=== PATIENT | male | born 1965 | race Caucasian/White ===

== ENCOUNTER 2017-03-03 00:12 | Emergency (ER) | payer OTHER ==
[~2017-03-03] VITALS: Ht 165.1 cm; Wt 73.0 kg
[~2017-03-03 00:12] MED LIST: ACET-2158 PO; ALBU18HF INH; ASPI-535 PO; ATOR10TA65 PO; CALC667C PO; CARV12.579 PO; FOLI1CAP PO; HYDR-3672 PO; ISOS30TA5 PO; LACTOBACILLUS RHAMNOSUS PO; LOSA25TA2 PO; NIFE60TA7 PO; OMEP20CA16 PO; SPIR25TA PO
[2017-03-03 00:16] VITALS: Ht 165.1 cm; Wt 73.0 kg
[2017-03-03] MEDS ORDERED: ACETAMINOPHEN 500 MG TAB PO STA (01:42)
[2017-03-03] MEDS ORDERED: ONDANSETRON (ODT) 4 MG TAB ODT STA (02:40)
--- NOTE | 2017-03-03 03:05 | ERD ---
ER Documentation Chief Complaint Date/Time DATE: 03/03/17 TIME: 02:44 Chief Complaint sp circumcision today, bleeding genital area HPI Patient is a 51-year-old male with past medical history of HTN, ESRD ( currently on dialysis M, W, F), hepatitis C, pericardial effusion, who presents emergency department with postoperative bleeding from his penis. Patient states he underwent a circumcision earlier today. Patient reports some bleeding upon discharge from the outpatient surgical center. Patient states he went home and took a shower. After taking a shower, patient noticed increased in amount of bleeding. Patient states he changed his dressing. Patient reports bright red blood. Patient also reports severe pain. Patient states he last took Frazer for his pain at 2 PM today. Patient denies any fevers or chills. Patient denies any nausea or vomiting. Patient's urologist is Dr. Sanchez. ROS All systems reviewed and are negative except as per history of present illness. Medications Home Meds Active Scripts Hydralazine Hcl* (Hydralazine Hcl*) 50 Mg Tab, 10 MG PO TID, #30 TAB Prov:JEFE VENTURA MD 12/08/14 Spironolactone* (Aldactone*) 25 Mg Tab, 12.5 MG PO DAILY, #14 Prov:JEFE VENTURA MD 12/08/14 Losartan Potassium* (Cozaar*) 25 Mg Tab, 25 MG PO HS, #14 Prov:JEFE VENTURA MD 12/08/14 [Lactobacillus Rhamnosus] 1 CAP CAP No Conflict Check, 1 CAP PO BID, #14 CAP Prov:JEFE VENTURA MD 12/08/14 Albuterol Sulfate* (Ventolin HFA*) 1 Puff Inha, 2 PUFF INH Q4 Y for SHORTNESS OF BREATH, #1 Prov:JEFE VENTURA MD 12/08/14 Acetaminophen (TYLENOL 325 MG TAB) 325 Mg Tab, 650 MG PO Q6H Y for PAIN LEVEL 1- 3 OR FEVER, #10 TAB Prov:JEFE VENTURA MD 12/08/14 Reported Medications Carvedilol* (Carvedilol*) 12.5 Mg Tablet, 12.5 MG PO BID, TAB 11/16/14 Atorvastatin Calcium (Atorvastatin Calcium) 10 Mg Tab, 10 MG PO HS, TAB 11/16/14 Folic Acid/Vitamin B Comp W-C (Nephrocaps Capsule) 1 Mg Capsule, 1 MG PO DAILY 10/18/14 Nifedipine* (Nifedipine ER*) 60 Mg Tablet.sa, 60 MG PO BID, TAB.SA 10/18/14 Calcium Acetate* (Calcium Acetate*) 667 Mg Capsule, 7835-2265 MG PO TID W/ MEALS , CAP 08/08/14 Isosorbide Mononitrate* (Isosorbide Mononitrate*) 30 Mg Tab.er.24h, 30 MG PO DAILY, TAB 08/08/14 Omeprazole* (Omeprazole*) 20 Mg Capsule.dr, 20 MG PO DAILY, CAP 07/02/14 Aspirin Ec (Aspir 81) 81 Mg Tablet.dr, 81 MG PO DAILY 12/22/12 Allergies Allergies: Coded Allergies: tramadol (Verified Allergy, Intermediate, rash, 11/26/14) possible allergy Cephalexin Monohydrate (Verified Allergy, Unknown, RASH, 11/26/14) PMhx/Soc History of Surgery: No Anesthesia Reaction: No Hx 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 Disorder: No Hx Respiratory Disorders: Yes (PNA) Hx Cardiac Disorders: Yes (HTN) Hx Psychiatric Problems: No Hx Miscellaneous Medical Probl: Yes (ESRD, DIALYSIS PT. ) Hx Alcohol Use: No Hx Substance Use: No Hx Tobacco Use: No Smoking Status: Never smoker FmHx Family History: No diabetes Physical Exam Vitals Vital Signs Date Time Temp Pulse Resp B/P Pulse Ox O2 Delivery O2 Flow Rate FiO2 03/03/17 00:16 98.2 66 20 148/66 98 Physical Exam GENERAL: Well-developed, well-nourished male. Appears in no acute distress. Speaking in full sentences. HEAD: Normocephalic, atraumatic. EYES: Pupils are equally reactive bilaterally. EOMs grossly intact. No conjunctival erythema. ENT: Moist mucous membranes. No uvula deviation. No kissing tonsils. NECK: Supple. No meningismus. Normal range of motion of the neck. LUNG: Clear to auscultation bilaterally. No rhonchi, wheezing, rales or coarse breath sounds. HEART: Regular rate and rhythm. No murmurs, rubs or gallops. ABDOMEN: No scars, ecchymosis or rashes noted. Soft, nontender, and nondistended. Positive bowel sounds in all four quadrants. No rebound tenderness , no guarding. (-) McBurney's point tenderness. No CVA tenderness. BACK: No midline tenderness. 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 Dressing removed. Post surgical reconstruction noted, penile head exposed, sutures intact circumferentially around penile head, minimal bleeding noted from posterior aspect of incisional site. 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 Penis flaccid. Penile shaft appeared swollen with ecchymosis. Normal scrotum without any masses , tenderness, swelling or erythema. EXTREMITIES: Equal pulses bilaterally. No peripheral clubbing, cyanosis or edema. No unilateral leg swelling. NEUROLOGIC: Alert and oriented. Moving all four extremities without any difficulty. Normal speech. Steady gait. SKIN: Normal color. Warm and dry. No rashes or lesions. Results 24 hrs Current Medications Medications (Trade) Dose Ordered Sig/Omar Route PRN Reason Start Time Stop Time Status Last Admin Dose Admin Acetaminophen (Tylenol Tab) 500 mg ONCE STAT PO 03/03/17 01:42 03/03/17 01:43 DC 03/03/17 01:42 Ondansetron HCl (Zofran Odt) 4 mg ONCE STAT ODT 03/03/17 02:40 03/03/17 02:41 DC 03/03/17 02:50 Procedures/MDM MEDICAL DECISION MAKING: This is a 51 year old male who presents with penile pain s/p circumcision earlier this today. Vital signs were reviewed. Patient is afebrile. Patient was not hypoxic. Patient was hemodynamically stable. Patient's dressing was removed. Minimal bleeding noted from posterior aspect of penile head. Pressure dressing was replaced. Patient was re-assessed and bleeding remained minimally. I discussed the patient's case with my supervising physician, Dr. Silva, who agreed that the patient was stable for discharge home given that bleeding appeared controlled. At this time, patient's presentation is most consistent with post-op bleeding, controlled. Patient likely irritated penile head while showering, causing increased bleeding, however with direct pressure, bleeding is improved. I have a much lower clinical concern for active hemorrhaging, penile fracture, priapism, balanitis, testicular torsion. PRESCRIPTIONS: none, patient advised to continue medication at prescribed by his urologist. Discharge: At this time, patient is stable for discharge and outpatient management. Patient advised to call Dr. Daniel GIBBONS in the morning was same day follow up appointment. I have instructed the patient to follow-up with his/her primary care physician in 1-2 days. I have instructed the patient to promptly return to the ER for any new or worsening symptoms including increased bleeding, pain, swelling, redness, warmth, fever, dizziness or vomiting. The patient and/or family expressed understanding of and agreement with this plan. All questions were answered. Home care instructions were provided. Departure Diagnosis: Primary Impression: Post-op bleeding Surgical complication system/body Area: genitourinary Procedure type: genitourinary Qualified Code: N99.820 - Postoperative hemorrhage involving genitourinary system following genitourinary procedure Condition: Stable Patient Instructions: Care After Circumcision Referrals: [facility] Additional Instructions: Call your urologist Dr. Sanchez LATER TODAY IN THE MORNING. Return to the emergency department for ongoing bleeding, fevers or chills nausea or vomiting dizziness or loss consciousness. Take pain medication as prescribed by your urologist. Call your primary care doctor TOMORROW for an appointment during the next 1-2 days.See the doctor sooner or return here if your condition worsens before your appointment time. KUNAL PAULINO PA-C March 03, 2017 03:03
== END 2017-03-03 02:52 | disposition home or self-care (01) ==
LOC: FTE 00:12
DX: N99.820 Postprocedural hemorrhage of a genitourinary system organ or structure following a genitourinary system procedure (principal); I12.0 Hypertensive chronic kidney disease with stage 5 chronic kidney disease or end stage renal disease; N18.6 End stage renal disease; Z79.82 Long term (current) use of aspirin; Z99.2 Dependence on renal dialysis
CPT/HCPCS: 99283

== ENCOUNTER 2017-03-13 14:23 | Inpatient (IN) | payer OTHER ==
[~2017-03-13] VITALS: Ht 157.5 cm; Wt 72.2 kg
[2017-03-13] MEDS ORDERED: DIPHENHYDRAMINE 50 MG INJ IV STA (14:37)
[2017-03-13] MEDS ORDERED: NITROGLYCERIN 2% 1 GM OINT PKT TD STA (14:37)
[2017-03-13] MEDS ORDERED: ONDANSETRON 4 MG INJ IV STA (14:37)
[2017-03-13] MEDS ORDERED: ASPIRIN 325 MG TAB PO STA (14:37)
[2017-03-13] MEDS ORDERED: morphine 4 MG/ML VIAL IV STA (14:37)
[2017-03-13] MEDS ORDERED: METHYLPREDNISOLONE 125 MG INJ IV STA (14:37)
[2017-03-13] MEDS ORDERED: FAMOTIDINE 20 MG INJ INJ STA (14:37)
--- NOTE | 2017-03-13 14:51 | ERA ---
ER Documentation Chief Complaint Date/Time DATE: 03/13/17 TIME: 14:46 Chief Complaint chest pain HPI 51-year-old male history of end-stage renal disease on dialysis with dialysis yesterday, complete course who presents to emergency room with multiple complaints including chest pain and itching. The patient states that he just started Keflex for mild swelling after phimosis surgery 2 weeks ago. The patient took Keflex yesterday and now woke up with a diffuse rash to abdomen and extremities that is raised, slightly urticarial and pruritic. He denies any lip or tongue swelling, no difficulty breathing, no shortness of breath. The patient also notes chest pain that started several hours ago that is pressure-like, substernal and nonradiating. No pleuritic pain, no fevers, no cough. ROS All systems reviewed and are negative except as per history of present illness. Medications Home Meds Active Scripts Hydralazine Hcl* (Hydralazine Hcl*) 50 Mg Tab, 10 MG PO TID, #30 TAB Prov:JEFE VENTURA MD 12/08/14 Spironolactone* (Aldactone*) 25 Mg Tab, 12.5 MG PO DAILY, #14 Prov:JEFE VENTURA MD 12/08/14 Losartan Potassium* (Cozaar*) 25 Mg Tab, 25 MG PO HS, #14 Prov:JEFE VENTURA MD 12/08/14 [Lactobacillus Rhamnosus] 1 CAP CAP No Conflict Check, 1 CAP PO BID, #14 CAP Prov:JEFE VENTURA MD 12/08/14 Albuterol Sulfate* (Ventolin HFA*) 1 Puff Inha, 2 PUFF INH Q4 Y for SHORTNESS OF BREATH, #1 Prov:JEFE VENTURA MD 12/08/14 Acetaminophen (TYLENOL 325 MG TAB) 325 Mg Tab, 650 MG PO Q6H Y for PAIN LEVEL 1- 3 OR FEVER, #10 TAB Prov:JEFE VENTURA MD 12/08/14 Reported Medications Carvedilol* (Carvedilol*) 12.5 Mg Tablet, 12.5 MG PO BID, TAB 11/16/14 Folic Acid/Vitamin B Comp W-C (Nephrocaps Capsule) 1 Mg Capsule, 1 MG PO DAILY 10/18/14 Nifedipine* (Nifedipine ER*) 60 Mg Tablet.sa, 60 MG PO BID, TAB.SA 10/18/14 Calcium Acetate* (Calcium Acetate*) 667 Mg Capsule, 5129-5327 MG PO TID W/ MEALS , CAP 08/08/14 Isosorbide Mononitrate* (Isosorbide Mononitrate*) 30 Mg Tab.er.24h, 30 MG PO DAILY, TAB 08/08/14 Aspirin Ec (Aspir 81) 81 Mg Tablet.dr, 81 MG PO DAILY 12/22/12 Discontinued Reported Medications Atorvastatin Calcium (Atorvastatin Calcium) 10 Mg Tab, 10 MG PO HS, TAB 11/16/14 Omeprazole* (Omeprazole*) 20 Mg Capsule.dr, 20 MG PO DAILY, CAP 07/02/14 Allergies Allergies: Coded Allergies: tramadol (Verified Allergy, Intermediate, rash, 11/26/14) possible allergy Cephalexin Monohydrate (Verified Allergy, Unknown, RASH, 11/26/14) PMhx/Soc History of Surgery: No Anesthesia Reaction: No Hx 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 Disorder: No Hx Respiratory Disorders: Yes (PNA) Hx Cardiac Disorders: Yes (HTN) Hx Psychiatric Problems: No Hx Miscellaneous Medical Probl: Yes (ESRD, DIALYSIS PT. ) Hx Alcohol Use: No Hx Substance Use: No Hx Tobacco Use: No FmHx Family History: No diabetes Physical Exam Vitals Vital Signs Date Time Temp Pulse Resp B/P Pulse Ox O2 Delivery O2 Flow Rate FiO2 03/13/17 15:30 98.1 64 14 112/67 99 Room Air 03/13/17 14:55 Nasal Cannula 2 03/13/17 14:55 98.1 69 18 107/66 98 Room Air 03/13/17 14:27 98.1 65 18 106/57 98 Physical Exam General: Well developed, well nourished, no acute distress Head: Normocephalic, atraumatic. Eyes: Pupils equally reactive, EOM intact ENT: Moist mucous membranes Neck: Supple, no lymphadenopathy Respiratory: Lungs clear bilaterally, no distress Cardiovascular: RRR, no murmurs, rubs, or gallops Abdominal: Soft, non-tender, non-distended, no peritoneal signs : Deferred MSK: No edema, no unilateral swelling, 5/5 strength, left upper extremity AV fistula with good bruit and thrill Neurologic: Alert and oriented, moving all extremities, normal speech, no focal weakness, no cerebellar signs Skin: Urticarial rash to abdomen and extremities Psych: Normal mood Result Diagram: 03/13/17 1435 03/13/17 1435 Results 24 hrs Laboratory Tests Test 03/13/17 14:35 White Blood Count 5.410^3/ul Red Blood Count 3.3910^6/ul Hemoglobin 11.0g/dl Hematocrit 33.6% Mean Corpuscular Volume 99.1fl Mean Corpuscular Hemoglobin 32.4pg Mean Corpuscular Hemoglobin Concent 32.7g/dl Red Cell Distribution Width 13.3% Platelet Count 53300^3/UL Mean Platelet Volume 9.2fl Neutrophils % 84.1% Lymphocytes % 9.5% Monocytes % 2.8% Eosinophils % 3.2% Basophils % 0.0% Nucleated Red Blood Cells % 0.0/100WBC Neutrophils # 4.510^3/ul Lymphocytes # 0.510^3/ul Monocytes # 0.210^3/ul Eosinophils # 0.210^3/ul Basophils # 0.010^3/ul Nucleated Red Blood Cells # 0.010^3/ul Prothrombin Time 14.8Sec Prothrombin Time Ratio 1.2 INR International Normalized Ratio 1.16 Activated Partial Thromboplast Time 32.3Sec Sodium Level 141mmol/L Potassium Level 5.1mmol/L Chloride Level 100mmol/L Carbon Dioxide Level 26mmol/L Anion Gap 20 Blood Urea Nitrogen 40mg/dl Creatinine 6.06mg/dl Glucose Level 99mg/dl Calcium Level 8.6mg/dl Troponin I < 0.012ng/ml Current Medications Medications (Trade) Dose Ordered Sig/Omar Route PRN Reason Start Time Stop Time Status Last Admin Dose Admin Aspirin (Aspirin) 325 mg ONCE STAT PO 03/13/17 14:37 03/13/17 14:38 DC 03/13/17 14:48 Nitroglycerin (Nitroglycerin 2% Oint) 1 inch ONCE STAT TD 03/13/17 14:37 03/13/17 14:38 DC 03/13/17 14:51 Morphine Sulfate (morphine) 4 mg ONCE STAT IV 03/13/17 14:37 03/13/17 14:39 DC 03/13/17 14:51 Ondansetron HCl (Zofran Inj) 4 mg ONCE STAT IV 03/13/17 14:37 03/13/17 14:39 DC 03/13/17 14:49 Diphenhydramine HCl (Benadryl) 50 mg ONCE STAT IV 03/13/17 14:37 03/13/17 14:39 DC 03/13/17 14:49 Famotidine (Pepcid Iv) 20 mg ONCE STAT INJ 03/13/17 14:37 03/13/17 14:39 DC 03/13/17 14:49 Methylprednisolone Sodium Succinate (Solu-Medrol) 125 mg ONCE STAT IV 03/13/17 14:37 03/13/17 14:39 DC 03/13/17 14:49 Ondansetron HCl (Zofran Inj) 4 mg ER BRIDGE PRN IV NAUSEA AND/OR VOMITING 03/13/17 16:30 03/14/17 16:29 Acetaminophen (Tylenol Tab) 650 mg ER BRIDGE PRN PO MILD PAIN/FEVER 03/13/17 16:30 03/14/17 16:29 Procedures/MDM EKG, MONITORS, & DIAGNOSTIC IMAGING: EKG: I reviewed and interpreted a 12-lead EKG. Rhythm: Normal sinus rhythm Ectopy: None Intervals: No abnormalities ST segments: No elevations or depressions T waves: No contiguous inversions Repeat EKG: EKG: I reviewed and interpreted a 12-lead EKG. Rhythm: Normal sinus rhythm Ectopy: None Intervals: No abnormalities ST segments: No elevations or depressions T waves: No contiguous inversions Chest x-ray: I reviewed and interpreted a 1 view of the chest Mediastinum: No enlargement Cardiac silhouette: No cardiomegaly Airspace: Clear lung lopez bilaterally without evidence of pneumothorax Bones: No evidence of fracture LAB INTERPRETATION: Negative troponin MEDICAL DECISION MAKING: The patient presents with 2 issues. The first is what appears to be an allergic reaction secondary to Keflex. The patient has an urticarial rash and started taking Keflex yesterday. No evidence of airway involvement. Patient will benefit from Benadryl, Pepcid, Solu-Medrol. The second issue is chest pain. The patient has a history of renal disease and is on dialysis and has chest pressure. This is concerning for cardiac etiology. Given the moderate risk profile I would recommend inpatient hospitalization. The patient is agreeable. No evidence of dissection or pulmonary embolism. ER COURSE: Aspirin, nitro, morphine provided. Benadryl, Pepcid, Solu-Medrol provided. No indication for epinephrine at this time. I would like to avoid this given the patient's concurrent chest pain. I kept the patient and/or family informed of laboratory and diagnostic imaging results throughout the emergency room course. DISPOSITION PLAN: Telemetry admission for management of chest pain and rule out of ACS CONSULTATION: Accepting care team and consultations: I discussed the current laboratory data, diagnostic imaging and emergency care provided. Admitting team: Dr. Cordova Admitting team indication: Insurance directed Departure Diagnosis: Primary Impression: Allergic reaction Qualified Code: T78.40XA - Allergic reaction, initial encounter Additional Impressions: Chest pain Qualified Code: R07.9 - Chest pain, unspecified type ESRD (end stage renal disease) Condition: Stable JESSIKA ALCALA MD March 13, 2017 14:50
[2017-03-13 14:59] LABS: ADD SCAN DIFF NO
[2017-03-13 15:01] LABS: ABNORMAL IP MESSAGE 1; EOSINOPHILS # 0.2 10^3/ul (0.0-0.5); EOSINOPHILS % 3.2 % (0.0-7.0); HEMATOCRIT 33.6 % (42.0-52.0); LYMPHOCYTES # 0.5 10^3/ul (0.8-2.9); LYMPHOCYTES % 9.5 % (15.0-51.0); MEAN CORPUSCULAR HEMOGLOBIN 32.4 pg (29.0-33.0); MEAN CORPUSCULAR HGB CONC 32.7 g/dl (32.0-37.0); MEAN CORPUSCULAR VOLUME 99.1 fl (82.0-101.0); MEAN PLATELET VOLUME 9.2 fl (7.4-10.4); MONOCYTE # 0.2 10^3/ul (0.3-0.9); MONOCYTES % 2.8 % (0.0-11.0); NEUTROPHIL # 4.5 10^3/ul (1.6-7.5); NEUTROPHILS % 84.1 % (39.0-77.0); PLATELET COUNT 142 10^3/UL (140-415); RED BLOOD COUNT 3.39 10^6/ul (4.70-6.10); RED CELL DISTRIBUTION WIDTH 13.3 % (11.5-14.5); WHITE BLOOD COUNT 5.4 10^3/ul (4.8-10.8)
[2017-03-13 15:29] LABS: INR 1.16; PROTIME 14.8 Sec (12.2-14.2); PT RATIO 1.2
[2017-03-13 15:30] LABS: PARTIAL THROMBOPLASTIN TIME 32.3 Sec (25.0-35.0)
[2017-03-13 15:31] LABS: CHLORIDE 100 mmol/L (97-110); POTASSIUM 5.1 mmol/L (3.5-5.1); SODIUM 141 mmol/L (135-144)
[2017-03-13 15:34] LABS: ANION GAP 20 (8-16); BLOOD UREA NITROGEN 40 mg/dl (7-20); CARBON DIOXIDE 26 mmol/L (21-31); CREATININE 6.06 mg/dl (0.61-1.24); GLUCOSE 99 mg/dl (70-220)
[2017-03-13 15:35] LABS: CALCIUM 8.6 mg/dl (8.4-10.2)
--- NOTE | 2017-03-13 15:47 | RADRPT ---
PROCEDURE: XR Chest. CLINICAL INDICATION: Chest Pain. TECHNIQUE: Single frontal chest x-ray. COMPARISON: 12/07/2014 FINDINGS: The lungs are clear of acute infiltrates, edema, effusions, or masses.. Cardiomegaly is unchanged.. The osseous structures are intact. IMPRESSION: No acute cardiopulmonary disease. Cardiomegaly. RPTAT: EE .Chris Baker MD, Date Time Electronically viewed and signed by .Chris Baker MD, on 03/13/2017 15:46 .L/
[2017-03-13 15:52] LABS: TROPONIN-I < 0.012 ng/ml (0.00-0.12)
[2017-03-13] MEDS ORDERED: ONDANSETRON 4 MG INJ IV PRN (16:30)
[2017-03-13] MEDS ORDERED: ACETAMINOPHEN 325 MG TAB PO PRN ×2 (16:30→19:00)
[2017-03-13] MEDS ORDERED: DIPHENHYDRAMINE 50 MG INJ IV ONE (18:00)
[2017-03-13] MEDS ORDERED: ALBUTEROL HFA 8 GM INHALER INH PRN (19:00)
[2017-03-13 19:20] VITALS: TEMP 98.4
[2017-03-13 19:44] VITALS: BP 113/59; PULSE 59; RESP 16
[2017-03-13 19:48] VITALS: BP 119/67; RESP 20
[2017-03-13 19:49] VITALS: Ht 157.5 cm; Wt 72.2 kg
[2017-03-13 20:18] VITALS: PULSE 58
[2017-03-13] MEDS: NIFEdipine (XL) 60 MG TAB PO SCH (20:37)
[2017-03-13] MEDS: LACTOBACILLUS RHAMNOSUS CAP PO SCH (20:38)
[2017-03-13] MEDS: morphine 4 MG/ML VIAL IV PRN (20:39)
[2017-03-13] MEDS ORDERED: LOSARTAN 25 MG TAB PO SCH (21:00)
[2017-03-13 21:25] LABS: ALBUMIN 3.7 g/dl (3.3-4.9)
[2017-03-13 21:27] LABS: BILIRUBIN,INDIRECT 0.1 mg/dl (0-1.1); BILIRUBIN,TOTAL 0.1 mg/dl (0.2-1.3); TOTAL PROTEIN 6.7 g/dl (6.1-8.1)
[2017-03-13 21:28] LABS: CREATINE KINASE 58 IU/L (23-200)
[2017-03-13 21:37] LABS: CK-MB 0.33 ng/ml (0.0-2.4)
[2017-03-13 21:43] LABS: TROPONIN-I < 0.012 ng/ml (0.00-0.12)
[2017-03-14] VITALS (19 sets, daily range): BP systolic 115–139; BP diastolic 58–74; PULSE 58–80; RESP 17–20
[2017-03-14] MEDS: morphine 4 MG/ML VIAL IV PRN ×5 (00:49→23:04)
[2017-03-14 04:31] LABS: ADD SCAN DIFF NO
[2017-03-14 04:34] LABS: ABNORMAL IP MESSAGE 1; EOSINOPHILS % 0.2 % (0.0-7.0); HEMATOCRIT 30.1 % (42.0-52.0); HEMOGLOBIN 9.8 g/dl (14.0-18.0); LYMPHOCYTES # 0.4 10^3/ul (0.8-2.9); LYMPHOCYTES % 8.6 % (15.0-51.0); MEAN CORPUSCULAR HEMOGLOBIN 32.6 pg (29.0-33.0); MEAN CORPUSCULAR HGB CONC 32.6 g/dl (32.0-37.0); MEAN PLATELET VOLUME 9.7 fl (7.4-10.4); MONOCYTE # 0.1 10^3/ul (0.3-0.9); MONOCYTES % 1.6 % (0.0-11.0); NEUTROPHIL # 4.5 10^3/ul (1.6-7.5); NEUTROPHILS % 89.2 % (39.0-77.0); PLATELET COUNT 109 10^3/UL (140-415); RED BLOOD COUNT 3.01 10^6/ul (4.70-6.10); RED CELL DISTRIBUTION WIDTH 13.2 % (11.5-14.5); WHITE BLOOD COUNT 5.1 10^3/ul (4.8-10.8)
--- NOTE | 2017-03-14 04:38 | HP ---
DATE OF ADMISSION: 03/13/2017 PRESENTING COMPLAINT: Rash, lower abdominal and back, of 1 day and chest pressure. HISTORY OF PRESENTING COMPLAINT: This is a 51-year-old male who has a history of end-stage renal di sease on hemodialysis who presents today mainly because of a rash that is on his lower abdomen, back , and groin area which itching all over his body and inside his throat that has been going on for a day and now chest pressure that started this morning. He does not know if both are related. He say s that he has been on antibiotics, Keflex, for about a week, which he is taking because he had a cir cumcision about a week ago. He has not had any swelling through the ____. He has not had any short ness of breath. His hemodialysis schedule is Wednesday, Wednesday, Wednesday, and his last hemodialysis w as yesterday. His hemodialysis, he says, was uneventful. He has not had any fever. He does not fe el dizzy, and he had no syncopal episodes. He has some dysuria from the procedure but denies hematu abdulkadir and denies blood in his stool. PAST MEDICAL HISTORY: 1. High blood pressure. 2. End-stage renal disease on hemodialysis. PAST SURGICAL HISTORY: He has had a recent circumcision and has had left upper extremity fistula pl acement and pericardial window placement. ALLERGIES: 1. KEFLEX NOW. 2. TRAMADOL. SOCIAL HISTORY: Denies tobacco, alcohol, or illicit drug use. FAMILY HISTORY: Noncontributory. REVIEW OF SYSTEMS: A 12-point review of system was done. Pertinent findings are as per HPI. PHYSICAL EXAMINATION: VITAL SIGNS: Temperature 98.4, pulse 59, respirations 13, blood pressure 109/64, saturations 99% on room air. GENERAL: A 51-year-old male, alert and oriented, currently in no distress. HEENT: Head is normocephalic. Pupils are equal and reactive. Mucous membranes are moist. Posteri or pharynx is clear of erythema and exudate. RESPIRATORY: Clear to auscultation. CARDIOVASCULAR: S1 and S2, no murmurs. ABDOMEN: Soft, nontender. SKIN: Did show a macular rash in the lower abdomen, groin area, and upper lower extremities. NEUROLOGIC: No focal deficits. EXTREMITIES: Left upper extremity AV fistula with good bruit and thrill. LABORATORY VALUES: I reviewed his CBC. Hemoglobin is 11, on the low side, with a neutrophilia of 8 4, but white count was normal. Chemistry: Creatinine is 6.60. His CO2 levels are somewhat low. O therwise, a basic metabolic profile was unremarkable. Creatinine 6.06, BUN is 40, anion gap is 20, otherwise unremarkable. Troponin x1 is negative. Coag profile was unremarkable. The patient is an uric. Previous drug screen that was done back in 2014 was negative for any illicit drugs. IMAGING: Chest x-ray reviewed by myself showed no acute disease, and it did show cardiomegaly. EKG did not show ST elevations. It showed a normal rate. ASSESSMENT: 1. Skin rash, likely secondary to allergic reaction from Keflex. The patient has been medicated wi th IV steroids and IV Benadryl in the ER. We will continue oral Benadryl as needed. Possible low d ose steroids if indicated. 2. Chest pain, rule out acute coronary syndrome. We will complete ACS rule out with 3 sets of trop onins. The last echocardiogram the patient had in this facility was in November of 2014, and at aliyah t time, he had a CHIRAG to evaluate fever, and no vegetations were seen. He also had Lexiscan in March of 2014 that was negative and an echocardiogram in January of 2014 that showed EF of 50% to 55%. I th ink it is warranted to repeat an echo in this patient, so I will be ordering a new one. If ____ we will get cardiology consultation. 4. Hypertension with good control on current regimen. 5. Sinus bradycardia, likely secondary to beta cricket therapy. The patient is asymptomatic. We w ill continue to monitor on telemetry. 6. End-stage renal disease on hemodialysis. Last time the patient was here, dialysis was done by Luisa Castro. I will consult him again. Further interventions will depend on clinical course. Prophylaxis will be with PPI as well as subcu taneous heparin. Plan of care has been discussed with the patient. Questions have been answered. For further information and clarification, please review the patient's chart and my orders. Dictated By: TIESHA ARELLANO MD BA/TYRA Conf#: [id number] DID#: [id number]
[2017-03-14 04:54] LABS: ALBUMIN 3.8 g/dl (3.3-4.9); CALCIUM 8.8 mg/dl (8.4-10.2); CREATINE KINASE 59 IU/L (23-200); CREATININE 6.54 mg/dl (0.61-1.24); MAGNESIUM 2.4 mg/dl (1.7-2.5); PHOSPHORUS 4.5 mg/dl (2.5-4.9)
[2017-03-14] MEDS: DIPHENHYDRAMINE 50 MG INJ IV PRN ×3 (05:14→23:04)
[2017-03-14 05:22] LABS: THYROID STIMULATING HORMONE 0.918 MIU/L (0.465-4.680)
[2017-03-14 05:27] LABS: CK-MB 0.49 ng/ml (0.0-2.4); POTASSIUM 6.9 mmol/L (3.5-5.1); TROPONIN-I < 0.012 ng/ml (0.00-0.12)
[2017-03-14] MEDS ORDERED: NA POLYST SULFON 15 GM/60 ML BTL PO STA (05:44)
[2017-03-14] MEDS ORDERED: INSULIN REGULAR 10 ML INJ SC STA (05:44)
[2017-03-14] MEDS ORDERED: DEXTROSE 50% 50 ML SYRINGE IV STA (05:44)
[2017-03-14] MEDS: LACTOBACILLUS RHAMNOSUS CAP PO SCH ×2 (08:06→20:18)
[2017-03-14] MEDS: ASPIRIN (EC) 81 MG TAB PO SCH (08:06)
[2017-03-14] MEDS: MULTIVIT/CA CARB/B CMPLX/FA TAB PO SCH (08:06)
[2017-03-14] MEDS: NIFEdipine (XL) 60 MG TAB PO SCH ×2 (08:06→20:18)
[2017-03-14] MEDS: ISOSORBIDE MONONITRATE(SR)30 MG TAB PO SCH (08:07)
[2017-03-14] MEDS ORDERED: SPIRONOLACTONE 25 MG TAB PO SCH (09:00)
[2017-03-14 10:06] LABS: ALBUMIN 3.9 g/dl (3.3-4.9)
[2017-03-14 10:09] LABS: ALBUMIN/GLOBULIN RATIO 1.44; CREATININE 7.12 mg/dl (0.61-1.24); TOTAL PROTEIN 6.6 g/dl (6.1-8.1)
[2017-03-14 10:10] LABS: CALCIUM 8.8 mg/dl (8.4-10.2)
[2017-03-14 10:11] LABS: POTASSIUM 6.8 mmol/L (3.5-5.1)
--- NOTE | 2017-03-14 10:38 | PN ---
Date/Time of Note Date/Time of Note DATE: 03/14/17 TIME: 10:32 Assessment/Plan VTE Prophylaxis VTE Prophylaxis Intervention: heparin Lines/Catheters IV C[facility]ter Type (from [facility]): Peripheral IV Urinary Cath still in place: No Assessment/Plan Assessment/Plan 1. Skin rash, likely secondary to allergic reaction from Keflex. * Improved, continue steroids, continue as needed Benadryl 2. Chest pain, rule out acute coronary syndrome. * Lexiscan in March of 2014 that was negative / echocardiogram in January of 2014 that showed EF of 50% to 55%. * Cardio consult 4. Hypertension with good control on current regimen. 5. Sinus bradycardia, likely secondary to beta cricket therapy: Beta-cricket dose reduced, bradycardia improved. 6. End-stage renal disease on hemodialysis: HD today 7. Hypokalemia likely medication induced patient will get dialysis today,: DC losartan and spironolactone. Subjective 24 Hr Interval Summary Free Text/Dictation Patient still having significant itching from rash. Also still with minimal chest pain. Exam/Review of Systems Vital Signs Vitals Vital Signs Date Time Temp Pulse Resp B/P Pulse Ox O2 Delivery O2 Flow Rate FiO2 03/14/17 08:13 77 03/14/17 07:43 98.0 18 126/74 96 03/13/17 19:44 Room Air 03/13/17 14:55 2 Intake and Output 03/13/17 03/13/17 03/14/17 15:00 23:00 07:00 Intake Total 600 ml Balance 600 ml Exam HEENT: Head is normocephalic. Pupils are equal and reactive. Mucous membranes are moist. Posterior pharynx is clear of erythema and exudate. RESPIRATORY: Clear to auscultation. CARDIOVASCULAR: S1 and S2, no murmurs. ABDOMEN: Soft, nontender. SKIN: Did show a macular rash in the lower abdomen, groin area, and upper thigh lower extremities and lower back. NEUROLOGIC: No focal deficits. EXTREMITIES: Left upper extremity AV fistula with good bruit and thrill. Results Result Diagram: 03/14/17 0303 03/14/17 0303 Results 24 hrs Laboratory Tests Test 03/13/17 14:35 03/13/17 20:45 03/14/17 03:03 03/14/17 05:42 White Blood Count 5.4 # 5.1 Red Blood Count 3.39 #L 3.01 L Hemoglobin 11.0 #L 9.8 L Hematocrit 33.6 #L 30.1 L Mean Corpuscular Volume 99.1 100.0 Mean Corpuscular Hemoglobin 32.4 32.6 Mean Corpuscular Hemoglobin Concent 32.7 32.6 Red Cell Distribution Width 13.3 13.2 Platelet Count 142 109 #L Mean Platelet Volume 9.2 # 9.7 Neutrophils % 84.1 H 89.2 H Lymphocytes % 9.5 L 8.6 L Monocytes % 2.8 1.6 Eosinophils % 3.2 0.2 Basophils % 0.0 0.0 Nucleated Red Blood Cells % 0.0 0.0 Neutrophils # 4.5 4.5 Lymphocytes # 0.5 L 0.4 L Monocytes # 0.2 L 0.1 L Eosinophils # 0.2 0.0 Basophils # 0.0 0.0 Nucleated Red Blood Cells # 0.0 0.0 Prothrombin Time 14.8 H Prothrombin Time Ratio 1.2 INR International Normalized Ratio 1.16 Activated Partial Thromboplast Time 32.3 Sodium Level 141 138 Potassium Level 5.1 6.8 *H Chloride Level 100 99 Carbon Dioxide Level 26 23 Anion Gap 20 H 23 #H Blood Urea Nitrogen 40 H 56 H Creatinine 6.06 H 7.12 H Glucose Level 99 137 Calcium Level 8.6 8.8 Troponin I < 0.012 < 0.012 < 0.012 Total Bilirubin 0.1 L 0.0 L Direct Bilirubin 0.00 0.00 Indirect Bilirubin 0.1 0.0 Aspartate Amino Transf (AST/SGOT) 28 26 Alanine Aminotransferase (ALT/SGPT) 55 46 Alkaline Phosphatase 56 59 Creatine Kinase 58 59 Creatine Kinase Index 0.6 0.8 Creatinine Kinase MB (Mass) 0.33 0.49 Total Protein 6.7 6.6 Albumin 3.7 3.9 Phosphorus Level 4.5 Magnesium Level 2.4 Globulin 2.70 Albumin/Globulin Ratio 1.44 Thyroid Stimulating Hormone (TSH) 0.918 Bedside Glucose 146 Medications Medications Current Medications Acetaminophen (Tylenol Tab) 650 mg Q6H PRN PO PAIN LEVEL 1-3 OR FEVER; Start at 19:00 Albuterol (Ventolin Hfa) 2 puff Q4H PRN INH SHORTNESS OF BREATH; Start at 19:00 Aspirin (Halfprin) 81 mg DAILY PO Last administered on 03/14/17 08:06; Admin Dose 81 MG; Start 03/14/17 at 09:00 Carvedilol (Coreg) 3.125 mg BID PO Last administered on 03/14/17 08:06; Admin Dose 3.125 MG; Start 03/13/17 at 21:00 Hydralazine HCl (Apresoline) 10 mg TID PO Last administered on 03/14/17 08:07 ; Admin Dose 10 MG; Start 03/13/17 at 21:00 Isosorbide Mononitrate (Imdur) 30 mg DAILY PO Last administered on 03/14/17 08 :07; Admin Dose 30 MG; Start 03/14/17 at 09:00 Losartan Potassium (Cozaar) 25 mg HS PO ; Start 03/13/17 at 21:00 Nifedipine (Procardia Xl) 60 mg BID PO Last administered on 03/14/17 08:06; Admin Dose 60 MG; Start 03/13/17 at 21:00 Spironolactone (Aldactone) 12.5 mg DAILY PO Last administered on 03/14/17 08: 07; Admin Dose 12.5 MG; Start 03/14/17 at 09:00 Multivit/Ca Carb/ B Cmplx/FA/Prenat (Mony-Giovanny) 1 tab DAILY PO Last administered on 03/14/17 08:06; Admin Dose 1 TAB; Start 03/14/17 at 09:00 Lactobacillus Acidophilus/ Rhamnosus (Culturelle) 1 cap BID PO Last administered on 03/14/17 08:06; Admin Dose 1 CAP; Start 03/13/17 at 21:00 Diphenhydramine HCl (Benadryl) 25 mg Q8H PRN IV itching Last administered on 05:14; Admin Dose 25 MG; Start 03/13/17 at 19:00 Morphine Sulfate (morphine) 4 mg Q4H PRN IV PAIN Last administered on 09:54; Admin Dose 4 MG; Start 03/13/17 at 20:30 TIESHA ARELLANO March 14, 2017 10:38
[2017-03-14] MEDS ORDERED: METHYLPREDNISOLONE 125 MG INJ IV ONE (14:00)
--- NOTE | 2017-03-14 16:07 | CONS ---
DATE OF ADMISSION: 03/13/2017 DATE OF CONSULTATION: 03/14/2017 REASON FOR CONSULTATION: Chest pain. HISTORY OF PRESENT ILLNESS: The patient is a 51-year-old gentleman who comes in with left-sided josh st pain radiating to the back associated with shortness of breath and palpitation. Denies orthopnea , PND. Denies dizziness or syncope. He does complain of nausea, but no vomiting. Denies fever, ch ills, or rigors. PAST MEDICAL HISTORY: Significant for: 1. History of syncope. 2. Hypertension. 3. End-stage renal disease on hemodialysis. SOCIAL HISTORY: No smoking, alcohol, or recreational drugs. ALLERGIES: 1. CEPHALEXIN. 2. TRAMADOL. CURRENT MEDICATIONS: 1. Coreg. 2. Procardia. 3. Aspirin. 4. Imdur. 5. Aldactone. 6. Losartan. 7. Hydralazine. REVIEW OF SYSTEMS: Unremarkable except that mentioned in the HPI. PHYSICAL EXAMINATION: VITAL SIGNS: Temperature is 98, heart rate of 76, blood pressure 126/74 mmHg, breathing at 18, and saturating 96%. GENERAL: The patient awake, alert, oriented. No apparent distress. NECK: No JVD or carotid bruit. CARDIOVASCULAR: Regular rate and rhythm. There is a systolic murmur heard at the lower sternal bor [place] and second left upper intercostal space. LUNGS: Clear to auscultation. ABDOMEN: Soft. Bowel sounds are present. There is no organomegaly. EXTREMITIES: No pedal edema. Pedal pulses are felt bilaterally. DIAGNOSTIC DATA: Review of 12-lead EKG shows normal sinus rhythm with a ventricular rate of 73 beat s per minute with normal MS, normal QRS, and normal QT intervals. IMAGING: Chest x-ray shows no congestion or infiltrates. LABORATORY DATA: WBC of 5.1, hemoglobin 9.8, hematocrit 30.1 with a platelet of 109. Sodium 138, p otassium 6.8, chloride 99, CO2 of 23, BUN 56, creatinine is 7.12. Troponin x3 is negative. ASSESSMENT AND PLAN: A 51-year-old gentleman with: 1. Atypical chest pain. 2. Hypertension. 3. History of syncope. 4. End-stage renal disease on hemodialysis. 5. Skin rash. 6. Anemia of chronic disease. Review of 12-lead EKG shows normal sinus rhythm with no acute ST-T wave changes and he has been rule d out for acute coronary syndrome with serial negative troponins. He is currently hemodynamically stable; however, he is hyperkalemic with a potassium of 6.8. RECOMMENDATIONS: 1. Recommend hemodialysis stat. 2. Echocardiogram to assess for pulmonary hypertension and rule out for pericardial disease. He juarez s a murmur consistent with tricuspid regurgitation and pulmonary hypertension. 3. Continue Coreg and Procardia. 4. Continue Imdur. 5. Continue Aldactone. 6. Continue losartan. 7. Continue hydralazine as scheduled. Dictated By: DORIS ROSENBERG MD SR/NTS Conf#: [id number] DID#: [id number] CC: TIESHA ARELLANO MD;*[facility]*
--- NOTE | 2017-03-14 16:17 | CONS ---
Date/Time of Note Date/Time of Note DATE: 03/14/17 TIME: 16:14 Assessment/Plan Assessment/Plan Chief Complaint/Hosp Course 547955 ESRD HYPERKALEMIA HTN SKIN RASH KEFLEX ALLERGY PLAN DC AEB AND ALDACTONE HD Problems: Consultation Date/Type/Reason Admit Date/Time March 13, 2017 at 16:06 Initial Consult Date Type of Consultation: renal 24 HR Interval Summary Constitutional: chills, diaphoresis, no complaints Exam/Review of Systems Vital Signs Vitals Vital Signs Date Time Temp Pulse Resp B/P Pulse Ox O2 Delivery O2 Flow Rate FiO2 03/14/17 15:15 72 03/14/17 12:45 19 03/14/17 11:35 98.2 136/66 95 03/13/17 19:44 Room Air 03/13/17 14:55 2 Intake and Output 03/13/17 03/13/17 03/14/17 15:00 23:00 07:00 Intake Total 600 ml Balance 600 ml Results Result Diagram: 03/14/17 0303 03/14/17 0303 Results 24 hrs Laboratory Tests Test 03/13/17 20:45 03/14/17 03:03 03/14/17 05:42 Total Bilirubin 0.1 L 0.0 L Direct Bilirubin 0.00 0.00 Indirect Bilirubin 0.1 0.0 Aspartate Amino Transf (AST/SGOT) 28 26 Alanine Aminotransferase (ALT/SGPT) 55 46 Alkaline Phosphatase 56 59 Creatine Kinase 58 59 Creatine Kinase Index 0.6 0.8 Creatinine Kinase MB (Mass) 0.33 0.49 Troponin I < 0.012 < 0.012 Total Protein 6.7 6.6 Albumin 3.7 3.9 White Blood Count 5.1 Red Blood Count 3.01 L Hemoglobin 9.8 L Hematocrit 30.1 L Mean Corpuscular Volume 100.0 Mean Corpuscular Hemoglobin 32.6 Mean Corpuscular Hemoglobin Concent 32.6 Red Cell Distribution Width 13.2 Platelet Count 109 #L Mean Platelet Volume 9.7 Neutrophils % 89.2 H Lymphocytes % 8.6 L Monocytes % 1.6 Eosinophils % 0.2 Basophils % 0.0 Nucleated Red Blood Cells % 0.0 Neutrophils # 4.5 Lymphocytes # 0.4 L Monocytes # 0.1 L Eosinophils # 0.0 Basophils # 0.0 Nucleated Red Blood Cells # 0.0 Sodium Level 138 Potassium Level 6.8 *H Chloride Level 99 Carbon Dioxide Level 23 Anion Gap 23 #H Blood Urea Nitrogen 56 H Creatinine 7.12 H Glucose Level 137 Calcium Level 8.8 Phosphorus Level 4.5 Magnesium Level 2.4 Globulin 2.70 Albumin/Globulin Ratio 1.44 Thyroid Stimulating Hormone (TSH) 0.918 Bedside Glucose 146 Medications Medications Current Medications Acetaminophen (Tylenol Tab) 650 mg Q6H PRN PO PAIN LEVEL 1-3 OR FEVER; Start at 19:00 Albuterol (Ventolin Hfa) 2 puff Q4H PRN INH SHORTNESS OF BREATH; Start at 19:00 Aspirin (Halfprin) 81 mg DAILY PO Last administered on 03/14/17 08:06; Admin Dose 81 MG; Start 03/14/17 at 09:00 Carvedilol (Coreg) 3.125 mg BID PO Last administered on 03/14/17 08:06; Admin Dose 3.125 MG; Start 03/13/17 at 21:00 Hydralazine HCl (Apresoline) 10 mg TID PO Last administered on 03/14/17 08:07 ; Admin Dose 10 MG; Start 03/13/17 at 21:00 Isosorbide Mononitrate (Imdur) 30 mg DAILY PO Last administered on 03/14/17 08 :07; Admin Dose 30 MG; Start 03/14/17 at 09:00 Nifedipine (Procardia Xl) 60 mg BID PO Last administered on 03/14/17 08:06; Admin Dose 60 MG; Start 03/13/17 at 21:00 Multivit/Ca Carb/ B Cmplx/FA/Prenat (Mony-Giovanny) 1 tab DAILY PO Last administered on 03/14/17 08:06; Admin Dose 1 TAB; Start 03/14/17 at 09:00 Lactobacillus Acidophilus/ Rhamnosus (Culturelle) 1 cap BID PO Last administered on 03/14/17 08:06; Admin Dose 1 CAP; Start 03/13/17 at 21:00 Diphenhydramine HCl (Benadryl) 25 mg Q8H PRN IV itching Last administered on 05:14; Admin Dose 25 MG; Start 03/13/17 at 19:00 Morphine Sulfate (morphine) 4 mg Q4H PRN IV PAIN Last administered on t 09:54; Admin Dose 4 MG; Start 03/13/17 at 20:30 Heparin Sodium (Porcine) (Heparin (5000 Units/0.5 ml)) 5,000 unit BID SC ; Start 03/14/17 at 21:00 Prednisone (Prednisone) 40 mg DAILY PO ; Start 03/15/17 at 09:00; Stop 03/18/17 at 08:59 LANDON MARMOLEJO MD March 14, 2017 16:17
--- NOTE | 2017-03-14 17:18 | RADRPT ---
Echocardiogram Report Patient Name: LUCY AMAYA Gender: Male Date: 1965 Study Date: 14-Mar-2017 Director Of National Sales: [facility] Location: 5560 Ref. Physician: TIESHA ARELLANO Quality: Adequate Procedures: Transthoracic echocardiogram with complete 2D, M-Mode, and doppler examination. Indications: Chest Pain. 2D/M Mode Doppler Measurement Value Normal Ranges Measurement Value Normal Ranges LVIDd 2D 5.8 3.5 - 5.6 cm AV Peak David 1.9 m/sec LVIDs 2D 4.3 2.1 - 4.1 cm AV Peak PG 14.7 mmHg LVPWd 2D 1.1 0.6 - 1.1 cm LVOT Peak David 0.9 m/sec IVSd 2D 1.1 0.6 - 1.1 cm LVOT Peak PG 3.1 mmHg AoR Diam 2D 3.4 2.0 - 3.7 cm MV E Peak David 1.1 m/sec EDV 2D 166.6 cm3 MV A Peak David 0.7 m/sec ESV 2D 76.9 cm3 MV E/A 1.5 LA Dimen 2D 4.5 2.3 - 4.0 cm MV Decel Time 235 msec MV Decel [place] 4 MV E/A 1.5 TR Peak David 2.9 m/sec TR Peak PG 34.8 mmHg RVSP 38.0 mmHg Findings Left Ventricle: Normal left ventricular systolic function. Left ventricular wall thickness upper limits of normal. Ejection fraction is visually estimated at 60 %. Abnormal Diastolic Function. Right Ventricle: Normal right ventricular size. Normal right ventricular systolic function. Left Atrium: There is mild enlargement of left atrium. Right Atrium: The right atrium is normal in size. Mitral Valve: Mitral valve leaflets appear mildly thickened. Mild mitral leaflet calcification. Trace mitral regurgitation. Aortic Valve: No significant aortic stenosis or insufficiency. Right coronary cusp appears mildly calcified. Tricuspid Valve: Tricuspid valve not well visualized. Estimated peak PA systolic pressure 38 mmHg. There is mild tricuspid regurgitation. Pulmonic Valve: There is trace pulmonic regurgitation. Pericardium: Normal pericardium with no significant pericardial effusion. Aorta: Normal aortic root. IVC: Normal size and normal respiratory collapse consistent with normal right atrial pressure. Conclusions Normal left ventricular systolic function. Left ventricular wall thickness upper limits of normal. Ejection fraction is visually estimated at 60 %. Abnormal Diastolic Function. Normal right ventricular size. Normal right ventricular systolic function. Mitral valve leaflets appear mildly thickened. Mild mitral leaflet calcification. Trace mitral regurgitation. No significant aortic stenosis or insufficiency. Right coronary cusp appears mildly calcified. Tricuspid valve not well visualized. Estimated peak PA systolic pressure 38 mmHg. There is mild tricuspid regurgitation. Mild Pulmonary Hypertension. Normal pericardium with no significant pericardial effusion. Electronically Signed By: Anshu Perez 14-Mar-2017 17:17:33 -0700 Patient Name: LUCY AMAYA Study Date: 14-Mar-2017 [id number]
--- NOTE | 2017-03-14 17:50 | CONS ---
DATE OF ADMISSION: 03/13/2017 DATE OF CONSULTATION: TYPE OF CONSULTATION: Nephrology. Thank you, Dr. Arellano, for kindly asking me to see this patient in nephrology consultation. HISTORY OF PRESENT ILLNESS: The patient is a 51-year-old male who has a history of ESRD, hypertension, history of ascites in the past who presented to this hospital with complaints of rash all over the body, itchiness, weakness. The patient just started to take Keflex due to patient underwent circumcision, as per the patient's and patient. The patient noted to have a drug reaction and he is admitted for further management. 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 ALLERGY HISTORY: 1. KEFLEX. 2. cephalosporin 3. TRAMADOL. SOCIAL HISTORY: Negative. FAMILY HISTORY: Negative. MEDICATION HISTORY: The patient's home medicines listed as: 1. Tylenol. 2. Aspirin. 3. PhosLo. 4. Coreg. 5. Folic acid. 6. Hydralazine. 7. Isosorbide. 8. Losartan. 9. Nifedipine. 10. Aldactone. 11. Lactobacillus. The patient does not take Aldactone at this point, as per patient. REVIEW OF SYSTEMS: INTEGUMENT: Positive for skin rash, as mentioned. HEENT: Unremarkable. RESPIRATORY: Unremarkable. CARDIOVASCULAR: Unremarkable. ABDOMEN: Complaining of diffuse rash all over the body. EXTREMITIES: Complaining of hyperpigmentation of the lower extremities. PHYSICAL EXAMINATION: GENERAL: The patient is awake and alert. VITAL SIGNS: Pulse 75, blood pressure 136/56. HEAD: Atraumatic, normocephalic. Pupils equal, reactive to light. No pallor or conjunctival icterus. NECK: Supple. No JVD. LUNGS: Clear. CARDIOVASCULAR: S1, S2 are normal. ABDOMEN: Soft. Bowel sounds present. No palpable mass or hepatosplenomegaly. EXTREMITIES: There is no cyanosis, clubbing, or edema. Trace hyperpigmentation noted of both lower extremities. SKIN: Has diffuse skin rash noted. LABORATORY DATA: Hematocrit 30.1. The patient's potassium earlier 5.1, repeat is 6.8. BUN 56, creatinine 7.12. IMPRESSION: 1. The patient has drug reaction. 2. Skin rash. 3. Hyperkalemia, possibly worsened by endstage renal disease and also Aldactone and Cozaar. 4. The patient has history of hepatitis C. 5. History of ESRD. 6. History of anemia. 7. The patient has atherosclerotic heart disease. 8. The patient has anemia. PLAN: At this point is to give this patient low salt diet, low potassium diet. The patient's Aldactone and Cozaar will be discontinued. The patient's hemodialysis has been ordered for today and tomorrow. Thank you, Dr. Rachel Arellano, for kindly asking me to see this patient in nephrology consultation. Dictated By: LANDON MARMOLEJO MD BS/NTS Conf#: [id number] DID#: [id number] CC: RACHEL ARELLANO MD;*End[facility]* MTDD
[2017-03-14] MEDS ORDERED: TRIAMCINOLONE ACET 0.1% 15 GM CR TOP PRN (18:00)
[2017-03-14] MEDS: HEPARIN 5,000 UNIT/0.5 ML VIAL SC SCH (20:22)
[2017-03-15] VITALS (22 sets, daily range): BP systolic 122–197; BP diastolic 57–89; PULSE 38–82; RESP 18–62
[2017-03-15] MEDS: ISOSORBIDE MONONITRATE(SR)30 MG TAB PO SCH (07:55)
[2017-03-15] MEDS: NIFEdipine (XL) 60 MG TAB PO SCH ×2 (07:56→20:33)
[2017-03-15] MEDS: LACTOBACILLUS RHAMNOSUS CAP PO SCH ×2 (07:57→20:33)
[2017-03-15] MEDS: MULTIVIT/CA CARB/B CMPLX/FA TAB PO SCH (07:57)
[2017-03-15] MEDS: ASPIRIN (EC) 81 MG TAB PO SCH (07:57)
[2017-03-15] MEDS: predniSONE 20 MG TAB PO SCH (07:57)
[2017-03-15] MEDS: morphine 4 MG/ML VIAL IV PRN ×3 (07:57→23:16)
[2017-03-15] MEDS: HEPARIN 5,000 UNIT/0.5 ML VIAL SC SCH ×2 (07:59→20:35)
[2017-03-15] MEDS ORDERED: predniSONE 20 MG TAB PO SCH (09:00)
[2017-03-15 10:39] LABS: ADD SCAN DIFF NO
[2017-03-15 11:07] LABS: ALBUMIN 3.7 g/dl (3.3-4.9); CALCIUM 8.3 mg/dl (8.4-10.2); CREATININE 5.33 mg/dl (0.61-1.24); PHOSPHORUS 7.1 mg/dl (2.5-4.9); POTASSIUM 4.7 mmol/L (3.5-5.1)
[2017-03-15 11:08] LABS: BASOPHILS % 0.2 % (0.0-2.0); EOSINOPHILS # 0.1 10^3/ul (0.0-0.5); EOSINOPHILS % 1.3 % (0.0-7.0); HEMATOCRIT 29.4 % (42.0-52.0); HEMOGLOBIN 9.6 g/dl (14.0-18.0); LYMPHOCYTES # 0.6 10^3/ul (0.8-2.9); LYMPHOCYTES % 9.8 % (15.0-51.0); MEAN CORPUSCULAR HEMOGLOBIN 32.9 pg (29.0-33.0); MEAN CORPUSCULAR HGB CONC 32.7 g/dl (32.0-37.0); MEAN CORPUSCULAR VOLUME 100.7 fl (82.0-101.0); MEAN PLATELET VOLUME 9.4 fl (7.4-10.4); MONOCYTE # 0.3 10^3/ul (0.3-0.9); MONOCYTES % 4.4 % (0.0-11.0); NEUTROPHIL # 5.1 10^3/ul (1.6-7.5); PLATELET COUNT 118 10^3/UL (140-415); RED BLOOD COUNT 2.92 10^6/ul (4.70-6.10); RED CELL DISTRIBUTION WIDTH 13.1 % (11.5-14.5); WHITE BLOOD COUNT 6.1 10^3/ul (4.8-10.8)
[2017-03-15] MEDS: DIPHENHYDRAMINE 50 MG INJ IV PRN ×2 (12:23→23:16)
[2017-03-15] MEDS ORDERED: HYDR-3672 PO (14:36)
[2017-03-15] MEDS ORDERED: CARV3.1260 PO (14:36)
[2017-03-15] MEDS ORDERED: MED4DP PO (14:36)
--- NOTE | 2017-03-15 14:44 | DS ---
Date/Time of Note Date/Time of Note DATE: 03/15/17 TIME: 14:36 Discharge Summary Admission/Discharge Info Admit Date/Time March 13, 2017 at 16:06 Discharge Date/Time Final Diagnosis 1. Skin rash, secondary to allergic reaction from Keflex. resolving, medrol dose pack 2. Chest pain, atypical with recent negative stress test, follow up with cardiology outpatient 3. Hypertension, controlled 5. Sinus bradycardia, likely secondary to beta cricket therapy: Beta-cricket dose reduced, bradycardia improved. 6. End-stage renal disease on hemodialysis: HD as scheduled 7. Hyperkalemia likely medication induced patient will get dialysis today,: DC losartan and spironolactone. Patient Condition: Stable Hospital Course This is a 51-year-old male who has a history of end-stage renal disease on hemodialysis who presents today mainly because of a rash that is on his lower abdomen, back, and groin area which itching all over his body and inside his throat that has been going on for a day and now chest pressure that started this morning. He does not know if both are related. He says that he has been on antibiotics, Keflex, for about a week, which he is taking because he had a circumcision about a week ago. He has not had any swelling through the ____. He has not had any shortness of breath. His hemodialysis schedule is Wednesday, Wednesday, Wednesday, and his last hemodialysis was yesterday. His hemodialysis, he says, was uneventful. He has not had any fever. He does not feel dizzy, and he had no syncopal episodes. He has some dysuria from the procedure but denies hematuria and denies blood in his stool. Physical exam with macular rashes in the lower abdomen, groin area, and upper lower extremities. The rashes are coinsidered keflex allergic reaction. He is given prednisone and benadryl, symptoms improving. Patient will be discharged on Medrol dose pack and instructed that he had keflex allergy that needs to be avoid in the future. The chest pain is atypical and he has negative stress test recently. Troponin is negative. Follow up with cardiology outpatient. Home Meds Active Scripts Methylprednisolone* (Medrol* DOSE PACK) 4 Mg/Dose-Pack Tab.ds.pk, 4 MG PO . DIRECTED, #1 PACKET Prov:KAMRAN ZHANG MD 03/15/17 Carvedilol* (Carvedilol*) 3.125 Mg Tablet, 3.125 MG PO BID for 30 Days, TAB Prov:KAMRAN ZHANG MD 03/15/17 Hydralazine Hcl* (Hydralazine Hcl*) 50 Mg Tab, 50 MG PO Q8, #90 TAB Prov:KAMRAN ZHANG MD 03/15/17 [Lactobacillus Rhamnosus] 1 CAP CAP No Conflict Check, 1 CAP PO BID, #14 CAP Prov:JEFE VENTURA MD 12/08/14 Albuterol Sulfate* (Ventolin HFA*) 1 Puff Inha, 2 PUFF INH Q4 Y for SHORTNESS OF BREATH, #1 Prov:JEFE VENTURA MD 12/08/14 Acetaminophen (TYLENOL 325 MG TAB) 325 Mg Tab, 650 MG PO Q6H Y for PAIN LEVEL 1- 3 OR FEVER, #10 TAB Prov:JEFE VENTURA MD 12/08/14 Reported Medications Folic Acid/Vitamin B Comp W-C (Nephrocaps Capsule) 1 Mg Capsule, 1 MG PO DAILY 10/18/14 Nifedipine* (Nifedipine ER*) 60 Mg Tablet.sa, 60 MG PO BID, TAB.SA 10/18/14 Calcium Acetate* (Calcium Acetate*) 667 Mg Capsule, 3790-7989 MG PO TID W/ MEALS , CAP 08/08/14 Isosorbide Mononitrate* (Isosorbide Mononitrate*) 30 Mg Tab.er.24h, 30 MG PO DAILY, TAB 08/08/14 Aspirin Ec (Aspir 81) 81 Mg Tablet.dr, 81 MG PO DAILY 12/22/12 Discontinued Reported Medications Carvedilol* (Carvedilol*) 12.5 Mg Tablet, 12.5 MG PO BID, TAB 11/16/14 Atorvastatin Calcium (Atorvastatin Calcium) 10 Mg Tab, 10 MG PO HS, TAB 11/16/14 Omeprazole* (Omeprazole*) 20 Mg Capsule.dr, 20 MG PO DAILY, CAP 07/02/14 Discontinued Scripts Hydralazine Hcl* (Hydralazine Hcl*) 50 Mg Tab, 10 MG PO TID, #30 TAB Prov:JEFE VENTURA MD 12/08/14 Spironolactone* (Aldactone*) 25 Mg Tab, 12.5 MG PO DAILY, #14 Prov:JEFE VENTURA MD 12/08/14 Losartan Potassium* (Cozaar*) 25 Mg Tab, 25 MG PO HS, #14 Prov:JEFE VENTURA MD 12/08/14 Follow-up Plan PCP in one week cardiology one week Primary Care Provider Kimmy Gómez Pending Labs Laboratory Tests Test 03/15/17 10:01 White Blood Count 6.110^3/ul (4.8-10.8) Red Blood Count 2.9210^6/ul (4.70-6.10) Hemoglobin 9.6g/dl (14.0-18.0) Hematocrit 29.4% (42.0-52.0) Mean Corpuscular Volume 100.7fl (82.0-101.0) Mean Corpuscular Hemoglobin 32.9pg (29.0-33.0) Mean Corpuscular Hemoglobin Concent 32.7g/dl (32.0-37.0) Red Cell Distribution Width 13.1% (11.5-14.5) Platelet Count 36498^3/UL (140-415) Mean Platelet Volume 9.4fl (7.4-10.4) Neutrophils % 84.0% (39.0-77.0) Lymphocytes % 9.8% (15.0-51.0) Monocytes % 4.4% (0.0-11.0) Eosinophils % 1.3% (0.0-7.0) Basophils % 0.2% (0.0-2.0) Nucleated Red Blood Cells % 0.0/100WBC (0.0-0.0) Neutrophils # 5.110^3/ul (1.6-7.5) Lymphocytes # 0.610^3/ul (0.8-2.9) Monocytes # 0.310^3/ul (0.3-0.9) Eosinophils # 0.110^3/ul (0.0-0.5) Basophils # 0.010^3/ul (0.0-0.1) Nucleated Red Blood Cells # 0.010^3/ul (0.0-0.0) Sodium Level 138mmol/L (135-144) Potassium Level 4.7mmol/L (3.5-5.1) Chloride Level 100mmol/L (97-110) Carbon Dioxide Level 29mmol/L (21-31) Anion Gap 14 (8-16) Blood Urea Nitrogen 39mg/dl (7-20) Creatinine 5.33mg/dl (0.61-1.24) Glucose Level 130mg/dl (70-220) Calcium Level 8.3mg/dl (8.4-10.2) Phosphorus Level 7.1mg/dl (2.5-4.9) Albumin 3.7g/dl (3.3-4.9) KAMRAN ZHANG MD March 15, 2017 14:44
--- NOTE | 2017-03-15 22:45 | CONS ---
Date/Time of Note Date/Time of Note DATE: 03/15/17 TIME: 22:44 Assessment/Plan Assessment/Plan Chief Complaint/Hosp Course ESRD HYPERKALEMIA HTN SKIN RASH KEFLEX ALLERGY PLAN inc bp meds HD Problems: Consultation Date/Type/Reason Admit Date/Time March 13, 2017 at 16:06 Type of Consultation: renal 24 HR Interval Summary Constitutional: no complaints Exam/Review of Systems Vital Signs Vitals Vital Signs Date Time Temp Pulse Resp B/P Pulse Ox O2 Delivery O2 Flow Rate FiO2 03/15/17 21:13 98.1 50 18 197/86 100 03/13/17 19:44 Room Air 03/13/17 14:55 2 Intake and Output 03/14/17 03/14/17 03/15/17 14:59 22:59 06:59 Intake Total 1020 ml 480 ml Output Total 2000 ml Balance -980 ml 480 ml Exam Respiratory: clear to auscultation Cardiovascular: regular rate and rhythm Gastrointestinal: soft Musculoskeletal: nl extremities to inspection Results Result Diagram: 03/15/17 1001 03/15/17 1001 Results 24 hrs Laboratory Tests Test 03/15/17 10:01 White Blood Count 6.1 Red Blood Count 2.92 L Hemoglobin 9.6 L Hematocrit 29.4 L Mean Corpuscular Volume 100.7 Mean Corpuscular Hemoglobin 32.9 Mean Corpuscular Hemoglobin Concent 32.7 Red Cell Distribution Width 13.1 Platelet Count 118 L Mean Platelet Volume 9.4 Neutrophils % 84.0 H Lymphocytes % 9.8 L Monocytes % 4.4 Eosinophils % 1.3 Basophils % 0.2 Nucleated Red Blood Cells % 0.0 Neutrophils # 5.1 Lymphocytes # 0.6 L Monocytes # 0.3 Eosinophils # 0.1 Basophils # 0.0 Nucleated Red Blood Cells # 0.0 Sodium Level 138 Potassium Level 4.7 # Chloride Level 100 Carbon Dioxide Level 29 Anion Gap 14 # Blood Urea Nitrogen 39 #H Creatinine 5.33 H Glucose Level 130 Calcium Level 8.3 L Phosphorus Level 7.1 #H Albumin 3.7 Medications Medications Current Medications Acetaminophen (Tylenol Tab) 650 mg Q6H PRN PO PAIN LEVEL 1-3 OR FEVER; Start at 19:00 Albuterol (Ventolin Hfa) 2 puff Q4H PRN INH SHORTNESS OF BREATH; Start at 19:00 Aspirin (Halfprin) 81 mg DAILY PO Last administered on 03/15/17 07:57; Admin Dose 81 MG; Start 03/14/17 at 09:00 Carvedilol (Coreg) 3.125 mg BID PO Last administered on 03/15/17 20:33; Admin Dose 3.125 MG; Start 03/13/17 at 21:00 Hydralazine HCl (Apresoline) 10 mg TID PO Last administered on 03/15/17 20:33 ; Admin Dose 10 MG; Start 03/13/17 at 21:00 Isosorbide Mononitrate (Imdur) 30 mg DAILY PO Last administered on 03/14/17 08 :07; Admin Dose 30 MG; Start 03/14/17 at 09:00 Nifedipine (Procardia Xl) 60 mg BID PO Last administered on 03/15/17 20:33; Admin Dose 60 MG; Start 03/13/17 at 21:00 Multivit/Ca Carb/ B Cmplx/FA/Prenat (Mony-Giovanny) 1 tab DAILY PO Last administered on 03/15/17 07:57; Admin Dose 1 TAB; Start 03/14/17 at 09:00 Lactobacillus Acidophilus/ Rhamnosus (Culturelle) 1 cap BID PO Last administered on 03/15/17 20:33; Admin Dose 1 CAP; Start 03/13/17 at 21:00 Morphine Sulfate (morphine) 4 mg Q4H PRN IV PAIN Last administered on 12:20; Admin Dose 4 MG; Start 03/13/17 at 20:30 Heparin Sodium (Porcine) (Heparin (5000 Units/0.5 ml)) 5,000 unit BID SC Last administered on 03/15/17 07:59; Admin Dose 5,000 UNIT; Start 03/14/17 at 21:00 Diphenhydramine HCl (Benadryl) 25 mg Q6 PRN IV itching Last administered on 12:23; Admin Dose 25 MG; Start 03/14/17 at 18:00 Triamcinolone Acetonide (Kenalog 0.1% Cr) 1 applic TID PRN TOP itching Last administered on 03/14/17 20:18; Admin Dose 1 APPLIC; Start 5/21/17 at 18:00 Prednisone (Prednisone) 60 mg DAILY PO Last administered on 03/15/17t 07:57; Admin Dose 60 MG; Start 03/15/17 at 09:00 LANDON MARMOLEJO MD March 15, 2017 22:44
--- NOTE | 2017-03-15 23:14 | CONS ---
Date/Time of Note Date/Time of Note DATE: 03/15/17 TIME: 23:10 Assessment/Plan Assessment/Plan Chief Complaint/Hosp Course Imp: 1. Chest pain.-negative troponin x 3/NL EF by echo this admit 2. Hypertension-uncontrolled 3. History of syncope. 4. End-stage renal disease on hemodialysis. 5. Skin rash. 6. Anemia of chronic disease 7. Bradycardia.- S Naseem to 40-Nl TSH Recc: -Tele -serial ecg;s -D/C coireg giveb sig bradycardia -Continue procardia and increase hydralazine -HD for volume removal -Follow K closely Problems: Consultation Date/Type/Reason Admit Date/Time March 13, 2017 at 16:06 Initial Consult Date 03/14/2017 Type of Consultation: Cardiology Reason for Consultation CHest pain Referring Provider: WENDY VALIENTE Exam/Review of Systems Vital Signs Vitals Vital Signs Date Time Temp Pulse Resp B/P Pulse Ox O2 Delivery O2 Flow Rate FiO2 03/15/17 21:13 98.1 50 18 197/86 100 03/13/17 19:44 Room Air 03/13/17 14:55 2 Intake and Output 03/14/17 03/14/17 03/15/17 15:00 23:00 07:00 Intake Total 1020 ml 480 ml Output Total 2000 ml Balance -980 ml 480 ml Exam Review of Systems: CONSTITUTIONAL: No fevers, chills. PULMONARY: No sob CARDIOVASCULAR: intermittent chest pain GASTROINTESTINAL: No nausea/vomiting. GENITOURINARY: No hematuria/dysuria. MUSCULOSKELETAL: No myagias/arthalgias. PSYCHIATRIC: The patient denies depression. NEUROLOGIC: No weakness Constitutional: alert Psych: no complaints Head: normocephalic ENMT: mucosa pink and moist Neck: jvd (9 cm water), supple Respiratory: diminished breath sounds (at bases/B) Cardiovascular: other (bradycardia, regular rhythm) Gastrointestinal: non-tender, soft Musculoskeletal: muscle tone (normal) Extremities: edema (none) 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: other (No focal deficits) Results Result Diagram: 03/15/17 1001 03/15/17 1001 Results 24 hrs Laboratory Tests Test 03/15/17 10:01 White Blood Count 6.1 Red Blood Count 2.92 L Hemoglobin 9.6 L Hematocrit 29.4 L Mean Corpuscular Volume 100.7 Mean Corpuscular Hemoglobin 32.9 Mean Corpuscular Hemoglobin Concent 32.7 Red Cell Distribution Width 13.1 Platelet Count 118 L Mean Platelet Volume 9.4 Neutrophils % 84.0 H Lymphocytes % 9.8 L Monocytes % 4.4 Eosinophils % 1.3 Basophils % 0.2 Nucleated Red Blood Cells % 0.0 Neutrophils # 5.1 Lymphocytes # 0.6 L Monocytes # 0.3 Eosinophils # 0.1 Basophils # 0.0 Nucleated Red Blood Cells # 0.0 Sodium Level 138 Potassium Level 4.7 # Chloride Level 100 Carbon Dioxide Level 29 Anion Gap 14 # Blood Urea Nitrogen 39 #H Creatinine 5.33 H Glucose Level 130 Calcium Level 8.3 L Phosphorus Level 7.1 #H Albumin 3.7 Medications Medications Current Medications Acetaminophen (Tylenol Tab) 650 mg Q6H PRN PO PAIN LEVEL 1-3 OR FEVER; Start at 19:00 Albuterol (Ventolin Hfa) 2 puff Q4H PRN INH SHORTNESS OF BREATH; Start at 19:00 Aspirin (Halfprin) 81 mg DAILY PO Last administered on 03/15/17 07:57; Admin Dose 81 MG; Start 03/14/17 at 09:00 Carvedilol (Coreg) 3.125 mg BID PO Last administered on 03/15/17 20:33; Admin Dose 3.125 MG; Start 03/13/17 at 21:00 Isosorbide Mononitrate (Imdur) 30 mg DAILY PO Last administered on 03/14/17 08 :07; Admin Dose 30 MG; Start 03/14/17 at 09:00 Nifedipine (Procardia Xl) 60 mg BID PO Last administered on 03/15/17 20:33; Admin Dose 60 MG; Start 03/13/17 at 21:00 Multivit/Ca Carb/ B Cmplx/FA/Prenat (Mony-Giovanny) 1 tab DAILY PO Last administered on 03/15/17 07:57; Admin Dose 1 TAB; Start 03/14/17 at 09:00 Lactobacillus Acidophilus/ Rhamnosus (Culturelle) 1 cap BID PO Last administered on 03/15/17 20:33; Admin Dose 1 CAP; Start 03/13/17 at 21:00 Morphine Sulfate (morphine) 4 mg Q4H PRN IV PAIN Last administered on 12:20; Admin Dose 4 MG; Start 03/13/17 at 20:30 Heparin Sodium (Porcine) (Heparin (5000 Units/0.5 ml)) 5,000 unit BID SC Last administered on 03/15/17 07:59; Admin Dose 5,000 UNIT; Start 03/14/17 at 21:00 Diphenhydramine HCl (Benadryl) 25 mg Q6 PRN IV itching Last administered on 12:23; Admin Dose 25 MG; Start 03/14/17 at 18:00 Triamcinolone Acetonide (Kenalog 0.1% Cr) 1 applic TID PRN TOP itching Last administered on 03/14/17 20:18; Admin Dose 1 APPLIC; Start 03/14/17 at 18:00 Prednisone (Prednisone) 60 mg DAILY PO Last administered on 03/15/17 07:57; Admin Dose 60 MG; Start 03/15/17 at 09:00 Hydralazine HCl (Apresoline) 25 mg TID PO ; Start 03/16/17 at 09:00 YONG SINGH March 15, 2017 23:14
[2017-03-15] MEDS ORDERED: hydrALAzine 20 MG INJ IV PRN (23:30)
[2017-03-16] VITALS (9 sets, daily range): BP systolic 104–158; BP diastolic 56–79; PULSE 48–56; RESP 18–19
[2017-03-16] MEDS: morphine 4 MG/ML VIAL IV PRN (06:55)
[2017-03-16 08:14] LABS: CK-MB 0.43 ng/ml (0.0-2.4)
[2017-03-16 08:17] LABS: TROPONIN-I 0.016 ng/ml (0.00-0.12)
[2017-03-16 08:36] LABS: ADD SCAN DIFF NO
[2017-03-16 08:42] LABS: BASOPHILS % 0.2 % (0.0-2.0); EOSINOPHILS # 0.2 10^3/ul (0.0-0.5); EOSINOPHILS % 3.4 % (0.0-7.0); HEMATOCRIT 30.1 % (42.0-52.0); LYMPHOCYTES % 19.5 % (15.0-51.0); MEAN CORPUSCULAR HEMOGLOBIN 33.2 pg (29.0-33.0); MEAN CORPUSCULAR HGB CONC 33.2 g/dl (32.0-37.0); MEAN PLATELET VOLUME 9.5 fl (7.4-10.4); MONOCYTE # 0.5 10^3/ul (0.3-0.9); MONOCYTES % 8.8 % (0.0-11.0); NEUTROPHIL # 3.5 10^3/ul (1.6-7.5); NEUTROPHILS % 67.5 % (39.0-77.0); PLATELET COUNT 122 10^3/UL (140-415); RED BLOOD COUNT 3.01 10^6/ul (4.70-6.10); WHITE BLOOD COUNT 5.2 10^3/ul (4.8-10.8)
[2017-03-16 08:43] LABS: ALBUMIN 3.6 g/dl (3.3-4.9); CALCIUM 8.4 mg/dl (8.4-10.2); CREATININE 4.84 mg/dl (0.61-1.24); PHOSPHORUS 5.4 mg/dl (2.5-4.9); POTASSIUM 4.6 mmol/L (3.5-5.1)
--- NOTE | 2017-03-16 09:06 | CONS ---
Date/Time of Note Date/Time of Note DATE: 03/16/17 TIME: 09:05 Assessment/Plan Assessment/Plan Additional Assessment/Plan 1. Chest pain.-negative troponin x 3/NL EF by echo this admit - no evidence of ischemia now. 2. Hypertension-uncontrolled - con't to monitor - HD to follow. 3. History of syncope- no tachy-naseem arrhythmia on tele. 4. End-stage renal disease on hemodialysis - Rx per Dr. Castro. 5. Skin rash - no itching now. 6. Anemia of chronic disease 7. Bradycardia.- S Naseem to 40-Nl TSH Consultation Date/Type/Reason Admit Date/Time March 13, 2017 at 16:06 Initial Consult Date Type of Consultation: Cardiology Referring Provider: WENDY VALIENTE 24 HR Interval Summary Free Text/Dictation NO acute events - no CP. No significant ectopy on tele. ROS: No fever, no chills, no nausea, no vomiting, no diarrhea/constipation No recent weight changes No chest pain, no PND, no orthopnea No dizziness, blurred vision No thirst, no heat or cold intolerance Exam/Review of Systems Vital Signs Vitals Vital Signs Date Time Temp Pulse Resp B/P Pulse Ox O2 Delivery O2 Flow Rate FiO2 03/16/17 08:14 51 03/16/17 07:45 98.2 18 158/79 98 03/13/17 19:44 Room Air 03/13/17 14:55 2 Intake and Output 03/15/17 03/15/17 03/16/17 15:00 23:00 07:00 Intake Total 500 ml 750 ml 500 ml Output Total 2500 ml Balance -2000 ml 750 ml 500 ml Exam General: WN/WD/NAD, AOx 2-3 HEENT: Unicetric/atraumatic/EOMI (follow commands) NECK: JVD elevated, no thyromegaly Lymph: no lymphadenopathy HEART: regular with no S3, II/ systolic murmur at apex LUNGS: Coarse sounds ABD: soft, NT, ND, +BS : Intact Neuro: non focal SKIN: chronic changes EXT: trace edema Results Result Diagram: 03/15/17 1001 03/16/17 0630 Results 24 hrs Laboratory Tests Test 03/15/17 10:01 03/16/17 06:30 White Blood Count 6.1 Red Blood Count 2.92 L Hemoglobin 9.6 L Hematocrit 29.4 L Mean Corpuscular Volume 100.7 Mean Corpuscular Hemoglobin 32.9 Mean Corpuscular Hemoglobin Concent 32.7 Red Cell Distribution Width 13.1 Platelet Count 118 L Mean Platelet Volume 9.4 Neutrophils % 84.0 H Lymphocytes % 9.8 L Monocytes % 4.4 Eosinophils % 1.3 Basophils % 0.2 Nucleated Red Blood Cells % 0.0 Neutrophils # 5.1 Lymphocytes # 0.6 L Monocytes # 0.3 Eosinophils # 0.1 Basophils # 0.0 Nucleated Red Blood Cells # 0.0 Sodium Level 138 139 Potassium Level 4.7 # 4.6 Chloride Level 100 100 Carbon Dioxide Level 29 30 Anion Gap 14 # 14 Blood Urea Nitrogen 39 #H 43 H Creatinine 5.33 H 4.84 H Glucose Level 130 93 Calcium Level 8.3 L 8.4 Phosphorus Level 7.1 #H 5.4 H Albumin 3.7 3.6 Creatine Kinase 25 Creatine Kinase Index 1.7 Creatinine Kinase MB (Mass) 0.43 Troponin I 0.016 Medications Medications Current Medications Acetaminophen (Tylenol Tab) 650 mg Q6H PRN PO PAIN LEVEL 1-3 OR FEVER; Start at 19:00 Albuterol (Ventolin Hfa) 2 puff Q4H PRN INH SHORTNESS OF BREATH; Start at 19:00 Aspirin (Halfprin) 81 mg DAILY PO Last administered on 03/15/17 07:57; Admin Dose 81 MG; Start 03/14/17 at 09:00 Carvedilol (Coreg) 3.125 mg BID PO Last administered on 03/15/17 20:33; Admin Dose 3.125 MG; Start 03/13/17 at 21:00 Isosorbide Mononitrate (Imdur) 30 mg DAILY PO Last administered on 03/14/17 08 :07; Admin Dose 30 MG; Start 03/14/17 at 09:00 Nifedipine (Procardia Xl) 60 mg BID PO Last administered on 03/15/17 20:33; Admin Dose 60 MG; Start 03/13/17 at 21:00 Multivit/Ca Carb/ B Cmplx/FA/Prenat (Mony-Giovanny) 1 tab DAILY PO Last administered on 03/15/17 07:57; Admin Dose 1 TAB; Start 03/14/17 at 09:00 Lactobacillus Acidophilus/ Rhamnosus (Culturelle) 1 cap BID PO Last administered on 03/15/17 20:33; Admin Dose 1 CAP; Start 03/13/17 at 21:00 Morphine Sulfate (morphine) 4 mg Q4H PRN IV PAIN Last administered on 06:55; Admin Dose 4 MG; Start 03/13/17 at 20:30 Heparin Sodium (Porcine) (Heparin (5000 Units/0.5 ml)) 5,000 unit BID SC Last administered on 03/15/17 07:59; Admin Dose 5,000 UNIT; Start 03/14/17 at 21:00 Diphenhydramine HCl (Benadryl) 25 mg Q6 PRN IV itching Last administered on 23:16; Admin Dose 25 MG; Start 03/14/17 at 18:00 Triamcinolone Acetonide (Kenalog 0.1% Cr) 1 applic TID PRN TOP itching Last administered on 03/14/17 20:18; Admin Dose 1 APPLIC; Start 03/14/17 at 18:00 Prednisone (Prednisone) 60 mg DAILY PO Last administered on 03/15/17 07:57; Admin Dose 60 MG; Start 03/15/17 at 09:00 Hydralazine HCl (Apresoline) 50 mg TID PO ; Start 03/16/17 at 09:00 Hydralazine HCl (Apresoline) 10 mg Q4H PRN IV SBP>170; Start 03/15/17 at 23:30 Isosorbide Dinitrate (Isordil) 20 mg TID PO ; Start 03/16/17 at 09:00 DAREK GLASS MD March 16, 2017 09:06
[2017-03-16] MEDS: NIFEdipine (XL) 60 MG TAB PO SCH (09:07)
[2017-03-16] MEDS: LACTOBACILLUS RHAMNOSUS CAP PO SCH (09:08)
[2017-03-16] MEDS: ASPIRIN (EC) 81 MG TAB PO SCH (09:08)
[2017-03-16] MEDS: MULTIVIT/CA CARB/B CMPLX/FA TAB PO SCH (09:08)
[2017-03-16] MEDS: ISOSORBIDE MONONITRATE(SR)30 MG TAB PO SCH (09:08)
[2017-03-16] MEDS: predniSONE 20 MG TAB PO SCH (09:08)
[2017-03-16] MEDS: DIPHENHYDRAMINE 50 MG INJ IV PRN (09:09)
[2017-03-16] MEDS: ISOSORBIDE DINITRATE 20 MG TAB PO SCH ×2 (09:09→12:41)
[2017-03-16] MEDS: HEPARIN 5,000 UNIT/0.5 ML VIAL SC SCH (09:14)
--- NOTE | 2017-03-16 15:01 | DS ---
Date/Time of Note Date/Time of Note DATE: 03/16/17 TIME: 14:59 Discharge Summary Admission/Discharge Info Admit Date/Time March 13, 2017 at 16:06 Discharge Date/Time Final Diagnosis 1. Skin rash, possible secondary to allergic reaction from Keflex. resolving, medrol dose pack 2. Chest pain, atypical with recent negative stress test, follow up with cardiology outpatient 3. Hypertension, controlled 5. Sinus bradycardia, likely secondary to beta cricket therapy: Beta-cricket dose reduced, bradycardia improved. 6. End-stage renal disease on hemodialysis: HD as scheduled 7. Hyperkalemia likely medication induced patient will get dialysis today,: DC losartan and spironolactone. resolved Patient Condition: Stable Hospital Course This is a 51-year-old male who has a history of end-stage renal disease on hemodialysis who presents today mainly because of a rash that is on his lower abdomen, back, and groin area which itching all over his body and inside his throat that has been going on for a day and now chest pressure that started this morning. He does not know if both are related. He says that he has been on antibiotics, Keflex, for about a week, which he is taking because he had a circumcision about a week ago. He has not had any swelling through the ____. He has not had any shortness of breath. His hemodialysis schedule is Wednesday, Wednesday, Wednesday, and his last hemodialysis was yesterday. His hemodialysis, he says, was uneventful. He has not had any fever. He does not feel dizzy, and he had no syncopal episodes. He has some dysuria from the procedure but denies hematuria and denies blood in his stool. Physical exam with macular rashes in the lower abdomen, groin area, and upper lower extremities. The rashes are considered keflex allergic reaction. He is given prednisone and benadryl, symptoms improving. Patient will be discharged on Medrol dose pack and instructed that he had keflex allergy that needs to be avoid in the future. The chest pain is atypical and he has negative stress test recently. Troponin is negative. Follow up with cardiology outpatient. Home Meds Home Meds Active Scripts Methylprednisolone* (Medrol* DOSE PACK) 4 Mg/Dose-Pack Tab.ds.pk, 4 MG PO . DIRECTED, #1 PACKET Prov:KAMRAN ZHANG MD 03/15/17 Carvedilol* (Carvedilol*) 3.125 Mg Tablet, 3.125 MG PO BID for 30 Days, TAB Prov:KAMRAN ZHANG MD 03/15/17 Hydralazine Hcl* (Hydralazine Hcl*) 50 Mg Tab, 50 MG PO Q8, #90 TAB Prov:KAMRAN ZHANG MD 03/15/17 [Lactobacillus Rhamnosus] 1 CAP CAP No Conflict Check, 1 CAP PO BID, #14 CAP Prov:JEFE VENTURA MD 12/08/14 Albuterol Sulfate* (Ventolin HFA*) 1 Puff Inha, 2 PUFF INH Q4 Y for SHORTNESS OF BREATH, #1 Prov:JEFE VENTURA MD 12/08/14 Acetaminophen (TYLENOL 325 MG TAB) 325 Mg Tab, 650 MG PO Q6H Y for PAIN LEVEL 1- 3 OR FEVER, #10 TAB Prov:JEFE VENTURA MD 12/08/14 Reported Medications Folic Acid/Vitamin B Comp W-C (Nephrocaps Capsule) 1 Mg Capsule, 1 MG PO DAILY 10/18/14 Nifedipine* (Nifedipine ER*) 60 Mg Tablet.sa, 60 MG PO BID, TAB.SA 10/18/14 Calcium Acetate* (Calcium Acetate*) 667 Mg Capsule, 3607-9455 MG PO TID W/ MEALS , CAP 08/08/14 Isosorbide Mononitrate* (Isosorbide Mononitrate*) 30 Mg Tab.er.24h, 30 MG PO DAILY, TAB 08/08/14 Aspirin Ec (Aspir 81) 81 Mg Tablet.dr, 81 MG PO DAILY 12/22/12 Discontinued Reported Medications Carvedilol* (Carvedilol*) 12.5 Mg Tablet, 12.5 MG PO BID, TAB 11/16/14 Atorvastatin Calcium (Atorvastatin Calcium) 10 Mg Tab, 10 MG PO HS, TAB 11/16/14 Omeprazole* (Omeprazole*) 20 Mg Capsule.dr, 20 MG PO DAILY, CAP 07/02/14 Discontinued Scripts Hydralazine Hcl* (Hydralazine Hcl*) 50 Mg Tab, 10 MG PO TID, #30 TAB Prov:JEFE VENTURA MD 2/14/15 Spironolactone* (Aldactone*) 25 Mg Tab, 12.5 MG PO DAILY, #14 Prov:JEFE VENTURA MD 12/08/14 Losartan Potassium* (Cozaar*) 25 Mg Tab, 25 MG PO HS, #14 Prov:JEFE VENTURA MD 12/08/14 Follow-up Plan PCP and nephrology in one week cardiology in one week Primary Care Provider Kimmy Gómez Pending Labs Laboratory Tests Test 03/16/17 06:30 White Blood Count 5.210^3/ul (4.8-10.8) Red Blood Count 3.0110^6/ul (4.70-6.10) Hemoglobin 10.0g/dl (14.0-18.0) Hematocrit 30.1% (42.0-52.0) Mean Corpuscular Volume 100.0fl (82.0-101.0) Mean Corpuscular Hemoglobin 33.2pg (29.0-33.0) Mean Corpuscular Hemoglobin Concent 33.2g/dl (32.0-37.0) Red Cell Distribution Width 13.0% (11.5-14.5) Platelet Count 76112^3/UL (140-415) Mean Platelet Volume 9.5fl (7.4-10.4) Neutrophils % 67.5% (39.0-77.0) Lymphocytes % 19.5% (15.0-51.0) Monocytes % 8.8% (0.0-11.0) Eosinophils % 3.4% (0.0-7.0) Basophils % 0.2% (0.0-2.0) Nucleated Red Blood Cells % 0.0/100WBC (0.0-0.0) Neutrophils # 3.510^3/ul (1.6-7.5) Lymphocytes # 1.010^3/ul (0.8-2.9) Monocytes # 0.510^3/ul (0.3-0.9) Eosinophils # 0.210^3/ul (0.0-0.5) Basophils # 0.010^3/ul (0.0-0.1) Nucleated Red Blood Cells # 0.010^3/ul (0.0-0.0) Sodium Level 139mmol/L (135-144) Potassium Level 4.6mmol/L (3.5-5.1) Chloride Level 100mmol/L (97-110) Carbon Dioxide Level 30mmol/L (21-31) Anion Gap 14 (8-16) Blood Urea Nitrogen 43mg/dl (7-20) Creatinine 4.84mg/dl (0.61-1.24) Glucose Level 93mg/dl (70-220) Calcium Level 8.4mg/dl (8.4-10.2) Phosphorus Level 5.4mg/dl (2.5-4.9) Creatine Kinase 25IU/L (23-200) Creatine Kinase Index 1.7 Creatinine Kinase MB (Mass) 0.43ng/ml (0.0-2.4) Troponin I 0.016ng/ml (0.00-0.12) Albumin 3.6g/dl (3.3-4.9) KAMRAN ZHANG MD March 16, 2017 15:01
== END 2017-03-16 15:58 | disposition home or self-care (01) | DRG 917 ==
LOC: E/R 14:23 → MS4 16:06
PROVIDERS: ADMIT Family Medicine; ATTEND Family Medicine
DX: T36.1X5A Adverse effect of cephalosporins and other beta-lactam antibiotics, initial encounter (principal); N18.6 End stage renal disease; I12.0 Hypertensive chronic kidney disease with stage 5 chronic kidney disease or end stage renal disease; L27.0 Generalized skin eruption due to drugs and medicaments taken internally; I25.10 Atherosclerotic heart disease of native coronary artery without angina pectoris; E87.5 Hyperkalemia; E78.5 Hyperlipidemia, unspecified; D63.8 Anemia in other chronic diseases classified elsewhere; R21 Rash and other nonspecific skin eruption; R00.1 Bradycardia, unspecified; R07.89 Other chest pain; Z88.1 Allergy status to other antibiotic agents; Z86.79 Personal history of other diseases of the circulatory system; Z86.19 Personal history of other infectious and parasitic diseases; Z88.6 Allergy status to analgesic agent
CPT/HCPCS: 36415; 71010; 80048; 80053; 80069; 80076; 82550; 82553; 82962; 83735; 84100; 84443; 84484; 85025; 85610; 85730; 87081; 90935; 93005; 93306; 96374; 96375; 96376; J1200; J1644; J1815; J2270; J2405; J2930; J7512

== ENCOUNTER 2017-05-07 01:09 | Inpatient (IN) | payer OTHER ==
[~2017-05-07] VITALS: Ht 157.5 cm; Wt 70.3 kg
[~2017-05-07 01:09] MED LIST changes: -ATOR10TA65 PO; -CARV12.579 PO; +CARV3.1260 PO; -LOSA25TA2 PO; +MED4DP PO; -OMEP20CA16 PO; -SPIR25TA PO
--- NOTE | 2017-05-07 02:08 | ERA ---
ER Documentation Chief Complaint Date/Time DATE: 05/07/17 TIME: 02:07 Chief Complaint pt c/o pain on left arm AV fistula site radiating to armpit area; swelling HPI The patient is a 51-year-old male, presenting to the ER because of left upper extremity AV fistula pain, swelling, redness, associated with fever today. He had revision of the left upper proximity AV fistula about 2 weeks ago at [facility]. He complains of fever, chills, denies neck pain, complains of chronic cough for more than 3 months, denies dyspnea complaint of left-sided chest wall redness and pain. He denies abdominal pain, nausea, vomiting, dysuria, diarrhea. He does not smoke nor drink Past medical history: Chronic kidney disease on hemodialysis Wednesday, history of CHF, hypertension Past surgical history: History of pericardial window ROS All systems reviewed and are negative except as per history of present illness. Medications Home Meds Active Scripts Carvedilol* (Carvedilol*) 3.125 Mg Tablet, 3.125 MG PO BID for 30 Days, TAB Prov:KAMRAN ZHANG MD 03/15/17 Hydralazine Hcl* (Hydralazine Hcl*) 50 Mg Tab, 50 MG PO Q8, #90 TAB Prov:KAMRAN ZHANG MD 03/15/17 Acetaminophen (TYLENOL 325 MG TAB) 325 Mg Tab, 650 MG PO Q6H Y for PAIN LEVEL 1- 3 OR FEVER, #10 TAB Prov:JEFE VENTURA MD 12/08/14 Reported Medications Hydrocodone/Acetaminophen ([place] 10-325 Tablet) 1 Each Tablet, 1 EACH PO Q8H, TAB 05/07/17 Spironolactone* (Aldactone*) 25 Mg Tablet, 25 MG PO DAILY, #30 TAB 05/07/17 Multivit/Ca Carb/B Cmplx/Fa* (Mony-Giovanny*) 1 Tab Tab, 1 TAB PO DAILY, TAB 05/07/17 Ergocalciferol (Vitamin D2) (VITAMIN D2) 2,000 Unit Tablet, 2000 UNIT PO, TAB 05/07/17 Tiotropium Br/Olodaterol HCl (Stiolto Respimat Inhal [place]) 4 Gm Mist.inhal, 2 PUFF INHALATION DAILY, #1 INHALER 05/07/17 Nifedipine* (Nifedipine ER*) 60 Mg Tablet.sa, 60 MG PO BID, TAB.SA 10/18/14 Calcium Acetate* (Calcium Acetate*) 667 Mg Capsule, 1419-1370 MG PO TID W/ MEALS , CAP 08/08/14 Isosorbide Mononitrate* (Isosorbide Mononitrate*) 30 Mg Tab.er.24h, 30 MG PO DAILY, TAB 08/08/14 Aspirin Ec (Aspir 81) 81 Mg Tablet.dr, 81 MG PO DAILY 12/22/12 Discontinued Reported Medications Folic Acid/Vitamin B Comp W-C (Nephrocaps Capsule) 1 Mg Capsule, 1 MG PO DAILY 10/18/14 Discontinued Scripts Methylprednisolone* (Medrol* DOSE PACK) 4 Mg/Dose-Pack Tab.ds.pk, 4 MG PO . DIRECTED, #1 PACKET Prov:KAMRAN ZHANG MD 03/15/17 [Lactobacillus Rhamnosus] 1 CAP CAP No Conflict Check, 1 CAP PO BID, #14 CAP Prov:JEFE VENTURA MD 12/08/14 Albuterol Sulfate* (Ventolin HFA*) 1 Puff Inha, 2 PUFF INH Q4 Y for SHORTNESS OF BREATH, #1 Prov:JEFE VENTURA MD 12/08/14 Allergies Allergies: Coded Allergies: tramadol (Unverified Allergy, Intermediate, rash, 05/07/17) possible allergy Cephalexin Monohydrate (Unverified Allergy, Unknown, RASH, 05/07/17) PMhx/Soc History of Surgery: Yes (l arm fistula, pericardial window) Anesthesia Reaction: No Hx 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 Disorder: No Hx Respiratory Disorders: Yes (PNA) Hx Cardiac Disorders: Yes (HTN, CHF) Hx Psychiatric Problems: No Hx Miscellaneous Medical Probl: No Hx Alcohol Use: No Hx Substance Use: No Hx Tobacco Use: Yes Physical Exam Vitals Vital Signs Date Time Temp Pulse Resp B/P Pulse Ox O2 Delivery O2 Flow Rate FiO2 05/07/17 04:40 93 21 05/07/17 01:13 103.0 110 20 177/84 99 Physical Exam Const: No acute distress. Head: Atraumatic. Eyes: Normal Conjunctiva. ENT: Normal External Ears, Nose and Mouth. Neck: Full range of motion. No meningismus. Resp: Clear to auscultation bilaterally. Cardio: Regular tachycardic. Right chest wall with erythema, no crepitus Abd: Soft, non distended, normal bowel sounds, non tender. Skin: No petechiae or rashes. Back: No midline or flank tenderness. Ext: No cyanosis, or edema. Left upper extremity with AV fistula that is warm to touch, positive for thrill and bruit. Warm to touch Neur: Awake and alert. No focal deficit Psych: Normal Mood and Affect. Result Diagram: 05/07/17 0245 05/07/17 0245 Results 24 hrs Laboratory Tests Test 05/07/17 02:36 05/07/17 02:45 05/07/17 04:15 05/07/17 04:36 Bedside Glucose 108mg/dL White Blood Count 7.510^3/ul Red Blood Count 2.9310^6/ul Hemoglobin 9.6g/dl Hematocrit 29.2% Mean Corpuscular Volume 99.7fl Mean Corpuscular Hemoglobin 32.8pg Mean Corpuscular Hemoglobin Concent 32.9g/dl Red Cell Distribution Width 13.4% Platelet Count 78389^3/UL Mean Platelet Volume 9.0fl Neutrophils % 88.6% Lymphocytes % 6.7% Monocytes % 3.6% Eosinophils % 0.5% Basophils % 0.1% Nucleated Red Blood Cells % 0.0/100WBC Neutrophils # 6.610^3/ul Lymphocytes # 0.510^3/ul Monocytes # 0.310^3/ul Eosinophils # 0.010^3/ul Basophils # 0.010^3/ul Nucleated Red Blood Cells # 0.010^3/ul Prothrombin Time 15.2Sec Prothrombin Time Ratio 1.2 INR International Normalized Ratio 1.19 Activated Partial Thromboplast Time 32.7Sec Sodium Level 134mmol/L Potassium Level 6.2mmol/L Chloride Level 95mmol/L Carbon Dioxide Level 29mmol/L Anion Gap 16 Blood Urea Nitrogen 36mg/dl Creatinine 6.18mg/dl Glucose Level 99mg/dl Lactic Acid Level 1.0mmol/L Calcium Level 8.5mg/dl Total Bilirubin 0.1mg/dl Direct Bilirubin 0.00mg/dl Indirect Bilirubin 0.1mg/dl Aspartate Amino Transf (AST/SGOT) 38IU/L Alanine Aminotransferase (ALT/SGPT) 44IU/L Alkaline Phosphatase 67IU/L Troponin I < 0.012ng/ml Total Protein 7.3g/dl Albumin 4.9g/dl Globulin 2.40g/dl Albumin/Globulin Ratio 2.04 Urine Color YELLOW Urine Clarity CLEAR Urine pH 9.0 Urine Specific [place] 1.010 Urine Ketones NEGATIVEmg/dL Urine Nitrite NEGATIVEmg/dL Urine Bilirubin NEGATIVEmg/dL Urine Urobilinogen NEGATIVEmg/dL Urine Leukocyte Esterase NEGATIVELeu/ul Urine Microscopic RBC > 182/HPF Urine Microscopic WBC 0/HPF Urine Hemoglobin 2+mg/dL Urine Glucose NEGATIVEmg/dL Urine Total Protein 3+mg/dl Bedside Urine pH (LAB) 8.5 Bedside Urine Protein (LAB) 3+ Bedside Urine Glucose (UA) Negative Bedside Urine Ketones (LAB) Negative Bedside Urine Blood 3+ Bedside Urine Nitrite (LAB) Negative Bedside Urine Leukocyte Esterase (L Negative Current Medications Medications (Trade) Dose Ordered Sig/Omar Route PRN Reason Start Time Stop Time Status Last Admin Dose Admin Acetaminophen (Tylenol Tab) 650 mg ONCE STAT PO 05/07/17 02:19 05/07/17 02:21 DC 05/07/17 02:37 Morphine Sulfate (morphine) 2 mg ONCE ONCE IV 05/07/17 02:30 05/07/17 02:31 DC 05/07/17 02:37 Ondansetron HCl 4 mg 4 mg ONCE STAT IV 05/07/17 02:22 05/07/17 02:23 DC 05/07/17 02:37 Vancomycin HCl 250 ml @ 125 mls/hr ONCE IVPB 05/07/17 03:00 05/07/17 04:59 DC 05/07/17 03:24 Piperacillin Sod/ Tazobactam Sod (Zosyn 2.25gm/ 50ml (Pmx)) 50 ml @ 100 mls/hr ONCE ONCE IVPB 05/07/17 03:00 05/07/17 03:29 DC 05/07/17 03:23 Sodium Polystyrene Sulfonate (Kayexalate) 30 gm ONCE ONCE PO 05/07/17 04:35 05/07/17 04:36 DC 05/07/17 04:58 Albuterol (Proventil 0.5% (Neb)) 15 mg ONCE ONCE INH 05/07/17 04:36 05/07/17 04:37 DC 05/07/17 04:40 Insulin Human Regular (Humulin R) 10 unit ONCE ONCE IV 05/07/17 04:36 05/07/17 04:37 DC 05/07/17 04:58 Dextrose (D50w Syringe) 150 ml ONCE ONCE IV 05/07/17 04:36 05/07/17 04:37 DC 05/07/17 04:58 IV Flush (NS 3 ml) 3 ml PER PROTOCOL IV 05/07/17 05:00 Ondansetron HCl (Zofran Inj) 4 mg Q6H PRN IV NAUSEA AND/OR VOMITING 05/07/17 05:00 Acetaminophen (Tylenol Tab) 650 mg Q6H PRN PO PAIN LEVEL 1-3 OR FEVER 05/07/17 05:00 Docusate Sodium (Colace) 100 mg Q12H PRN PO CONSTIPATION 05/07/17 05:00 Bisacodyl (Dulcolax) 5 mg DAILY PRN PO CONSTIPATION 05/07/17 05:00 Pantoprazole (Protonix Iv) 40 mg DAILY@06 IV 05/07/17 06:00 Procedures/MDM UA is pending [place] [id number] Radiology Main Line: [phone] DIAGNOSTIC IMAGING REPORT Patient: LUCY AMAYA : 1965 Age: 51 Sex: M MR #: [id number] DOS: 05/07/17 0219 Ordering MD: PEPE AVERY MD Location: E/R Room/Bed: PROCEDURE: XR Chest. CLINICAL INDICATION: Sepsis. TECHNIQUE: Single frontal chest x-ray. COMPARISON: 03/13/2017 FINDINGS: Heart is enlarged.. Mild pulmonary vascular congestion.. No focal infiltrate is seen. There is no pleural effusion. There is no pneumothorax. The osseous structures are unremarkable. IMPRESSION: Cardiomegaly. Mild pulmonary vascular congestion. No definite focal infiltrate. RPTAT: HMVK .Pepe Miller MD, Date Time Electronically viewed and signed by .Pepe Miller MD, MD on 05/07/2017 02:50 .K/ CC: PEPE AVERY MD EKG: Read by emergency physician Rate/Rhythm: Sinus tachycardia 107 beats/min QRS, ST, T-waves: No ST elevation, no T inversion, LAD Impression: Abnormal EKG MEDICAL MAKING DECISION: The patient is a 51-year-old male, presenting with acute SIRS, suspected infected left upper extremity AV fistula, acute hyperkalemia. He was treated with Tylenol 650 mg p.o. for fever, morphine 2 mg IV for pain, Zofran 4 mg IV for nausea, vancomycin IV, Zosyn IV for suspected infected AV fistula. He was treated with albuterol 15 mg nebulizer over 30 min , Kayexalate 30 g p.o., 10 units of regular insulin, 3 A of D50 IV for acute hyperkalemia with good response Critical Care: Time: 35 minutes excluding all billable procedures. Treatments/Evaluations: Close monitoring and treatment of unstable vital signs, cardiorespiratory, and neurologic status, while maintaining tight balance of fluid, respiratory, and cardiac interventions. Departure Diagnosis: Primary Impression: SIRS (systemic inflammatory response syndrome) Additional Impressions: AV fistula infection Hyperkalemia Condition: Critical Comments I discussed the findings with the patient. I discussed the patient with the on- call hospitalist Dr. Sanchez at 4:30 AM who was made aware of the lab, the treatment, the patient condition. The patient is admitted to telemetry PEPE AVERY MD May 07, 2017 02:08
[2017-05-07] MEDS ORDERED: ACETAMINOPHEN 325 MG TAB PO STA (02:19)
[2017-05-07] MEDS ORDERED: ONDANSETRON 4 MG INJ IV STA (02:22)
[2017-05-07] MEDS ORDERED: morphine 2 MG INJ IV ONE (02:30)
--- NOTE | 2017-05-07 02:50 | RADRPT ---
PROCEDURE: XR Chest. CLINICAL INDICATION: Sepsis. TECHNIQUE: Single frontal chest x-ray. COMPARISON: 03/13/2017 FINDINGS: Heart is enlarged.. Mild pulmonary vascular congestion.. No focal infiltrate is seen. There is no pleural effusion. There is no pneumothorax. The osseous structures are unremarkable. IMPRESSION: Cardiomegaly. Mild pulmonary vascular congestion. No definite focal infiltrate. RPTAT: HMVK .Pepe Miller MD, MD Date Time Electronically viewed and signed by .Pepe Miller MD, on 05/07/2017 02:50 .K/
[2017-05-07] MEDS ORDERED: PIPER-TAZO 2.25 GM (PMX) 50 ML IVPB ONE (03:00)
[2017-05-07] MEDS ORDERED: VANCOMYCIN 1 GM (PMX) 250 ML IVPB SCH (03:00)
[2017-05-07 03:01] LABS: ADD SCAN DIFF NO
[2017-05-07] MEDS ORDERED: SPIR25TA PO (03:03)
[2017-05-07] MEDS ORDERED: ERGO2000 PO (03:03)
[2017-05-07] MEDS ORDERED: NEPH PO (03:03)
[2017-05-07] MEDS ORDERED: HYDR-902 PO (03:03)
[2017-05-07] MEDS ORDERED: TIOT4MIS4 INHALATION (03:03)
[2017-05-07 03:15] LABS: ABNORMAL IP MESSAGE 1; BASOPHILS % 0.1 % (0.0-2.0); EOSINOPHILS % 0.5 % (0.0-7.0); HEMATOCRIT 29.2 % (42.0-52.0); HEMOGLOBIN 9.6 g/dl (14.0-18.0); LYMPHOCYTES # 0.5 10^3/ul (0.8-2.9); LYMPHOCYTES % 6.7 % (15.0-51.0); MEAN CORPUSCULAR HEMOGLOBIN 32.8 pg (29.0-33.0); MEAN CORPUSCULAR HGB CONC 32.9 g/dl (32.0-37.0); MEAN CORPUSCULAR VOLUME 99.7 fl (82.0-101.0); MONOCYTE # 0.3 10^3/ul (0.3-0.9); MONOCYTES % 3.6 % (0.0-11.0); NEUTROPHIL # 6.6 10^3/ul (1.6-7.5); NEUTROPHILS % 88.6 % (39.0-77.0); PLATELET COUNT 157 10^3/UL (140-415); RED BLOOD COUNT 2.93 10^6/ul (4.70-6.10); RED CELL DISTRIBUTION WIDTH 13.4 % (11.5-14.5); WHITE BLOOD COUNT 7.5 10^3/ul (4.8-10.8)
[2017-05-07 03:23] LABS: INR 1.19; PROTIME 15.2 Sec (12.2-14.2); PT RATIO 1.2
[2017-05-07 03:24] LABS: PARTIAL THROMBOPLASTIN TIME 32.7 Sec (25.0-35.0)
[2017-05-07 03:28] LABS: ALANINE AMINOTRANSFERASE 44 IU/L (13-69); ALBUMIN 4.9 g/dl (3.3-4.9); ALBUMIN/GLOBULIN RATIO 2.04; ALKALINE PHOSPHATASE 67 IU/L (42-121); ASPARTATE AMINO TRANSFERASE 38 IU/L (15-46); BILIRUBIN,INDIRECT 0.1 mg/dl (0-1.1); BILIRUBIN,TOTAL 0.1 mg/dl (0.2-1.3); BLOOD UREA NITROGEN 36 mg/dl (7-20); CALCIUM 8.5 mg/dl (8.4-10.2); CARBON DIOXIDE 29 mmol/L (21-31); CHLORIDE 95 mmol/L (97-110); CREATININE 6.18 mg/dl (0.61-1.24); GLUCOSE 99 mg/dl (70-220); TOTAL PROTEIN 7.3 g/dl (6.1-8.1)
[2017-05-07 04:19] LABS: POTASSIUM 6.2 mmol/L (3.5-5.1); TROPONIN-I < 0.012 ng/ml (0.00-0.12)
[2017-05-07 04:32] LABS: URINE BLOOD (Dip) POC 3+ (NEGATIVE)
[2017-05-07] MEDS ORDERED: NA POLYST SULFON 15 GM/60 ML BTL PO ONE ×2 (04:35→07:30)
[2017-05-07] MEDS ORDERED: ALBUTEROL 0.5% (NEB) 2.5 MG/0.5 ML AMP INH ONE (04:36)
[2017-05-07] MEDS ORDERED: DEXTROSE 50% 50 ML SYRINGE IV ONE (04:36)
[2017-05-07] MEDS ORDERED: INSULIN REGULAR, HUMAN 100 UNIT/1 ML 3ML VIAL IV ONE (04:36)
[2017-05-07] MEDS ORDERED: DOCUSATE SODIUM 100 MG CAP PO PRN (05:00)
[2017-05-07] MEDS ORDERED: NACL 0.9% 3 ML SYG IV SCH (05:00)
[2017-05-07] MEDS ORDERED: BISACODYL (EC) 5 MG TAB PO PRN (05:00)
[2017-05-07 05:08] LABS: ADD UMIC YES; UR ASCORBIC ACID NEGATIVE (NEGATIVE); UR BILIRUBIN (Dip) NEGATIVE (NEGATIVE); UR BLOOD (Dip) 2+ mg/dL (NEGATIVE); UR CLARITY CLEAR (CLEAR); UR COLOR YELLOW (YELLOW); UR GLUCOSE (Dip) NEGATIVE (NEGATIVE); UR KETONES (Dip) NEGATIVE (NEGATIVE); UR LEUKOCYTE ESTERASE (Dip) NEGATIVE Leu/ul (NEGATIVE); UR NITRITE (Dip) NEGATIVE (NEGATIVE); UR RBC > 182 /HPF (0-5); UR TOTAL PROTEIN (Dip) 3+ mg/dl (NEGATIVE); UR UROBILINOGEN (Dip) NEGATIVE (NEGATIVE)
[2017-05-07] MEDS: PANTOPRAZOLE 40 MG INJ IV SCH (05:38)
[2017-05-07] MEDS ORDERED: ACETAMINOPHEN 325 MG TAB PO PRN (07:00)
--- NOTE | 2017-05-07 07:07 | HP ---
Date/Time of Note Date/Time of Note DATE: 05/07/17 TIME: 07:00 Assessment/Plan VTE Prophylaxis VTE Prophylaxis Intervention: SCD's Assessment/Plan Chief Complaint/Hosp Course This is a 51-year-old male being admitted to the telemetry floor for: #1 sepsis: Patient presented with a fever of 103 along with tachycardia and suspected source of infection being the left AV fistula. At the current time will treat with IV vancomycin and Zosyn. Continue to monitor hemodynamics. At the current time blood pressures are adequate. Await urine and blood cultures. #2 Suspected left AV fistula infection: Currently on IV Vanco and Zosyn. Will obtain an echocardiogram to evaluate for any vegetations. Will need to consult vascular surgery. As well as nephrology. #3 end-stage renal disease: Patient is due for dialysis today as he is on a Wednesday schedule. Will consult nephrology and vascular surgery. As patient likely is in a need access for dialysis being that his fistula at the current time is possibly infected. #4 hepatitis C: #5 hypertension: At the current time will hold antihypertensive medication secondary sepsis and concern for possible hypotension. #6 DVT and GI prophylaxis: SCDs, proton Further treatment strategy will be implemented as per the clinical course Problems: HPI/ROS Admit Date/Time Admit Date/Time Hx of Present Illness Chief complaint: Left upper extremity fistula pain The patient is a 51-year-old male, presenting to the ER because of left upper extremity AV fistula pain, swelling, redness, associated with fever today. He had revision of the left upper proximity AV fistula about 2 weeks ago at [facility]. He complains of fever, chills, denies neck pain, complains of chronic cough for more than 3 months, denies dyspnea complaint of left-sided chest wall redness and pain. He denies abdominal pain, nausea, vomiting, dysuria, diarrhea. He does not smoke nor drink Allergies: Cephalexin, tramadol Medications: See LYNNE JAMISON Const: As per HPI Eyes : No pain discharge or redness or change in visual acuity ENT: No pain, sore throat, congestion, congestion, dysphagia or discharge Respiratory: No shortness of breath, cough, sputum, wheezing, or pleuritic pain Cardiovascular: No chest pain, palpitation, PND, or edema GI : no change in appetite, abdominal pain, nausea, vomiting, diarrhea, constipation, or change in the color his stool Genitourinary: No dysuria, hematuria, flank pain , discharge or CVA tenderness Musculoskeletal: As per HPI Skin: As per HPI Neuro: No headache, dizziness, syncope, seizure, focal weakness Endocrine: No polyuria, polydipsia, temperature intolerance Psych: No hallucination, depression, anxiety or suicidal ideation PMH/Family/Social Past Medical History End-stage renal disease, hepatitis C, hypertension, history of pericardial effusion Past Surgical History Left AV fistula 5 years ago, left AV fistula repair 2 weeks ago, para cardial effusion status post pericardial window Family History Significant Family History: no pertinent family hx Social History Alcohol Use: none Smoking Status: Former smoker Drug Use: none Exam/Review of Systems Vital Signs Vitals Vital Signs Date Time Temp Pulse Resp B/P Pulse Ox O2 Delivery O2 Flow Rate FiO2 05/07/17 05:45 98.6 103 20 121/61 99 Room Air 05/07/17 04:40 21 Exam Exam General: Patient is well-developed well-nourished The patient is alert oriented -3 lying comfortably in bed. HEENT: Atraumatic, normocephalic. The pupils are equal, round and reactive. Extraocular motor are intact Neck: Supple with full range of motion. No rigidity or meningismus Chest: Nontender Lungs: Clear to auscultation bilaterally no crackles rales or wheezing Heart: Normal S1-S2, Regular rhythm and rate. No murmur, S3, or S4 Abdomen: Soft , nontender, nondistended , bowel sounds are present. No guarding no rebound tenderness , No masses or organomegaly. No costovertebral temporal angle mass Extremities: Normal to inspection, no edema no cyanosis Neurologic: Normal mental status, speech normal, cranial nerves II through XII are intact, motor and sensory are intact, no focal weakness Vascular: Left AV fistula tenderness to palpation, covered in gauze. Labs Result Diagram: 05/07/17 0245 05/07/17 0245 Medications Medications Current Medications Ondansetron HCl (Zofran Inj) 4 mg Q6H PRN IV NAUSEA AND/OR VOMITING; Start at 05:00 Acetaminophen (Tylenol Tab) 650 mg Q6H PRN PO PAIN LEVEL 1-3 OR FEVER; Start at 05:00 Docusate Sodium (Colace) 100 mg Q12H PRN PO CONSTIPATION; Start 05/07/17 at 05: 00 Bisacodyl (Dulcolax) 5 mg DAILY PRN PO CONSTIPATION; Start 05/07/17 at 05:00 Pantoprazole (Protonix Iv) 40 mg DAILY@06 IV Last administered on 05/07/17t 05: 38; Admin Dose 40 MG; Start 05/07/17 at 06:00 WENDY VALIENTE May 07, 2017 07:07
[2017-05-07 07:41] LABS: ALBUMIN 4.1 g/dl (3.3-4.9); ALBUMIN/GLOBULIN RATIO 1.86; BILIRUBIN,INDIRECT 0.1 mg/dl (0-1.1); BILIRUBIN,TOTAL 0.1 mg/dl (0.2-1.3); CALCIUM 8.3 mg/dl (8.4-10.2); CREATININE 6.17 mg/dl (0.61-1.24); POTASSIUM 4.9 mmol/L (3.5-5.1); TOTAL PROTEIN 6.3 g/dl (6.1-8.1)
[2017-05-07] MEDS: ONDANSETRON 4 MG INJ IV PRN ×2 (07:41→14:32)
[2017-05-07] MEDS: morphine 2 MG INJ IV PRN ×3 (07:42→21:06)
[2017-05-07] MEDS: ASPIRIN (EC) 81 MG TAB PO SCH (08:48)
[2017-05-07] MEDS: MULTIVIT/CA CARB/B CMPLX/FA TAB PO SCH (08:48)
[2017-05-07] MEDS: PIPER-TAZO 2.25 GM (PMX) 50 ML IVPB SCH ×2 (12:44→23:06)
--- NOTE | 2017-05-07 12:56 | CONS ---
Date/Time of Note Date/Time of Note DATE: 05/07/17 TIME: 12:53 Assessment/Plan Assessment/Plan Chief Complaint/Hosp Course 1. ESRD 2. HTN 3. Infected av shunt left upper arm 4. Hep C 5. Obesity Problems: Additional Assessment/Plan 1. Hospitalist will call for surgeon to insert a line for HD Consultation Date/Type/Reason Admit Date/Time Initial Consult Date 05/07/2017 Type of Consultation: nephrology Reason for Consultation dr Castro Exam/Review of Systems Vital Signs Vitals Vital Signs Date Time Temp Pulse Resp B/P Pulse Ox O2 Delivery O2 Flow Rate FiO2 05/07/17 12:00 90 18 115/64 98 Room Air 05/07/17 10:00 98.0 05/07/17 04:40 21 Exam Constitutional: alert, oriented Psych: no complaints Head: normocephalic Eyes: EOMI, nl conjunctiva ENMT: nl external ears & nose Neck: supple Respiratory: clear to auscultation Cardiovascular: regular rate and rhythm Gastrointestinal: soft Genitourinary - Male: nl scrotum Musculoskeletal: nl extremities to inspection Extremities: other (left AV shunt dressing on) Results Result Diagram: 05/07/17 0245 05/07/17 0643 Results 24 hrs Laboratory Tests Test 05/07/17 02:36 05/07/17 02:45 05/07/17 04:15 05/07/17 04:36 Bedside Glucose 108 White Blood Count 7.5 # Red Blood Count 2.93 L Hemoglobin 9.6 L Hematocrit 29.2 L Mean Corpuscular Volume 99.7 Mean Corpuscular Hemoglobin 32.8 Mean Corpuscular Hemoglobin Concent 32.9 Red Cell Distribution Width 13.4 Platelet Count 157 # Mean Platelet Volume 9.0 Neutrophils % 88.6 H Lymphocytes % 6.7 L Monocytes % 3.6 Eosinophils % 0.5 Basophils % 0.1 Nucleated Red Blood Cells % 0.0 Neutrophils # 6.6 Lymphocytes # 0.5 L Monocytes # 0.3 Eosinophils # 0.0 Basophils # 0.0 Nucleated Red Blood Cells # 0.0 Prothrombin Time 15.2 H Prothrombin Time Ratio 1.2 INR International Normalized Ratio 1.19 Activated Partial Thromboplast Time 32.7 Sodium Level 134 L Potassium Level 6.2 *H Chloride Level 95 L Carbon Dioxide Level 29 Anion Gap 16 Blood Urea Nitrogen 36 H Creatinine 6.18 H Glucose Level 99 Lactic Acid Level 1.0 Calcium Level 8.5 Total Bilirubin 0.1 L Direct Bilirubin 0.00 Indirect Bilirubin 0.1 Aspartate Amino Transf (AST/SGOT) 38 Alanine Aminotransferase (ALT/SGPT) 44 Alkaline Phosphatase 67 Troponin I < 0.012 Total Protein 7.3 Albumin 4.9 Globulin 2.40 Albumin/Globulin Ratio 2.04 Urine Color YELLOW Urine Clarity CLEAR Urine pH 9.0 Urine Specific [place] 1.010 Urine Ketones NEGATIVE Urine Nitrite NEGATIVE Urine Bilirubin NEGATIVE Urine Urobilinogen NEGATIVE Urine Leukocyte Esterase NEGATIVE Urine Microscopic RBC > 182 H Urine Microscopic WBC 0 Urine Hemoglobin 2+ H Urine Glucose NEGATIVE Urine Total Protein 3+ H Bedside Urine pH (LAB) 8.5 Bedside Urine Protein (LAB) 3+ H Bedside Urine Glucose (UA) Negative Bedside Urine Ketones (LAB) Negative Bedside Urine Blood 3+ H Bedside Urine Nitrite (LAB) Negative Bedside Urine Leukocyte Esterase (L Negative Test 05/07/17 05:00 05/07/17 06:43 05/07/17 10:33 Lactic Acid Level < 0.5 L 0.8 Sodium Level 130 L Potassium Level 4.9 Chloride Level 95 L Carbon Dioxide Level 28 Anion Gap 12 Blood Urea Nitrogen 39 H Creatinine 6.17 H Glucose Level 73 Hemoglobin A1c 4.6 Calcium Level 8.3 L Magnesium Level 2.1 Total Bilirubin 0.1 L Direct Bilirubin 0.00 Indirect Bilirubin 0.1 Aspartate Amino Transf (AST/SGOT) 28 Alanine Aminotransferase (ALT/SGPT) 35 Alkaline Phosphatase 52 Total Protein 6.3 # Albumin 4.1 Globulin 2.20 Albumin/Globulin Ratio 1.86 Triglycerides Level 41 Cholesterol Level 96 L LDL Cholesterol, Calculated 56 HDL Cholesterol 32 Cholesterol/HDL Ratio 3.0 Thyroid Stimulating Hormone (TSH) 1.720 Medications Medications Current Medications Ondansetron HCl (Zofran Inj) 4 mg Q6H PRN IV NAUSEA AND/OR VOMITING Last administered on 05/07/17t 07:41; Admin Dose 4 MG; Start 05/07/17 at 05:00 Acetaminophen (Tylenol Tab) 650 mg Q6H PRN PO PAIN LEVEL 1-3 OR FEVER; Start at 05:00 Docusate Sodium (Colace) 100 mg Q12H PRN PO CONSTIPATION; Start 05/07/17 at 05: 00 Bisacodyl (Dulcolax) 5 mg DAILY PRN PO CONSTIPATION; Start 05/07/17 at 05:00 Pantoprazole (Protonix Iv) 40 mg DAILY@06 IV Last administered on 05/07/17 05: 38; Admin Dose 40 MG; Start 05/07/17 at 06:00 Acetaminophen (Tylenol Tab) 650 mg Q6H PRN PO PAIN LEVEL 1-3 OR FEVER; Start at 07:00 Aspirin (Halfprin) 81 mg DAILY PO Last administered on 05/07/17 08:48; Admin Dose 81 MG; Start 05/07/17 at 09:00 Carvedilol (Coreg) 3.125 mg BID PO Last administered on 05/07/17 08:48; Admin Dose 3.125 MG; Start 05/07/17 at 09:00 Multivit/Ca Carb/ B Cmplx/FA/Prenat (Mony-Giovanny) 1 tab DAILY PO Last administered on 05/07/17 08:48; Admin Dose 1 TAB; Start 05/07/17 at 09:00 Tiotropium [place] 1 inh 1 inh DAILY INH ; Start 05/08/17 at 15:00 Piperacillin Sod/ Tazobactam Sod (Zosyn 2.25gm/ 50ml (Pmx)) 50 ml @ 100 mls/hr Q8 IVPB Last administered on 05/07/17 12:44; Admin Dose 100 MLS/HR; Start at 13:00 Morphine Sulfate (morphine) 2 mg Q4H PRN IV PAIN Last administered on 07:42; Admin Dose 2 MG; Start 05/07/17 at 08:00 Formoterol (Foradil Aerolizer 12mcg/ Actu) 1 inh BID INH ; Start 05/07/17 at 21: 00 MT MEJIA May 07, 2017 12:56
[2017-05-07 14:00] VITALS: TEMP 99.1
--- NOTE | 2017-05-07 17:42 | QN ---
Documentation Comment [id number] Antonio MD May 07, 2017 17:42
[2017-05-07 18:37] LABS: ANION GAP 21 (8-16); SODIUM 139 mmol/L (135-144)
--- NOTE | 2017-05-07 18:44 | RADRPT ---
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 Physician: WENDY VALIENTE Quality: Good Procedures: Transthoracic echocardiogram with complete 2D, M-Mode, and doppler examination. Indications: infected av fistula, assess for endocarditis. 2D/M Mode Doppler Measurement Value Normal Ranges Measurement Value Normal Ranges LVIDd 2D 5.9 3.5 - 5.6 cm BRUCE Vmax 2.9 cm2 LVIDs 2D 3.9 2.1 - 4.1 cm BRUCE VTI 2.8 cm2 FS 2D 11.5 % AV Mean David 1.4 m/sec LVPWd 2D 1.2 0.6 - 1.1 cm AV Mean PG 9.0 mmHg IVSd 2D 1.5 0.6 - 1.1 cm AV Peak David 2.1 m/sec IVS/LVPW 2D 0.3 AV Peak PG 18.0 mmHg AoR Diam 2D 3.3 2.0 - 3.7 cm AV VTI 47.1 cm LA/Ao 2D 1 0 - 1 LVOT Mean David 1.0 m/sec EDV 2D 42.5 cm3 LVOT Mean PG 4.0 mmHg ESV 2D 58.9 cm3 LVOT Peak David 1.5 m/sec LA Dimen 2D 4.7 2.3 - 4.0 cm LVOT Peak PG 9.0 mmHg LVOT Diam 2.3 cm LVOT VTI 31.7 cm LVOT Area 4.2 cm2 MV E Peak David 1.2 m/sec MV A Peak David 0.7 m/sec MV E/A 1.7 MV Decel Time 225 msec MV E/A 1.7 TR Peak David 3.3 m/sec TR Peak PG 43.0 mmHg RVSP 51.0 mmHg Findings Left Ventricle: Normal left ventricular systolic function. Normal left ventricular cavity size. Mild concentric left ventricular hypertrophy. Ejection fraction is visually estimated at 55 %. Tissue Doppler/Mitral Doppler indices are within normal limits. Right Ventricle: Normal right ventricular size. Normal right ventricular systolic function. Left Atrium: There is moderate enlargement of left atrium. Right Atrium: The right atrium is normal in size. Mitral Valve: Mitral valve leaflets appear mildly thickened. Mild to moderate mitral valve regurgitation. Aortic Valve: No significant aortic stenosis or insufficiency. Aortic sclerosis without stenosis. Tricuspid Valve: Normal appearance of the tricuspid valve. Estimated peak PA systolic pressure 50 mmHg. There is mild to moderate tricuspid regurgitation. Pulmonic Valve: Normal pulmonic valve appearance. Pericardium: Normal pericardium with no significant pericardial effusion. Aorta: Normal aortic root. IVC: Dilated IVC with respiratory collapse consistent with elevated right atrial pressure. Conclusions Normal left ventricular systolic function. Normal left ventricular cavity size. Mild concentric left ventricular hypertrophy. Ejection fraction is visually estimated at 55 %. Tissue Doppler/Mitral Doppler indices are within normal limits. No obvious vegetation seen on the valves. If clinical suspicion is high, a CHIRAG would be necessary. Mitral valve leaflets appear mildly thickened. Mild to moderate mitral valve regurgitation. Mild to moderate tricuspid regurgitation. Moderate pulmonary hypertension with estimated peak PA systolic pressure 50 mmHg based on RA pressure of 8 mmHg. Electronically Signed By: David Simeon 07-May-2017 18:43:08 -0700 Patient Name: LUCY AMAYA Study Date: 07-May-2017 [id number]
[2017-05-07 18:45] VITALS: BP 144/77; PULSE 82; RESP 16
[2017-05-07 19:27] VITALS: Ht 157.5 cm; Wt 70.3 kg
[2017-05-07 19:50] VITALS: BP 144/77; RESP 18
[2017-05-07 20:00] VITALS: PULSE 84
[2017-05-07] MEDS: FORMOTEROL INH SCH (21:00)
[2017-05-07] MEDS: [UNRECOGNIZED DRUG - OTHER] INH SCH (21:00)
[2017-05-07] MEDS: ACETAMINOPHEN 325 MG TAB PO PRN (21:05)
[2017-05-07 23:54] VITALS: BP 141/77; RESP 19
[2017-05-08] VITALS (19 sets, daily range): BP systolic 133–160; BP diastolic 67–84; PULSE 66–92; RESP 17–20
[2017-05-08] MEDS: morphine 2 MG INJ IV PRN ×4 (02:01→20:27)
[2017-05-08] MEDS: PIPER-TAZO 2.25 GM (PMX) 50 ML IVPB SCH ×3 (05:57→22:25)
[2017-05-08] MEDS: PANTOPRAZOLE 40 MG INJ IV SCH (05:57)
[2017-05-08] MEDS: ACETAMINOPHEN 325 MG TAB PO PRN (05:58)
[2017-05-08 08:17] LABS: ADD SCAN DIFF NO
[2017-05-08 08:23] LABS: BASOPHILS % 0.3 % (0.0-2.0); EOSINOPHILS # 0.1 10^3/ul (0.0-0.5); HEMATOCRIT 26.2 % (42.0-52.0); HEMOGLOBIN 8.5 g/dl (14.0-18.0); LYMPHOCYTES % 16.2 % (15.0-51.0); MEAN CORPUSCULAR HGB CONC 32.4 g/dl (32.0-37.0); MEAN CORPUSCULAR VOLUME 98.5 fl (82.0-101.0); MEAN PLATELET VOLUME 9.5 fl (7.4-10.4); MONOCYTE # 0.5 10^3/ul (0.3-0.9); MONOCYTES % 8.6 % (0.0-11.0); NEUTROPHIL # 4.5 10^3/ul (1.6-7.5); NEUTROPHILS % 73.6 % (39.0-77.0); PLATELET COUNT 111 10^3/UL (140-415); RED BLOOD COUNT 2.66 10^6/ul (4.70-6.10); RED CELL DISTRIBUTION WIDTH 13.7 % (11.5-14.5); WHITE BLOOD COUNT 6.1 10^3/ul (4.8-10.8)
[2017-05-08] MEDS: MULTIVIT/CA CARB/B CMPLX/FA TAB PO SCH (08:24)
[2017-05-08] MEDS: ASPIRIN (EC) 81 MG TAB PO SCH (08:24)
[2017-05-08 08:42] LABS: ALBUMIN 3.8 g/dl (3.3-4.9); ALBUMIN/GLOBULIN RATIO 1.65; CALCIUM 8.3 mg/dl (8.4-10.2); CREATININE 7.65 mg/dl (0.61-1.24); POTASSIUM 5.9 mmol/L (3.5-5.1); TOTAL PROTEIN 6.1 g/dl (6.1-8.1)
[2017-05-08] MEDS: [UNRECOGNIZED DRUG - OTHER] INH SCH ×2 (09:00→21:00)
[2017-05-08] MEDS: FORMOTEROL INH SCH ×2 (09:00→21:00)
--- NOTE | 2017-05-08 14:47 | CONS ---
Date/Time of Note Date/Time of Note DATE: 05/08/17 TIME: 14:45 Assessment/Plan Assessment/Plan Chief Complaint/Hosp Course 1. ESRD 2. HTN,controlled 3. Infected av shunt left upper arm 4. Hep C 5. Obesity 6. Hyperkalemia Problems: Additional Assessment/Plan 1. expecting HD cath placement 2. HD after 3. kayaxalate 30 G Consultation Date/Type/Reason Admit Date/Time May 07, 2017 at 04:33 Initial Consult Date 05/07/2017 Type of Consultation: nephrology Reason for Consultation Dr Castro Exam/Review of Systems Vital Signs Vitals Vital Signs Date Time Temp Pulse Resp B/P Pulse Ox O2 Delivery O2 Flow Rate FiO2 05/08/17 12:14 66 05/08/17 11:55 98.0 18 139/70 95 05/07/17 18:45 Room Air 05/07/17 04:40 21 Intake and Output 05/07/17 05/07/17 05/08/17 15:00 23:00 07:00 Intake Total 50 ml 850 ml Balance 50 ml 850 ml Exam Constitutional: alert, oriented Eyes: nl conjunctiva ENMT: nl external ears & nose Neck: supple Respiratory: clear to auscultation Skin: other (pruritis) Results Result Diagram: 05/08/17 0733 05/08/17 0733 Results 24 hrs Laboratory Tests Test 05/08/17 07:33 White Blood Count 6.1 Red Blood Count 2.66 L Hemoglobin 8.5 L Hematocrit 26.2 L Mean Corpuscular Volume 98.5 Mean Corpuscular Hemoglobin 32.0 Mean Corpuscular Hemoglobin Concent 32.4 Red Cell Distribution Width 13.7 Platelet Count 111 #L Mean Platelet Volume 9.5 Neutrophils % 73.6 Lymphocytes % 16.2 Monocytes % 8.6 Eosinophils % 1.0 Basophils % 0.3 Nucleated Red Blood Cells % 0.0 Neutrophils # 4.5 Lymphocytes # 1.0 Monocytes # 0.5 Eosinophils # 0.1 Basophils # 0.0 Nucleated Red Blood Cells # 0.0 Sodium Level 139 Potassium Level 5.9 H Chloride Level 94 L Carbon Dioxide Level 29 Anion Gap 22 H Blood Urea Nitrogen 51 H Creatinine 7.65 H Glucose Level 95 Calcium Level 8.3 L Total Bilirubin 0.0 L Direct Bilirubin 0.00 Indirect Bilirubin 0.0 Aspartate Amino Transf (AST/SGOT) 21 Alanine Aminotransferase (ALT/SGPT) 35 Alkaline Phosphatase 46 Total Protein 6.1 Albumin 3.8 Globulin 2.30 Albumin/Globulin Ratio 1.65 Medications Medications Current Medications Ondansetron HCl (Zofran Inj) 4 mg Q6H PRN IV NAUSEA AND/OR VOMITING Last administered on 05/07/17 14:32; Admin Dose 4 MG; Start 05/07/17 at 05:00 Acetaminophen (Tylenol Tab) 650 mg Q6H PRN PO PAIN LEVEL 1-3 OR FEVER Last administered on 05/08/17 05:58; Admin Dose 650 MG; Start 05/07/17 at 05:00 Docusate Sodium (Colace) 100 mg Q12H PRN PO CONSTIPATION; Start 05/07/17 at 05: 00 Bisacodyl (Dulcolax) 5 mg DAILY PRN PO CONSTIPATION; Start 05/07/17 at 05:00 Pantoprazole (Protonix Iv) 40 mg DAILY@06 IV Last administered on 05/08/17 05: 57; Admin Dose 40 MG; Start 05/07/17 at 06:00 Acetaminophen (Tylenol Tab) 650 mg Q6H PRN PO PAIN LEVEL 1-3 OR FEVER; Start at 07:00 Aspirin (Halfprin) 81 mg DAILY PO Last administered on 05/08/17 08:24; Admin Dose 81 MG; Start 05/07/17 at 09:00 Carvedilol (Coreg) 3.125 mg BID PO Last administered on 05/08/17 08:25; Admin Dose 3.125 MG; Start 05/07/17 at 09:00 Multivit/Ca Carb/ B Cmplx/FA/Prenat (Mony-Giovanny) 1 tab DAILY PO Last administered on 05/08/17 08:24; Admin Dose 1 TAB; Start 05/07/17 at 09:00 Tiotropium [place] 1 inh 1 inh DAILY INH ; Start 05/08/17 at 15:00 Piperacillin Sod/ Tazobactam Sod (Zosyn 2.25gm/ 50ml (Pmx)) 50 ml @ 100 mls/hr Q8 IVPB Last administered on 05/08/17 05:57; Admin Dose 100 MLS/HR; Start at 13:00 Morphine Sulfate (morphine) 2 mg Q4H PRN IV PAIN Last administered on t 08:24; Admin Dose 2 MG; Start 05/07/17 at 08:00 Formoterol (Foradil Aerolizer 12mcg/ Actu) 1 inh BID INH ; Start 05/07/17 at 21: 00 Sodium Polystyrene Sulfonate (Kayexalate) 30 gm ONCE ONCE PO ; Start 05/08/17 at 15:00; Stop 05/08/17 at 15:01 MT MEJIA May 08, 2017 14:47
[2017-05-08] MEDS ORDERED: NA POLYST SULFON 15 GM/60 ML BTL PO ONE (15:00)
[2017-05-08] MEDS ORDERED: HEPARIN 1000 UNITS/ML 10 ML INJ CATHETER ONE (15:30)
--- NOTE | 2017-05-08 15:45 | OPR ---
Date/Time of Note Date/Time of Note DATE: 05/08/17 TIME: 15:44 Operative Report Free Text/Dictation DATE OF OPERATION: 05/08/2017 SURGEON: Prem Meza MD PREOPERATIVE DIAGNOSIS: ESRD POSTOPERATIVE DIAGNOSIS: same ANESTHESIA: Local BLOOD LOSS: minimal COMPLICATIONS: None. ACCESS: Right common femoral vein INDICATIONS: This is a 51 year-old male with ESRD requiring dialysis. Patient and family have been informed of the alternatives, risks, and benefits. Risks including but not limited to bleeding, thrombosis, embolization, myocardial infarction, , device malfunction, infection, pneumothorax, nephrotoxicity and patient has agreed to proceed. PROCEDURE: 1. Ultrasound guided access of right common femoral vein 2. Emergent Right common femoral vein non-tunneled hemodialysis catheter placement DESCRIPTION: The patient was in supine position in his bed. Bed was placed in slight Trendelenburg position and the groin was prepped and draped with sterile technique. The central catheter was flushed with heparin to ensure function of each port. Landmarks were identified and the skin entry site was chosen using ultrasound guidance. The skin And subcutaneous tissue were anesthetized with 1% lidocaine. The vein was then located with a needle with a 10 mL syringe using ultrasound guidance. The needle was then directed towards the vein and was entered. The needle position was secured and syringe was removed. The hub was occluded to prevent venous air embolus. The guidewire was passed easily and the needle was removed while the wire was held in place. A small incision was then made at the point of the wire entry. The dilator was placed over the wire and the tract gently dilated. The catheter was fed over the wire, ensuring the wire exited from the port before advancing the catheter. The catheter was inserted to the desired depth and the wire removed. Each port was aspirated to ensure adequate blood flow and then flushed with heparinized saline solution. The catheter was secured in place with a 2-0 nylon suture and a sterile dressing was applied. The patient tolerated the procedure well and was in stable condition. All instrument, sponge and needle counts were correct 2. PREM MEZA MD May 08, 2017 15:45
[2017-05-08] MEDS ORDERED: hydrALAzine 20 MG INJ IV PRN (16:00)
[2017-05-08] MEDS: TIOTROPIUM 18 MCG CAPSULE INHA DEV INH SCH (18:35)
[2017-05-08 19:43] LABS: CREATINE KINASE 36 IU/L (23-200)
[2017-05-08 19:58] LABS: CK-MB 0.52 ng/ml (0.0-2.4); TROPONIN-I < 0.012 ng/ml (0.00-0.12)
[2017-05-09] VITALS (13 sets, daily range): BP systolic 109–160; BP diastolic 63–90; PULSE 59–92; RESP 17–22
[2017-05-09 02:00] LABS: CREATINE KINASE 28 IU/L (23-200)
[2017-05-09 02:38] LABS: CK-MB 0.37 ng/ml (0.0-2.4); TROPONIN-I < 0.012 ng/ml (0.00-0.12)
[2017-05-09] MEDS: PIPER-TAZO 2.25 GM (PMX) 50 ML IVPB SCH ×3 (06:19→21:13)
[2017-05-09] MEDS: PANTOPRAZOLE 40 MG INJ IV SCH (06:19)
[2017-05-09] MEDS: morphine 2 MG INJ IV PRN ×4 (06:20→23:21)
[2017-05-09] MEDS: TIOTROPIUM 18 MCG CAPSULE INHA DEV INH SCH (08:26)
[2017-05-09] MEDS: MULTIVIT/CA CARB/B CMPLX/FA TAB PO SCH (08:26)
[2017-05-09] MEDS: ASPIRIN (EC) 81 MG TAB PO SCH (08:27)
--- NOTE | 2017-05-09 08:37 | HP ---
DATE OF ADMISSION: 05/07/2017 Vascular Surgery history and physical. Dear Doctors, The patient is a 51-year-old gentleman with a history of end- stage renal disease, whom has had a long-standing history of left upper extremity AV fistula in which he underwent revision of his aneurysmal changes about 3 weeks ago [facility] by an outside vascular surgeon. Unfortunately, the patient returns with significant left upper extremity cellulitis and infection and wound dehiscence of where he had his revision done. At the moment, the patient denies shortness of breath, nausea, vomiting. Patient does have some fever and chills and a chronic cough over the past few weeks. Further, the patient does have some left- sided chest pain which could be contributed to the following finding. REVIEW OF SYSTEMS: 14 point review performed and negative except as mentioned in HPI. PAST MEDICAL HISTORY: 1. End-stage renal disease. 2. Hypertension. 3. Coronary artery disease,. 4. Hypercholesterolemia. 5. Hepatitis C. 6. Anemia of chronic disease. 7. History of pericardial effusion. PAST SURGICAL HISTORY: 1. Left upper extremity AV fistula. 2. Multiple chest wall catheters. 3. Pericardial window. FAMILY HISTORY: Positive for hypertension, coronary artery disease. SOCIAL HISTORY: Positive for being an ex-smoker. Currently denies tobacco, alcohol, or illicit drug use. PHYSICAL EXAMINATION: Alert, oriented x3. No apparent distress. HEENT: Normocephalic, atraumatic. PERRLA. EOMI. Mucosa moist. NECK: Supple. No carotid bruit. LUNGS: Clear to auscultation bilaterally. No crackles. CARDIOVASCULAR: S1, S2 present. ABDOMEN: Soft, nontender, nondistended. Bowel sounds positive. EXTREMITIES: Right lower extremity, palpable femoral pulse. Nonpalpable pedal pulse. Motor sensory intact. Capillary refill 3 seconds. Presence of lipodermatosclerosis. Left lower extremity, palpable femoral pulse. Nonpalpable pedal pulse. Motor sensory intact. Capillary refill 3-4 seconds. Presence of lipodermatosclerosis. Left upper extremity, palpable radial pulse. Motor sensory intact. 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 He has a surgical scar that is well healed. He has aneurysmal changes in the upper arm and he has a surgical wound that has essentially dehisced with areas of erythema that extends from the upper arm all the way to his shoulder and left chest area. ASSESSMENT AND PLAN: End-stage renal disease: It seems the patient has developed significant left upper extremity cellulitis and wound dehiscence of his surgical site incision. At the moment the patient has an area that is exposed where the fistula may be located and will require revision of this and debridement of this area. I would recommend for the patient to urgently have a Jerrod catheter placed as the patient does have hyperkalemia has not received his hemodialysis in the past few days. We will schedule the patient for revision of his AV fistula in the coming days once his infection has settled down further. Recommend continue with the antibiotics coverage. Recommend for cardiac evaluation for preoperative clearance. Optimize vascular status (nutrition, sugar control, antiplatelets). Thank you for allowing us to participate in the care of your patient. Please call with any questions. Discussed findings and plan of management with the patient and he understands with the certified looseleaf binder coverer. Dictated By: Prem Aly MD /doug/leah /Document#: [id number]
[2017-05-09 08:57] LABS: CHOL/HDL RATIO 3.4 RATIO
[2017-05-09] MEDS ORDERED: AMLODIPINE 5 MG TAB PO SCH (09:00)
[2017-05-09] MEDS: [UNRECOGNIZED DRUG - OTHER] INH SCH ×2 (09:00→21:00)
[2017-05-09] MEDS: FORMOTEROL INH SCH ×2 (09:00→21:00)
[2017-05-09 09:05] LABS: CALCIUM 8.4 mg/dl (8.4-10.2); CREATINE KINASE 29 IU/L (23-200); CREATININE 6.62 mg/dl (0.61-1.24); POTASSIUM 5.6 mmol/L (3.5-5.1)
[2017-05-09 09:25] LABS: CK-MB 0.31 ng/ml (0.0-2.4); TROPONIN-I < 0.012 ng/ml (0.00-0.12)
--- NOTE | 2017-05-09 10:13 | EN ---
Date/Time of Note Date/Time of Note DATE: 05/09/17 TIME: 10:13 Event Note Medicine Medicine Event Note PROGRESS NOTE DATE OF SERVICE: 05/08/17 SUBJECTIVE: patient feels better, still with occasional chills OBJECTIVE: Vital Signs Date Time Temp Pulse Resp B/P Pulse Ox O2 Delivery O2 Flow Rate FiO2 05/08/17 12:14 66 05/08/17 11:55 98.0 18 139/70 95 05/07/17 18:45 Room Air 05/07/17 04:40 21 Intake and Output 05/07/17 05/07/17 05/08/17 15:00 23:00 07:00 Intake Total 50 ml 850 ml Balance 50 ml 850 ml General: Patient is well-developed well-nourished The patient is alert oriented -3 lying comfortably in bed. HEENT: Atraumatic, normocephalic. The pupils are equal, round and reactive. Extraocular motor are intact Neck: Supple with full range of motion. No rigidity or meningismus Chest: Nontender Lungs: Clear to auscultation bilaterally no crackles rales or wheezing Heart: Normal S1-S2, Regular rhythm and rate. No murmur, S3, or S4 Abdomen: Soft , nontender, nondistended , bowel sounds are present. No guarding no rebound tenderness , No masses or organomegaly. No costovertebral temporal angle mass Extremities: Normal to inspection, no edema no cyanosis Neurologic: Normal mental status, speech normal, cranial nerves II through XII are intact, motor and sensory are intact, no focal weakness Vascular: Left AV fistula tenderness to palpation, ulcer covered in stained guaze LABS AND IMAGING: Result Diagram: 05/08/17 0733 05/08/17 0733 Results 24 hrs Laboratory Tests Test 05/08/17 07:33 White Blood Count 6.1 Red Blood Count 2.66 L Hemoglobin 8.5 L Hematocrit 26.2 L Mean Corpuscular Volume 98.5 Mean Corpuscular Hemoglobin 32.0 Mean Corpuscular Hemoglobin Concent 32.4 Red Cell Distribution Width 13.7 Platelet Count 111 #L Mean Platelet Volume 9.5 Neutrophils % 73.6 Lymphocytes % 16.2 Monocytes % 8.6 Eosinophils % 1.0 Basophils % 0.3 Nucleated Red Blood Cells % 0.0 Neutrophils # 4.5 Lymphocytes # 1.0 Monocytes # 0.5 Eosinophils # 0.1 Basophils # 0.0 Nucleated Red Blood Cells # 0.0 Sodium Level 139 Potassium Level 5.9 H Chloride Level 94 L Carbon Dioxide Level 29 Anion Gap 22 H Blood Urea Nitrogen 51 H Creatinine 7.65 H Glucose Level 95 Calcium Level 8.3 L Total Bilirubin 0.0 L Direct Bilirubin 0.00 Indirect Bilirubin 0.0 Aspartate Amino Transf (AST/SGOT) 21 Alanine Aminotransferase (ALT/SGPT) 35 Alkaline Phosphatase 46 Total Protein 6.1 Albumin 3.8 Globulin 2.30 Albumin/Globulin Ratio 1.65 Medications Current Medications Ondansetron HCl (Zofran Inj) 4 mg Q6H PRN IV NAUSEA AND/OR VOMITING Last administered on 05/07/17 14:32; Admin Dose 4 MG; Start 05/07/17 at 05:00 Acetaminophen (Tylenol Tab) 650 mg Q6H PRN PO PAIN LEVEL 1-3 OR FEVER Last administered on 05/08/17 05:58; Admin Dose 650 MG; Start 05/07/17 at 05:00 Docusate Sodium (Colace) 100 mg Q12H PRN PO CONSTIPATION; Start 05/07/17 at 05: 00 Bisacodyl (Dulcolax) 5 mg DAILY PRN PO CONSTIPATION; Start 05/07/17 at 05:00 Pantoprazole (Protonix Iv) 40 mg DAILY@06 IV Last administered on 05/08/17 05: 57; Admin Dose 40 MG; Start 05/07/17 at 06:00 Acetaminophen (Tylenol Tab) 650 mg Q6H PRN PO PAIN LEVEL 1-3 OR FEVER; Start at 07:00 Aspirin (Halfprin) 81 mg DAILY PO Last administered on 05/08/17 08:24; Admin Dose 81 MG; Start 05/07/17 at 09:00 Carvedilol (Coreg) 3.125 mg BID PO Last administered on 05/08/17 08:25; Admin Dose 3.125 MG; Start 05/07/17 at 09:00 Multivit/Ca Carb/ B Cmplx/FA/Prenat (Mony-Giovanny) 1 tab DAILY PO Last administered on 05/08/17 08:24; Admin Dose 1 TAB; Start 05/07/17 at 09:00 Tiotropium [place] 1 inh 1 inh DAILY INH ; Start 05/08/17 at 15:00 Piperacillin Sod/ Tazobactam Sod (Zosyn 2.25gm/ 50ml (Pmx)) 50 ml @ 100 mls/hr Q8 IVPB Last administered on 05/08/17 05:57; Admin Dose 100 MLS/HR; Start at 13:00 Morphine Sulfate (morphine) 2 mg Q4H PRN IV PAIN Last administered on 08:24; Admin Dose 2 MG; Start 05/07/17 at 08:00 Formoterol (Foradil Aerolizer 12mcg/ Actu) 1 inh BID INH ; Start 05/07/17 at 21: 00 Sodium Polystyrene Sulfonate (Kayexalate) 30 gm ONCE ONCE PO ; Start 05/08/17 at 15:00; Stop 05/08/17 at 15:01 May 08, 2017 14:47 PROCEDURE: XR Chest. CLINICAL INDICATION: Sepsis. TECHNIQUE: Single frontal chest x-ray. COMPARISON: 03/13/2017 FINDINGS: Heart is enlarged.. Mild pulmonary vascular congestion.. No focal infiltrate is seen. There is no pleural effusion. There is no pneumothorax. The osseous structures are unremarkable. IMPRESSION: Cardiomegaly. Mild pulmonary vascular congestion. No definite focal infiltrate. RPTAT: HMVK .Pepe Miller MD, Date Time Electronically viewed and signed by .Pepe Miller MD, MD on 05/07/2017 02:50 .K/ CC: PEPE AVERY MD A/P 51 yo M who presented with fever 2 weeks after he had revision of the left upper proximity AV fistula at [facility] managed for the following 1. Sepsis 2/2 infected ulcer overlying LE fistula 2. Infected ulcer JOSH arm over fistula with surrounding JOSH arm cellulitis * this is limiting use of recently revised fistula, vasc surgical consult is pending 4. ESRD on HD with Mild pul vasc congestion on CXR 5. Hyperkalemia 6. Anemia of CKD r/o iron deficiency 7. HTN: still suboptimal control 8. COPD 9. Tobacco abuse PLAN: * Continue current abx / F/u blood cultures / Consider ID consult * Patient needs HD access, await vascular recommendations * titrate antihypertensives for better control. * Tobacco cessation counselling * Continue all supportive care and pain control Prophylaxis: STONEYs / TIESHA Rudd May 09, 2017 10:13
--- NOTE | 2017-05-09 10:13 | PN ---
Date/Time of Note Date/Time of Note DATE: 05/09/17 TIME: 10:13 Assessment/Plan VTE Prophylaxis VTE Prophylaxis Intervention: heparin Lines/Catheters IV Catheter Type (from Nrs): Saline Lock Urinary Cath still in place: No Assessment/Plan Assessment/Plan 51 yo M who presented with fever 2 weeks after he had revision of the left upper proximity AV fistula at [facility] managed for the following 1. Sepsis 2/2 bacteremia and infected ulcer overlying LE fistula: improved 2. Gram negative harrison bacteremia likely 2/2 #2 3. Wound dehiscence with Infected ulcer JOSH arm over fistula with surrounding JOSH arm cellulitis * this is limiting use of recently revised fistula, hence patient had femoral Jerrod placed 05/08/17 4. ESRD on HD 5. Hyperkalemia 6. Anemia of CKD with thrombocytopenia r/o iron deficiency 7. HTN: still suboptimal control 8. COPD 9. Tobacco abuse PLAN: * Continue current abx / F/u final sensitivity report and repeat blood cultures / ID consult / 2D echo to assess for possible vegetations * Patient will likely need repeat HD today / low dose kayexalate in the meantime * titrate antihypertensives for better control. I switched amlodipine to nifedipine XL * Continue tobacco cessation counselling * Continue all supportive care and pain control Prophylaxis: Heparin(monitor platelets ) / Pepcid Subjective 24 Hr Interval Summary Free Text/Dictation Patient seen and examined. Had jerrod placed yesterday and was dialysed after that Only complaint is still pain in L arm oscar with movt Exam/Review of Systems Vital Signs Vitals Vital Signs Date Time Temp Pulse Resp B/P Pulse Ox O2 Delivery O2 Flow Rate FiO2 05/09/17 08:11 61 05/09/17 07:20 98.4 18 160/84 96 05/07/17 18:45 Room Air 05/07/17 04:40 21 Intake and Output 05/08/17 05/08/17 05/09/17 15:00 23:00 07:00 Intake Total 1400 ml 250 ml Output Total 5400 ml Balance -4000 ml 250 ml Exam Constitutional: alert, oriented, no distress Head: atraumatic, normocephalic Neck: non-tender, supple Respiratory: clear to auscultation Cardiovascular: regular rate and rhythm Gastrointestinal: S/ NT / ND / +BS Extremities: no LE edema, L forearm ulcer over AVF approx 2.3in in diameter still oozing Results Result Diagram: 05/08/17 0733 05/09/17 0734 Results 24 hrs Laboratory Tests Test 05/08/17 18:40 05/09/17 01:00 05/09/17 07:34 Creatine Kinase 36 28 29 Creatine Kinase Index 1.4 1.3 1.1 Creatinine Kinase MB (Mass) 0.52 0.37 0.31 Troponin I < 0.012 < 0.012 < 0.012 Sodium Level 137 Potassium Level 5.6 H Chloride Level 93 L Carbon Dioxide Level 28 Anion Gap 22 H Blood Urea Nitrogen 41 H Creatinine 6.62 H Glucose Level 81 Calcium Level 8.4 Triglycerides Level 87 Cholesterol Level 113 LDL Cholesterol, Calculated 63 HDL Cholesterol 33 Cholesterol/HDL Ratio 3.4 Medications Medications Current Medications Ondansetron HCl (Zofran Inj) 4 mg Q6H PRN IV NAUSEA AND/OR VOMITING Last administered on 05/07/17 14:32; Admin Dose 4 MG; Start 05/07/17 at 05:00 Acetaminophen (Tylenol Tab) 650 mg Q6H PRN PO PAIN LEVEL 1-3 OR FEVER Last administered on 05/08/17 05:58; Admin Dose 650 MG; Start 05/07/17 at 05:00 Docusate Sodium (Colace) 100 mg Q12H PRN PO CONSTIPATION; Start 05/07/17 at 05: 00 Bisacodyl (Dulcolax) 5 mg DAILY PRN PO CONSTIPATION; Start 05/07/17 at 05:00 Pantoprazole (Protonix Iv) 40 mg DAILY@06 IV Last administered on 05/09/17 06: 19; Admin Dose 40 MG; Start 05/07/17 at 06:00 Acetaminophen (Tylenol Tab) 650 mg Q6H PRN PO PAIN LEVEL 1-3 OR FEVER; Start at 07:00 Aspirin (Halfprin) 81 mg DAILY PO Last administered on 05/09/17 08:27; Admin Dose 81 MG; Start 05/07/17 at 09:00 Carvedilol (Coreg) 3.125 mg BID PO Last administered on 05/09/17 08:27; Admin Dose 3.125 MG; Start 05/07/17 at 09:00 Multivit/Ca Carb/ B Cmplx/FA/Prenat (Mony-Giovanny) 1 tab DAILY PO Last administered on 05/09/17 08:26; Admin Dose 1 TAB; Start 05/07/17 at 09:00 Tiotropium [place] 1 inh 1 inh DAILY INH Last administered on 05/09/17 08:26; Admin Dose 1 INH; Start 05/08/17 at 15:00 Piperacillin Sod/ Tazobactam Sod (Zosyn 2.25gm/ 50ml (Pmx)) 50 ml @ 100 mls/hr Q8 IVPB Last administered on 05/09/17 06:19; Admin Dose 100 MLS/HR; Start at 13:00 Morphine Sulfate (morphine) 2 mg Q4H PRN IV PAIN Last administered on 06:20; Admin Dose 2 MG; Start 05/07/17 at 08:00 Formoterol (Foradil Aerolizer 12mcg/ Actu) 1 inh BID INH ; Start 05/07/17 at 21: 00 Amlodipine Besylate (Norvasc) 5 mg DAILY PO Last administered on 05/09/17 08: 28; Admin Dose 5 MG; Start 05/09/17 at 09:00 Hydralazine HCl (Apresoline) 10 mg Q4H PRN IV SBP>170; Start 05/08/17 at 16:00 TIESHA ARELLANO May 09, 2017 10:13
[2017-05-09] MEDS ORDERED: NA POLYST SULFON 15 GM/60 ML BTL PO ONE ×2 (11:30→19:00)
[2017-05-09] MEDS ORDERED: VANCOMYCIN IV PER PHARMACY XX SCH (11:30)
[2017-05-09] MEDS: NIFEdipine (XL) 60 MG TAB PO SCH ×2 (12:33→21:14)
[2017-05-09] MEDS: FAMOTIDINE 20 MG TAB PO SCH (12:33)
[2017-05-09] MEDS ORDERED: VANCOMYCIN 1 GM in NS 250 ML IVPB ONE (14:00)
--- NOTE | 2017-05-09 15:15 | CONS ---
Date/Time of Note Date/Time of Note DATE: 05/09/17 TIME: 15:09 Assessment/Plan Assessment/Plan Chief Complaint/Hosp Course IMP: 1.Pre-op eval prior to revision/debridement of AVF-Negative trop x 3/NO chest pain. NL EF by echo tis admit with no contraindicated valve lesions. OK to proceed to OR at moderate risk without further noninvasive evaluation 2.CHF-diastolic acute on chronic 3.HTN-unocontrolled 4.ESRD on HD 5.Non-functioning AVF 6.anemia 7. Dyslipidemia 8. Hyperkalemia Recc: -Tele -serial ecg's -Continue procardia xl -Increase dose of coreg to improve BP control -HD for volume removal -pnding surgery for AVF debridement/revision Problems: Consultation Date/Type/Reason Admit Date/Time May 07, 2017 at 04:33 Initial Consult Date 05/09/17 Type of Consultation: cardiology Reason for Consultation pre-op Referring Provider: LANDON MARMOLEJO Exam/Review of Systems Vital Signs Vitals Vital Signs Date Time Temp Pulse Resp B/P Pulse Ox O2 Delivery O2 Flow Rate FiO2 05/09/17 12:15 59 05/09/17 11:44 98.2 17 150/83 97 05/07/17 18:45 Room Air 05/07/17 04:40 21 Intake and Output 05/08/17 05/08/17 05/09/17 14:59 22:59 06:59 Intake Total 1400 ml 250 ml Output Total 5400 ml Balance -4000 ml 250 ml Exam Review of Systems: CONSTITUTIONAL: No fevers, chills. PULMONARY: No sob CARDIOVASCULAR: No chest pain/palpitations GASTROINTESTINAL: No nausea/vomiting. GENITOURINARY: No hematuria/dysuria. MUSCULOSKELETAL: No myagias/arthalgias. PSYCHIATRIC: The patient denies depression. NEUROLOGIC: No weakness Constitutional: alert, oriented Psych: no complaints Head: normocephalic ENMT: mucosa pink and moist Neck: jvd (9 cm water), supple Respiratory: clear to auscultation Cardiovascular: regular rate and rhythm Gastrointestinal: non-tender, soft Musculoskeletal: other (L arm AVF covered by dressing) Extremities: edema (none) 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: other (Non focal deficits) Results Result Diagram: 05/08/17 0733 05/09/17 0734 Results 24 hrs Laboratory Tests Test 05/08/17 18:40 05/09/17 01:00 05/09/17 07:34 Creatine Kinase 36 28 29 Creatine Kinase Index 1.4 1.3 1.1 Creatinine Kinase MB (Mass) 0.52 0.37 0.31 Troponin I < 0.012 < 0.012 < 0.012 Sodium Level 137 Potassium Level 5.6 H Chloride Level 93 L Carbon Dioxide Level 28 Anion Gap 22 H Blood Urea Nitrogen 41 H Creatinine 6.62 H Glucose Level 81 Calcium Level 8.4 Triglycerides Level 87 Cholesterol Level 113 LDL Cholesterol, Calculated 63 HDL Cholesterol 33 Cholesterol/HDL Ratio 3.4 Random Vancomycin Level 8.9 Medications Medications Current Medications Ondansetron HCl (Zofran Inj) 4 mg Q6H PRN IV NAUSEA AND/OR VOMITING Last administered on 05/07/17 14:32; Admin Dose 4 MG; Start 05/07/17 at 05:00 Acetaminophen (Tylenol Tab) 650 mg Q6H PRN PO PAIN LEVEL 1-3 OR FEVER Last administered on 05/08/17 05:58; Admin Dose 650 MG; Start 05/07/17 at 05:00 Bisacodyl (Dulcolax) 5 mg DAILY PRN PO CONSTIPATION; Start 05/07/17 at 05:00 Acetaminophen (Tylenol Tab) 650 mg Q6H PRN PO PAIN LEVEL 1-3 OR FEVER; Start at 07:00 Aspirin (Halfprin) 81 mg DAILY PO Last administered on 05/09/17 08:27; Admin Dose 81 MG; Start 05/07/17 at 09:00 Carvedilol (Coreg) 3.125 mg BID PO Last administered on 05/09/17 08:27; Admin Dose 3.125 MG; Start 05/07/17 at 09:00 Multivit/Ca Carb/ B Cmplx/FA/Prenat (Mony-Giovanny) 1 tab DAILY PO Last administered on 05/09/17 08:26; Admin Dose 1 TAB; Start 05/07/17 at 09:[address] 1 inh 1 inh DAILY INH Last administered on 05/09/17 08:26; Admin Dose 1 INH; Start 05/08/17 at 15:00 Piperacillin Sod/ Tazobactam Sod (Zosyn 2.25gm/ 50ml (Pmx)) 50 ml @ 100 mls/hr Q8 IVPB Last administered on 05/09/17 14:12; Admin Dose 100 MLS/HR; Start at 13:00 Morphine Sulfate (morphine) 2 mg Q4H PRN IV PAIN Last administered on 11:31; Admin Dose 2 MG; Start 05/07/17 at 08:00 Formoterol (Foradil Aerolizer 12mcg/ Actu) 1 inh BID INH ; Start 05/07/17 at 21: 00 Hydralazine HCl (Apresoline) 10 mg Q4H PRN IV SBP>170; Start 05/08/17 at 16:00 Heparin Sodium (Porcine) (Heparin (5000 Units/0.5 ml)) 5,000 unit BID SC ; Start 05/09/17 at 21:00 Docusate Sodium (Colace) 100 mg Q12 PO ; Start 05/09/17 at 21:00 Nifedipine (Procardia Xl) 60 mg BID PO Last administered on 05/09/17 12:33; Admin Dose 60 MG; Start 05/09/17 at 12:00 Famotidine 20 mg 20 mg DAILY PO Last administered on 05/09/17 12:33; Admin Dose 20 MG; Start 05/09/17 at 12:00 Vancomycin HCl (Vancocin) 250 ml @ 125 mls/hr ONCE ONCE IVPB Last administered on 05/09/17 14:12; Admin Dose 125 MLS/HR; Start 05/09/17 at 14:00 ; Stop 05/09/17 at 15:59 YONG SINGH 16, 2017 15:15
--- NOTE | 2017-05-09 18:44 | PN ---
Date/Time of Note Date/Time of Note DATE: 05/09/17 TIME: 18:43 Assessment/Plan VTE Prophylaxis VTE Prophylaxis Intervention: other Lines/Catheters IV Catheter Type (from Nrsg): brigid cath Urinary Cath still in place: No Assessment/Plan Chief Complaint/Hosp Course HYPERKALEMIA SEPSIS ESRD ANEMIA PLAN HD Problems: Subjective 24 Hr Interval Summary Respiratory: no complaints Cardiovascular: no complaints Exam/Review of Systems Vital Signs Vitals Vital Signs Date Time Temp Pulse Resp B/P Pulse Ox O2 Delivery O2 Flow Rate FiO2 05/09/17 16:12 92 05/09/17 15:55 98.0 17 110/64 95 05/07/17 18:45 Room Air 05/07/17 04:40 21 Intake and Output 05/08/17 05/08/17 05/09/17 15:00 23:00 07:00 Intake Total 1400 ml 250 ml Output Total 5400 ml Balance -4000 ml 250 ml Exam Respiratory: clear to auscultation Cardiovascular: regular rate and rhythm Gastrointestinal: nl liver, spleen, soft Results Result Diagram: 05/08/17 0733 05/09/17 0734 Results 24 hrs Laboratory Tests Test 05/09/17 01:00 05/09/17 07:34 Creatine Kinase 28 29 Creatine Kinase Index 1.3 1.1 Creatinine Kinase MB (Mass) 0.37 0.31 Troponin I < 0.012 < 0.012 Sodium Level 137 Potassium Level 5.6 H Chloride Level 93 L Carbon Dioxide Level 28 Anion Gap 22 H Blood Urea Nitrogen 41 H Creatinine 6.62 H Glucose Level 81 Calcium Level 8.4 Triglycerides Level 87 Cholesterol Level 113 LDL Cholesterol, Calculated 63 HDL Cholesterol 33 Cholesterol/HDL Ratio 3.4 Random Vancomycin Level 8.9 Medications Medications Current Medications Ondansetron HCl (Zofran Inj) 4 mg Q6H PRN IV NAUSEA AND/OR VOMITING Last administered on 05/07/17 14:32; Admin Dose 4 MG; Start 05/07/17 at 05:00 Acetaminophen (Tylenol Tab) 650 mg Q6H PRN PO PAIN LEVEL 1-3 OR FEVER Last administered on 05/08/17 05:58; Admin Dose 650 MG; Start 05/07/17 at 05:00 Bisacodyl (Dulcolax) 5 mg DAILY PRN PO CONSTIPATION; Start 05/07/17 at 05:00 Acetaminophen (Tylenol Tab) 650 mg Q6H PRN PO PAIN LEVEL 1-3 OR FEVER; Start at 07:00 Aspirin (Halfprin) 81 mg DAILY PO Last administered on 05/09/17 08:27; Admin Dose 81 MG; Start 05/07/17 at 09:00 Multivit/Ca Carb/ B Cmplx/FA/Prenat (Mony-Giovanny) 1 tab DAILY PO Last administered on 05/09/17 08:26; Admin Dose 1 TAB; Start 05/07/17 at 09:00 Tiotropium [place] 1 inh 1 inh DAILY INH Last administered on 05/09/17 08:26; Admin Dose 1 INH; Start 05/08/17 at 15:00 Piperacillin Sod/ Tazobactam Sod (Zosyn 2.25gm/ 50ml (Pmx)) 50 ml @ 100 mls/hr Q8 IVPB Last administered on 05/09/17 14:12; Admin Dose 100 MLS/HR; Start at 13:00 Morphine Sulfate (morphine) 2 mg Q4H PRN IV PAIN Last administered on 11:31; Admin Dose 2 MG; Start 05/07/17 at 08:00 Formoterol (Foradil Aerolizer 12mcg/ Actu) 1 inh BID INH ; Start 05/07/17 at 21: 00 Hydralazine HCl (Apresoline) 10 mg Q4H PRN IV SBP>170; Start 05/08/17 at 16:00 Heparin Sodium (Porcine) (Heparin (5000 Units/0.5 ml)) 5,000 unit BID SC ; Start 05/09/17 at 21:00 Docusate Sodium (Colace) 100 mg Q12 PO ; Start 05/09/17 at 21:00 Nifedipine (Procardia Xl) 60 mg BID PO Last administered on 05/09/17 12:33; Admin Dose 60 MG; Start 05/09/17 at 12:00 Famotidine (Pepcid) 20 mg DAILY PO Last administered on 05/09/17 12:33; Admin Dose 20 MG; Start 05/09/17 at 12:00 Carvedilol (Coreg) 6.25 mg BID PO ; Start 05/09/17 at 21:00 LANDON MARMOLEJO MD May 09, 2017 18:44
[2017-05-09] MEDS: DOCUSATE SODIUM 100 MG CAP PO SCH (21:14)
[2017-05-09] MEDS: HEPARIN 5,000 UNIT/0.5 ML VIAL SC SCH (21:15)
[2017-05-10] VITALS (20 sets, daily range): BP systolic 105–168; BP diastolic 61–86; PULSE 68–115; RESP 16–19
[2017-05-10 06:04] LABS: ADD SCAN DIFF NO
[2017-05-10 06:08] LABS: BASOPHILS % 0.5 % (0.0-2.0); EOSINOPHILS # 0.2 10^3/ul (0.0-0.5); EOSINOPHILS % 4.1 % (0.0-7.0); HEMATOCRIT 27.1 % (42.0-52.0); HEMOGLOBIN 8.9 g/dl (14.0-18.0); MEAN CORPUSCULAR HEMOGLOBIN 31.7 pg (29.0-33.0); MEAN CORPUSCULAR HGB CONC 32.8 g/dl (32.0-37.0); MEAN CORPUSCULAR VOLUME 96.4 fl (82.0-101.0); MEAN PLATELET VOLUME 9.1 fl (7.4-10.4); MONOCYTE # 0.4 10^3/ul (0.3-0.9); MONOCYTES % 10.1 % (0.0-11.0); NEUTROPHIL # 2.2 10^3/ul (1.6-7.5); PLATELET COUNT 119 10^3/UL (140-415); RED BLOOD COUNT 2.81 10^6/ul (4.70-6.10); WHITE BLOOD COUNT 3.7 10^3/ul (4.8-10.8)
[2017-05-10] MEDS: PIPER-TAZO 2.25 GM (PMX) 50 ML IVPB SCH ×3 (06:28→21:28)
[2017-05-10 06:55] LABS: CALCIUM 8.1 mg/dl (8.4-10.2); CREATININE 7.86 mg/dl (0.61-1.24); MAGNESIUM 2.2 mg/dl (1.7-2.5); POTASSIUM 4.8 mmol/L (3.5-5.1)
[2017-05-10] MEDS ORDERED: SOD CHLORIDE 0.9% 100 ML ONE (07:54)
[2017-05-10] MEDS ORDERED: IOHEXOL 100 ML ONE (07:55)
[2017-05-10] MEDS: [UNRECOGNIZED DRUG - OTHER] INH SCH ×2 (09:00→21:00)
[2017-05-10] MEDS: FORMOTEROL INH SCH ×2 (09:00→21:00)
[2017-05-10] MEDS: ASPIRIN (EC) 81 MG TAB PO SCH (09:36)
[2017-05-10] MEDS: HEPARIN 5,000 UNIT/0.5 ML VIAL SC SCH ×2 (09:38→21:34)
[2017-05-10] MEDS: morphine 2 MG INJ IV PRN ×2 (09:49→20:22)
[2017-05-10] MEDS: NIFEdipine (XL) 60 MG TAB PO SCH ×2 (09:54→20:23)
[2017-05-10] MEDS: DOCUSATE SODIUM 100 MG CAP PO SCH ×2 (09:54→20:22)
[2017-05-10] MEDS: MULTIVIT/CA CARB/B CMPLX/FA TAB PO SCH (09:54)
[2017-05-10] MEDS: FAMOTIDINE 20 MG TAB PO SCH (09:55)
[2017-05-10] MEDS: TIOTROPIUM 18 MCG CAPSULE INHA DEV INH SCH (09:55)
--- NOTE | 2017-05-10 14:20 | PN ---
Date/Time of Note Date/Time of Note DATE: 05/10/17 TIME: 14:19 Assessment/Plan VTE Prophylaxis VTE Prophylaxis Intervention: heparin Lines/Catheters IV Catheter Type (from Nrs): [place] Lock Urinary Cath still in place: No Assessment/Plan Chief Complaint/Hosp Course 1. Sepsis 2/2 bacteremia and infected ulcer overlying LE fistula: improved 2. Gram negative harrison bacteremia likely 2/2 #2 3. Wound dehiscence with Infected ulcer JOSH arm over fistula with surrounding JOSH arm cellulitis * this is limiting use of recently revised fistula, hence patient had femoral Jerrod placed 05/08/17 4. ESRD on HD 5. Hyperkalemia 6. Anemia of CKD with thrombocytopenia r/o iron deficiency 7. HTN: still suboptimal control 8. COPD 9. Tobacco abuse PLAN: * Continue current abx / F/u final sensitivity report and repeat blood cultures / ID consult / 2D echo shows no vegetations * HD per renal * titrate antihypertensives for better control. Continue nifedipine XL * Continue tobacco cessation counselling * Continue all supportive care and pain control Prophylaxis: Heparin Problems: Subjective 24 Hr Interval Summary Musculoskeletal: restricted range of motion (Left arm) Exam/Review of Systems Vital Signs Vitals Vital Signs Date Time Temp Pulse Resp B/P Pulse Ox O2 Delivery O2 Flow Rate FiO2 05/10/17 13:55 82 16 05/10/17 12:00 98.5 127/71 97 05/10/17 09:20 Room Air 05/07/17 04:40 21 Intake and Output 05/09/17 05/09/17 05/10/17 14:59 22:59 06:59 Intake Total 1000 ml Balance 1000 ml Exam Constitutional: alert Respiratory: clear to auscultation Cardiovascular: regular rate and rhythm Gastrointestinal: soft, No distended Musculoskeletal: No nl extremities to inspection Results Result Diagram: 05/10/17 0538 05/10/17 0538 Results 24 hrs Laboratory Tests Test 05/10/17 05:38 White Blood Count 3.7 #L Red Blood Count 2.81 L Hemoglobin 8.9 L Hematocrit 27.1 L Mean Corpuscular Volume 96.4 Mean Corpuscular Hemoglobin 31.7 Mean Corpuscular Hemoglobin Concent 32.8 Red Cell Distribution Width 13.0 Platelet Count 119 L Mean Platelet Volume 9.1 Neutrophils % 59.0 Lymphocytes % 26.0 Monocytes % 10.1 Eosinophils % 4.1 Basophils % 0.5 Nucleated Red Blood Cells % 0.0 Neutrophils # 2.2 Lymphocytes # 1.0 Monocytes # 0.4 Eosinophils # 0.2 Basophils # 0.0 Nucleated Red Blood Cells # 0.0 Differential Comment AUTO w/SCAN Sodium Level 140 Potassium Level 4.8 Chloride Level 95 L Carbon Dioxide Level 28 Anion Gap 22 H Blood Urea Nitrogen 46 H Creatinine 7.86 H Glucose Level 89 Calcium Level 8.1 L Magnesium Level 2.2 Medications Medications Current Medications Ondansetron HCl (Zofran Inj) 4 mg Q6H PRN IV NAUSEA AND/OR VOMITING Last administered on 05/07/17 14:32; Admin Dose 4 MG; Start 05/07/17 at 05:00 Acetaminophen (Tylenol Tab) 650 mg Q6H PRN PO PAIN LEVEL 1-3 OR FEVER Last administered on 05/08/17 05:58; Admin Dose 650 MG; Start 05/07/17 at 05:00 Bisacodyl (Dulcolax) 5 mg DAILY PRN PO CONSTIPATION; Start 05/07/17 at 05:00 Acetaminophen (Tylenol Tab) 650 mg Q6H PRN PO PAIN LEVEL 1-3 OR FEVER; Start at 07:00 Aspirin (Halfprin) 81 mg DAILY PO Last administered on 05/10/17 09:36; Admin Dose 81 MG; Start 05/07/17 at 09:00 Multivit/Ca Carb/ B Cmplx/FA/Prenat (Mony-Giovanny) 1 tab DAILY PO Last administered on 05/10/17 09:54; Admin Dose 1 TAB; Start 05/07/17 at 09:00 Tiotropium [place] 1 inh 1 inh DAILY INH Last administered on 05/10/17 09:55; Admin Dose 1 INH; Start 05/08/17 at 15:00 Piperacillin Sod/ Tazobactam Sod (Zosyn 2.25gm/ 50ml (Pmx)) 50 ml @ 100 mls/hr Q8 IVPB Last administered on 05/10/17 06:28; Admin Dose 100 MLS/HR; Start at 13:00 Morphine Sulfate (morphine) 2 mg Q4H PRN IV PAIN Last administered on 09:49; Admin Dose 2 MG; Start 05/07/17 at 08:00 Formoterol (Foradil Aerolizer 12mcg/ Actu) 1 inh BID INH ; Start 05/07/17 at 21: 00 Hydralazine HCl (Apresoline) 10 mg Q4H PRN IV SBP>170; Start 05/08/17 at 16:00 Heparin Sodium (Porcine) (Heparin (5000 Units/0.5 ml)) 5,000 unit BID SC Last administered on 05/10/17 09:38; Admin Dose 5,000 UNIT; Start 05/09/17 at 21:00 Docusate Sodium (Colace) 100 mg Q12 PO Last administered on 05/10/17 09:54; Admin Dose 100 MG; Start 05/09/17 at 21:00 Nifedipine (Procardia Xl) 60 mg BID PO Last administered on 05/10/17 09:54; Admin Dose 60 MG; Start 05/09/17 at 12:00 Famotidine (Pepcid) 20 mg DAILY PO Last administered on 05/10/17 09:55; Admin Dose 20 MG; Start 05/09/17 at 12:00 Carvedilol (Coreg) 6.25 mg BID PO Last administered on 05/10/17 09:55; Admin Dose 6.25 MG; Start 05/09/17 at 21:00 LASHAE NAPIER May 10, 2017 14:20
--- NOTE | 2017-05-10 18:41 | CONS ---
Date/Time of Note Date/Time of Note DATE: 05/10/17 TIME: 18:38 Assessment/Plan Assessment/Plan Chief Complaint/Hosp Course IMP: 1.Pre-op eval prior to revision/debridement of AVF-Negative trop x 3/NO chest pain. NL EF by echo tis admit with no contraindicated valve lesions. OK to proceed to OR at moderate risk without further noninvasive evaluation 2.CHF-diastolic acute on chronic 3.HTN-now well controlled 4.ESRD on HD 5.Non-functioning AVF 6.anemia 7. Dyslipidemia 8. Hyperkalemia-improved 9. AF-on onset today. reasonable rate control Recc: -Tele -serial ecg's -Continue procardia xl/coreg -HD for volume removal -Will start heparin SQ and asa for now with probable transition to eliquis at d/ c after surgery -pnding surgery for AVF debridement/revision Problems: Consultation Date/Type/Reason Admit Date/Time May 07, 2017 at 04:33 Initial Consult Date 05/09/17 Type of Consultation: cardiology Reason for Consultation pre-op/af Referring Provider: LANDON MARMOLEJO MD Exam/Review of Systems Vital Signs Vitals Vital Signs Date Time Temp Pulse Resp B/P Pulse Ox O2 Delivery O2 Flow Rate FiO2 05/10/17 16:20 115 05/10/17 15:58 98.9 18 105/61 97 05/10/17 09:20 Room Air 05/07/17 04:40 21 Intake and Output 05/09/17 05/09/17 05/10/17 15:00 23:00 07:00 Intake Total 1000 ml Balance 1000 ml Exam Review of Systems: CONSTITUTIONAL: No fevers, chills. PULMONARY: No sob CARDIOVASCULAR: No chest pain/palpitations GASTROINTESTINAL: No nausea/vomiting. GENITOURINARY: No hematuria/dysuria. MUSCULOSKELETAL: No myagias/arthalgias. PSYCHIATRIC: The patient denies depression. NEUROLOGIC: No weakness Constitutional: alert, oriented Psych: no complaints Head: normocephalic ENMT: mucosa pink and moist Neck: jvd (9 cm water), supple Respiratory: diminished breath sounds (at bases/B) Cardiovascular: irregular rhythm Gastrointestinal: non-tender, soft Musculoskeletal: muscle tone (normal) Extremities: edema (none), other (R arm AVF covered by dressing) 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: other (No focal deficits) Results Result Diagram: 05/10/17 0538 05/10/17 0538 Results 24 hrs Laboratory Tests Test 05/10/17 05:38 White Blood Count 3.7 #L Red Blood Count 2.81 L Hemoglobin 8.9 L Hematocrit 27.1 L Mean Corpuscular Volume 96.4 Mean Corpuscular Hemoglobin 31.7 Mean Corpuscular Hemoglobin Concent 32.8 Red Cell Distribution Width 13.0 Platelet Count 119 L Mean Platelet Volume 9.1 Neutrophils % 59.0 Lymphocytes % 26.0 Monocytes % 10.1 Eosinophils % 4.1 Basophils % 0.5 Nucleated Red Blood Cells % 0.0 Neutrophils # 2.2 Lymphocytes # 1.0 Monocytes # 0.4 Eosinophils # 0.2 Basophils # 0.0 Nucleated Red Blood Cells # 0.0 Differential Comment AUTO w/SCAN Sodium Level 140 Potassium Level 4.8 Chloride Level 95 L Carbon Dioxide Level 28 Anion Gap 22 H Blood Urea Nitrogen 46 H Creatinine 7.86 H Glucose Level 89 Calcium Level 8.1 L Magnesium Level 2.2 Medications Medications Current Medications Ondansetron HCl (Zofran Inj) 4 mg Q6H PRN IV NAUSEA AND/OR VOMITING Last administered on 05/07/17 14:32; Admin Dose 4 MG; Start 05/07/17 at 05:00 Acetaminophen (Tylenol Tab) 650 mg Q6H PRN PO PAIN LEVEL 1-3 OR FEVER Last administered on 05/08/17 05:58; Admin Dose 650 MG; Start 05/07/17 at 05:00 Bisacodyl (Dulcolax) 5 mg DAILY PRN PO CONSTIPATION; Start 05/07/17 at 05:00 Acetaminophen (Tylenol Tab) 650 mg Q6H PRN PO PAIN LEVEL 1-3 OR FEVER; Start at 07:00 Aspirin (Halfprin) 81 mg DAILY PO Last administered on 05/10/17 09:36; Admin Dose 81 MG; Start 05/07/17 at 09:00 Multivit/Ca Carb/ B Cmplx/FA/Prenat (Mony-Giovanny) 1 tab DAILY PO Last administered on 05/10/17 09:54; Admin Dose 1 TAB; Start 05/07/17 at 09:00 Tiotropium [place] 1 inh 1 inh DAILY INH Last administered on 05/10/17 09:55; Admin Dose 1 INH; Start 05/08/17 at 15:00 Piperacillin Sod/ Tazobactam Sod (Zosyn 2.25gm/ 50ml (Pmx)) 50 ml @ 100 mls/hr Q8 IVPB Last administered on 05/10/17 15:21; Admin Dose 100 MLS/HR; Start at 13:00 Morphine Sulfate (morphine) 2 mg Q4H PRN IV PAIN Last administered on 09:49; Admin Dose 2 MG; Start 05/07/17 at 08:00 Formoterol (Foradil Aerolizer 12mcg/ Actu) 1 inh BID INH ; Start 05/07/17 at 21: 00 Hydralazine HCl (Apresoline) 10 mg Q4H PRN IV SBP>170; Start 05/08/17 at 16:00 Heparin Sodium (Porcine) (Heparin (5000 Units/0.5 ml)) 5,000 unit BID SC Last administered on 05/10/17 09:38; Admin Dose 5,000 UNIT; Start 05/09/17 at 21:00 Docusate Sodium (Colace) 100 mg Q12 PO Last administered on 05/10/17 09:54; Admin Dose 100 MG; Start 05/09/17 at 21:00 Nifedipine (Procardia Xl) 60 mg BID PO Last administered on 05/10/17 09:54; Admin Dose 60 MG; Start 05/09/17 at 12:00 Famotidine (Pepcid) 20 mg DAILY PO Last administered on 05/10/17 09:55; Admin Dose 20 MG; Start 05/09/17 at 12:00 Carvedilol (Coreg) 6.25 mg BID PO Last administered on 05/10/17 09:55; Admin Dose 6.25 MG; Start 05/09/17 at 21:00 YONG SINGH 17, 2017 18:41
[2017-05-10] MEDS ORDERED: METOPROLOL 5 MG INJ IV PRN (19:00)
--- NOTE | 2017-05-10 21:35 | CONS ---
Date/Time of Note Date/Time of Note DATE: 05/10/17 TIME: 21:34 Assessment/Plan Assessment/Plan Chief Complaint/Hosp Course HYPERKALEMIA BETTER SEPSIS ESRD ANEMIA AVF WOUND PLAN HD ANTIBIOTIC Problems: Consultation Date/Type/Reason Admit Date/Time May 07, 2017 at 04:33 Initial Consult Date Type of Consultation: RENAL Referring Provider: LANDON MARMOLEJO MD 24 HR Interval Summary Constitutional: no complaints Exam/Review of Systems Vital Signs Vitals Vital Signs Date Time Temp Pulse Resp B/P Pulse Ox O2 Delivery O2 Flow Rate FiO2 05/10/17 20:54 98.9 110 16 121/68 98 05/10/17 09:20 Room Air 05/07/17 04:40 21 Intake and Output 05/09/17 05/09/17 05/10/17 15:00 23:00 07:00 Intake Total 1000 ml Balance 1000 ml Exam Constitutional: other (S/P HD) Neck: supple Respiratory: clear to auscultation Cardiovascular: regular rate and rhythm Musculoskeletal: swelling (LEFT ARM) Results Result Diagram: 05/10/17 0538 05/10/17 0538 Results 24 hrs Laboratory Tests Test 05/10/17 05:38 White Blood Count 3.7 #L Red Blood Count 2.81 L Hemoglobin 8.9 L Hematocrit 27.1 L Mean Corpuscular Volume 96.4 Mean Corpuscular Hemoglobin 31.7 Mean Corpuscular Hemoglobin Concent 32.8 Red Cell Distribution Width 13.0 Platelet Count 119 L Mean Platelet Volume 9.1 Neutrophils % 59.0 Lymphocytes % 26.0 Monocytes % 10.1 Eosinophils % 4.1 Basophils % 0.5 Nucleated Red Blood Cells % 0.0 Neutrophils # 2.2 Lymphocytes # 1.0 Monocytes # 0.4 Eosinophils # 0.2 Basophils # 0.0 Nucleated Red Blood Cells # 0.0 Differential Comment AUTO w/SCAN Sodium Level 140 Potassium Level 4.8 Chloride Level 95 L Carbon Dioxide Level 28 Anion Gap 22 H Blood Urea Nitrogen 46 H Creatinine 7.86 H Glucose Level 89 Calcium Level 8.1 L Magnesium Level 2.2 Thyroid Stimulating Hormone (TSH) 3.730 Medications Medications Current Medications Ondansetron HCl (Zofran Inj) 4 mg Q6H PRN IV NAUSEA AND/OR VOMITING Last administered on 05/07/17t 14:32; Admin Dose 4 MG; Start 05/07/17 at 05:00 Acetaminophen (Tylenol Tab) 650 mg Q6H PRN PO PAIN LEVEL 1-3 OR FEVER Last administered on 05/08/17 05:58; Admin Dose 650 MG; Start 05/07/17 at 05:00 Bisacodyl (Dulcolax) 5 mg DAILY PRN PO CONSTIPATION; Start 05/07/17 at 05:00 Acetaminophen (Tylenol Tab) 650 mg Q6H PRN PO PAIN LEVEL 1-3 OR FEVER; Start at 07:00 Aspirin (Halfprin) 81 mg DAILY PO Last administered on 05/10/17 09:36; Admin Dose 81 MG; Start 05/07/17 at 09:00 Multivit/Ca Carb/ B Cmplx/FA/Prenat (Mony-Giovanny) 1 tab DAILY PO Last administered on 05/10/17 09:54; Admin Dose 1 TAB; Start 05/07/17 at 09:00 Tiotropium [place] 1 inh 1 inh DAILY INH Last administered on 05/10/17 09:55; Admin Dose 1 INH; Start 05/08/17 at 15:00 Piperacillin Sod/ Tazobactam Sod (Zosyn 2.25gm/ 50ml (Pmx)) 50 ml @ 100 mls/hr Q8 IVPB Last administered on 05/10/17 15:21; Admin Dose 100 MLS/HR; Start at 13:00 Morphine Sulfate (morphine) 2 mg Q4H PRN IV PAIN Last administered on 20:22; Admin Dose 2 MG; Start 05/07/17 at 08:00 Formoterol (Foradil Aerolizer 12mcg/ Actu) 1 inh BID INH ; Start 05/07/17 at 21: 00 Hydralazine HCl (Apresoline) 10 mg Q4H PRN IV SBP>170; Start 05/08/17 at 16:00 Docusate Sodium (Colace) 100 mg Q12 PO Last administered on 05/10/17 20:22; Admin Dose 100 MG; Start 05/09/17 at 21:00 Nifedipine (Procardia Xl) 60 mg BID PO Last administered on 05/10/17 20:23; Admin Dose 60 MG; Start 05/09/17 at 12:00 Famotidine (Pepcid) 20 mg DAILY PO Last administered on 05/10/17 09:55; Admin Dose 20 MG; Start 05/09/17 at 12:00 Carvedilol (Coreg) 6.25 mg BID PO Last administered on 05/10/17 20:23; Admin Dose 6.25 MG; Start 05/09/17 at 21:00 Heparin Sodium (Porcine) (Heparin (5000 Units/0.5 ml)) 5,000 unit Q8 SC ; Start 05/10/17 at 22:00 Aspirin (Aspirin) 81 mg DAILY PO ; Start 05/11/17 at 09:00 Metoprolol Tartrate (Lopressor) 5 mg Q4H PRN IV HR>110 Hold SBP<100; Start at 19:00 LANDON MARMOLEJO MD May 10, 2017 21:35
--- NOTE | 2017-05-10 23:13 | RADRPT ---
PROCEDURE: CT scan of the left upper extremity with contrast. CT angiogram of the left upper extre mity. CLINICAL INDICATION: Left arm pain. Left upper extremity dialysis fistula infection. TECHNIQUE: CT scan of the left arm from the shoulder to the upper forearm was performed with helic al axial sections. The patient was scanned during intravenous administration of 100 ml of Omnipaque -350. 2-D coronal reformatted images were obtained from the axial source images. In addition, 3-D post processing was performed. Total exam DLP is 637.91 mGy-cm. CTDIvol is 76.29 mGy. One or more of the following dose reduction techniques were used: Automated exposure control, adjustment of the mA and/or kV according to patient size, use of iterative reconstruction technique. COMPARISON: None available FINDINGS: There is a dialysis fistula extending from the left brachial artery to the left brachial vein. The fistula appears widely patent with no significant stenosis or occlusion. The outflow vein appears d ilated throughout. Multiple collateral veins are present in the left axillary region. The left sub clavian vein central veins are not visualized. There is no fluid collection or mass to suggest absc ess. Multiple mildly enlarged left axillary lymph nodes are noted measuring up to 3.0 x 1.6 cm. Th ere is soft tissue abnormality medially in the left arm with gas in the soft tissues and a possible ulcer. There is no lytic or blastic lesion. The visualized portions of the left ribs are normal. IMPRESSION: 1. The dialysis fistula extending from the left brachial artery to left brachial vein is patent. 2. Multiple collateral veins in the left axillary region which may indicate central occlusion or st enosis. 3. No fluid collection or mass to suggest abscess. 4. Soft tissue abnormality medially in the left arm with gas in the soft tissues and possible fluid . 5. No bone abnormality. RPTAT: QQ .Sam Vásquez MD, MD Date Time Electronically viewed and signed by .Sam Vásquez MD, on 05/10/2017 23:13 .R/
[2017-05-11] VITALS (13 sets, daily range): BP systolic 118–147; BP diastolic 61–82; PULSE 63–80; RESP 16–19
[2017-05-11] MEDS: PIPER-TAZO 2.25 GM (PMX) 50 ML IVPB SCH ×3 (06:19→20:32)
[2017-05-11] MEDS: HEPARIN 5,000 UNIT/0.5 ML VIAL SC SCH ×3 (06:24→22:00)
[2017-05-11] MEDS: morphine 2 MG INJ IV PRN ×3 (06:29→20:31)
[2017-05-11 07:59] LABS: ADD SCAN DIFF NO
[2017-05-11 08:05] LABS: BASOPHILS % 0.8 % (0.0-2.0); EOSINOPHILS # 0.1 10^3/ul (0.0-0.5); EOSINOPHILS % 3.8 % (0.0-7.0); HEMATOCRIT 26.2 % (42.0-52.0); HEMOGLOBIN 8.8 g/dl (14.0-18.0); LYMPHOCYTES # 0.9 10^3/ul (0.8-2.9); LYMPHOCYTES % 24.7 % (15.0-51.0); MEAN CORPUSCULAR HEMOGLOBIN 32.6 pg (29.0-33.0); MEAN CORPUSCULAR HGB CONC 33.6 g/dl (32.0-37.0); MEAN PLATELET VOLUME 9.3 fl (7.4-10.4); MONOCYTE # 0.4 10^3/ul (0.3-0.9); MONOCYTES % 10.4 % (0.0-11.0); NEUTROPHIL # 2.2 10^3/ul (1.6-7.5); NEUTROPHILS % 59.8 % (39.0-77.0); PLATELET COUNT 134 10^3/UL (140-415); RED CELL DISTRIBUTION WIDTH 12.8 % (11.5-14.5); WHITE BLOOD COUNT 3.6 10^3/ul (4.8-10.8)
[2017-05-11 08:32] LABS: CALCIUM 8.5 mg/dl (8.4-10.2); CREATININE 5.52 mg/dl (0.61-1.24)
[2017-05-11] MEDS: FAMOTIDINE 20 MG TAB PO SCH (09:48)
[2017-05-11] MEDS: DOCUSATE SODIUM 100 MG CAP PO SCH ×2 (09:48→20:32)
[2017-05-11] MEDS: NIFEdipine (XL) 60 MG TAB PO SCH ×2 (09:48→20:32)
[2017-05-11] MEDS: ASPIRIN 81 MG TAB PO SCH (09:49)
[2017-05-11] MEDS: MULTIVIT/CA CARB/B CMPLX/FA TAB PO SCH (09:49)
[2017-05-11] MEDS: STIOLTO RESPIMAT INH SCH ×2 (12:00→13:52)
--- NOTE | 2017-05-11 12:04 | PN ---
Date/Time of Note Date/Time of Note DATE: 05/11/17 TIME: 11:54 Assessment/Plan Lines/Catheters IV Catheter Type (from [facility]): Saline Lock Abreu in Place (from [facility]): No Assessment/Plan Chief Complaint/Hosp Course -End-stage renal disease: It seems the patient had developed significant left upper extremity cellulitis and wound dehiscence of his surgical site incision. At the moment the patients erythema has resolved, there is an area that is exposed where the fistula may be located and will require revision of this and debridement. Will schedule patient for tomorrow -S/P Urgent Jerrod catheter placement -Continue with the antibiotics coverage. -Appreciate cardiac evaluation for preoperative clearance. -Optimize vascular status (BP meds, cholesterol, nutrition, sugar control, antiplatelets). -Discussed findings and plan of management with the patient and he understands with the certified drapery hand. -Thank you for allowing us to participate in the care of your patient. Please call with any questions. Problems: Subjective 24 Hr Interval Summary No new vascular events overnight Exam/Review of Systems Vital Signs Vitals Vital Signs Date Time Temp Pulse Resp B/P Pulse Ox O2 Delivery O2 Flow Rate FiO2 05/11/17 11:23 98.6 64 18 131/65 97 05/10/17 09:20 Room Air Intake and Output 05/10/17 05/10/17 05/11/17 15:00 23:00 07:00 Intake Total 1000 ml 900 ml 200 ml Output Total 3000 ml Balance -2000 ml 900 ml 200 ml Exam Free Text/Dictation Alert, oriented x3. No apparent distress. LUNGS: Clear to auscultation bilaterally. No crackles. CARDIOVASCULAR: S1, S2 present. ABDOMEN: Soft, nontender, nondistended. Bowel sounds positive. EXTREMITIES: Right lower extremity, palpable femoral pulse. Nonpalpable pedal pulse. Motor sensory intact. Capillary refill 3 seconds. Presence of lipodermatosclerosis. Left lower extremity, palpable femoral pulse. Nonpalpable pedal pulse. Motor sensory intact. Capillary refill 3-4 seconds.Presence of lipodermatosclerosis. Left upper extremity, palpable radial pulse. Motor sensory intact. 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 He has a surgical scar that is well healed. He has aneurysmal changes in the upper arm and he has a surgical wound that has essentially dehisced with areas of erythema that extends from the upper arm all the way to his shoulder and left chest area. Now erythema is resolved Results Result Diagram: 05/11/17 0655 05/11/17 0655 DEMETRIUS MEZA MD May 11, 2017 12:03
--- NOTE | 2017-05-11 13:50 | RADRPT ---
Vent Rate: 61 bpm RR Interval: 0 msec NE Interval: 144 msec QRS Duration: 88 msec QT Interval: 438 msec QTC Interval: 440 msec P-R-T [place]: 23 - -2 - 49 degrees Normal sinus rhythm Normal ECG Electronically Signed By: Pepe Zuluaga [id number]
--- NOTE | 2017-05-11 14:53 | CONS ---
Date/Time of Note Date/Time of Note DATE: 05/11/17 TIME: 14:52 Consultation Date/Type/Reason Admit Date/Time May 07, 2017 at 04:33 Type of Consultation: ID Reason for Consultation This is Dr. Alex Joiner dictating infectious disease consult on Abel Bell, date of admission 05/07/2017, date of consultation and dictation 2016, reason for consultation is antibiotic management. He is us Bell is a 51-year-old male with a history of end-stage renal disease on hemodialysis who presented to the emergency room with left upper extremity AV fistula pain swelling and redness associated with fever on 2016. He had revision of left upper extremity proximal AV fistula 2 weeks ago at [facility]. He complains of fever chills neck pain, chronic cough for more than 3 months. He complains of left-sided chest wall redness and pain. He does not smoke or drink. Patient presented with a fever of 103 degrees along with tachycardia and was started on IV vancomycin and Zosyn. On admission his white count was 7.5 H&H of 9.6 and 29.2, platelet count of 157, 000 BUN/creatinine 36/6.18 and potassium was 6.2 Past medical history: End-stage renal disease, hepatitis C, hypertension, history of pericardial effusion. Past surgical history: Left AV fistula 5 years ago. Left AV fistula repair 2 weeks ago. Pericardial effusion, status post pericardial window. Family history noncontributory Social history: Former smoker he does not drink or abuse drugs Allergies none to penicillin sulfa foods Medications per chart Review of systems is noncontributory. On physical examination patient is a well-developed well-nourished male who is alert responsive in no acute distress. Vital signs are stable he is afebrile. Skin without generalized rash HEENT within normal limits Neck is supple without neck vein distention, carotid 2+ without bruit, without lymphadenopathy Chest: Decreased breath sounds at the bases Heart without murmur gallop Abdomen is soft and nontender without organosplenomegaly or masses. Extremities without cyanosis clubbing or edema Rectal genital exams: Deferred 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 evaluation: No focal neurological abnormalities. Culture reports show positive blood cultures for Pasteurella multocida in 2 bottles and enterococcus species in 1 bottle from the . Repeat blood cultures on the showed no growth; a left arm culture grew out staph aureus. Chest x-ray showed cardiomegaly mild pulmonary vascular congestion and no definite A CT scan of left upper extremity and CT angiogram showed the fistula to be patent no fluid collection or mass to suggest abscess soft tissue abnormality medially in left arm with gas in the soft tissues and possible fluid no bone abnormality Patient was seen by vascular surgery who notes that the patient developed significant left upper extremity cellulitis and wound dehiscence of his surgical site incision at the moment the patient's erythema has resolved, there is an area that is exposed with the fistula may be located and will require revision of this and debridement. He will schedule patient for tomorrow but an urgent Jerrod catheter was placed. Patient's white count today is 3.6. He is currently on vancomycin and Zosyn. We will continue this regimen I will dictate my findings to the hospitalists and to the various consultants. Thank you for this paleobotanist. Constitutional: no complaints Respiratory: no complaints Cardiovascular: no complaints Musculoskeletal: restricted range of motion (Left arm) Psychological: no complaints Social History Alcohol Use: none Smoking Status: Former smoker Drug Use: none Exam/Review of Systems Vital Signs Vitals Vital Signs Date Time Temp Pulse Resp B/P Pulse Ox O2 Delivery O2 Flow Rate FiO2 05/11/17 12:28 64 05/11/17 11:23 98.6 18 131/65 97 05/10/17 09:20 Room Air Intake and Output 05/10/17 05/10/17 05/11/17 15:00 23:00 07:00 Intake Total 1000 ml 900 ml 200 ml Output Total 3000 ml Balance -2000 ml 900 ml 200 ml Results Result Diagram: 05/11/17 0655 05/11/17 0655 Results 24 hrs Laboratory Tests Test 05/11/17 06:55 White Blood Count 3.6 L Red Blood Count 2.70 L Hemoglobin 8.8 L Hematocrit 26.2 L Mean Corpuscular Volume 97.0 Mean Corpuscular Hemoglobin 32.6 Mean Corpuscular Hemoglobin Concent 33.6 Red Cell Distribution Width 12.8 Platelet Count 134 L Mean Platelet Volume 9.3 Neutrophils % 59.8 Lymphocytes % 24.7 Monocytes % 10.4 Eosinophils % 3.8 Basophils % 0.8 Nucleated Red Blood Cells % 0.0 Neutrophils # 2.2 Lymphocytes # 0.9 Monocytes # 0.4 Eosinophils # 0.1 Basophils # 0.0 Nucleated Red Blood Cells # 0.0 Sodium Level 143 Potassium Level 4.0 Chloride Level 95 L Carbon Dioxide Level 29 Anion Gap 23 H Blood Urea Nitrogen 27 #H Creatinine 5.52 #H Glucose Level 91 Calcium Level 8.5 Medications Medications Current Medications Ondansetron HCl (Zofran Inj) 4 mg Q6H PRN IV NAUSEA AND/OR VOMITING Last administered on 05/07/17 14:32; Admin Dose 4 MG; Start 05/07/17 at 05:00 Acetaminophen (Tylenol Tab) 650 mg Q6H PRN PO PAIN LEVEL 1-3 OR FEVER Last administered on 05/08/17 05:58; Admin Dose 650 MG; Start 05/07/17 at 05:00 Bisacodyl (Dulcolax) 5 mg DAILY PRN PO CONSTIPATION; Start 05/07/17 at 05:00 Acetaminophen (Tylenol Tab) 650 mg Q6H PRN PO PAIN LEVEL 1-3 OR FEVER; Start at 07:00 Multivit/Ca Carb/ B Cmplx/FA/Prenat 1 tab 1 tab DAILY PO Last administered on 09:49; Admin Dose 1 TAB; Start 05/07/17 at 09:00 Piperacillin Sod/ Tazobactam Sod (Zosyn 2.25gm/ 50ml (Pmx)) 50 ml @ 100 mls/hr Q8 IVPB Last administered on 05/11/17 13:56; Admin Dose 100 MLS/HR; Start at 13:00 Morphine Sulfate (morphine) 2 mg Q4H PRN IV PAIN Last administered on 09:56; Admin Dose 2 MG; Start 05/07/17 at 08:00 Hydralazine HCl (Apresoline) 10 mg Q4H PRN IV SBP>170; Start 05/08/17 at 16:00 Docusate Sodium (Colace) 100 mg Q12 PO Last administered on 05/11/17 09:48; Admin Dose 100 MG; Start 05/09/17 at 21:00 Nifedipine (Procardia Xl) 60 mg BID PO Last administered on 05/11/17 09:48; Admin Dose 60 MG; Start 05/09/17 at 12:00 Famotidine (Pepcid) 20 mg DAILY PO Last administered on 05/11/17 09:48; Admin Dose 20 MG; Start 05/09/17 at 12:00 Carvedilol (Coreg) 6.25 mg BID PO Last administered on 05/11/17 09:49; Admin Dose 6.25 MG; Start 05/09/17 at 21:00 Heparin Sodium (Porcine) (Heparin (5000 Units/0.5 ml)) 5,000 unit Q8 SC Last administered on 05/11/17 13:58; Admin Dose 5,000 UNIT; Start 05/10/17 at 22:00 Aspirin (Aspirin) 81 mg DAILY PO Last administered on 05/11/17 09:49; Admin Dose 81 MG; Start 05/11/17 at 09:00 Metoprolol Tartrate (Lopressor) 5 mg Q4H PRN IV HR>110 Hold SBP<100; Start at 19:00 Miscellaneous Information (*Rx Drug Level Order Reminder*) 1 ONCE ONCE XX ; Start 05/12/17 at 05:00; Stop 05/12/17 at 05:01 ALEX JOINER MD May 11, 2017 14:53
--- NOTE | 2017-05-11 15:46 | PN ---
Date/Time of Note Date/Time of Note DATE: 05/11/17 TIME: 15:40 Assessment/Plan VTE Prophylaxis VTE Prophylaxis Intervention: heparin Lines/Catheters IV Catheter Type (from [facility]): Saline Lock Urinary Cath still in place: No Assessment/Plan Chief Complaint/Hosp Course 1. Sepsis 2/2 bacteremia and infected ulcer overlying LE fistula: improved 2. 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 Wound dehiscence with Infected ulcer JOSH arm over fistula with surrounding JOSH arm cellulitis Patient had femoral Jerrod placed 05/08/17 Plan is for fistula revision tomorrow 4. ESRD on HD HD per renal 5. Hyperkalemia-resolved 6. Anemia of CKD with thrombocytopenia r/o iron deficiency 7. HTN- noW controlled Continue regimen 8. COPD-stable 9. Tobacco abuse Cessation advised Prophylaxis: Heparin Problems: Subjective 24 Hr Interval Summary Constitutional: no complaints Exam/Review of Systems Vital Signs Vitals Vital Signs Date Time Temp Pulse Resp B/P Pulse Ox O2 Delivery O2 Flow Rate FiO2 05/11/17 15:31 98.6 86 18 118/67 96 05/10/17 09:20 Room Air Intake and Output 05/10/17 05/10/17 05/11/17 15:00 23:00 07:00 Intake Total 1000 ml 900 ml 200 ml Output Total 3000 ml Balance -2000 ml 900 ml 200 ml Exam Constitutional: alert Respiratory: clear to auscultation Cardiovascular: regular rate and rhythm Gastrointestinal: soft, No distended Musculoskeletal: No nl extremities to inspection Results Result Diagram: 05/11/17 0655 05/11/17 0655 Results 24 hrs Laboratory Tests Test 05/11/17 06:55 White Blood Count 3.6 L Red Blood Count 2.70 L Hemoglobin 8.8 L Hematocrit 26.2 L Mean Corpuscular Volume 97.0 Mean Corpuscular Hemoglobin 32.6 Mean Corpuscular Hemoglobin Concent 33.6 Red Cell Distribution Width 12.8 Platelet Count 134 L Mean Platelet Volume 9.3 Neutrophils % 59.8 Lymphocytes % 24.7 Monocytes % 10.4 Eosinophils % 3.8 Basophils % 0.8 Nucleated Red Blood Cells % 0.0 Neutrophils # 2.2 Lymphocytes # 0.9 Monocytes # 0.4 Eosinophils # 0.1 Basophils # 0.0 Nucleated Red Blood Cells # 0.0 Sodium Level 143 Potassium Level 4.0 Chloride Level 95 L Carbon Dioxide Level 29 Anion Gap 23 H Blood Urea Nitrogen 27 #H Creatinine 5.52 #H Glucose Level 91 Calcium Level 8.5 Medications Medications Current Medications Ondansetron HCl (Zofran Inj) 4 mg Q6H PRN IV NAUSEA AND/OR VOMITING Last administered on 05/07/17 14:32; Admin Dose 4 MG; Start 05/07/17 at 05:00 Acetaminophen (Tylenol Tab) 650 mg Q6H PRN PO PAIN LEVEL 1-3 OR FEVER Last administered on 05/08/17 05:58; Admin Dose 650 MG; Start 05/07/17 at 05:00 Bisacodyl (Dulcolax) 5 mg DAILY PRN PO CONSTIPATION; Start 05/07/17 at 05:00 Acetaminophen (Tylenol Tab) 650 mg Q6H PRN PO PAIN LEVEL 1-3 OR FEVER; Start at 07:00 Multivit/Ca Carb/ B Cmplx/FA/Prenat 1 tab 1 tab DAILY PO Last administered on 09:49; Admin Dose 1 TAB; Start 05/07/17 at 09:00 Piperacillin Sod/ Tazobactam Sod (Zosyn 2.25gm/ 50ml (Pmx)) 50 ml @ 100 mls/hr Q8 IVPB Last administered on 05/11/17 13:56; Admin Dose 100 MLS/HR; Start at 13:00 Morphine Sulfate (morphine) 2 mg Q4H PRN IV PAIN Last administered on 09:56; Admin Dose 2 MG; Start 05/07/17 at 08:00 Hydralazine HCl (Apresoline) 10 mg Q4H PRN IV SBP>170; Start 05/08/17 at 16:00 Docusate Sodium (Colace) 100 mg Q12 PO Last administered on 05/11/17 09:48; Admin Dose 100 MG; Start 05/09/17 at 21:00 Nifedipine (Procardia Xl) 60 mg BID PO Last administered on 05/11/17 09:48; Admin Dose 60 MG; Start 05/09/17 at 12:00 Famotidine (Pepcid) 20 mg DAILY PO Last administered on 05/11/17 09:48; Admin Dose 20 MG; Start 05/09/17 at 12:00 Carvedilol (Coreg) 6.25 mg BID PO Last administered on 05/11/17 09:49; Admin Dose 6.25 MG; Start 05/09/17 at 21:00 Heparin Sodium (Porcine) (Heparin (5000 Units/0.5 ml)) 5,000 unit Q8 SC Last administered on 05/11/17 13:58; Admin Dose 5,000 UNIT; Start 05/10/17 at 22:00 Aspirin (Aspirin) 81 mg DAILY PO Last administered on 05/11/17 09:49; Admin Dose 81 MG; Start 05/11/17 at 09:00 Metoprolol Tartrate (Lopressor) 5 mg Q4H PRN IV HR>110 Hold SBP<100; Start at 19:00 Miscellaneous Information (*Rx Drug Level Order Reminder*) 1 ONCE ONCE XX ; Start 05/12/17 at 05:00; Stop 05/12/17 at 05:01 LASHAE NAPIER May 11, 2017 15:46
--- NOTE | 2017-05-11 16:30 | CONS ---
Date/Time of Note Date/Time of Note DATE: 05/11/17 TIME: 16:28 Assessment/Plan Assessment/Plan Chief Complaint/Hosp Course IMP: 1.Pre-op eval prior to revision/debridement of AVF-Negative trop x 3/NO chest pain. NL EF by echo tis admit with no contraindicated valve lesions. OK to proceed to OR at moderate risk without further noninvasive evaluation 2.CHF-diastolic acute on chronic 3.HTN-now well controlled 4.ESRD on HD 5.Non-functioning AVF 6.anemia 7. Dyslipidemia 8. Hyperkalemia-improved 9. AF-on onset today. reasonable rate control-now back in SR Recc: -Tele -serial ecg's -Continue procardia xl/coreg -HD for volume removal -Will start heparin SQ and asa for now with probable transition to eliquis at d/ c after surgery -pnding surgery for AVF debridement/revision Problems: Consultation Date/Type/Reason Admit Date/Time May 07, 2017 at 04:33 Initial Consult Date 05/09/17 Type of Consultation: cardiology Reason for Consultation pre-op Referring Provider: LANDON MARMOLEJO MD Exam/Review of Systems Vital Signs Vitals Vital Signs Date Time Temp Pulse Resp B/P Pulse Ox O2 Delivery O2 Flow Rate FiO2 05/11/17 15:31 98.6 86 18 118/67 96 05/10/17 09:20 Room Air Intake and Output 05/10/17 05/10/17 05/11/17 15:00 23:00 07:00 Intake Total 1000 ml 900 ml 200 ml Output Total 3000 ml Balance -2000 ml 900 ml 200 ml Exam Review of Systems: CONSTITUTIONAL: No fevers, chills. PULMONARY: No sob CARDIOVASCULAR: No chest pain/palpitations GASTROINTESTINAL: No nausea/vomiting. GENITOURINARY: No hematuria/dysuria. MUSCULOSKELETAL: No myagias/arthalgias. PSYCHIATRIC: The patient denies depression. NEUROLOGIC: No weakness Constitutional: alert Psych: no complaints Head: normocephalic ENMT: mucosa pink and moist Neck: jvd (9 cm water), supple Respiratory: diminished breath sounds (at bases/B) Cardiovascular: regular rate and rhythm Gastrointestinal: non-tender, soft Musculoskeletal: muscle tone (normal) Extremities: edema (none) 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: other (No focal deficits) Results Result Diagram: 05/11/17 0655 05/11/17 0655 Results 24 hrs Laboratory Tests Test 05/11/17 06:55 White Blood Count 3.6 L Red Blood Count 2.70 L Hemoglobin 8.8 L Hematocrit 26.2 L Mean Corpuscular Volume 97.0 Mean Corpuscular Hemoglobin 32.6 Mean Corpuscular Hemoglobin Concent 33.6 Red Cell Distribution Width 12.8 Platelet Count 134 L Mean Platelet Volume 9.3 Neutrophils % 59.8 Lymphocytes % 24.7 Monocytes % 10.4 Eosinophils % 3.8 Basophils % 0.8 Nucleated Red Blood Cells % 0.0 Neutrophils # 2.2 Lymphocytes # 0.9 Monocytes # 0.4 Eosinophils # 0.1 Basophils # 0.0 Nucleated Red Blood Cells # 0.0 Sodium Level 143 Potassium Level 4.0 Chloride Level 95 L Carbon Dioxide Level 29 Anion Gap 23 H Blood Urea Nitrogen 27 #H Creatinine 5.52 #H Glucose Level 91 Calcium Level 8.5 Medications Medications Current Medications Ondansetron HCl (Zofran Inj) 4 mg Q6H PRN IV NAUSEA AND/OR VOMITING Last administered on 05/07/17 14:32; Admin Dose 4 MG; Start 05/07/17 at 05:00 Acetaminophen (Tylenol Tab) 650 mg Q6H PRN PO PAIN LEVEL 1-3 OR FEVER Last administered on 05/08/17 05:58; Admin Dose 650 MG; Start 05/07/17 at 05:00 Bisacodyl (Dulcolax) 5 mg DAILY PRN PO CONSTIPATION; Start 05/07/17 at 05:00 Acetaminophen (Tylenol Tab) 650 mg Q6H PRN PO PAIN LEVEL 1-3 OR FEVER; Start at 07:00 Multivit/Ca Carb/ B Cmplx/FA/Prenat 1 tab 1 tab DAILY PO Last administered on 09:49; Admin Dose 1 TAB; Start 05/07/17 at 09:00 Piperacillin Sod/ Tazobactam Sod (Zosyn 2.25gm/ 50ml (Pmx)) 50 ml @ 100 mls/hr Q8 IVPB Last administered on 05/11/17 13:56; Admin Dose 100 MLS/HR; Start at 13:00 Morphine Sulfate (morphine) 2 mg Q4H PRN IV PAIN Last administered on 09:56; Admin Dose 2 MG; Start 05/07/17 at 08:00 Hydralazine HCl (Apresoline) 10 mg Q4H PRN IV SBP>170; Start 05/08/17 at 16:00 Docusate Sodium (Colace) 100 mg Q12 PO Last administered on 05/11/17 09:48; Admin Dose 100 MG; Start 05/09/17 at 21:00 Nifedipine (Procardia Xl) 60 mg BID PO Last administered on 05/11/17 09:48; Admin Dose 60 MG; Start 05/09/17 at 12:00 Famotidine (Pepcid) 20 mg DAILY PO Last administered on 05/11/17 09:48; Admin Dose 20 MG; Start 05/09/17 at 12:00 Carvedilol (Coreg) 6.25 mg BID PO Last administered on 05/11/17 09:49; Admin Dose 6.25 MG; Start 05/09/17 at 21:00 Heparin Sodium (Porcine) (Heparin (5000 Units/0.5 ml)) 5,000 unit Q8 SC Last administered on 05/11/17 13:58; Admin Dose 5,000 UNIT; Start 05/10/17 at 22:00 Aspirin (Aspirin) 81 mg DAILY PO Last administered on 05/11/17 09:49; Admin Dose 81 MG; Start 05/11/17 at 09:00 Metoprolol Tartrate (Lopressor) 5 mg Q4H PRN IV HR>110 Hold SBP<100; Start at 19:00 Miscellaneous Information (*Rx Drug Level Order Reminder*) 1 ONCE ONCE XX ; Start 05/12/17 at 05:00; Stop 05/12/17 at 05:01 YONG SINGH May 11, 2017 16:30
--- NOTE | 2017-05-11 17:34 | RADRPT ---
Vent Rate: 98 bpm RR Interval: 0 msec OR Interval: 0 msec QRS Duration: 88 msec QT Interval: 364 msec QTC Interval: 464 msec P-R-T [place]: 0 - -55 - 64 degrees Atrial fibrillation Left anterior fascicular block Possible Anterior infarct , age undetermined Abnormal ECG Electronically Signed By: Demetrius Garcia [id number]
--- NOTE | 2017-05-11 17:36 | RADRPT ---
Vent Rate: 83 bpm RR Interval: [address] Interval: 158 msec QRS Duration: 90 msec QT Interval: 392 msec QTC Interval: 460 msec P-R-T [place]: 19 - -37 - 66 degrees Normal sinus rhythm Possible Left atrial enlargement Left axis deviation Abnormal ECG Electronically Signed By: Demetrius Garcia [id number]
--- NOTE | 2017-05-11 23:04 | CONS ---
Date/Time of Note Date/Time of Note DATE: 05/11/17 TIME: 23:03 Assessment/Plan Assessment/Plan Chief Complaint/Hosp Course HYPERKALEMIA BETTER SEPSIS ESRD ANEMIA AVF WOUND PLAN HD ANTIBIOTIC Problems: Consultation Date/Type/Reason Admit Date/Time May 07, 2017 at 04:33 Type of Consultation: renal Referring Provider: LANDON MARMOLEJO MD 24 HR Interval Summary Constitutional: no complaints Exam/Review of Systems Vital Signs Vitals Vital Signs Date Time Temp Pulse Resp B/P Pulse Ox O2 Delivery O2 Flow Rate FiO2 05/11/17 20:03 80 05/11/17 19:48 98.0 19 130/73 97 05/10/17 09:20 Room Air Intake and Output 05/10/17 05/10/17 05/11/17 15:00 23:00 07:00 Intake Total 1000 ml 900 ml 200 ml Output Total 3000 ml Balance -2000 ml 900 ml 200 ml Exam Cardiovascular: regular rate and rhythm Gastrointestinal: bowel sounds, soft Musculoskeletal: nl extremities to inspection Results Result Diagram: 05/11/17 0655 05/11/17 0655 Results 24 hrs Laboratory Tests Test 05/11/17 06:55 White Blood Count 3.6 L Red Blood Count 2.70 L Hemoglobin 8.8 L Hematocrit 26.2 L Mean Corpuscular Volume 97.0 Mean Corpuscular Hemoglobin 32.6 Mean Corpuscular Hemoglobin Concent 33.6 Red Cell Distribution Width 12.8 Platelet Count 134 L Mean Platelet Volume 9.3 Neutrophils % 59.8 Lymphocytes % 24.7 Monocytes % 10.4 Eosinophils % 3.8 Basophils % 0.8 Nucleated Red Blood Cells % 0.0 Neutrophils # 2.2 Lymphocytes # 0.9 Monocytes # 0.4 Eosinophils # 0.1 Basophils # 0.0 Nucleated Red Blood Cells # 0.0 Sodium Level 143 Potassium Level 4.0 Chloride Level 95 L Carbon Dioxide Level 29 Anion Gap 23 H Blood Urea Nitrogen 27 #H Creatinine 5.52 #H Glucose Level 91 Calcium Level 8.5 Medications Medications Current Medications Ondansetron HCl (Zofran Inj) 4 mg Q6H PRN IV NAUSEA AND/OR VOMITING Last administered on 05/07/17t 14:32; Admin Dose 4 MG; Start 05/07/17 at 05:00 Acetaminophen (Tylenol Tab) 650 mg Q6H PRN PO PAIN LEVEL 1-3 OR FEVER Last administered on 05/08/17 05:58; Admin Dose 650 MG; Start 05/07/17 at 05:00 Bisacodyl (Dulcolax) 5 mg DAILY PRN PO CONSTIPATION; Start 05/07/17 at 05:00 Acetaminophen (Tylenol Tab) 650 mg Q6H PRN PO PAIN LEVEL 1-3 OR FEVER; Start at 07:00 Multivit/Ca Carb/ B Cmplx/FA/Prenat 1 tab 1 tab DAILY PO Last administered on 09:49; Admin Dose 1 TAB; Start 05/07/17 at 09:00 Piperacillin Sod/ Tazobactam Sod (Zosyn 2.25gm/ 50ml (Pmx)) 50 ml @ 100 mls/hr Q8 IVPB Last administered on 05/11/17 20:32; Admin Dose 100 MLS/HR; Start at 13:00 Morphine Sulfate (morphine) 2 mg Q4H PRN IV PAIN Last administered on 20:31; Admin Dose 2 MG; Start 05/07/17 at 08:00 Hydralazine HCl (Apresoline) 10 mg Q4H PRN IV SBP>170; Start 05/08/17 at 16:00 Docusate Sodium (Colace) 100 mg Q12 PO Last administered on 05/11/17 20:32; Admin Dose 100 MG; Start 05/09/17 at 21:00 Nifedipine (Procardia Xl) 60 mg BID PO Last administered on 05/11/17 20:32; Admin Dose 60 MG; Start 05/09/17 at 12:00 Famotidine (Pepcid) 20 mg DAILY PO Last administered on 05/11/17 09:48; Admin Dose 20 MG; Start 05/09/17 at 12:00 Carvedilol (Coreg) 6.25 mg BID PO Last administered on 05/11/17 20:32; Admin Dose 6.25 MG; Start 05/09/17 at 21:00 Heparin Sodium (Porcine) (Heparin (5000 Units/0.5 ml)) 5,000 unit Q8 SC Last administered on 05/11/17 13:58; Admin Dose 5,000 UNIT; Start 05/10/17 at 22:00 Aspirin (Aspirin) 81 mg DAILY PO Last administered on 05/11/17t 09:49; Admin Dose 81 MG; Start 05/11/17 at 09:00 Metoprolol Tartrate (Lopressor) 5 mg Q4H PRN IV HR>110 Hold SBP<100; Start at 19:00 Miscellaneous Information (*Rx Drug Level Order Reminder*) 1 ONCE ONCE XX ; Start 05/12/17 at 05:00; Stop 05/12/17 at 05:01 LANDON MARMOLEJO MD May 11, 2017 23:04
[2017-05-12] VITALS (36 sets, daily range): BP systolic 123–192; BP diastolic 60–96; PULSE 58–88; RESP 17–20
[2017-05-12] MEDS: morphine 2 MG INJ IV PRN ×3 (03:14→20:57)
[2017-05-12] MEDS: PIPER-TAZO 2.25 GM (PMX) 50 ML IVPB SCH ×3 (06:00→22:06)
[2017-05-12] MEDS: HEPARIN 5,000 UNIT/0.5 ML VIAL SC SCH ×3 (06:00→22:08)
[2017-05-12] MEDS: ASPIRIN 81 MG TAB PO SCH (08:40)
[2017-05-12] MEDS: DOCUSATE SODIUM 100 MG CAP PO SCH ×2 (08:40→20:56)
[2017-05-12] MEDS: NIFEdipine (XL) 60 MG TAB PO SCH ×2 (08:41→20:56)
[2017-05-12] MEDS: MULTIVIT/CA CARB/B CMPLX/FA TAB PO SCH (08:41)
[2017-05-12] MEDS: FAMOTIDINE 20 MG TAB PO SCH (08:41)
[2017-05-12] MEDS: STIOLTO RESPIMAT INH SCH (12:00)
--- NOTE | 2017-05-12 12:07 | HPN ---
Date/Time of Note Date/Time of Note DATE: 05/12/17 TIME: 12:07 Interval H&P Admission Note Pt. seen H&P reviewed: No system changes DEMETRIUS MEZA MD May 12, 2017 12:07
[2017-05-12] MEDS ORDERED: SUCCINYLCHOLINE CHLORIDE 100 MG/5 ML SYG IV ONE (12:17)
[2017-05-12] MEDS ORDERED: ROCURONIUM 50 MG INJ ONE (12:18)
[2017-05-12] MEDS ORDERED: METOCLOPRAMIDE 10 MG INJ ONE (12:18)
[2017-05-12] MEDS ORDERED: ONDANSETRON 4 MG INJ ONE (12:18)
[2017-05-12] MEDS ORDERED: FENTAnyl 50 MCG/ML VIAL ONE ×2 (12:18→14:03)
[2017-05-12] MEDS ORDERED: PROPOFOL 20 ML ONE (12:18)
[2017-05-12] MEDS ORDERED: GELATIN SIZE 100 SPONGE ONE (12:20)
[2017-05-12] MEDS ORDERED: HEPARIN 1000 UNITS/ML 10 ML INJ ONE ×2 (12:20→13:59)
[2017-05-12] MEDS ORDERED: THROMBIN 5000 UNIT VIAL ONE (12:20)
[2017-05-12] MEDS ORDERED: BUPIVACAINE 0.5% (SDV) 30 ML INJ ONE (12:20)
[2017-05-12] MEDS ORDERED: HYDROmorphONE (0.2 MG/ML) 10ML SYG IV PRN ×2 (13:00)
[2017-05-12] MEDS ORDERED: hydrALAzine 20 MG INJ IV PRN (13:00)
[2017-05-12] MEDS ORDERED: DESMOPRESSIN 21 MCG in SOD CHLORIDE 0.9% 50 ML IV ONE (13:00)
[2017-05-12] MEDS ORDERED: ONDANSETRON 4 MG INJ IV PRN (13:00)
[2017-05-12] MEDS ORDERED: LABETALOL HCL 20MG INJ IV PRN (13:00)
[2017-05-12] MEDS ORDERED: FENTAnyl 50 MCG/ML VIAL IV PRN ×2 (13:00)
[2017-05-12] MEDS ORDERED: MEPERIDINE 25 MG INJ IV PRN (13:00)
--- NOTE | 2017-05-12 13:22 | CONS ---
Date/Time of Note Date/Time of Note DATE: 05/12/17 TIME: 13:18 Assessment/Plan Assessment/Plan Chief Complaint/Hosp Course Patient is off the floor for procedure, no acute changes overnight per report no fevers Temperature 98.7 pulse 92 respirations 20 blood pressure 123/60 saturation 95% on room air Blood culture on admission grew Pasteurella multocida and enterococcus species, urine culture negative, left upper extremity wound culture growing staph aureus , repeat blood cultures negative Antibiotics: Vancomycin, Zosyn CT of the left upper extremity revealed no fluid fluid collection or mass to suggest abscess. Soft tissue abnormality medially in the left arm with gas in the soft tissues and possible fluid. Assessment: 1. Sepsis with bacteremia 2. Left upper extremity cellulitis and wound dehiscence at the surgical site incision with questionable infected fistula 3. End-stage renal disease, hemodialysis dependent 4. Femoral Jerrod placed on May 08, 2017 5. Anemia 6. Hypertension Plan: Continue present care and antibiotics planned for fistula revision, await for final left upper extremity drainage cultures, follow vascular recommendations Problems: Consultation Date/Type/Reason Admit Date/Time May 07, 2017 at 04:33 Initial Consult Date Type of Consultation: id Referring Provider: LANDON MRAMOLEJO MD Exam/Review of Systems Vital Signs Vitals Vital Signs Date Time Temp Pulse Resp B/P Pulse Ox O2 Delivery O2 Flow Rate FiO2 05/12/17 11:51 98.7 92 20 123/60 95 05/10/17 09:20 Room Air Intake and Output 05/11/17 05/11/17 05/12/17 15:00 23:00 07:00 Intake Total 50 ml 850 ml Balance 50 ml 850 ml Results Result Diagram: 05/11/17 0655 05/11/17 0655 Results 24 hrs Laboratory Tests Test 05/12/17 06:51 Random Vancomycin Level 9.0 Medications Medications Current Medications Ondansetron HCl (Zofran Inj) 4 mg Q6H PRN IV NAUSEA AND/OR VOMITING Last administered on 05/07/17 14:32; Admin Dose 4 MG; Start 05/07/17 at 05:00 Acetaminophen (Tylenol Tab) 650 mg Q6H PRN PO PAIN LEVEL 1-3 OR FEVER Last administered on 05/08/17 05:58; Admin Dose 650 MG; Start 05/07/17 at 05:00 Bisacodyl (Dulcolax) 5 mg DAILY PRN PO CONSTIPATION; Start 05/07/17 at 05:00 Acetaminophen (Tylenol Tab) 650 mg Q6H PRN PO PAIN LEVEL 1-3 OR FEVER; Start at 07:00 Multivit/Ca Carb/ B Cmplx/FA/Prenat 1 tab 1 tab DAILY PO Last administered on 09:49; Admin Dose 1 TAB; Start 05/07/17 at 09:00 Piperacillin Sod/ Tazobactam Sod (Zosyn 2.25gm/ 50ml (Pmx)) 50 ml @ 100 mls/hr Q8 IVPB Last administered on 05/11/17 20:32; Admin Dose 100 MLS/HR; Start at 13:00 Morphine Sulfate (morphine) 2 mg Q4H PRN IV PAIN Last administered on 09:10; Admin Dose 2 MG; Start 05/07/17 at 08:00 Hydralazine HCl (Apresoline) 10 mg Q4H PRN IV SBP>170; Start 05/08/17 at 16:00 Docusate Sodium (Colace) 100 mg Q12 PO Last administered on 05/11/17 20:32; Admin Dose 100 MG; Start 05/09/17 at 21:00 Nifedipine (Procardia Xl) 60 mg BID PO Last administered on 05/11/17 20:32; Admin Dose 60 MG; Start 05/09/17 at 12:00 Famotidine (Pepcid) 20 mg DAILY PO Last administered on 05/11/17 09:48; Admin Dose 20 MG; Start 05/09/17 at 12:00 Carvedilol (Coreg) 6.25 mg BID PO Last administered on 05/11/17 20:32; Admin Dose 6.25 MG; Start 05/09/17 at 21:00 Heparin Sodium (Porcine) (Heparin (5000 Units/0.5 ml)) 5,000 unit Q8 SC Last administered on 05/11/17 13:58; Admin Dose 5,000 UNIT; Start 05/10/17 at 22:00 Aspirin (Aspirin) 81 mg DAILY PO Last administered on 05/11/17 09:49; Admin Dose 81 MG; Start 05/11/17 at 09:00 Metoprolol Tartrate 5 mg 5 mg Q4H PRN IV HR>110 Hold SBP<100; Start 05/10/17 at 19:00 Vancomycin HCl 750 mg/Sodium Chloride 150 ml @ 75 mls/hr Q48H IVPB ; Start at 20:00 Desmopressin Acetate/Sodium Chloride (Ddavp/NS) 55.25 ml @ 110 mls/hr ONCE ONCE IV ; Start 05/12/17 at 13:00; Stop 05/12/17 at 13:30 MANUELA SOMMER NP May 12, 2017 13:22
[2017-05-12] MEDS ORDERED: SOD CHLORIDE 0.9% 250 ML IV* ONE (13:27)
--- NOTE | 2017-05-12 14:52 | CONS ---
Date/Time of Note Date/Time of Note DATE: 05/12/17 TIME: 14:50 Assessment/Plan Assessment/Plan Chief Complaint/Hosp Course IMP: 1.Pre-op eval prior to revision/debridement of AVF-Negative trop x 3/NO chest pain. NL EF by echo tis admit with no contraindicated valve lesions. OK to proceed to OR at moderate risk without further noninvasive evaluation 2.CHF-diastolic acute on chronic 3.HTN-now well controlled 4.ESRD on HD 5.Non-functioning AVF 6.anemia 7. Dyslipidemia 8. Hyperkalemia-improved 9. AF-on onset today. reasonable rate control-now back in SR Recc: -Tele -serial ecg's -Continue procardia xl/coreg -HD for volume removal -Continue heparin SQ and asa for now with probable transition to eliquis at d/c after surgery -OR today for AVF debridement/revision Problems: Consultation Date/Type/Reason Admit Date/Time May 07, 2017 at 04:33 Initial Consult Date 05/09/17 Type of Consultation: cardiology Reason for Consultation pre-op Referring Provider: LANDON MARMOLEJO MD Exam/Review of Systems Vital Signs Vitals Vital Signs Date Time Temp Pulse Resp B/P Pulse Ox O2 Delivery O2 Flow Rate FiO2 05/12/17 11:51 98.7 92 20 123/60 95 05/10/17 09:20 Room Air Intake and Output 05/11/17 05/11/17 05/12/17 15:00 23:00 07:00 Intake Total 50 ml 850 ml Balance 50 ml 850 ml Exam Review of Systems: CONSTITUTIONAL: No fevers, chills. PULMONARY: No sob CARDIOVASCULAR: No chest pain/palpitations GASTROINTESTINAL: No nausea/vomiting. GENITOURINARY: No hematuria/dysuria. MUSCULOSKELETAL: mild pain in arm PSYCHIATRIC: The patient denies depression. NEUROLOGIC: No weakness Constitutional: alert Psych: no complaints Head: normocephalic ENMT: mucosa pink and moist Neck: jvd (8 cm water), supple Respiratory: clear to auscultation Cardiovascular: regular rate and rhythm Gastrointestinal: non-tender, soft Musculoskeletal: muscle tone (normal) Extremities: edema (none) 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: other (No focal deficits) Results Result Diagram: 05/11/17 0655 05/11/17 0655 Results 24 hrs Laboratory Tests Test 05/12/17 06:51 Random Vancomycin Level 9.0 Medications Medications Current Medications Ondansetron HCl (Zofran Inj) 4 mg Q6H PRN IV NAUSEA AND/OR VOMITING Last administered on 05/07/17 14:32; Admin Dose 4 MG; Start 05/07/17 at 05:00 Acetaminophen (Tylenol Tab) 650 mg Q6H PRN PO PAIN LEVEL 1-3 OR FEVER Last administered on 05/08/17 05:58; Admin Dose 650 MG; Start 05/07/17 at 05:00 Bisacodyl (Dulcolax) 5 mg DAILY PRN PO CONSTIPATION; Start 05/07/17 at 05:00 Acetaminophen (Tylenol Tab) 650 mg Q6H PRN PO PAIN LEVEL 1-3 OR FEVER; Start at 07:00 Multivit/Ca Carb/ B Cmplx/FA/Prenat 1 tab 1 tab DAILY PO Last administered on 09:49; Admin Dose 1 TAB; Start 05/07/17 at 09:00 Piperacillin Sod/ Tazobactam Sod (Zosyn 2.25gm/ 50ml (Pmx)) 50 ml @ 100 mls/hr Q8 IVPB Last administered on 05/11/17 20:32; Admin Dose 100 MLS/HR; Start at 13:00 Morphine Sulfate (morphine) 2 mg Q4H PRN IV PAIN Last administered on 09:10; Admin Dose 2 MG; Start 05/07/17 at 08:00 Hydralazine HCl (Apresoline) 10 mg Q4H PRN IV SBP>170; Start 05/08/17 at 16:00 Docusate Sodium (Colace) 100 mg Q12 PO Last administered on 05/11/17 20:32; Admin Dose 100 MG; Start 05/09/17 at 21:00 Nifedipine (Procardia Xl) 60 mg BID PO Last administered on 05/11/17 20:32; Admin Dose 60 MG; Start 05/09/17 at 12:00 Famotidine (Pepcid) 20 mg DAILY PO Last administered on 05/11/17 09:48; Admin Dose 20 MG; Start 05/09/17 at 12:00 Carvedilol (Coreg) 6.25 mg BID PO Last administered on 05/11/17 20:32; Admin Dose 6.25 MG; Start 05/09/17 at 21:00 Heparin Sodium (Porcine) (Heparin (5000 Units/0.5 ml)) 5,000 unit Q8 SC Last administered on 05/11/17 13:58; Admin Dose 5,000 UNIT; Start 05/10/17 at 22:00 Aspirin (Aspirin) 81 mg DAILY PO Last administered on 05/11/17 09:49; Admin Dose 81 MG; Start 05/11/17 at 09:00 Metoprolol Tartrate 5 mg 5 mg Q4H PRN IV HR>110 Hold SBP<100; Start 05/10/17 at 19:00 Vancomycin HCl/ Sodium Chloride (Vancocin/NS) 150 ml @ 75 mls/hr Q48H IVPB ; Start 05/12/17 at 20:00 YONG SINGH May 12, 2017 14:52
[2017-05-12] MEDS: HYDROmorphONE (0.2 MG/ML) 10ML SYG IV PRN ×3 (16:14→17:47)
--- NOTE | 2017-05-12 17:18 | PN ---
Date/Time of Note Date/Time of Note DATE: 05/12/17 TIME: 17:11 Assessment/Plan VTE Prophylaxis VTE Prophylaxis Intervention: heparin Assessment/Plan Chief Complaint/Hosp Course 1. 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 Wound dehiscence with Infected ulcer JOSH arm over fistula with surrounding JOSH arm cellulitis Patient had femoral Jerrod placed 05/08/17 Plan is for fistula revision today 3. ESRD on HD HD per renal 4. Hyperkalemia-resolved 5. Anemia of CKD with thrombocytopenia r/o iron deficiency 6. HTN- now controlled Continue regimen 7. COPD-stable 8. Tobacco abuse Cessation advised Prophylaxis: Heparin Problems: Subjective 24 Hr Interval Summary Constitutional: no complaints Exam/Review of Systems Vital Signs Vitals Vital Signs Date Time Temp Pulse Resp B/P Pulse Ox O2 Delivery O2 Flow Rate FiO2 05/12/17 16:40 74 17 147/84 99 Nasal Cannula 2.0 05/12/17 16:05 98.0 Intake and Output 05/11/17 05/11/17 05/12/17 15:00 23:00 07:00 Intake Total 50 ml 850 ml Balance 50 ml 850 ml Exam Constitutional: alert Respiratory: clear to auscultation Cardiovascular: regular rate and rhythm Gastrointestinal: soft, No distended Musculoskeletal: nl extremities to inspection Results Result Diagram: 05/11/17 0655 05/11/17 0655 Results 24 hrs Laboratory Tests Test 05/12/17 06:51 Random Vancomycin Level 9.0 Medications Medications Current Medications Ondansetron HCl (Zofran Inj) 4 mg Q6H PRN IV NAUSEA AND/OR VOMITING Last administered on 05/07/17 14:32; Admin Dose 4 MG; Start 05/07/17 at 05:00 Acetaminophen (Tylenol Tab) 650 mg Q6H PRN PO PAIN LEVEL 1-3 OR FEVER Last administered on 05/08/17 05:58; Admin Dose 650 MG; Start 05/07/17 at 05:00 Bisacodyl (Dulcolax) 5 mg DAILY PRN PO CONSTIPATION; Start 05/07/17 at 05:00 Acetaminophen (Tylenol Tab) 650 mg Q6H PRN PO PAIN LEVEL 1-3 OR FEVER; Start at 07:00 Multivit/Ca Carb/ B Cmplx/FA/Prenat 1 tab 1 tab DAILY PO Last administered on 09:49; Admin Dose 1 TAB; Start 05/07/17 at 09:00 Piperacillin Sod/ Tazobactam Sod (Zosyn 2.25gm/ 50ml (Pmx)) 50 ml @ 100 mls/hr Q8 IVPB Last administered on 05/11/17 20:32; Admin Dose 100 MLS/HR; Start at 13:00 Morphine Sulfate (morphine) 2 mg Q4H PRN IV PAIN Last administered on 09:10; Admin Dose 2 MG; Start 05/07/17 at 08:00 Hydralazine HCl (Apresoline) 10 mg Q4H PRN IV SBP>170; Start 05/08/17 at 16:00 Docusate Sodium (Colace) 100 mg Q12 PO Last administered on 05/11/17 20:32; Admin Dose 100 MG; Start 05/09/17 at 21:00 Nifedipine (Procardia Xl) 60 mg BID PO Last administered on 05/11/17 20:32; Admin Dose 60 MG; Start 05/09/17 at 12:00 Famotidine (Pepcid) 20 mg DAILY PO Last administered on 05/11/17 09:48; Admin Dose 20 MG; Start 05/09/17 at 12:00 Carvedilol (Coreg) 6.25 mg BID PO Last administered on 05/11/17 20:32; Admin Dose 6.25 MG; Start 05/09/17 at 21:00 Heparin Sodium (Porcine) (Heparin (5000 Units/0.5 ml)) 5,000 unit Q8 SC Last administered on 05/11/17 13:58; Admin Dose 5,000 UNIT; Start 05/10/17 at 22:00 Aspirin (Aspirin) 81 mg DAILY PO Last administered on 05/11/17 09:49; Admin Dose 81 MG; Start 05/11/17 at 09:00 Metoprolol Tartrate 5 mg 5 mg Q4H PRN IV HR>110 Hold SBP<100; Start 05/10/17 at 19:00 Vancomycin HCl/ Sodium Chloride (Vancocin/NS) 150 ml @ 75 mls/hr Q48H IVPB ; Start 05/12/17 at 20:00 LASHAE NAPIER May 12, 2017 17:17
[2017-05-12 17:28] LABS: ADD SCAN DIFF NO
[2017-05-12 17:29] LABS: BASOPHIL # 0.1 10^3/ul (0.0-0.1); BASOPHILS % 1.1 % (0.0-2.0); EOSINOPHILS # 0.1 10^3/ul (0.0-0.5); EOSINOPHILS % 2.6 % (0.0-7.0); HEMATOCRIT 31.9 % (42.0-52.0); HEMOGLOBIN 10.6 g/dl (14.0-18.0); LYMPHOCYTES # 1.1 10^3/ul (0.8-2.9); LYMPHOCYTES % 19.8 % (15.0-51.0); MEAN CORPUSCULAR HEMOGLOBIN 31.5 pg (29.0-33.0); MEAN CORPUSCULAR HGB CONC 33.2 g/dl (32.0-37.0); MEAN CORPUSCULAR VOLUME 94.7 fl (82.0-101.0); MEAN PLATELET VOLUME 8.5 fl (7.4-10.4); MONOCYTE # 0.6 10^3/ul (0.3-0.9); MONOCYTES % 10.6 % (0.0-11.0); NEUTROPHIL # 3.4 10^3/ul (1.6-7.5); PLATELET COUNT 137 10^3/UL (140-415); RED BLOOD COUNT 3.37 10^6/ul (4.70-6.10); RED CELL DISTRIBUTION WIDTH 13.3 % (11.5-14.5); WHITE BLOOD COUNT 5.3 10^3/ul (4.8-10.8)
[2017-05-12 17:58] LABS: CALCIUM 8.1 mg/dl (8.4-10.2); CREATININE 4.39 mg/dl (0.61-1.24); POTASSIUM 4.5 mmol/L (3.5-5.1)
[2017-05-12] MEDS: VANCOMYCIN 750 MG in SOD CHLORIDE 0.9% 150 ML IVPB SCH (20:27)
[2017-05-12] MEDS: ONDANSETRON 4 MG INJ IV PRN (20:57)
--- NOTE | 2017-05-12 22:39 | CONS ---
Date/Time of Note Date/Time of Note DATE: 05/12/17 TIME: 22:38 Assessment/Plan Assessment/Plan Chief Complaint/Hosp Course HYPERKALEMIA BETTER SEPSIS ESRD ANEMIA AVF WOUND PLAN HD ANTIBIOTIC Problems: Consultation Date/Type/Reason Admit Date/Time May 07, 2017 at 04:33 Type of Consultation: renal Referring Provider: LANDON MARMOLEJO MD 24 HR Interval Summary Constitutional: other (s/p avf surgery) Exam/Review of Systems Vital Signs Vitals Vital Signs Date Time Temp Pulse Resp B/P Pulse Ox O2 Delivery O2 Flow Rate FiO2 05/12/17 20:21 71 05/12/17 19:33 98.1 18 165/81 93 05/12/17 17:45 Nasal Cannula 2.0 Intake and Output 05/11/17 05/11/17 05/12/17 15:00 23:00 07:00 Intake Total 50 ml 850 ml Balance 50 ml 850 ml Exam Respiratory: clear to auscultation Cardiovascular: regular rate and rhythm Gastrointestinal: soft Results Result Diagram: 05/12/17 1720 05/12/17 1720 Results 24 hrs Laboratory Tests Test 05/12/17 06:51 05/12/17 17:20 Random Vancomycin Level 9.0 White Blood Count 5.3 # Red Blood Count 3.37 #L Hemoglobin 10.6 #L Hematocrit 31.9 #L Mean Corpuscular Volume 94.7 Mean Corpuscular Hemoglobin 31.5 Mean Corpuscular Hemoglobin Concent 33.2 Red Cell Distribution Width 13.3 Platelet Count 137 L Mean Platelet Volume 8.5 Neutrophils % 65.0 Lymphocytes % 19.8 Monocytes % 10.6 Eosinophils % 2.6 Basophils % 1.1 Nucleated Red Blood Cells % 0.0 Neutrophils # 3.4 Lymphocytes # 1.1 Monocytes # 0.6 Eosinophils # 0.1 Basophils # 0.1 Nucleated Red Blood Cells # 0.0 Sodium Level 142 Potassium Level 4.5 Chloride Level 99 Carbon Dioxide Level 27 Anion Gap 21 H Blood Urea Nitrogen 15 # Creatinine 4.39 #H Glucose Level 98 Calcium Level 8.1 L Medications Medications Current Medications Ondansetron HCl (Zofran Inj) 4 mg Q6H PRN IV NAUSEA AND/OR VOMITING Last administered on 05/12/17t 20:57; Admin Dose 4 MG; Start 05/07/17 at 05:00 Acetaminophen (Tylenol Tab) 650 mg Q6H PRN PO PAIN LEVEL 1-3 OR FEVER Last administered on 05/08/17 05:58; Admin Dose 650 MG; Start 05/07/17 at 05:00 Bisacodyl (Dulcolax) 5 mg DAILY PRN PO CONSTIPATION; Start 05/07/17 at 05:00 Acetaminophen (Tylenol Tab) 650 mg Q6H PRN PO PAIN LEVEL 1-3 OR FEVER; Start at 07:00 Multivit/Ca Carb/ B Cmplx/FA/Prenat 1 tab 1 tab DAILY PO Last administered on 09:49; Admin Dose 1 TAB; Start 05/07/17 at 09:00 Piperacillin Sod/ Tazobactam Sod (Zosyn 2.25gm/ 50ml (Pmx)) 50 ml @ 100 mls/hr Q8 IVPB Last administered on 05/12/17 22:06; Admin Dose 100 MLS/HR; Start at 13:00 Morphine Sulfate (morphine) 2 mg Q4H PRN IV PAIN Last administered on 20:57; Admin Dose 2 MG; Start 05/07/17 at 08:00 Hydralazine HCl (Apresoline) 10 mg Q4H PRN IV SBP>170; Start 05/08/17 at 16:00 Docusate Sodium (Colace) 100 mg Q12 PO Last administered on 05/12/17 20:56; Admin Dose 100 MG; Start 05/09/17 at 21:00 Nifedipine (Procardia Xl) 60 mg BID PO Last administered on 05/12/17 20:56; Admin Dose 60 MG; Start 05/09/17 at 12:00 Famotidine (Pepcid) 20 mg DAILY PO Last administered on 05/11/17 09:48; Admin Dose 20 MG; Start 05/09/17 at 12:00 Carvedilol (Coreg) 6.25 mg BID PO Last administered on 05/12/17 20:56; Admin Dose 6.25 MG; Start 05/09/17 at 21:00 Heparin Sodium (Porcine) (Heparin (5000 Units/0.5 ml)) 5,000 unit Q8 SC Last administered on 05/12/17 22:08; Admin Dose 5,000 UNIT; Start 05/10/17 at 22:00 Aspirin (Aspirin) 81 mg DAILY PO Last administered on 05/11/17 09:49; Admin Dose 81 MG; Start 05/11/17 at 09:00 Metoprolol Tartrate 5 mg 5 mg Q4H PRN IV HR>110 Hold SBP<100; Start 05/10/17 at 19:00 Vancomycin HCl/ Sodium Chloride (Vancocin/NS) 150 ml @ 75 mls/hr Q48H IVPB Last administered on 05/12/17 20:27; Admin Dose 75 MLS/HR; Start 05/12/17 at 20 :00 LANDON MARMOLEJO MD May 12, 2017 22:38
[2017-05-13] VITALS (13 sets, daily range): BP systolic 116–160; BP diastolic 54–82; PULSE 70–78; RESP 17–19
[2017-05-13] MEDS: morphine 2 MG INJ IV PRN ×2 (03:44→09:05)
[2017-05-13] MEDS: PIPER-TAZO 2.25 GM (PMX) 50 ML IVPB SCH ×3 (05:31→21:54)
[2017-05-13] MEDS: HEPARIN 5,000 UNIT/0.5 ML VIAL SC SCH ×2 (05:33→14:02)
[2017-05-13 07:19] LABS: ADD SCAN DIFF NO
[2017-05-13 07:22] LABS: BASOPHILS % 0.7 % (0.0-2.0); EOSINOPHILS # 0.1 10^3/ul (0.0-0.5); EOSINOPHILS % 1.5 % (0.0-7.0); HEMATOCRIT 29.2 % (42.0-52.0); HEMOGLOBIN 9.4 g/dl (14.0-18.0); LYMPHOCYTES % 22.5 % (15.0-51.0); MEAN CORPUSCULAR HEMOGLOBIN 31.2 pg (29.0-33.0); MEAN CORPUSCULAR HGB CONC 32.2 g/dl (32.0-37.0); MEAN PLATELET VOLUME 9.5 fl (7.4-10.4); MONOCYTE # 0.4 10^3/ul (0.3-0.9); MONOCYTES % 8.8 % (0.0-11.0); NEUTROPHILS % 65.2 % (39.0-77.0); PLATELET COUNT 129 10^3/UL (140-415); RED BLOOD COUNT 3.01 10^6/ul (4.70-6.10); RED CELL DISTRIBUTION WIDTH 13.9 % (11.5-14.5); WHITE BLOOD COUNT 4.6 10^3/ul (4.8-10.8)
[2017-05-13 07:51] LABS: CALCIUM 8.3 mg/dl (8.4-10.2); CREATININE 5.46 mg/dl (0.61-1.24); POTASSIUM 4.6 mmol/L (3.5-5.1)
[2017-05-13] MEDS: FAMOTIDINE 20 MG TAB PO SCH (09:02)
[2017-05-13] MEDS: MULTIVIT/CA CARB/B CMPLX/FA TAB PO SCH (09:02)
[2017-05-13] MEDS: ASPIRIN 81 MG TAB PO SCH (09:02)
[2017-05-13] MEDS: DOCUSATE SODIUM 100 MG CAP PO SCH ×2 (09:02→20:43)
[2017-05-13] MEDS: NIFEdipine (XL) 60 MG TAB PO SCH ×2 (09:04→20:44)
[2017-05-13] MEDS: morphine 4 MG/ML VIAL IV PRN ×3 (12:52→23:51)
--- NOTE | 2017-05-13 14:51 | PN ---
Date/Time of Note Date/Time of Note DATE: 05/13/17 TIME: 14:46 Assessment/Plan VTE Prophylaxis VTE Prophylaxis Intervention: heparin Assessment/Plan Chief Complaint/Hosp Course 1. 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 Wound dehiscence with Infected ulcer JOSH arm over fistula with surrounding JOSH arm cellulitis Patient had femoral Jerrod placed 05/08/17 Plan is status post fistula revision Patient will have permacath placed which will be used for dialysis until the fistula is functional Increased pain regimen as patient still complaining of pain in the left arm 3. ESRD on HD HD per renal 4. Hyperkalemia-resolved 5. Anemia of CKD with thrombocytopenia r/o iron deficiency 6. HTN- now controlled Continue regimen of Coreg and nifedipine 7. COPD-stable 8. Tobacco abuse Cessation advised Prophylaxis: Heparin Problems: Subjective 24 Hr Interval Summary Musculoskeletal: other (Pain in left arm) Exam/Review of Systems Vital Signs Vitals Vital Signs Date Time Temp Pulse Resp B/P Pulse Ox O2 Delivery O2 Flow Rate FiO2 05/13/17 12:43 70 05/13/17 11:59 98.5 18 144/54 100 05/12/17 17:45 Nasal Cannula 2.0 Intake and Output 05/12/17 05/12/17 05/13/17 15:00 23:00 07:00 Intake Total 1000 ml 200 ml 170 ml Output Total 3500 ml 2000 ml Balance -2500 ml -1800 ml 170 ml Exam Constitutional: alert Respiratory: clear to auscultation Cardiovascular: regular rate and rhythm Gastrointestinal: soft, No distended Musculoskeletal: No nl extremities to inspection Results Result Diagram: 05/13/17 0624 05/13/17 0624 Results 24 hrs Laboratory Tests Test 05/12/17 17:20 05/13/17 06:24 White Blood Count 5.3 # 4.6 L Red Blood Count 3.37 #L 3.01 L Hemoglobin 10.6 #L 9.4 L Hematocrit 31.9 #L 29.2 L Mean Corpuscular Volume 94.7 97.0 Mean Corpuscular Hemoglobin 31.5 31.2 Mean Corpuscular Hemoglobin Concent 33.2 32.2 Red Cell Distribution Width 13.3 13.9 Platelet Count 137 L 129 L Mean Platelet Volume 8.5 9.5 Neutrophils % 65.0 65.2 Lymphocytes % 19.8 22.5 Monocytes % 10.6 8.8 Eosinophils % 2.6 1.5 Basophils % 1.1 0.7 Nucleated Red Blood Cells % 0.0 0.0 Neutrophils # 3.4 3.0 Lymphocytes # 1.1 1.0 Monocytes # 0.6 0.4 Eosinophils # 0.1 0.1 Basophils # 0.1 0.0 Nucleated Red Blood Cells # 0.0 0.0 Sodium Level 142 143 Potassium Level 4.5 4.6 Chloride Level 99 96 L Carbon Dioxide Level 27 28 Anion Gap 21 H 24 H Blood Urea Nitrogen 15 # 23 H Creatinine 4.39 #H 5.46 H Glucose Level 98 89 Calcium Level 8.1 L 8.3 L Medications Medications Current Medications Ondansetron HCl (Zofran Inj) 4 mg Q6H PRN IV NAUSEA AND/OR VOMITING Last administered on 05/12/17 20:57; Admin Dose 4 MG; Start 05/07/17 at 05:00 Acetaminophen (Tylenol Tab) 650 mg Q6H PRN PO PAIN LEVEL 1-3 OR FEVER Last administered on 05/08/17 05:58; Admin Dose 650 MG; Start 05/07/17 at 05:00 Bisacodyl (Dulcolax) 5 mg DAILY PRN PO CONSTIPATION; Start 05/07/17 at 05:00 Acetaminophen (Tylenol Tab) 650 mg Q6H PRN PO PAIN LEVEL 1-3 OR FEVER; Start at 07:00 Multivit/Ca Carb/ B Cmplx/FA/Prenat 1 tab 1 tab DAILY PO Last administered on 09:02; Admin Dose 1 TAB; Start 05/07/17 at 09:00 Piperacillin Sod/ Tazobactam Sod (Zosyn 2.25gm/ 50ml (Pmx)) 50 ml @ 100 mls/hr Q8 IVPB Last administered on 05/13/17 13:57; Admin Dose 100 MLS/HR; Start at 13:00 Hydralazine HCl (Apresoline) 10 mg Q4H PRN IV SBP>170; Start 05/08/17 at 16:00 Docusate Sodium (Colace) 100 mg Q12 PO Last administered on 05/13/17 09:02; Admin Dose 100 MG; Start 05/09/17 at 21:00 Nifedipine (Procardia Xl) 60 mg BID PO Last administered on 05/13/17 09:04; Admin Dose 60 MG; Start 05/09/17 at 12:00 Famotidine (Pepcid) 20 mg DAILY PO Last administered on 05/13/17 09:02; Admin Dose 20 MG; Start 05/09/17 at 12:00 Carvedilol (Coreg) 6.25 mg BID PO Last administered on 05/13/17 09:03; Admin Dose 6.25 MG; Start 05/09/17 at 21:00 Heparin Sodium (Porcine) (Heparin (5000 Units/0.5 ml)) 5,000 unit Q8 SC Last administered on 05/13/17 14:02; Admin Dose 5,000 UNIT; Start 05/10/17 at 22:00 Aspirin (Aspirin) 81 mg DAILY PO Last administered on 05/13/17 09:02; Admin Dose 81 MG; Start 05/11/17 at 09:00 Metoprolol Tartrate 5 mg 5 mg Q4H PRN IV HR>110 Hold SBP<100; Start 05/10/17 at 19:00 Vancomycin HCl/ Sodium Chloride (Vancocin/NS) 150 ml @ 75 mls/hr Q48H IVPB Last administered on 05/12/17 20:27; Admin Dose 75 MLS/HR; Start 05/12/17 at 20 :00 Morphine Sulfate (morphine) 4 mg Q3H PRN IV PAIN Last administered on 12:52; Admin Dose 4 MG; Start 05/13/17 at 12:30 LASHAE NAPIER May 13, 2017 14:51
--- NOTE | 2017-05-13 15:27 | CONS ---
Date/Time of Note Date/Time of Note DATE: 05/13/17 TIME: 15:25 Assessment/Plan Assessment/Plan Chief Complaint/Hosp Course Alert looks comfortable complaining of left upper extremity pain no fevers Temperature 98.5 pulse 70 respirations 18 blood pressure 144/54 saturation 100 on room air Blood culture on admission grew Pasteurella multocida and enterococcus species, left upper extremity wound culture grew staph aureus and Pasteurella multocida, repeat blood cultures negative Antimicrobials Vanco Zosyn Physical examination: Well-developed, well-nourished middle-aged man who is alert and no distress. Head atraumatic normocephalic, sclera nonicteric. Neck is supple. Chest rise symmetrical, breath sounds clear. Heart: S1-S2. Abdomen soft, bowel tones present. Extremities with left upper extremity dressing intact swelling present Assessment: 1. Resolving sepsis with bacteremia 2. Left upper extremity cellulitis and wound dehiscence at the surgical site incision with questionable infected fistula, status post revision 3. End-stage renal disease, hemodialysis dependent 4. Femoral Jerrod placed on May 08, 2017 5. Anemia 6. Hypertension Plan: Remains stable, continue present care and antibiotics, keep left upper extremity elevated, follow vascular recommendations Problems: Consultation Date/Type/Reason Admit Date/Time May 07, 2017 at 04:33 Type of Consultation: ID Referring Provider: LANDON MARMOLEJO MD Exam/Review of Systems Vital Signs Vitals Vital Signs Date Time Temp Pulse Resp B/P Pulse Ox O2 Delivery O2 Flow Rate FiO2 05/13/17 12:43 70 05/13/17 11:59 98.5 18 144/54 100 05/12/17 17:45 Nasal Cannula 2.0 Intake and Output 05/12/17 05/12/17 05/13/17 15:00 23:00 07:00 Intake Total 1000 ml 200 ml 170 ml Output Total 3500 ml 2000 ml Balance -2500 ml -1800 ml 170 ml Results Result Diagram: 05/13/1724 05/13/17 0624 Results 24 hrs Laboratory Tests Test 05/12/17 17:20 05/13/17 06:24 White Blood Count 5.3 # 4.6 L Red Blood Count 3.37 #L 3.01 L Hemoglobin 10.6 #L 9.4 L Hematocrit 31.9 #L 29.2 L Mean Corpuscular Volume 94.7 97.0 Mean Corpuscular Hemoglobin 31.5 31.2 Mean Corpuscular Hemoglobin Concent 33.2 32.2 Red Cell Distribution Width 13.3 13.9 Platelet Count 137 L 129 L Mean Platelet Volume 8.5 9.5 Neutrophils % 65.0 65.2 Lymphocytes % 19.8 22.5 Monocytes % 10.6 8.8 Eosinophils % 2.6 1.5 Basophils % 1.1 0.7 Nucleated Red Blood Cells % 0.0 0.0 Neutrophils # 3.4 3.0 Lymphocytes # 1.1 1.0 Monocytes # 0.6 0.4 Eosinophils # 0.1 0.1 Basophils # 0.1 0.0 Nucleated Red Blood Cells # 0.0 0.0 Sodium Level 142 143 Potassium Level 4.5 4.6 Chloride Level 99 96 L Carbon Dioxide Level 27 28 Anion Gap 21 H 24 H Blood Urea Nitrogen 15 # 23 H Creatinine 4.39 #H 5.46 H Glucose Level 98 89 Calcium Level 8.1 L 8.3 L Medications Medications Current Medications Ondansetron HCl (Zofran Inj) 4 mg Q6H PRN IV NAUSEA AND/OR VOMITING Last administered on 05/12/17 20:57; Admin Dose 4 MG; Start 05/07/17 at 05:00 Acetaminophen (Tylenol Tab) 650 mg Q6H PRN PO PAIN LEVEL 1-3 OR FEVER Last administered on 05/08/17 05:58; Admin Dose 650 MG; Start 05/07/17 at 05:00 Bisacodyl (Dulcolax) 5 mg DAILY PRN PO CONSTIPATION; Start 05/07/17 at 05:00 Acetaminophen (Tylenol Tab) 650 mg Q6H PRN PO PAIN LEVEL 1-3 OR FEVER; Start at 07:00 Multivit/Ca Carb/ B Cmplx/FA/Prenat 1 tab 1 tab DAILY PO Last administered on 09:02; Admin Dose 1 TAB; Start 05/07/17 at 09:00 Piperacillin Sod/ Tazobactam Sod (Zosyn 2.25gm/ 50ml (Pmx)) 50 ml @ 100 mls/hr Q8 IVPB Last administered on 05/13/17 13:57; Admin Dose 100 MLS/HR; Start at 13:00 Hydralazine HCl (Apresoline) 10 mg Q4H PRN IV SBP>170; Start 05/08/17 at 16:00 Docusate Sodium (Colace) 100 mg Q12 PO Last administered on 05/13/17 09:02; Admin Dose 100 MG; Start 05/09/17 at 21:00 Nifedipine (Procardia Xl) 60 mg BID PO Last administered on 05/13/17 09:04; Admin Dose 60 MG; Start 05/09/17 at 12:00 Famotidine (Pepcid) 20 mg DAILY PO Last administered on 05/13/17 09:02; Admin Dose 20 MG; Start 05/09/17 at 12:00 Carvedilol (Coreg) 6.25 mg BID PO Last administered on 05/13/17 09:03; Admin Dose 6.25 MG; Start 05/09/17 at 21:00 Heparin Sodium (Porcine) (Heparin (5000 Units/0.5 ml)) 5,000 unit Q8 SC Last administered on 05/13/17 14:02; Admin Dose 5,000 UNIT; Start 05/10/17 at 22:00 Aspirin (Aspirin) 81 mg DAILY PO Last administered on 05/13/17 09:02; Admin Dose 81 MG; Start 05/11/17 at 09:00 Metoprolol Tartrate 5 mg 5 mg Q4H PRN IV HR>110 Hold SBP<100; Start 05/10/17 at 19:00 Vancomycin HCl/ Sodium Chloride (Vancocin/NS) 150 ml @ 75 mls/hr Q48H IVPB Last administered on 05/12/17 20:27; Admin Dose 75 MLS/HR; Start 05/12/17 at 20 :00 Morphine Sulfate (morphine) 4 mg Q3H PRN IV PAIN Last administered on 12:52; Admin Dose 4 MG; Start 05/13/17 at 12:30 MANUELA SOMMER NP May 13, 2017 15:27
[2017-05-13] MEDS: STIOLTO RESPIMAT INH SCH (17:56)
--- NOTE | 2017-05-13 18:16 | CONS ---
Date/Time of Note Date/Time of Note DATE: 05/13/17 TIME: 18:13 Assessment/Plan Assessment/Plan Chief Complaint/Hosp Course IMP: 1.Pre-op eval prior to revision/debridement of AVF-Negative trop x 3/NO chest pain. NL EF by echo tis admit with no contraindicated valve lesions. OK to proceed to OR at moderate risk without further noninvasive evaluation 2.CHF-diastolic acute on chronic 3.HTN-now well controlled 4.ESRD on HD 5.Non-functioning AVF s/p AVF revision/debridement 6.anemia 7. Dyslipidemia 8. Hyperkalemia-improved 9. AF-now back in SR and remains Recc: -Tele -serial ecg's -Continue procardia xl/coreg -HD for volume removal -Continue heparin SQ and asa for now with probable transition to eliquis at d/c after surgery Problems: Consultation Date/Type/Reason Admit Date/Time May 07, 2017 at 04:33 Initial Consult Date 05/09/17 Type of Consultation: cardiology Reason for Consultation pre-op/HTN Referring Provider: LANDON MARMOLEJO MD Exam/Review of Systems Vital Signs Vitals Vital Signs Date Time Temp Pulse Resp B/P Pulse Ox O2 Delivery O2 Flow Rate FiO2 05/13/17 16:45 72 05/13/17 15:53 98.7 18 116/58 97 05/12/17 17:45 Nasal Cannula 2.0 Intake and Output 05/12/17 05/12/17 05/13/17 15:00 23:00 07:00 Intake Total 1000 ml 200 ml 170 ml Output Total 3500 ml 2000 ml Balance -2500 ml -1800 ml 170 ml Exam Review of Systems: CONSTITUTIONAL: No fevers, chills. PULMONARY: No sob CARDIOVASCULAR: No chest pain/palpitations GASTROINTESTINAL: No nausea/vomiting. GENITOURINARY: No hematuria/dysuria. MUSCULOSKELETAL: No myagias/arthalgias. PSYCHIATRIC: The patient denies depression. NEUROLOGIC: No weakness Constitutional: alert, oriented Psych: no complaints Head: normocephalic ENMT: mucosa pink and moist Neck: jvd (9 cm water), supple Respiratory: diminished breath sounds (at bases/B) Cardiovascular: regular rate and rhythm Gastrointestinal: non-tender, soft Musculoskeletal: muscle tone (normal) Extremities: edema (none) 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: other (L arm covered by dressing) Results Result Diagram: 05/13/17 0624 05/13/17 0624 Results 24 hrs Laboratory Tests Test 05/13/17 06:24 White Blood Count 4.6 L Red Blood Count 3.01 L Hemoglobin 9.4 L Hematocrit 29.2 L Mean Corpuscular Volume 97.0 Mean Corpuscular Hemoglobin 31.2 Mean Corpuscular Hemoglobin Concent 32.2 Red Cell Distribution Width 13.9 Platelet Count 129 L Mean Platelet Volume 9.5 Neutrophils % 65.2 Lymphocytes % 22.5 Monocytes % 8.8 Eosinophils % 1.5 Basophils % 0.7 Nucleated Red Blood Cells % 0.0 Neutrophils # 3.0 Lymphocytes # 1.0 Monocytes # 0.4 Eosinophils # 0.1 Basophils # 0.0 Nucleated Red Blood Cells # 0.0 Sodium Level 143 Potassium Level 4.6 Chloride Level 96 L Carbon Dioxide Level 28 Anion Gap 24 H Blood Urea Nitrogen 23 H Creatinine 5.46 H Glucose Level 89 Calcium Level 8.3 L Medications Medications Current Medications Ondansetron HCl (Zofran Inj) 4 mg Q6H PRN IV NAUSEA AND/OR VOMITING Last administered on 05/12/17 20:57; Admin Dose 4 MG; Start 05/07/17 at 05:00 Acetaminophen (Tylenol Tab) 650 mg Q6H PRN PO PAIN LEVEL 1-3 OR FEVER Last administered on 05/08/17 05:58; Admin Dose 650 MG; Start 05/07/17 at 05:00 Bisacodyl (Dulcolax) 5 mg DAILY PRN PO CONSTIPATION; Start 05/07/17 at 05:00 Acetaminophen (Tylenol Tab) 650 mg Q6H PRN PO PAIN LEVEL 1-3 OR FEVER; Start at 07:00 Multivit/Ca Carb/ B Cmplx/FA/Prenat 1 tab 1 tab DAILY PO Last administered on 09:02; Admin Dose 1 TAB; Start 05/07/17 at 09:00 Piperacillin Sod/ Tazobactam Sod (Zosyn 2.25gm/ 50ml (Pmx)) 50 ml @ 100 mls/hr Q8 IVPB Last administered on 05/13/17 13:57; Admin Dose 100 MLS/HR; Start at 13:00 Hydralazine HCl (Apresoline) 10 mg Q4H PRN IV SBP>170; Start 05/08/17 at 16:00 Docusate Sodium (Colace) 100 mg Q12 PO Last administered on 05/13/17 09:02; Admin Dose 100 MG; Start 05/09/17 at 21:00 Nifedipine (Procardia Xl) 60 mg BID PO Last administered on 05/13/17 09:04; Admin Dose 60 MG; Start 05/09/17 at 12:00 Famotidine (Pepcid) 20 mg DAILY PO Last administered on 05/13/17 09:02; Admin Dose 20 MG; Start 05/09/17 at 12:00 Carvedilol (Coreg) 6.25 mg BID PO Last administered on 05/13/17 09:03; Admin Dose 6.25 MG; Start 05/09/17 at 21:00 Heparin Sodium (Porcine) (Heparin (5000 Units/0.5 ml)) 5,000 unit Q8 SC Last administered on 05/13/17 14:02; Admin Dose 5,000 UNIT; Start 05/10/17 at 22:00 Aspirin (Aspirin) 81 mg DAILY PO Last administered on 05/13/17 09:02; Admin Dose 81 MG; Start 05/11/17 at 09:00 Metoprolol Tartrate 5 mg 5 mg Q4H PRN IV HR>110 Hold SBP<100; Start 05/10/17 at 19:00 Vancomycin HCl/ Sodium Chloride (Vancocin/NS) 150 ml @ 75 mls/hr Q48H IVPB Last administered on 05/12/17 20:27; Admin Dose 75 MLS/HR; Start 05/12/17 at 20 :00 Morphine Sulfate (morphine) 4 mg Q3H PRN IV PAIN Last administered on 12:52; Admin Dose 4 MG; Start 05/13/17 at 12:30 YONG SINGH May 13, 2017 18:16
--- NOTE | 2017-05-13 22:36 | CONS ---
Date/Time of Note Date/Time of Note DATE: 05/13/17 TIME: 22:34 Assessment/Plan Assessment/Plan Chief Complaint/Hosp Course S/P HYPERKALEMIA SEPSIS ESRD ANEMIA AVF WOUND PLAN HD ANTIBIOTIC Problems: Consultation Date/Type/Reason Admit Date/Time May 07, 2017 at 04:33 Type of Consultation: RENAL Referring Provider: LANDON MARMOLEJO MD 24 HR Interval Summary Constitutional: no complaints, other (LEFT ARM PAIN BETTER) Exam/Review of Systems Vital Signs Vitals Vital Signs Date Time Temp Pulse Resp B/P Pulse Ox O2 Delivery O2 Flow Rate FiO2 05/13/17 20:03 99.3 74 17 137/76 98 05/12/17 17:45 Nasal Cannula 2.0 Intake and Output 05/12/17 05/12/17 05/13/17 15:00 23:00 07:00 Intake Total 1000 ml 200 ml 170 ml Output Total 3500 ml 2000 ml Balance -2500 ml -1800 ml 170 ml Exam Neck: supple Respiratory: clear to auscultation Cardiovascular: regular rate and rhythm Gastrointestinal: soft Musculoskeletal: nl extremities to inspection Extremities: normal pulses Results Result Diagram: 05/13/17 0624 05/13/17 0624 Results 24 hrs Laboratory Tests Test 05/13/17 06:24 White Blood Count 4.6 L Red Blood Count 3.01 L Hemoglobin 9.4 L Hematocrit 29.2 L Mean Corpuscular Volume 97.0 Mean Corpuscular Hemoglobin 31.2 Mean Corpuscular Hemoglobin Concent 32.2 Red Cell Distribution Width 13.9 Platelet Count 129 L Mean Platelet Volume 9.5 Neutrophils % 65.2 Lymphocytes % 22.5 Monocytes % 8.8 Eosinophils % 1.5 Basophils % 0.7 Nucleated Red Blood Cells % 0.0 Neutrophils # 3.0 Lymphocytes # 1.0 Monocytes # 0.4 Eosinophils # 0.1 Basophils # 0.0 Nucleated Red Blood Cells # 0.0 Sodium Level 143 Potassium Level 4.6 Chloride Level 96 L Carbon Dioxide Level 28 Anion Gap 24 H Blood Urea Nitrogen 23 H Creatinine 5.46 H Glucose Level 89 Calcium Level 8.3 L Medications Medications Current Medications Ondansetron HCl (Zofran Inj) 4 mg Q6H PRN IV NAUSEA AND/OR VOMITING Last administered on 05/12/17t 20:57; Admin Dose 4 MG; Start 05/07/17 at 05:00 Acetaminophen (Tylenol Tab) 650 mg Q6H PRN PO PAIN LEVEL 1-3 OR FEVER Last administered on 05/08/17 05:58; Admin Dose 650 MG; Start 05/07/17 at 05:00 Bisacodyl (Dulcolax) 5 mg DAILY PRN PO CONSTIPATION; Start 05/07/17 at 05:00 Acetaminophen (Tylenol Tab) 650 mg Q6H PRN PO PAIN LEVEL 1-3 OR FEVER; Start at 07:00 Multivit/Ca Carb/ B Cmplx/FA/Prenat 1 tab 1 tab DAILY PO Last administered on 09:02; Admin Dose 1 TAB; Start 05/07/17 at 09:00 Piperacillin Sod/ Tazobactam Sod (Zosyn 2.25gm/ 50ml (Pmx)) 50 ml @ 100 mls/hr Q8 IVPB Last administered on 05/13/17 21:54; Admin Dose 100 MLS/HR; Start at 13:00 Hydralazine HCl (Apresoline) 10 mg Q4H PRN IV SBP>170; Start 05/08/17 at 16:00 Docusate Sodium (Colace) 100 mg Q12 PO Last administered on 05/13/17 20:43; Admin Dose 100 MG; Start 05/09/17 at 21:00 Nifedipine (Procardia Xl) 60 mg BID PO Last administered on 05/13/17 20:44; Admin Dose 60 MG; Start 05/09/17 at 12:00 Famotidine (Pepcid) 20 mg DAILY PO Last administered on 05/13/17 09:02; Admin Dose 20 MG; Start 05/09/17 at 12:00 Carvedilol (Coreg) 6.25 mg BID PO Last administered on 05/13/17 20:43; Admin Dose 6.25 MG; Start 05/09/17 at 21:00 Heparin Sodium (Porcine) (Heparin (5000 Units/0.5 ml)) 5,000 unit Q8 SC Last administered on 05/13/17 14:02; Admin Dose 5,000 UNIT; Start 05/10/17 at 22:00 ; Status Future Hold Aspirin (Aspirin) 81 mg DAILY PO Last administered on 05/13/17 09:02; Admin Dose 81 MG; Start 05/11/17 at 09:00 Metoprolol Tartrate 5 mg 5 mg Q4H PRN IV HR>110 Hold SBP<100; Start 05/10/17 at 19:00 Vancomycin HCl/ Sodium Chloride (Vancocin/NS) 150 ml @ 75 mls/hr Q48H IVPB Last administered on 05/12/17 20:27; Admin Dose 75 MLS/HR; Start 05/12/17 at 20 :00 Morphine Sulfate (morphine) 4 mg Q3H PRN IV PAIN Last administered on 20:04; Admin Dose 4 MG; Start 05/13/17 at 12:30 LANDON MARMOLEJO MD May 13, 2017 22:35
[2017-05-14] VITALS (25 sets, daily range): BP systolic 122–188; BP diastolic 58–84; PULSE 68–96; RESP 16–20
[2017-05-14] MEDS: PIPER-TAZO 2.25 GM (PMX) 50 ML IVPB SCH ×3 (06:19→21:05)
[2017-05-14] MEDS: morphine 4 MG/ML VIAL IV PRN ×5 (06:35→23:18)
[2017-05-14 07:26] LABS: ADD SCAN DIFF NO
[2017-05-14 07:29] LABS: ABNORMAL IP MESSAGE 1; HEMATOCRIT 28.2 % (42.0-52.0); HEMOGLOBIN 9.2 g/dl (14.0-18.0); MEAN CORPUSCULAR HEMOGLOBIN 31.6 pg (29.0-33.0); MEAN CORPUSCULAR HGB CONC 32.6 g/dl (32.0-37.0); MEAN CORPUSCULAR VOLUME 96.9 fl (82.0-101.0); MEAN PLATELET VOLUME 8.8 fl (7.4-10.4); PLATELET COUNT 99 10^3/UL (140-415); RED BLOOD COUNT 2.91 10^6/ul (4.70-6.10); RED CELL DISTRIBUTION WIDTH 13.2 % (11.5-14.5); WHITE BLOOD COUNT 3.2 10^3/ul (4.8-10.8)
[2017-05-14 07:58] LABS: CALCIUM 8.8 mg/dl (8.4-10.2); CREATININE 5.61 mg/dl (0.61-1.24)
[2017-05-14] MEDS ORDERED: HEPARIN 1000 UNITS/ML 10 ML INJ ONE (10:14)
[2017-05-14] MEDS ORDERED: LIDOCAINE 1% (MDV) 20 ML INJ ONE (10:14)
--- NOTE | 2017-05-14 10:53 | CONS ---
Date/Time of Note Date/Time of Note DATE: 05/14/17 TIME: 10:52 Assessment/Plan Assessment/Plan Chief Complaint/Hosp Course 1. ESRD 2. HTN, controlled 3. Infected av shunt left upper arm, s/p revision and debridement dr Wallace 4. Hep C 5. Obesity 6. Hyperkalemia Problems: Additional Assessment/Plan 1. Continue hD via Jerrod cath right groin Consultation Date/Type/Reason Admit Date/Time May 07, 2017 at 04:33 Initial Consult Date 05/07/2017 Type of Consultation: RENAL Referring Provider: LANDON MARMOLEJO MD Exam/Review of Systems Vital Signs Vitals Vital Signs Date Time Temp Pulse Resp B/P Pulse Ox O2 Delivery O2 Flow Rate FiO2 05/14/17 08:00 75 05/14/17 07:54 98.1 20 135/73 97 05/12/17 17:45 Nasal Cannula 2.0 Intake and Output 05/13/17 05/13/17 05/14/17 15:00 23:00 07:00 Intake Total 720 ml 500 ml Output Total 300 ml 3000 ml Balance 420 ml -2500 ml Results Result Diagram: 05/14/1758 05/14/17 0658 Results 24 hrs Laboratory Tests Test 05/14/17 06:58 White Blood Count 3.2 #L Red Blood Count 2.91 L Hemoglobin 9.2 L Hematocrit 28.2 L Mean Corpuscular Volume 96.9 Mean Corpuscular Hemoglobin 31.6 Mean Corpuscular Hemoglobin Concent 32.6 Red Cell Distribution Width 13.2 Platelet Count 99 #L Mean Platelet Volume 8.8 Neutrophils % Lymphocytes % Monocytes % Neutrophils # Lymphocytes # Monocytes # Sodium Level 143 Potassium Level 4.0 Chloride Level 97 Carbon Dioxide Level 28 Anion Gap 22 H Blood Urea Nitrogen 26 H Creatinine 5.61 H Glucose Level 101 Calcium Level 8.8 Medications Medications Current Medications Ondansetron HCl (Zofran Inj) 4 mg Q6H PRN IV NAUSEA AND/OR VOMITING Last administered on 05/12/17 20:57; Admin Dose 4 MG; Start 05/07/17 at 05:00 Acetaminophen (Tylenol Tab) 650 mg Q6H PRN PO PAIN LEVEL 1-3 OR FEVER Last administered on 05/08/17 05:58; Admin Dose 650 MG; Start 05/07/17 at 05:00 Bisacodyl (Dulcolax) 5 mg DAILY PRN PO CONSTIPATION; Start 05/07/17 at 05:00 Acetaminophen (Tylenol Tab) 650 mg Q6H PRN PO PAIN LEVEL 1-3 OR FEVER; Start at 07:00 Multivit/Ca Carb/ B Cmplx/FA/Prenat 1 tab 1 tab DAILY PO Last administered on 09:02; Admin Dose 1 TAB; Start 05/07/17 at 09:00 Piperacillin Sod/ Tazobactam Sod (Zosyn 2.25gm/ 50ml (Pmx)) 50 ml @ 100 mls/hr Q8 IVPB Last administered on 05/14/17 06:19; Admin Dose 100 MLS/HR; Start at 13:00 Hydralazine HCl (Apresoline) 10 mg Q4H PRN IV SBP>170; Start 05/08/17 at 16:00 Docusate Sodium (Colace) 100 mg Q12 PO Last administered on 05/13/17 20:43; Admin Dose 100 MG; Start 05/09/17 at 21:00 Nifedipine (Procardia Xl) 60 mg BID PO Last administered on 05/13/17 20:44; Admin Dose 60 MG; Start 05/09/17 at 12:00 Famotidine (Pepcid) 20 mg DAILY PO Last administered on 05/13/17 09:02; Admin Dose 20 MG; Start 05/09/17 at 12:00 Carvedilol (Coreg) 6.25 mg BID PO Last administered on 05/13/17 20:43; Admin Dose 6.25 MG; Start 05/09/17 at 21:00 Heparin Sodium (Porcine) (Heparin (5000 Units/0.5 ml)) 5,000 unit Q8 SC Last administered on 05/13/17 14:02; Admin Dose 5,000 UNIT; Start 05/10/17 at 22:00 ; Status Future Hold Aspirin (Aspirin) 81 mg DAILY PO Last administered on 05/13/17 09:02; Admin Dose 81 MG; Start 05/11/17 at 09:00 Metoprolol Tartrate 5 mg 5 mg Q4H PRN IV HR>110 Hold SBP<100; Start 05/10/17 at 19:00 Vancomycin HCl/ Sodium Chloride (Vancocin/NS) 150 ml @ 75 mls/hr Q48H IVPB Last administered on 05/12/17 20:27; Admin Dose 75 MLS/HR; Start 05/12/17 at 20 :00 Morphine Sulfate 4 mg 4 mg Q3H PRN IV PAIN Last administered on 05/14/17 06:35 ; Admin Dose 4 MG; Start 05/13/17 at 12:30 Clindamycin HCl/ Dextrose (Cleocin 600 Mg/ D5W (Pmx)) 50 ml @ 50 mls/hr ONCE ONCE IVPB ; Start 05/14/17 at 11:00; Stop 05/14/17 at 11:59 MT MEJIA May 14, 2017 10:53
[2017-05-14] MEDS ORDERED: CLINDAMYCIN 600 MG/D5W (PMX) 50 ML IVPB ONE (11:00)
[2017-05-14 11:17] LABS: EOSINOPHILS # 0.1 10^3/ul (0.0-0.5); LYMPHOCYTES # 0.6 10^3/ul (0.8-2.9); MONOCYTE # 0.3 10^3/ul (0.3-0.9); NEUTROPHIL # 2.2 10^3/ul (1.6-7.5)
[2017-05-14] MEDS ORDERED: MIDAZOLAM 1 MG/ML 2 ML INJ ONE (11:20)
[2017-05-14] MEDS ORDERED: FENTAnyl 50 MCG/ML VIAL ONE (11:20)
[2017-05-14] MEDS ORDERED: DIPHENHYDRAMINE 50 MG INJ ONE (11:20)
--- NOTE | 2017-05-14 12:01 | RADRPT ---
PROCEDURE: Ultrasound guidance for placement of needle in right internal jugular vein. CLINICAL INDICATION: Venous access. TECHNIQUE: Prior to the procedure, informed consent was obtained. Risks including bleeding, infection, and pneu mothorax were explained to the patient. The patient understood and was willing to proceed. A procedu ral pause was performed. The patient's name, date of , and procedure to be performed were verif ied. The central line was inserted with all elements of maximal sterile barrier technique. All of th e following were used: head covering, facial mask, sterile gown, sterile gloves, a large sterile she et, hand hygiene, and 2% chlorhexidine for cutaneous antisepsis. The right neck and anterior/super ior chest wall was prepped and draped in usual sterile fashion. Limited sonography of the right neck was then performed. Noted is a patent right internal jugular ve in. Ultrasound images were recorded and stored in the patient's medical record. Following the local injection of Xylocaine, the right internal jugular vein was punctured under sono graphic guidance with a 20-gauge needle through which a 0.018 inch floppy tip guidewire was advanced into the superior vena cava. The patient tolerated the procedure well. The remainder of the proce dure was performed and dictated under separate cover. COMPARISON: None. FINDINGS: The ultrasound images demonstrate a patent right internal jugular vein. The subsequent images demon strate the needle entering the right internal jugular vein. IMPRESSION: 1. Ultrasound guidance for a needle placement in right internal jugular vein. RPTAT: QQ .Sam Vásquez MD, Date Time Electronically viewed and signed by .Sam Vásquez MD, on 05/14/2017 12:01 .R/
--- NOTE | 2017-05-14 12:05 | RADRPT ---
PROCEDURE: PLACEMENT OF RIGHT INTERNAL JUGULAR VENOUS TUNNELED DIALYSIS CATHETER. CLINICAL INDICATION: Renal failure. TECHNIQUE: Prior to the procedure, informed consent was obtained. Risks including bleeding, infection, and pneu mothorax were explained to the patient and/or the patient's family. The patient and/or the patient's family understood and was willing to proceed. A procedural pause was performed. The patient's name, date of , and procedure to be performed were verified. The central line was inserted with all elements of maximal sterile barrier technique. All of the following were used: head covering, facial mask, sterile gown, sterile gloves, a large sterile sheet, hand hygiene, and 2% chlorhexidine for cutaneous antisepsis. The right neck and anterior/superior chest wall was prepped and draped in usu al sterile fashion. Limited sonography of the right neck was then performed. Noted is a patent right internal jugular ve in. Ultrasound images were recorded and stored in the patient's medical record. Following the local injection of Xylocaine, the right internal jugular vein was punctured under sono graphic guidance with a 20-gauge needle through which a 0.018 inch floppy tip guidewire was advanced into the superior vena cava. The tract was dilated to 5 Spanish and the wire was then replaced with a 0.035 in Amplatz guidewire. A tunnel was then created from the anterior lateral aspect of the sup erior right chest wall to the puncture site in the neck and the catheter was pulled through the trac t. Serial dilatation was then performed and a 16 Spanish peel away sheath was introduced. The 14.5 Spanish 23cm tip to cuff Angiodynamics BioFlo DuraMax dialysis catheter was advanced through the 16 F rench peel-away sheath. The tip of the catheter was confirmed in position within the right atrium. T he peel-away sheath was removed. The 2 ports were each flushed with 2.3 ml of 1:1000 heparin. The c atheter was secured to the skin with 2-0 silk. The wound in the neck was closed with 4-0 Vicryl suture using subcuticular running technique. The site was dressed. The patient tolerated the proce dure well. COMPARISON: None. FINDINGS: Final radiographic images demonstrate the tip of the catheter in the upper right atrium. A total of 0.8 minutes of fluoroscopy time was used. The ultrasound images demonstrate the needle entering th e jugular vein. Ultrasound images were recorded and stored in the patient's medical record. 6 image s of the chest were obtained with image intensifier. IMPRESSION: 1. Percutaneous insertion of right internal jugular dialysis tunneled dialysis catheter under fluoro scopic and sonographic guidance. RPTAT: QQ .Sam Vásquez MD, MD Date Time Electronically viewed and signed by .Sam Vásquez MD, MD on 05/14/2017 12:05 .R/
[2017-05-14] MEDS: DOCUSATE SODIUM 100 MG CAP PO SCH ×2 (13:16→21:04)
[2017-05-14] MEDS: MULTIVIT/CA CARB/B CMPLX/FA TAB PO SCH (13:16)
[2017-05-14] MEDS: FAMOTIDINE 20 MG TAB PO SCH (13:17)
[2017-05-14] MEDS: NIFEdipine (XL) 60 MG TAB PO SCH ×2 (13:17→21:04)
[2017-05-14] MEDS: ASPIRIN 81 MG TAB PO SCH (13:17)
--- NOTE | 2017-05-14 15:25 | CONS ---
Date/Time of Note Date/Time of Note DATE: 05/14/17 TIME: 15:23 Assessment/Plan Assessment/Plan Chief Complaint/Hosp Course No acute events. Patient is sleeping, at bedside, no fevers Microbiology: Blood culture on admission grew Pasteurella multocida and enterococcus species, left upper extremity wound culture grew staph aureus and Pasteurella multocida, repeat blood cultures negative Antimicrobials Vanco Zosyn Indwelling: Right IJ permacath Physical examination: Well-developed, well-nourished middle-aged man who is alert and no distress. Head atraumatic normocephalic, sclera nonicteric. Neck is supple. Chest rise symmetrical, breath sounds clear. Heart: S1-S2. Abdomen soft, bowel tones present. Extremities with left upper extremity dressing intact swelling present Assessment: 1. Resolving sepsis with bacteremia 2. Left upper extremity cellulitis and wound dehiscence at the surgical site incision with infected fistula, status post revision 3. End-stage renal disease, hemodialysis dependent 4. Femoral Jerrod placed on May 08, 2017 5. Anemia 6. Hypertension Plan: Remains stable, continue present care, antibiotics, keep left upper extremity elevated, follow vascular recommendations Discussed with at bedside Problems: Consultation Date/Type/Reason Admit Date/Time May 07, 2017 at 04:33 Type of Consultation: id Referring Provider: LANDON MARMOLEJO MD Exam/Review of Systems Vital Signs Vitals Vital Signs Date Time Temp Pulse Resp B/P Pulse Ox O2 Delivery O2 Flow Rate FiO2 05/14/17 13:56 75 05/14/17 07:54 98.1 20 135/73 97 05/12/17 17:45 Nasal Cannula 2.0 Intake and Output 05/13/17 05/13/17 05/14/17 15:00 23:00 07:00 Intake Total 720 ml 500 ml Output Total 300 ml 3000 ml Balance 420 ml -2500 ml Results Result Diagram: 05/14/17 0658 05/14/17 0658 Results 24 hrs Laboratory Tests Test 05/14/17 06:58 White Blood Count 3.2 #L Red Blood Count 2.91 L Hemoglobin 9.2 L Hematocrit 28.2 L Mean Corpuscular Volume 96.9 Mean Corpuscular Hemoglobin 31.6 Mean Corpuscular Hemoglobin Concent 32.6 Red Cell Distribution Width 13.2 Platelet Count 99 #L Mean Platelet Volume 8.8 Neutrophils % 68.0 Lymphocytes % 20.0 Monocytes % 9.0 Eosinophils % 3.0 Neutrophils # 2.2 Lymphocytes # 0.6 L Monocytes # 0.3 Eosinophils # 0.1 Sodium Level 143 Potassium Level 4.0 Chloride Level 97 Carbon Dioxide Level 28 Anion Gap 22 H Blood Urea Nitrogen 26 H Creatinine 5.61 H Glucose Level 101 Calcium Level 8.8 Medications Medications Current Medications Ondansetron HCl (Zofran Inj) 4 mg Q6H PRN IV NAUSEA AND/OR VOMITING Last administered on 05/12/17 20:57; Admin Dose 4 MG; Start 05/07/17 at 05:00 Acetaminophen (Tylenol Tab) 650 mg Q6H PRN PO PAIN LEVEL 1-3 OR FEVER Last administered on 05/08/17 05:58; Admin Dose 650 MG; Start 05/07/17 at 05:00 Bisacodyl (Dulcolax) 5 mg DAILY PRN PO CONSTIPATION; Start 05/07/17 at 05:00 Acetaminophen (Tylenol Tab) 650 mg Q6H PRN PO PAIN LEVEL 1-3 OR FEVER; Start at 07:00 Multivit/Ca Carb/ B Cmplx/FA/Prenat 1 tab 1 tab DAILY PO Last administered on 13:16; Admin Dose 1 TAB; Start 05/07/17 at 09:00 Piperacillin Sod/ Tazobactam Sod (Zosyn 2.25gm/ 50ml (Pmx)) 50 ml @ 100 mls/hr Q8 IVPB Last administered on 05/14/17 13:23; Admin Dose 100 MLS/HR; Start at 13:00 Hydralazine HCl (Apresoline) 10 mg Q4H PRN IV SBP>170; Start 05/08/17 at 16:00 Docusate Sodium (Colace) 100 mg Q12 PO Last administered on 05/14/17 13:16; Admin Dose 100 MG; Start 05/09/17 at 21:00 Nifedipine (Procardia Xl) 60 mg BID PO Last administered on 05/14/17 13:17; Admin Dose 60 MG; Start 05/09/17 at 12:00 Famotidine (Pepcid) 20 mg DAILY PO Last administered on 05/14/17 13:17; Admin Dose 20 MG; Start 05/09/17 at 12:00 Carvedilol (Coreg) 6.25 mg BID PO Last administered on 05/14/17 13:17; Admin Dose 6.25 MG; Start 05/09/17 at 21:00 Heparin Sodium (Porcine) (Heparin (5000 Units/0.5 ml)) 5,000 unit Q8 SC Last administered on 05/13/17 14:02; Admin Dose 5,000 UNIT; Start 05/10/17 at 22:00 ; Status Future Hold Aspirin (Aspirin) 81 mg DAILY PO Last administered on 05/14/17 13:17; Admin Dose 81 MG; Start 05/11/17 at 09:00 Metoprolol Tartrate 5 mg 5 mg Q4H PRN IV HR>110 Hold SBP<100; Start 05/10/17 at 19:00 Vancomycin HCl/ Sodium Chloride (Vancocin/NS) 150 ml @ 75 mls/hr Q48H IVPB Last administered on 05/12/17 20:27; Admin Dose 75 MLS/HR; Start 05/12/17 at 20 :00 Morphine Sulfate (morphine) 4 mg Q3H PRN IV PAIN Last administered on 13:13; Admin Dose 4 MG; Start 05/13/17 at 12:30 MANUELA SOMMER NP May 14, 2017 15:24
--- NOTE | 2017-05-14 15:59 | PN ---
Date/Time of Note Date/Time of Note DATE: 05/14/17 TIME: 15:58 Assessment/Plan VTE Prophylaxis VTE Prophylaxis Intervention: heparin Lines/Catheters IV Catheter Type (from Nrs): PERMACATH Urinary Cath still in place: No Assessment/Plan Chief Complaint/Hosp Course 1. 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 Wound dehiscence with Infected ulcer JOSH arm over fistula with surrounding JOSH arm cellulitis Patient had femoral Jerrod placed 05/08/17 Plan is status post fistula revision Patient will have permacath placed today which will be used for dialysis until the fistula is functional Increased pain regimen as patient still complaining of pain in the left arm 3. ESRD on HD HD per renal 4. Hyperkalemia-resolved 5. Anemia of CKD with thrombocytopenia r/o iron deficiency 6. HTN- now controlled Continue regimen of Coreg and nifedipine 7. COPD-stable 8. Tobacco abuse Cessation advised Prophylaxis: Heparin Discharge planning: Anticipate DC home tomorrow Problems: Subjective 24 Hr Interval Summary Constitutional: no complaints Exam/Review of Systems Vital Signs Vitals Vital Signs Date Time Temp Pulse Resp B/P Pulse Ox O2 Delivery O2 Flow Rate FiO2 05/14/17 13:56 75 05/14/17 07:54 98.1 20 135/73 97 05/12/17 17:45 Nasal Cannula 2.0 Intake and Output 05/13/17 05/13/17 05/14/17 15:00 23:00 07:00 Intake Total 720 ml 500 ml Output Total 300 ml 3000 ml Balance 420 ml -2500 ml Exam Constitutional: alert Respiratory: clear to auscultation Cardiovascular: regular rate and rhythm Gastrointestinal: soft, No distended Musculoskeletal: No nl extremities to inspection Results Result Diagram: 05/14/17 0658 05/14/17 0658 Results 24 hrs Laboratory Tests Test 05/14/17 06:58 White Blood Count 3.2 #L Red Blood Count 2.91 L Hemoglobin 9.2 L Hematocrit 28.2 L Mean Corpuscular Volume 96.9 Mean Corpuscular Hemoglobin 31.6 Mean Corpuscular Hemoglobin Concent 32.6 Red Cell Distribution Width 13.2 Platelet Count 99 #L Mean Platelet Volume 8.8 Neutrophils % 68.0 Lymphocytes % 20.0 Monocytes % 9.0 Eosinophils % 3.0 Neutrophils # 2.2 Lymphocytes # 0.6 L Monocytes # 0.3 Eosinophils # 0.1 Sodium Level 143 Potassium Level 4.0 Chloride Level 97 Carbon Dioxide Level 28 Anion Gap 22 H Blood Urea Nitrogen 26 H Creatinine 5.61 H Glucose Level 101 Calcium Level 8.8 Medications Medications Current Medications Ondansetron HCl (Zofran Inj) 4 mg Q6H PRN IV NAUSEA AND/OR VOMITING Last administered on 05/12/17 20:57; Admin Dose 4 MG; Start 05/07/17 at 05:00 Acetaminophen (Tylenol Tab) 650 mg Q6H PRN PO PAIN LEVEL 1-3 OR FEVER Last administered on 05/08/17 05:58; Admin Dose 650 MG; Start 05/07/17 at 05:00 Bisacodyl (Dulcolax) 5 mg DAILY PRN PO CONSTIPATION; Start 05/07/17 at 05:00 Acetaminophen (Tylenol Tab) 650 mg Q6H PRN PO PAIN LEVEL 1-3 OR FEVER; Start at 07:00 Multivit/Ca Carb/ B Cmplx/FA/Prenat 1 tab 1 tab DAILY PO Last administered on 13:16; Admin Dose 1 TAB; Start 05/07/17 at 09:00 Piperacillin Sod/ Tazobactam Sod (Zosyn 2.25gm/ 50ml (Pmx)) 50 ml @ 100 mls/hr Q8 IVPB Last administered on 05/14/17 13:23; Admin Dose 100 MLS/HR; Start at 13:00 Hydralazine HCl (Apresoline) 10 mg Q4H PRN IV SBP>170; Start 05/08/17 at 16:00 Docusate Sodium (Colace) 100 mg Q12 PO Last administered on 05/14/17 13:16; Admin Dose 100 MG; Start 05/09/17 at 21:00 Nifedipine (Procardia Xl) 60 mg BID PO Last administered on 05/14/17 13:17; Admin Dose 60 MG; Start 05/09/17 at 12:00 Famotidine (Pepcid) 20 mg DAILY PO Last administered on 05/14/17 13:17; Admin Dose 20 MG; Start 05/09/17 at 12:00 Carvedilol (Coreg) 6.25 mg BID PO Last administered on 05/14/17 13:17; Admin Dose 6.25 MG; Start 05/09/17 at 21:00 Heparin Sodium (Porcine) (Heparin (5000 Units/0.5 ml)) 5,000 unit Q8 SC Last administered on 05/13/17 14:02; Admin Dose 5,000 UNIT; Start 05/10/17 at 22:00 ; Status Future Hold Aspirin (Aspirin) 81 mg DAILY PO Last administered on 05/14/17 13:17; Admin Dose 81 MG; Start 05/11/17 at 09:00 Metoprolol Tartrate 5 mg 5 mg Q4H PRN IV HR>110 Hold SBP<100; Start 05/10/17 at 19:00 Vancomycin HCl/ Sodium Chloride (Vancocin/NS) 150 ml @ 75 mls/hr Q48H IVPB Last administered on 05/12/17 20:27; Admin Dose 75 MLS/HR; Start 05/12/17 at 20 :00 Morphine Sulfate (morphine) 4 mg Q3H PRN IV PAIN Last administered on 13:13; Admin Dose 4 MG; Start 05/13/17 at 12:30 LASHAE NAPIER May 14, 2017 15:59
--- NOTE | 2017-05-14 17:58 | CONS ---
Date/Time of Note Date/Time of Note DATE: 05/14/17 TIME: 17:54 Assessment/Plan Assessment/Plan Chief Complaint/Hosp Course IMP: 1.Pre-op eval prior to revision/debridement of AVF-Negative trop x 3/NO chest pain. NL EF by echo tis admit with no contraindicated valve lesions. OK to proceed to OR at moderate risk without further noninvasive evaluation 2.CHF-diastolic acute on chronic 3.HTN-uncontrolled. F/U after reciving anti-hypertenives 4.ESRD on HD 5.Non-functioning AVF s/p AVF revision/debridement 6.anemia 7. Dyslipidemia 8. Hyperkalemia-improved 9. AF-now back in SR/had 3-4 beats post-op self limited Recc: -Tele -serial ecg's -Continue procardia xl/coreg -HD for volume removal -Continue heparin SQ and asa for now with probable transition to eliquis at d/c as tolerated for PAF Problems: Consultation Date/Type/Reason Admit Date/Time May 07, 2017 at 04:33 Initial Consult Date 05/09/17 Type of Consultation: cardiology Reason for Consultation Pre-op/HTN/PAF Referring Provider: LANDON MARMOLEJO MD Exam/Review of Systems Vital Signs Vitals Vital Signs Date Time Temp Pulse Resp B/P Pulse Ox O2 Delivery O2 Flow Rate FiO2 05/14/17 16:14 98.3 72 18 161/73 98 05/14/17 13:30 Nasal Cannula 2.0 Intake and Output 05/13/17 05/13/17 05/14/17 15:00 23:00 07:00 Intake Total 720 ml 500 ml Output Total 300 ml 3000 ml Balance 420 ml -2500 ml Exam Review of Systems: CONSTITUTIONAL: No fevers, chills. PULMONARY: No sob CARDIOVASCULAR: No chest pain/palpitations GASTROINTESTINAL: No nausea/vomiting. GENITOURINARY: No hematuria/dysuria. MUSCULOSKELETAL: No myagias/arthalgias. PSYCHIATRIC: The patient denies depression. NEUROLOGIC: No weakness Constitutional: alert, oriented Psych: no complaints Head: normocephalic ENMT: mucosa pink and moist Neck: jvd (9 cm water), supple Respiratory: diminished breath sounds (at bases/B) Cardiovascular: regular rate and rhythm Gastrointestinal: non-tender, soft Musculoskeletal: muscle tone (normal), other (arm covered by dressing) Extremities: edema (none) 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: other (NO focal deficts) Results Result Diagram: 05/14/17 0658 05/14/17 0658 Results 24 hrs Laboratory Tests Test 05/14/17 06:58 White Blood Count 3.2 #L Red Blood Count 2.91 L Hemoglobin 9.2 L Hematocrit 28.2 L Mean Corpuscular Volume 96.9 Mean Corpuscular Hemoglobin 31.6 Mean Corpuscular Hemoglobin Concent 32.6 Red Cell Distribution Width 13.2 Platelet Count 99 #L Mean Platelet Volume 8.8 Neutrophils % 68.0 Lymphocytes % 20.0 Monocytes % 9.0 Eosinophils % 3.0 Neutrophils # 2.2 Lymphocytes # 0.6 L Monocytes # 0.3 Eosinophils # 0.1 Sodium Level 143 Potassium Level 4.0 Chloride Level 97 Carbon Dioxide Level 28 Anion Gap 22 H Blood Urea Nitrogen 26 H Creatinine 5.61 H Glucose Level 101 Calcium Level 8.8 Medications Medications Current Medications Ondansetron HCl (Zofran Inj) 4 mg Q6H PRN IV NAUSEA AND/OR VOMITING Last administered on 05/12/17 20:57; Admin Dose 4 MG; Start 05/07/17 at 05:00 Acetaminophen (Tylenol Tab) 650 mg Q6H PRN PO PAIN LEVEL 1-3 OR FEVER Last administered on 05/08/17 05:58; Admin Dose 650 MG; Start 05/07/17 at 05:00 Bisacodyl (Dulcolax) 5 mg DAILY PRN PO CONSTIPATION; Start 05/07/17 at 05:00 Acetaminophen (Tylenol Tab) 650 mg Q6H PRN PO PAIN LEVEL 1-3 OR FEVER; Start at 07:00 Multivit/Ca Carb/ B Cmplx/FA/Prenat 1 tab 1 tab DAILY PO Last administered on 13:16; Admin Dose 1 TAB; Start 05/07/17 at 09:00 Piperacillin Sod/ Tazobactam Sod (Zosyn 2.25gm/ 50ml (Pmx)) 50 ml @ 100 mls/hr Q8 IVPB Last administered on 05/14/17 13:23; Admin Dose 100 MLS/HR; Start at 13:00 Hydralazine HCl (Apresoline) 10 mg Q4H PRN IV SBP>170; Start 05/08/17 at 16:00 Docusate Sodium (Colace) 100 mg Q12 PO Last administered on 05/14/17 13:16; Admin Dose 100 MG; Start 05/09/17 at 21:00 Nifedipine (Procardia Xl) 60 mg BID PO Last administered on 05/14/17 13:17; Admin Dose 60 MG; Start 05/09/17 at 12:00 Famotidine (Pepcid) 20 mg DAILY PO Last administered on 05/14/17 13:17; Admin Dose 20 MG; Start 05/09/17 at 12:00 Carvedilol (Coreg) 6.25 mg BID PO Last administered on 05/14/17 13:17; Admin Dose 6.25 MG; Start 05/09/17 at 21:00 Heparin Sodium (Porcine) (Heparin (5000 Units/0.5 ml)) 5,000 unit Q8 SC Last administered on 05/13/17 14:02; Admin Dose 5,000 UNIT; Start 05/10/17 at 22:00 ; Status Future Hold Aspirin (Aspirin) 81 mg DAILY PO Last administered on 05/14/17 13:17; Admin Dose 81 MG; Start 05/11/17 at 09:00 Metoprolol Tartrate 5 mg 5 mg Q4H PRN IV HR>110 Hold SBP<100; Start 05/10/17 at 19:00 Vancomycin HCl/ Sodium Chloride (Vancocin/NS) 150 ml @ 75 mls/hr Q48H IVPB Last administered on 05/12/17 20:27; Admin Dose 75 MLS/HR; Start 05/12/17 at 20 :00 Morphine Sulfate (morphine) 4 mg Q3H PRN IV PAIN Last administered on 16:19; Admin Dose 4 MG; Start 05/13/17 at 12:30 YONG SINGH May 14, 2017 17:58
[2017-05-14] MEDS: VANCOMYCIN 750 MG in SOD CHLORIDE 0.9% 150 ML IVPB SCH (19:55)
--- NOTE | 2017-05-14 23:13 | PN ---
Date/Time of Note Date/Time of Note DATE: 05/14/17 TIME: 23:09 Assessment/Plan Lines/Catheters [facility] Abreu [facility] No Assessment/Plan Chief Complaint/Hosp Course -End-stage renal disease: It seems the patient had developed significant left upper extremity cellulitis and wound dehiscence of his surgical site incision. -S/P Urgent Jerrod catheter placement -S/P LUE Fistula revision and Aneurysmorrhaphy -S/P LUE excisional debridement -Continue with the antibiotics coverage for total of 21 days -Appreciate cardiac evaluation -Optimize vascular status (BP meds, cholesterol, nutrition, sugar control, antiplatelets). -Discussed findings and plan of management with the patient and he understands with the certified innersole fitter. -Thank you for allowing us to participate in the care of your patient. Please call with any questions. Problems: Subjective 24 Hr Interval Summary No new vascular events overnight Exam/Review of Systems Vital Signs Vitals Vital Signs Date Time Temp Pulse Resp B/P Pulse Ox O2 Delivery O2 Flow Rate FiO2 05/14/17 20:00 78 05/14/17 19:53 98.2 18 162/80 97 05/14/17 13:30 Nasal Cannula 2.0 Intake and Output 05/13/17 05/13/17 05/14/17 15:00 23:00 07:00 Intake Total 720 ml 500 ml Output Total 300 ml 3000 ml Balance 420 ml -2500 ml Exam Free Text/Dictation Alert, oriented x3. LUNGS: Clear to auscultation bilaterally. CARDIOVASCULAR: S1, S2 present. ABDOMEN: Soft, nontender, nondistended. Bowel sounds positive. EXTREMITIES: Right lower extremity, palpable femoral pulse. Nonpalpable pedal pulse. Motor sensory intact. Capillary refill 3 seconds. Presence of lipodermatosclerosis. Left lower extremity, palpable femoral pulse. Nonpalpable pedal pulse. Motor sensory intact. Capillary refill 3-4 seconds.Presence of lipodermatosclerosis. Left upper extremity, palpable radial pulse. Motor sensory intact. Incision Clean, dry and intact, fistula with bruit and thrill present Results Result Diagram: 05/14/17 0658 05/14/17 0658 DEMETRIUS MEZA MD May 14, 2017 23:13
[2017-05-15] VITALS (11 sets, daily range): BP systolic 137–177; BP diastolic 67–89; PULSE 71–98; RESP 18–20
[2017-05-15] MEDS: PIPER-TAZO 2.25 GM (PMX) 50 ML IVPB SCH ×3 (05:51→21:05)
[2017-05-15] MEDS: morphine 4 MG/ML VIAL IV PRN ×4 (05:57→21:03)
[2017-05-15] MEDS: STIOLTO RESPIMAT INH SCH ×2 (07:00→13:15)
[2017-05-15 08:37] LABS: HEMOGLOBIN 9.3 g/dl (14.0-18.0); MEAN CORPUSCULAR HGB CONC 32.1 g/dl (32.0-37.0); MEAN CORPUSCULAR VOLUME 96.7 fl (82.0-101.0); MEAN PLATELET VOLUME 8.7 fl (7.4-10.4); PLATELET COUNT 114 10^3/UL (140-415); POSITIVE DIFF @See below; RED CELL DISTRIBUTION WIDTH 13.2 % (11.5-14.5); WHITE BLOOD COUNT 2.4 10^3/ul (4.8-10.8)
[2017-05-15 08:53] LABS: CALCIUM 8.8 mg/dl (8.4-10.2); CREATININE 6.25 mg/dl (0.61-1.24); POTASSIUM 4.9 mmol/L (3.5-5.1)
[2017-05-15] MEDS: MULTIVIT/CA CARB/B CMPLX/FA TAB PO SCH (09:44)
[2017-05-15] MEDS: ASPIRIN 81 MG TAB PO SCH (09:44)
[2017-05-15] MEDS: FAMOTIDINE 20 MG TAB PO SCH (09:45)
[2017-05-15] MEDS: NIFEdipine (XL) 60 MG TAB PO SCH ×2 (09:45→21:04)
[2017-05-15] MEDS: DOCUSATE SODIUM 100 MG CAP PO SCH ×2 (09:45→21:04)
[2017-05-15 10:14] LABS: LYMPHOCYTES # 0.6 10^3/ul (0.8-2.9); MONOCYTE # 0.1 10^3/ul (0.3-0.9); NEUTROPHIL # 1.5 10^3/ul (1.6-7.5)
--- NOTE | 2017-05-15 13:10 | CONS ---
Date/Time of Note Date/Time of Note DATE: 05/15/17 TIME: 13:09 Assessment/Plan Assessment/Plan Chief Complaint/Hosp Course 1. ESRD 2. HTN, controlled 3. Infected av shunt left upper arm, s/p revision and debridement dr Wallace 4. Hep C 5. Obesity 6. Hyperkalemia Problems: Additional Assessment/Plan 1. Continue HD Consultation Date/Type/Reason Admit Date/Time May 07, 2017 at 04:33 Initial Consult Date 05/07/2017 Type of Consultation: nephrology Reason for Consultation Dr Marmolejo Referring Provider: LANDON MARMOLEJO MD Exam/Review of Systems Vital Signs Vitals Vital Signs Date Time Temp Pulse Resp B/P Pulse Ox O2 Delivery O2 Flow Rate FiO2 05/15/17 12:33 75 05/15/17 12:02 99.6 18 145/70 92 05/14/17 13:30 Nasal Cannula 2.0 Intake and Output 05/14/17 05/14/17 05/15/17 15:00 23:00 07:00 Intake Total 650 ml 270 ml Output Total 200 ml 200 ml Balance -200 ml 450 ml 270 ml Exam Constitutional: alert, oriented Neck: supple Cardiovascular: regular rate and rhythm Skin: other (left arm with surgical dreassing) Results Result Diagram: 05/15/17 0736 05/15/17 0736 Results 24 hrs Laboratory Tests Test 05/15/17 07:36 White Blood Count 2.4 #L Red Blood Count 3.00 L Hemoglobin 9.3 L Hematocrit 29.0 L Mean Corpuscular Volume 96.7 Mean Corpuscular Hemoglobin 31.0 Mean Corpuscular Hemoglobin Concent 32.1 Red Cell Distribution Width 13.2 Platelet Count 114 L Mean Platelet Volume 8.7 Neutrophils % 63.0 Lymphocytes % 25.0 Monocytes % 5.0 Eosinophils % 1.0 Basophils % Nucleated Red Blood Cells % 0.0 Neutrophils # 1.5 L Band Neutrophils # 1.5 H Lymphocytes # 0.6 L Monocytes # 0.1 L Eosinophils # 0.0 Basophils # Nucleated Red Blood Cells # Sodium Level 141 Potassium Level 4.9 Chloride Level 96 L Carbon Dioxide Level 27 Anion Gap 23 H Blood Urea Nitrogen 24 H Creatinine 6.25 H Glucose Level 91 Calcium Level 8.8 Medications Medications Current Medications Ondansetron HCl (Zofran Inj) 4 mg Q6H PRN IV NAUSEA AND/OR VOMITING Last administered on 05/12/17 20:57; Admin Dose 4 MG; Start 05/07/17 at 05:00 Acetaminophen (Tylenol Tab) 650 mg Q6H PRN PO PAIN LEVEL 1-3 OR FEVER Last administered on 05/08/17 05:58; Admin Dose 650 MG; Start 05/07/17 at 05:00 Bisacodyl (Dulcolax) 5 mg DAILY PRN PO CONSTIPATION; Start 05/07/17 at 05:00 Acetaminophen (Tylenol Tab) 650 mg Q6H PRN PO PAIN LEVEL 1-3 OR FEVER; Start at 07:00 Multivit/Ca Carb/ B Cmplx/FA/Prenat 1 tab 1 tab DAILY PO Last administered on 09:44; Admin Dose 1 TAB; Start 05/07/17 at 09:00 Piperacillin Sod/ Tazobactam Sod (Zosyn 2.25gm/ 50ml (Pmx)) 50 ml @ 100 mls/hr Q8 IVPB Last administered on 05/15/17 05:51; Admin Dose 100 MLS/HR; Start at 13:00 Hydralazine HCl (Apresoline) 10 mg Q4H PRN IV SBP>170; Start 05/08/17 at 16:00 Docusate Sodium (Colace) 100 mg Q12 PO Last administered on 05/15/17 09:45; Admin Dose 100 MG; Start 05/09/17 at 21:00 Nifedipine (Procardia Xl) 60 mg BID PO Last administered on 05/15/17 09:45; Admin Dose 60 MG; Start 05/09/17 at 12:00 Famotidine (Pepcid) 20 mg DAILY PO Last administered on 05/15/17 09:45; Admin Dose 20 MG; Start 05/09/17 at 12:00 Carvedilol (Coreg) 6.25 mg BID PO Last administered on 05/15/17 09:45; Admin Dose 6.25 MG; Start 05/09/17 at 21:00 Heparin Sodium (Porcine) (Heparin (5000 Units/0.5 ml)) 5,000 unit Q8 SC Last administered on 05/13/17 14:02; Admin Dose 5,000 UNIT; Start 05/10/17 at 22:00 ; Status Future Hold Aspirin (Aspirin) 81 mg DAILY PO Last administered on 05/15/17 09:44; Admin Dose 81 MG; Start 05/11/17 at 09:00 Metoprolol Tartrate 5 mg 5 mg Q4H PRN IV HR>110 Hold SBP<100; Start 05/10/17 at 19:00 Vancomycin HCl/ Sodium Chloride (Vancocin/NS) 150 ml @ 75 mls/hr Q48H IVPB Last administered on 05/14/17 19:55; Admin Dose 75 MLS/HR; Start 05/12/17 at 20 :00 Morphine Sulfate (morphine) 4 mg Q3H PRN IV PAIN Last administered on 09:46; Admin Dose 4 MG; Start 05/13/17 at 12:30 MT MEJIA May 15, 2017 13:10
--- NOTE | 2017-05-15 13:22 | PN ---
Date/Time of Note Date/Time of Note DATE: 05/15/17 TIME: 13:20 Assessment/Plan VTE Prophylaxis VTE Prophylaxis Intervention: heparin Lines/Catheters Urinary Cath still in place: No Assessment/Plan Chief Complaint/Hosp Course 1. 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 Wound dehiscence with Infected ulcer JOSH arm over fistula with surrounding JOSH arm cellulitis Patient had femoral Jerrod placed 05/08/17 Plan is status post fistula revision and now status post permacath placement which will be used for dialysis until the fistula is functional Increased pain regimen as patient still complaining of pain in the left arm 3. ESRD on HD HD per renal 4. Hyperkalemia-resolved 5. Anemia of CKD with thrombocytopenia r/o iron deficiency 6. HTN- now controlled Continue regimen of Coreg and nifedipine 7. COPD-stable 8. Tobacco abuse Cessation advised Prophylaxis: Heparin Discharge planning: Anticipate DC home in 1-2 days, patient will need to continue with IV antibiotics, will discuss duration with ID Problems: Subjective 24 Hr Interval Summary Musculoskeletal: other (Patient left arm) Exam/Review of Systems Vital Signs Vitals Vital Signs Date Time Temp Pulse Resp B/P Pulse Ox O2 Delivery O2 Flow Rate FiO2 05/15/17 12:33 75 05/15/17 12:02 99.6 18 145/70 92 05/14/17 13:30 Nasal Cannula 2.0 Intake and Output 05/14/17 05/14/17 05/15/17 15:00 23:00 07:00 Intake Total 650 ml 270 ml Output Total 200 ml 200 ml Balance -200 ml 450 ml 270 ml Exam Constitutional: alert Respiratory: clear to auscultation Cardiovascular: regular rate and rhythm Gastrointestinal: soft, No distended Musculoskeletal: nl extremities to inspection Results Result Diagram: 05/15/17 0736 05/15/17 0736 Results 24 hrs Laboratory Tests Test 05/15/17 07:36 White Blood Count 2.4 #L Red Blood Count 3.00 L Hemoglobin 9.3 L Hematocrit 29.0 L Mean Corpuscular Volume 96.7 Mean Corpuscular Hemoglobin 31.0 Mean Corpuscular Hemoglobin Concent 32.1 Red Cell Distribution Width 13.2 Platelet Count 114 L Mean Platelet Volume 8.7 Neutrophils % 63.0 Lymphocytes % 25.0 Monocytes % 5.0 Eosinophils % 1.0 Basophils % Nucleated Red Blood Cells % 0.0 Neutrophils # 1.5 L Band Neutrophils # 1.5 H Lymphocytes # 0.6 L Monocytes # 0.1 L Eosinophils # 0.0 Basophils # Nucleated Red Blood Cells # Sodium Level 141 Potassium Level 4.9 Chloride Level 96 L Carbon Dioxide Level 27 Anion Gap 23 H Blood Urea Nitrogen 24 H Creatinine 6.25 H Glucose Level 91 Calcium Level 8.8 Medications Medications Current Medications Ondansetron HCl (Zofran Inj) 4 mg Q6H PRN IV NAUSEA AND/OR VOMITING Last administered on 05/12/17 20:57; Admin Dose 4 MG; Start 05/07/17 at 05:00 Acetaminophen (Tylenol Tab) 650 mg Q6H PRN PO PAIN LEVEL 1-3 OR FEVER Last administered on 05/08/17 05:58; Admin Dose 650 MG; Start 05/07/17 at 05:00 Bisacodyl (Dulcolax) 5 mg DAILY PRN PO CONSTIPATION; Start 05/07/17 at 05:00 Acetaminophen (Tylenol Tab) 650 mg Q6H PRN PO PAIN LEVEL 1-3 OR FEVER; Start at 07:00 Multivit/Ca Carb/ B Cmplx/FA/Prenat 1 tab 1 tab DAILY PO Last administered on 09:44; Admin Dose 1 TAB; Start 05/07/17 at 09:00 Piperacillin Sod/ Tazobactam Sod (Zosyn 2.25gm/ 50ml (Pmx)) 50 ml @ 100 mls/hr Q8 IVPB Last administered on 05/15/17 05:51; Admin Dose 100 MLS/HR; Start at 13:00 Hydralazine HCl (Apresoline) 10 mg Q4H PRN IV SBP>170; Start 05/08/17 at 16:00 Docusate Sodium (Colace) 100 mg Q12 PO Last administered on 05/15/17 09:45; Admin Dose 100 MG; Start 05/09/17 at 21:00 Nifedipine (Procardia Xl) 60 mg BID PO Last administered on 05/15/17 09:45; Admin Dose 60 MG; Start 05/09/17 at 12:00 Famotidine (Pepcid) 20 mg DAILY PO Last administered on 05/15/17 09:45; Admin Dose 20 MG; Start 05/09/17 at 12:00 Carvedilol (Coreg) 6.25 mg BID PO Last administered on 05/15/17 09:45; Admin Dose 6.25 MG; Start 05/09/17 at 21:00 Heparin Sodium (Porcine) (Heparin (5000 Units/0.5 ml)) 5,000 unit Q8 SC Last administered on 05/13/17 14:02; Admin Dose 5,000 UNIT; Start 05/10/17 at 22:00 ; Status Future Hold Aspirin (Aspirin) 81 mg DAILY PO Last administered on 05/15/17 09:44; Admin Dose 81 MG; Start 05/11/17 at 09:00 Metoprolol Tartrate 5 mg 5 mg Q4H PRN IV HR>110 Hold SBP<100; Start 05/10/17 at 19:00 Vancomycin HCl/ Sodium Chloride (Vancocin/NS) 150 ml @ 75 mls/hr Q48H IVPB Last administered on 05/14/17 19:55; Admin Dose 75 MLS/HR; Start 05/12/17 at 20 :00 Morphine Sulfate (morphine) 4 mg Q3H PRN IV PAIN Last administered on 09:46; Admin Dose 4 MG; Start 05/13/17 at 12:30 LASHAE NAPIER May 15, 2017 13:22
--- NOTE | 2017-05-15 13:37 | CONS ---
Date/Time of Note Date/Time of Note DATE: 05/15/17 TIME: 13:33 Assessment/Plan Assessment/Plan Additional Assessment/Plan PAF in NSR CHF HTN ESRD on HD Non-functioning AVF s/p AVF revision/debridement Anemia Dyslipidemia Continue Coreg and Procardia Started on eliquis Continue HD as scheduled Consultation Date/Type/Reason Admit Date/Time May 07, 2017 at 04:33 Constitutional: no complaints Respiratory: no complaints Cardiovascular: no complaints Musculoskeletal: other (Patient left arm) Psychological: no complaints Social History Alcohol Use: none Smoking Status: Former smoker Drug Use: none Exam/Review of Systems Vital Signs Vitals Vital Signs Date Time Temp Pulse Resp B/P Pulse Ox O2 Delivery O2 Flow Rate FiO2 05/15/17 12:33 75 05/15/17 12:02 99.6 18 145/70 92 05/14/17 13:30 Nasal Cannula 2.0 Intake and Output 05/14/17 05/14/17 05/15/17 15:00 23:00 07:00 Intake Total 650 ml 270 ml Output Total 200 ml 200 ml Balance -200 ml 450 ml 270 ml Exam Constitutional: alert Head: atraumatic, normocephalic Neck: non-tender, supple Respiratory: diminished breath sounds Cardiovascular: regular rate and rhythm Gastrointestinal: nl liver, spleen, non-tender, soft Results Result Diagram: 05/15/17 0736 05/15/17 0736 Results 24 hrs Laboratory Tests Test 05/15/17 07:36 White Blood Count 2.4 #L Red Blood Count 3.00 L Hemoglobin 9.3 L Hematocrit 29.0 L Mean Corpuscular Volume 96.7 Mean Corpuscular Hemoglobin 31.0 Mean Corpuscular Hemoglobin Concent 32.1 Red Cell Distribution Width 13.2 Platelet Count 114 L Mean Platelet Volume 8.7 Neutrophils % 63.0 Lymphocytes % 25.0 Monocytes % 5.0 Eosinophils % 1.0 Basophils % Nucleated Red Blood Cells % 0.0 Neutrophils # 1.5 L Band Neutrophils # 1.5 H Lymphocytes # 0.6 L Monocytes # 0.1 L Eosinophils # 0.0 Basophils # Nucleated Red Blood Cells # Sodium Level 141 Potassium Level 4.9 Chloride Level 96 L Carbon Dioxide Level 27 Anion Gap 23 H Blood Urea Nitrogen 24 H Creatinine 6.25 H Glucose Level 91 Calcium Level 8.8 Medications Medications Current Medications Ondansetron HCl (Zofran Inj) 4 mg Q6H PRN IV NAUSEA AND/OR VOMITING Last administered on 05/12/17 20:57; Admin Dose 4 MG; Start 05/07/17 at 05:00 Acetaminophen (Tylenol Tab) 650 mg Q6H PRN PO PAIN LEVEL 1-3 OR FEVER Last administered on 05/08/17 05:58; Admin Dose 650 MG; Start 05/07/17 at 05:00 Bisacodyl (Dulcolax) 5 mg DAILY PRN PO CONSTIPATION; Start 05/07/17 at 05:00 Acetaminophen (Tylenol Tab) 650 mg Q6H PRN PO PAIN LEVEL 1-3 OR FEVER; Start at 07:00 Multivit/Ca Carb/ B Cmplx/FA/Prenat 1 tab 1 tab DAILY PO Last administered on 09:44; Admin Dose 1 TAB; Start 05/07/17 at 09:00 Piperacillin Sod/ Tazobactam Sod (Zosyn 2.25gm/ 50ml (Pmx)) 50 ml @ 100 mls/hr Q8 IVPB Last administered on 05/15/17 05:51; Admin Dose 100 MLS/HR; Start at 13:00 Hydralazine HCl (Apresoline) 10 mg Q4H PRN IV SBP>170; Start 05/08/17 at 16:00 Docusate Sodium (Colace) 100 mg Q12 PO Last administered on 05/15/17 09:45; Admin Dose 100 MG; Start 05/09/17 at 21:00 Nifedipine (Procardia Xl) 60 mg BID PO Last administered on 05/15/17 09:45; Admin Dose 60 MG; Start 05/09/17 at 12:00 Famotidine (Pepcid) 20 mg DAILY PO Last administered on 05/15/17 09:45; Admin Dose 20 MG; Start 05/09/17 at 12:00 Carvedilol (Coreg) 6.25 mg BID PO Last administered on 05/15/17 09:45; Admin Dose 6.25 MG; Start 05/09/17 at 21:00 Heparin Sodium (Porcine) (Heparin (5000 Units/0.5 ml)) 5,000 unit Q8 SC Last administered on 05/13/17 14:02; Admin Dose 5,000 UNIT; Start 05/10/17 at 22:00 ; Status Future Hold Aspirin (Aspirin) 81 mg DAILY PO Last administered on 05/15/17 09:44; Admin Dose 81 MG; Start 05/11/17 at 09:00 Metoprolol Tartrate 5 mg 5 mg Q4H PRN IV HR>110 Hold SBP<100; Start 05/10/17 at 19:00 Vancomycin HCl/ Sodium Chloride (Vancocin/NS) 150 ml @ 75 mls/hr Q48H IVPB Last administered on 05/14/17 19:55; Admin Dose 75 MLS/HR; Start 05/12/17 at 20 :00 Morphine Sulfate (morphine) 4 mg Q3H PRN IV PAIN Last administered on 09:46; Admin Dose 4 MG; Start 05/13/17 at 12:30 DORIS ROSENBERG M.D. May 15, 2017 13:37
--- NOTE | 2017-05-15 14:14 | CONS ---
Date/Time of Note Date/Time of Note DATE: 05/15/17 TIME: 14:13 Assessment/Plan Assessment/Plan Chief Complaint/Hosp Course No acute events. Patient is alert, c/p left wrist pain, no fevers Microbiology: Blood culture on admission grew Pasteurella multocida and enterococcus species, left upper extremity wound culture grew staph aureus and Pasteurella multocida, repeat blood cultures negative Antimicrobials Vanco, Zosyn Indwelling: Right IJ permacath Physical examination: Well-developed, well-nourished middle-aged man who is alert and no distress. Head atraumatic normocephalic, sclera nonicteric. Neck is supple. Chest rise symmetrical, breath sounds clear. Heart: S1-S2. Abdomen soft, bowel tones present. Extremities with left upper extremity dressing intact swelling present Assessment: 1. Resolving sepsis with bacteremia 2. Left upper extremity cellulitis and wound dehiscence at the surgical site incision with infected fistula, status post revision 3. End-stage renal disease, hemodialysis dependent 4. Femoral Jerrod placed on May 08, 2017 5. Anemia 6. Hypertension Plan: Remains stable, continue antibiotics for 20 more days, anticipate discharge on IV Vanco and oral Levaquin, follow vascular recommendations Discussed with at bedside Problems: Consultation Date/Type/Reason Admit Date/Time May 07, 2017 at 04:33 Type of Consultation: id Referring Provider: LANDON MARMOLEJO MD Exam/Review of Systems Vital Signs Vitals Vital Signs Date Time Temp Pulse Resp B/P Pulse Ox O2 Delivery O2 Flow Rate FiO2 05/15/17 12:33 75 05/15/17 12:02 99.6 18 145/70 92 05/14/17 13:30 Nasal Cannula 2.0 Intake and Output 05/14/17 05/14/17 05/15/17 15:00 23:00 07:00 Intake Total 650 ml 270 ml Output Total 200 ml 200 ml Balance -200 ml 450 ml 270 ml Results Result Diagram: 05/15/17 0736 05/15/17 0736 Results 24 hrs Laboratory Tests Test 05/15/17 07:36 White Blood Count 2.4 #L Red Blood Count 3.00 L Hemoglobin 9.3 L Hematocrit 29.0 L Mean Corpuscular Volume 96.7 Mean Corpuscular Hemoglobin 31.0 Mean Corpuscular Hemoglobin Concent 32.1 Red Cell Distribution Width 13.2 Platelet Count 114 L Mean Platelet Volume 8.7 Neutrophils % 63.0 Lymphocytes % 25.0 Monocytes % 5.0 Eosinophils % 1.0 Basophils % Nucleated Red Blood Cells % 0.0 Neutrophils # 1.5 L Band Neutrophils # 1.5 H Lymphocytes # 0.6 L Monocytes # 0.1 L Eosinophils # 0.0 Basophils # Nucleated Red Blood Cells # Sodium Level 141 Potassium Level 4.9 Chloride Level 96 L Carbon Dioxide Level 27 Anion Gap 23 H Blood Urea Nitrogen 24 H Creatinine 6.25 H Glucose Level 91 Calcium Level 8.8 Medications Medications Current Medications Ondansetron HCl (Zofran Inj) 4 mg Q6H PRN IV NAUSEA AND/OR VOMITING Last administered on 05/12/17 20:57; Admin Dose 4 MG; Start 05/07/17 at 05:00 Acetaminophen (Tylenol Tab) 650 mg Q6H PRN PO PAIN LEVEL 1-3 OR FEVER Last administered on 05/08/17 05:58; Admin Dose 650 MG; Start 05/07/17 at 05:00 Bisacodyl (Dulcolax) 5 mg DAILY PRN PO CONSTIPATION; Start 05/07/17 at 05:00 Acetaminophen (Tylenol Tab) 650 mg Q6H PRN PO PAIN LEVEL 1-3 OR FEVER; Start at 07:00 Multivit/Ca Carb/ B Cmplx/FA/Prenat 1 tab 1 tab DAILY PO Last administered on 09:44; Admin Dose 1 TAB; Start 05/07/17 at 09:00 Piperacillin Sod/ Tazobactam Sod (Zosyn 2.25gm/ 50ml (Pmx)) 50 ml @ 100 mls/hr Q8 IVPB Last administered on 05/15/17 13:32; Admin Dose 100 MLS/HR; Start at 13:00 Hydralazine HCl (Apresoline) 10 mg Q4H PRN IV SBP>170; Start 05/08/17 at 16:00 Docusate Sodium (Colace) 100 mg Q12 PO Last administered on 05/15/17 09:45; Admin Dose 100 MG; Start 05/09/17 at 21:00 Nifedipine (Procardia Xl) 60 mg BID PO Last administered on 05/15/17 09:45; Admin Dose 60 MG; Start 05/09/17 at 12:00 Famotidine (Pepcid) 20 mg DAILY PO Last administered on 05/15/17 09:45; Admin Dose 20 MG; Start 05/09/17 at 12:00 Carvedilol (Coreg) 6.25 mg BID PO Last administered on 05/15/17 09:45; Admin Dose 6.25 MG; Start 05/09/17 at 21:00 Aspirin (Aspirin) 81 mg DAILY PO Last administered on 05/15/17 09:44; Admin Dose 81 MG; Start 05/11/17 at 09:00 Metoprolol Tartrate 5 mg 5 mg Q4H PRN IV HR>110 Hold SBP<100; Start 05/10/17 at 19:00 Vancomycin HCl/ Sodium Chloride (Vancocin/NS) 150 ml @ 75 mls/hr Q48H IVPB Last administered on 05/14/17 19:55; Admin Dose 75 MLS/HR; Start 05/12/17 at 20 :00 Morphine Sulfate (morphine) 4 mg Q3H PRN IV PAIN Last administered on 13:32; Admin Dose 4 MG; Start 05/13/17 at 12:30 Apixaban (Eliquis) 5 mg BID PO ; Start 05/15/17 at 21:00 MANUELA SOMMER NP May 15, 2017 14:14
[2017-05-15] MEDS ORDERED: IBUPROFEN 400 MG TAB PO PRN (16:30)
[2017-05-15] MEDS: APIXABAN 5 MG TABLET PO SCH (21:04)
[2017-05-16] VITALS (12 sets, daily range): BP systolic 142–166; BP diastolic 76–84; PULSE 84–101; RESP 17–19
[2017-05-16] MEDS: morphine 4 MG/ML VIAL IV PRN ×5 (03:41→21:24)
[2017-05-16] MEDS: PIPER-TAZO 2.25 GM (PMX) 50 ML IVPB SCH ×3 (06:18→22:43)
[2017-05-16] MEDS: ASPIRIN 81 MG TAB PO SCH (09:30)
[2017-05-16] MEDS: MULTIVIT/CA CARB/B CMPLX/FA TAB PO SCH (09:30)
[2017-05-16] MEDS: FAMOTIDINE 20 MG TAB PO SCH (09:31)
[2017-05-16] MEDS: NIFEdipine (XL) 60 MG TAB PO SCH ×2 (09:31→21:16)
[2017-05-16] MEDS: APIXABAN 5 MG TABLET PO SCH ×2 (09:31→21:17)
[2017-05-16] MEDS: DOCUSATE SODIUM 100 MG CAP PO SCH ×2 (09:31→21:16)
[2017-05-16] MEDS: ACETAMINOPHEN 325 MG TAB PO PRN (10:33)
[2017-05-16] MEDS: STIOLTO RESPIMAT INH SCH (12:00)
--- NOTE | 2017-05-16 12:04 | PN ---
Date/Time of Note Date/Time of Note DATE: 05/16/17 TIME: 12:00 Assessment/Plan Lines/Catheters IV Catheter Type (from [facility]): Permacath Abreu in Place (from [facility]): No Assessment/Plan Chief Complaint/Hosp Course -End-stage renal disease: It seems the patient had developed significant left upper extremity cellulitis and wound dehiscence of his surgical site incision. -S/P Urgent Jerrod catheter placement -S/P LUE Fistula revision and Aneurysmorrhaphy -S/P LUE excisional debridement -Continue with the antibiotics coverage for total of 21 days treated -Will await further evaluation of his incision prior to discharge as he had previous wound dehiscence -Appreciate cardiac evaluation -Optimize vascular status (BP meds, cholesterol, nutrition, sugar control, antiplatelets). -Discussed findings and plan of management with the patient and he understands with the certified route delivery supervisor. -Thank you for allowing us to participate in the care of your patient. Please call with any questions. Problems: Subjective 24 Hr Interval Summary no new vascular events overnight Exam/Review of Systems Vital Signs Vitals Vital Signs Date Time Temp Pulse Resp B/P Pulse Ox O2 Delivery O2 Flow Rate FiO2 05/16/17 08:35 99 05/16/17 07:56 101.4 18 163/81 91 05/14/17 13:30 Nasal Cannula 2.0 Intake and Output 05/15/17 05/15/17 05/16/17 15:00 23:00 07:00 Intake Total 52 ml 250 ml Output Total 200 ml Balance 52 ml 50 ml Exam Free Text/Dictation Alert, oriented x3. LUNGS: Clear to auscultation bilaterally. CARDIOVASCULAR: S1, S2 present. ABDOMEN: Soft, nontender, nondistended. Bowel sounds positive. EXTREMITIES: Right lower extremity, palpable femoral pulse. Nonpalpable pedal pulse. Motor sensory intact. Capillary refill 3 seconds. Presence of lipodermatosclerosis. Left lower extremity, palpable femoral pulse. Nonpalpable pedal pulse. Motor sensory intact. Capillary refill 3-4 seconds.Presence of lipodermatosclerosis. Left upper extremity, palpable radial pulse. Motor sensory intact. Incision Clean, dry and intact, fistula with bruit and thrill present Results Result Diagram: 05/15/17 0736 05/15/1736 DEMETRIUS MEZA MD May 16, 2017 12:04
--- NOTE | 2017-05-16 12:30 | CONS ---
Date/Time of Note Date/Time of Note DATE: 05/16/17 TIME: 12:29 Assessment/Plan Assessment/Plan Chief Complaint/Hosp Course 1. ESRD 2. HTN, controlled 3. Infected av shunt left upper arm, s/p revision and debridement dr Wallace 4. Hep C 5. Obesity 6. Hyperkalemia Problems: Additional Assessment/Plan 1. continue HD 2. better HTN control Consultation Date/Type/Reason Admit Date/Time May 07, 2017 at 04:33 Initial Consult Date 05/07/2017 Type of Consultation: nephrology Reason for Consultation Dr Marmolejo Referring Provider: LANDON MARMOLEJO MD Exam/Review of Systems Vital Signs Vitals Vital Signs Date Time Temp Pulse Resp B/P Pulse Ox O2 Delivery O2 Flow Rate FiO2 05/16/17 11:59 101.6 101 17 162/82 95 05/14/17 13:30 Nasal Cannula 2.0 Intake and Output 05/15/17 05/15/17 05/16/17 15:00 23:00 07:00 Intake Total 52 ml 250 ml Output Total 200 ml Balance 52 ml 50 ml Exam Constitutional: alert, oriented ENMT: nl external ears & nose Neck: supple Respiratory: clear to auscultation Cardiovascular: regular rate and rhythm Extremities: other (Stapled wound on left upper extremity) Results Result Diagram: 05/15/1773505/15/17735 Medications Medications Current Medications Ondansetron HCl (Zofran Inj) 4 mg Q6H PRN IV NAUSEA AND/OR VOMITING Last administered on 05/12/17 20:57; Admin Dose 4 MG; Start 05/07/17 at 05:00 Acetaminophen (Tylenol Tab) 650 mg Q6H PRN PO PAIN LEVEL 1-3 OR FEVER Last administered on 05/16/17 10:33; Admin Dose 650 MG; Start 05/07/17 at 05:00 Bisacodyl (Dulcolax) 5 mg DAILY PRN PO CONSTIPATION; Start 05/07/17 at 05:00 Acetaminophen (Tylenol Tab) 650 mg Q6H PRN PO PAIN LEVEL 1-3 OR FEVER; Start at 07:00 Multivit/Ca Carb/ B Cmplx/FA/Prenat 1 tab 1 tab DAILY PO Last administered on 09:30; Admin Dose 1 TAB; Start 05/07/17 at 09:00 Piperacillin Sod/ Tazobactam Sod (Zosyn 2.25gm/ 50ml (Pmx)) 50 ml @ 100 mls/hr Q8 IVPB Last administered on 05/16/17 06:18; Admin Dose 100 MLS/HR; Start at 13:00 Hydralazine HCl (Apresoline) 10 mg Q4H PRN IV SBP>170; Start 05/08/17 at 16:00 Docusate Sodium (Colace) 100 mg Q12 PO Last administered on 05/16/17 09:31; Admin Dose 100 MG; Start 05/09/17 at 21:00 Nifedipine (Procardia Xl) 60 mg BID PO Last administered on 05/16/17 09:31; Admin Dose 60 MG; Start 05/09/17 at 12:00 Famotidine (Pepcid) 20 mg DAILY PO Last administered on 05/16/17 09:31; Admin Dose 20 MG; Start 05/09/17 at 12:00 Carvedilol (Coreg) 6.25 mg BID PO Last administered on 05/16/17 09:31; Admin Dose 6.25 MG; Start 05/09/17 at 21:00 Aspirin (Aspirin) 81 mg DAILY PO Last administered on 05/16/17 09:30; Admin Dose 81 MG; Start 05/11/17 at 09:00 Metoprolol Tartrate 5 mg 5 mg Q4H PRN IV HR>110 Hold SBP<100; Start 05/10/17 at 19:00 Vancomycin HCl/ Sodium Chloride (Vancocin/NS) 150 ml @ 75 mls/hr Q48H IVPB Last administered on 05/14/17 19:55; Admin Dose 75 MLS/HR; Start 05/12/17 at 20 :00 Morphine Sulfate (morphine) 4 mg Q3H PRN IV PAIN Last administered on 10:33; Admin Dose 4 MG; Start 05/13/17 at 12:30 Apixaban (Eliquis) 5 mg BID PO Last administered on 05/16/17 09:31; Admin Dose 5 MG; Start 05/15/17 at 21:00 Ibuprofen (Motrin) 400 mg BID PRN PO PAIN; Start 05/15/17 at 16:30 Miscellaneous Information (*Rx Drug Level Order Reminder*) VANCOMYCIN TROUGH AT 1900 ONCE ONCE XX ; Start 05/16/17 at 19:00; Stop 05/16/17 at 19:01 MT MEJIA May 16, 2017 12:30
--- NOTE | 2017-05-16 13:08 | CONS ---
Date/Time of Note Date/Time of Note DATE: 05/16/17 TIME: 13:07 Assessment/Plan Assessment/Plan Additional Assessment/Plan PAF in NSR CHF HTN ESRD on HD Non-functioning AVF s/p AVF revision/debridement Anemia Dyslipidemia Continue Coreg and Procardia Continue Eliquis, hemoglobin stable Continue Antibiotics Continue HD as scheduled Consultation Date/Type/Reason Admit Date/Time May 07, 2017 at 04:33 Initial Consult Date Type of Consultation: nephrology Referring Provider: LANDON MARMOLEJO MD Exam/Review of Systems Vital Signs Vitals Vital Signs Date Time Temp Pulse Resp B/P Pulse Ox O2 Delivery O2 Flow Rate FiO2 05/16/17 12:33 94 05/16/17 11:59 101.6 17 162/82 95 05/14/17 13:30 Nasal Cannula 2.0 Intake and Output 05/15/17 05/15/17 05/16/17 15:00 23:00 07:00 Intake Total 52 ml 250 ml Output Total 200 ml Balance 52 ml 50 ml Exam Constitutional: alert Head: atraumatic, normocephalic Neck: non-tender, supple Respiratory: diminished breath sounds Cardiovascular: regular rate and rhythm Gastrointestinal: nl liver, spleen, non-tender, soft Results Result Diagram: 05/15/1736 05/15/17 0736 Medications Medications Current Medications Ondansetron HCl (Zofran Inj) 4 mg Q6H PRN IV NAUSEA AND/OR VOMITING Last administered on 05/12/17 20:57; Admin Dose 4 MG; Start 05/07/17 at 05:00 Acetaminophen (Tylenol Tab) 650 mg Q6H PRN PO PAIN LEVEL 1-3 OR FEVER Last administered on 05/16/17 10:33; Admin Dose 650 MG; Start 05/07/17 at 05:00 Bisacodyl (Dulcolax) 5 mg DAILY PRN PO CONSTIPATION; Start 05/07/17 at 05:00 Acetaminophen (Tylenol Tab) 650 mg Q6H PRN PO PAIN LEVEL 1-3 OR FEVER; Start at 07:00 Multivit/Ca Carb/ B Cmplx/FA/Prenat 1 tab 1 tab DAILY PO Last administered on 09:30; Admin Dose 1 TAB; Start 05/07/17 at 09:00 Piperacillin Sod/ Tazobactam Sod (Zosyn 2.25gm/ 50ml (Pmx)) 50 ml @ 100 mls/hr Q8 IVPB Last administered on 05/16/17 06:18; Admin Dose 100 MLS/HR; Start at 13:00 Hydralazine HCl (Apresoline) 10 mg Q4H PRN IV SBP ABOVE 140; Start 05/08/17 at 16:00 Docusate Sodium (Colace) 100 mg Q12 PO Last administered on 05/16/17 09:31; Admin Dose 100 MG; Start 05/09/17 at 21:00 Nifedipine (Procardia Xl) 60 mg BID PO Last administered on 05/16/17 09:31; Admin Dose 60 MG; Start 05/09/17 at 12:00 Famotidine (Pepcid) 20 mg DAILY PO Last administered on 05/16/17 09:31; Admin Dose 20 MG; Start 05/09/17 at 12:00 Carvedilol (Coreg) 6.25 mg BID PO Last administered on 05/16/17 09:31; Admin Dose 6.25 MG; Start 05/09/17 at 21:00 Aspirin (Aspirin) 81 mg DAILY PO Last administered on 05/16/17 09:30; Admin Dose 81 MG; Start 05/11/17 at 09:00 Metoprolol Tartrate 5 mg 5 mg Q4H PRN IV HR>110 Hold SBP<100; Start 05/10/17 at 19:00 Vancomycin HCl/ Sodium Chloride (Vancocin/NS) 150 ml @ 75 mls/hr Q48H IVPB Last administered on 05/14/17 19:55; Admin Dose 75 MLS/HR; Start 05/12/17 at 20 :00 Morphine Sulfate (morphine) 4 mg Q3H PRN IV PAIN Last administered on 10:33; Admin Dose 4 MG; Start 05/13/17 at 12:30 Apixaban (Eliquis) 5 mg BID PO Last administered on 05/16/17 09:31; Admin Dose 5 MG; Start 05/15/17 at 21:00 Ibuprofen (Motrin) 400 mg BID PRN PO PAIN; Start 05/15/17 at 16:30 Miscellaneous Information (*Rx Drug Level Order Reminder*) VANCOMYCIN TROUGH AT 1900 ONCE ONCE XX ; Start 05/16/17 at 19:00; Stop 05/16/17 at 19:01 DORIS ROSENBERG M.D. May 16, 2017 13:08
--- NOTE | 2017-05-16 15:26 | CONS ---
Date/Time of Note Date/Time of Note DATE: 05/16/17 TIME: 15:25 Assessment/Plan Assessment/Plan Chief Complaint/Hosp Course No acute events. Patient is alert, looks comfortable, no fevers Microbiology: Blood culture on admission grew Pasteurella multocida and enterococcus species, left upper extremity wound culture grew staph aureus and Pasteurella multocida, repeat blood cultures negative Antimicrobials Vanco, Zosyn Indwelling: Right IJ permacath Physical examination: Well-developed, well-nourished middle-aged man who is alert and no distress. Head atraumatic normocephalic, sclera nonicteric. Neck is supple. Chest rise symmetrical, breath sounds clear. Heart: S1-S2. Abdomen soft, bowel tones present. Extremities with left upper extremity dressing intact swelling present Assessment: 1. Resolving sepsis with bacteremia 2. Left upper extremity cellulitis and wound dehiscence at the surgical site incision with infected fistula, status post revision 3. End-stage renal disease, hemodialysis dependent 4. Femoral Jerrod placed on May 08, 2017 5. Anemia 6. Hypertension Plan: Remains stable, continue antibiotics for 19 more days, anticipate discharge on IV Vanco and oral Levaquin, follow vascular recommendations Discussed with pt/staff Problems: Consultation Date/Type/Reason Admit Date/Time May 07, 2017 at 04:33 Type of Consultation: ID Referring Provider: LANDON MARMOLEJO MD Exam/Review of Systems Vital Signs Vitals Vital Signs Date Time Temp Pulse Resp B/P Pulse Ox O2 Delivery O2 Flow Rate FiO2 05/16/17 12:33 94 05/16/17 11:59 101.6 17 162/82 95 05/14/17 13:30 Nasal Cannula 2.0 Intake and Output 05/15/17 05/15/17 05/16/17 15:00 23:00 07:00 Intake Total 52 ml 250 ml Output Total 200 ml Balance 52 ml 50 ml Results Result Diagram: 05/15/17 0736 05/15/17 0736 Medications Medications Current Medications Ondansetron HCl (Zofran Inj) 4 mg Q6H PRN IV NAUSEA AND/OR VOMITING Last administered on 05/12/17t 20:57; Admin Dose 4 MG; Start 05/07/17 at 05:00 Acetaminophen (Tylenol Tab) 650 mg Q6H PRN PO PAIN LEVEL 1-3 OR FEVER Last administered on 05/16/17 10:33; Admin Dose 650 MG; Start 05/07/17 at 05:00 Bisacodyl (Dulcolax) 5 mg DAILY PRN PO CONSTIPATION; Start 05/07/17 at 05:00 Acetaminophen (Tylenol Tab) 650 mg Q6H PRN PO PAIN LEVEL 1-3 OR FEVER; Start at 07:00 Multivit/Ca Carb/ B Cmplx/FA/Prenat 1 tab 1 tab DAILY PO Last administered on 09:30; Admin Dose 1 TAB; Start 05/07/17 at 09:00 Piperacillin Sod/ Tazobactam Sod (Zosyn 2.25gm/ 50ml (Pmx)) 50 ml @ 100 mls/hr Q8 IVPB Last administered on 05/16/17 14:12; Admin Dose 100 MLS/HR; Start at 13:00 Hydralazine HCl (Apresoline) 10 mg Q4H PRN IV SBP ABOVE 140; Start 05/08/17 at 16:00 Docusate Sodium (Colace) 100 mg Q12 PO Last administered on 05/16/17 09:31; Admin Dose 100 MG; Start 05/09/17 at 21:00 Nifedipine (Procardia Xl) 60 mg BID PO Last administered on 05/16/17 09:31; Admin Dose 60 MG; Start 05/09/17 at 12:00 Famotidine (Pepcid) 20 mg DAILY PO Last administered on 05/16/17 09:31; Admin Dose 20 MG; Start 05/09/17 at 12:00 Carvedilol (Coreg) 6.25 mg BID PO Last administered on 05/16/17 09:31; Admin Dose 6.25 MG; Start 05/09/17 at 21:00 Aspirin (Aspirin) 81 mg DAILY PO Last administered on 05/16/17 09:30; Admin Dose 81 MG; Start 05/11/17 at 09:00 Metoprolol Tartrate 5 mg 5 mg Q4H PRN IV HR>110 Hold SBP<100; Start 05/10/17 at 19:00 Vancomycin HCl/ Sodium Chloride (Vancocin/NS) 150 ml @ 75 mls/hr Q48H IVPB Last administered on 05/14/17 19:55; Admin Dose 75 MLS/HR; Start 05/12/17 at 20 :00 Morphine Sulfate (morphine) 4 mg Q3H PRN IV PAIN Last administered on 14:12; Admin Dose 4 MG; Start 05/13/17 at 12:30 Apixaban (Eliquis) 5 mg BID PO Last administered on 05/16/17 09:31; Admin Dose 5 MG; Start 05/15/17 at 21:00 Ibuprofen (Motrin) 400 mg BID PRN PO PAIN; Start 05/15/17 at 16:30 Miscellaneous Information (*Rx Drug Level Order Reminder*) VANCOMYCIN TROUGH AT 1900 ONCE ONCE XX ; Start 05/16/17 at 19:00; Stop 05/16/17 at 19:01 MANUELA SOMMER NP May 16, 2017 15:26
--- NOTE | 2017-05-16 18:31 | PN ---
Date/Time of Note Date/Time of Note DATE: 05/16/17 TIME: 18:26 Assessment/Plan VTE Prophylaxis VTE Prophylaxis Intervention: heparin Lines/Catheters IV Catheter Type (from [facility]): Permacath Urinary Cath still in place: No Assessment/Plan Chief Complaint/Hosp Course 1. Sepsis with Pasteurella bacteremia from infected ulcer overlying LE fistula: improved ID consultation appreciated, continue vancomycin and Zosyn CT of the left arm shows no clear abscess but does show gas and possible fluid in the left arm 2D echo shows no vegetations Recommendations to continue antibiotics for total 21 days, regimen on DC should be vancomycin IV and Levaquin p.o. per ID 2. Wound dehiscence with Infected ulcer JOSH arm over fistula with surrounding JOSH arm cellulitis Vascular surgeon feels that the wound is still unstable and would like to monitor for another several days Patient had femoral Jerrod placed 05/08/17 Plan is status post fistula revision and now status post permacath placement which will be used for dialysis until the fistula is functional Continue pain control 3. ESRD on HD HD per renal 4. Hyperkalemia-resolved 5. Anemia of CKD with thrombocytopenia r/o iron deficiency 6. HTN- now controlled Continue regimen of Coreg and nifedipine 7. COPD-stable 8. Tobacco abuse Cessation advised Prophylaxis: Heparin Discharge planning: Vascular surgery would like to monitor the left arm wound for another several days Problems: Subjective 24 Hr Interval Summary Constitutional: no complaints Exam/Review of Systems Vital Signs Vitals Vital Signs Date Time Temp Pulse Resp B/P Pulse Ox O2 Delivery O2 Flow Rate FiO2 05/16/17 16:19 99.2 84 18 142/77 92 05/14/17 13:30 Nasal Cannula 2.0 Intake and Output 05/15/17 05/15/17 05/16/17 15:00 23:00 07:00 Intake Total 52 ml 250 ml Output Total 200 ml Balance 52 ml 50 ml Exam Constitutional: alert, oriented Respiratory: clear to auscultation Cardiovascular: regular rate and rhythm Gastrointestinal: soft, No distended Musculoskeletal: No nl extremities to inspection Results Result Diagram: 05/15/17 0736 05/15/17 0736 Medications Medications Current Medications Ondansetron HCl (Zofran Inj) 4 mg Q6H PRN IV NAUSEA AND/OR VOMITING Last administered on 05/12/17t 20:57; Admin Dose 4 MG; Start 05/07/17 at 05:00 Acetaminophen (Tylenol Tab) 650 mg Q6H PRN PO PAIN LEVEL 1-3 OR FEVER Last administered on 05/16/17 10:33; Admin Dose 650 MG; Start 05/07/17 at 05:00 Bisacodyl (Dulcolax) 5 mg DAILY PRN PO CONSTIPATION; Start 05/07/17 at 05:00 Acetaminophen (Tylenol Tab) 650 mg Q6H PRN PO PAIN LEVEL 1-3 OR FEVER; Start at 07:00 Multivit/Ca Carb/ B Cmplx/FA/Prenat 1 tab 1 tab DAILY PO Last administered on 09:30; Admin Dose 1 TAB; Start 05/07/17 at 09:00 Piperacillin Sod/ Tazobactam Sod (Zosyn 2.25gm/ 50ml (Pmx)) 50 ml @ 100 mls/hr Q8 IVPB Last administered on 05/16/17 14:12; Admin Dose 100 MLS/HR; Start at 13:00 Hydralazine HCl (Apresoline) 10 mg Q4H PRN IV SBP ABOVE 140; Start 05/08/17 at 16:00 Docusate Sodium (Colace) 100 mg Q12 PO Last administered on 05/16/17 09:31; Admin Dose 100 MG; Start 05/09/17 at 21:00 Nifedipine (Procardia Xl) 60 mg BID PO Last administered on 05/16/17 09:31; Admin Dose 60 MG; Start 05/09/17 at 12:00 Famotidine (Pepcid) 20 mg DAILY PO Last administered on 05/16/17 09:31; Admin Dose 20 MG; Start 05/09/17 at 12:00 Carvedilol (Coreg) 6.25 mg BID PO Last administered on 05/16/17 09:31; Admin Dose 6.25 MG; Start 05/09/17 at 21:00 Aspirin (Aspirin) 81 mg DAILY PO Last administered on 05/16/17 09:30; Admin Dose 81 MG; Start 05/11/17 at 09:00 Metoprolol Tartrate 5 mg 5 mg Q4H PRN IV HR>110 Hold SBP<100; Start 05/10/17 at 19:00 Vancomycin HCl/ Sodium Chloride (Vancocin/NS) 150 ml @ 75 mls/hr Q48H IVPB Last administered on 05/14/17 19:55; Admin Dose 75 MLS/HR; Start 05/12/17 at 20 :00 Morphine Sulfate (morphine) 4 mg Q3H PRN IV PAIN Last administered on 14:12; Admin Dose 4 MG; Start 05/13/17 at 12:30 Apixaban (Eliquis) 5 mg BID PO Last administered on 05/16/17 09:31; Admin Dose 5 MG; Start 05/15/17 at 21:00 Ibuprofen (Motrin) 400 mg BID PRN PO PAIN; Start 05/15/17 at 16:30 Miscellaneous Information (*Rx Drug Level Order Reminder*) VANCOMYCIN TROUGH AT 1900 ONCE ONCE XX ; Start 05/16/17 at 19:00; Stop 05/16/17 at 19:01 LASHAE NAPIER May 16, 2017 18:31
[2017-05-16] MEDS: VANCOMYCIN 750 MG in SOD CHLORIDE 0.9% 150 ML IVPB SCH (21:15)
[2017-05-17] VITALS (19 sets, daily range): BP systolic 100–134; BP diastolic 55–75; PULSE 71–98; RESP 16–20
[2017-05-17] MEDS: morphine 4 MG/ML VIAL IV PRN ×4 (00:59→15:39)
[2017-05-17] MEDS: PIPER-TAZO 2.25 GM (PMX) 50 ML IVPB SCH ×3 (06:36→22:00)
[2017-05-17 07:29] LABS: BASOPHILS % 0.3 % (0.0-2.0); EOSINOPHILS # 0.1 10^3/ul (0.0-0.5); HEMATOCRIT 26.3 % (42.0-52.0); LYMPHOCYTES % 28.2 % (15.0-51.0); MEAN CORPUSCULAR HEMOGLOBIN 31.5 pg (29.0-33.0); MEAN CORPUSCULAR HGB CONC 34.2 g/dl (32.0-37.0); MEAN PLATELET VOLUME 9.4 fl (7.4-10.4); MONOCYTE # 0.4 10^3/ul (0.3-0.9); MONOCYTES % 11.8 % (0.0-11.0); NEUTROPHIL # 2.1 10^3/ul (1.6-7.5); NEUTROPHILS % 56.2 % (39.0-77.0); PLATELET COUNT 103 10^3/UL (140-415); POSITIVE DIFF @See below; RED BLOOD COUNT 2.86 10^6/ul (4.70-6.10); RED CELL DISTRIBUTION WIDTH 12.7 % (11.5-14.5); WHITE BLOOD COUNT 3.7 10^3/ul (4.8-10.8)
[2017-05-17 07:53] LABS: CALCIUM 8.5 mg/dl (8.4-10.2); CREATININE 9.4 mg/dl (0.61-1.24)
[2017-05-17] MEDS: ASPIRIN 81 MG TAB PO SCH (09:19)
[2017-05-17] MEDS: FAMOTIDINE 20 MG TAB PO SCH (09:19)
[2017-05-17] MEDS: MULTIVIT/CA CARB/B CMPLX/FA TAB PO SCH (09:19)
[2017-05-17] MEDS: DOCUSATE SODIUM 100 MG CAP PO SCH ×2 (09:19→20:30)
[2017-05-17] MEDS: NIFEdipine (XL) 60 MG TAB PO SCH ×2 (09:20→20:32)
[2017-05-17] MEDS: APIXABAN 5 MG TABLET PO SCH ×2 (09:21→20:31)
--- NOTE | 2017-05-17 12:25 | PN ---
Date/Time of Note Date/Time of Note DATE: 05/17/17 TIME: 12:23 Assessment/Plan VTE Prophylaxis VTE Prophylaxis Intervention: other (Eliquis) Lines/Catheters [facility] C[facility] W/ PIGTAIL Urinary Cath still in place: No Assessment/Plan Chief Complaint/Hosp Course 1. Sepsis with underlying bacteremia secondary to left upper extremity cellulitis and wound dehiscence at the surgical incision site. 2. Wound dehiscence of the left AV fistula surgical site incision. Status post left upper extremity fistula revision and aneurysmorrhaphy with left upper extremity excisional debridement. Being followed by vascular surgery. 3. End-stage renal disease on hemodialysis. Continue hemodialysis as per infectious diseases. 4. Essential hypertension. Continue antihypertensives. 5. Paroxysmal atrial fibrillation. Currently normal sinus rhythm. Continue Eliquis for stroke prophylaxis. 6. Normocytic, normochromic anemia. Most probably anemia chronic kidney disease. Monitor H&H closely. Transfuse as needed. 7. Fluids, electrolytes, and nutrition. Renal diet. 8. DVT prophylaxis with bilateral sequential compression devices. 9. Gastrointestinal prophylaxis. Histamine 2 receptor blockers. 10. Plan. Continue antimicrobials as per infectious diseases. Await clearance from consultants before discharge. Case discussed with Dr. Lopez. Problems: Subjective 24 Hr Interval Summary Free Text/Dictation Denies any complaints. Exam/Review of Systems Vital Signs Vitals Vital Signs Date Time Temp Pulse Resp B/P Pulse Ox O2 Delivery O2 Flow Rate FiO2 05/17/17 11:54 99.2 72 18 114/63 93 05/14/17 13:30 Nasal Cannula 2.0 Intake and Output 05/16/17 05/16/17 05/17/17 15:00 23:00 07:00 Intake Total 900 ml Output Total 400 ml Balance 500 ml Exam General: Adequately build 51 year-old male lying in bed in no apparent distress. HEENT: Normocephalic, atraumatic. Eyes: Anicteric sclerae, conjunctivae clear. ENT: Nasal septum midline, oral mucosa moist. Neck supple, no JVD noticed. Respiratory: Bilaterally clear breath sounds. No use of accessory muscles of respiration. No adventitious breath sounds. Cardiovascular: S1, S2 heard. Grade 2/6 systolic ejection murmur. Abdomen: Soft, nontender, and nondistended. Bowel sounds positive in all 4 quadrants. Genitourinary: Deferred. Extremities: No cyanosis, no clubbing, no edema. Peripheral pulses palpable. Left upper extremity dressing around the incision site. Neurologic: Cranial nerves II through XII grossly intact. The patient is awake, alert, and oriented. Skin: Normal skin turgor. No skin rashes. Results Result Diagram: 05/17/17 0701 05/17/17 0701 Results 24 hrs Laboratory Tests Test 05/16/17 19:00 05/17/17 07:01 Vancomycin Level Trough 19.6 White Blood Count 3.7 #L Red Blood Count 2.86 L Hemoglobin 9.0 L Hematocrit 26.3 L Mean Corpuscular Volume 92.0 Mean Corpuscular Hemoglobin 31.5 Mean Corpuscular Hemoglobin Concent 34.2 Red Cell Distribution Width 12.7 Platelet Count 103 L Mean Platelet Volume 9.4 Neutrophils % 56.2 Lymphocytes % 28.2 Monocytes % 11.8 H Eosinophils % 3.0 Basophils % 0.3 Nucleated Red Blood Cells % 0.0 Neutrophils # 2.1 Lymphocytes # 1.0 Monocytes # 0.4 Eosinophils # 0.1 Basophils # 0.0 Nucleated Red Blood Cells # 0.0 Sodium Level 135 Potassium Level 5.0 Chloride Level 94 L Carbon Dioxide Level 23 Anion Gap 23 H Blood Urea Nitrogen 50 H Creatinine 9.40 #H Glucose Level 97 Calcium Level 8.5 Medications Medications Current Medications Ondansetron HCl (Zofran Inj) 4 mg Q6H PRN IV NAUSEA AND/OR VOMITING Last administered on 05/12/17 20:57; Admin Dose 4 MG; Start 05/07/17 at 05:00 Acetaminophen (Tylenol Tab) 650 mg Q6H PRN PO PAIN LEVEL 1-3 OR FEVER Last administered on 05/16/17 10:33; Admin Dose 650 MG; Start 05/07/17 at 05:00 Bisacodyl (Dulcolax) 5 mg DAILY PRN PO CONSTIPATION; Start 05/07/17 at 05:00 Acetaminophen (Tylenol Tab) 650 mg Q6H PRN PO PAIN LEVEL 1-3 OR FEVER; Start at 07:00 Multivit/Ca Carb/ B Cmplx/FA/Prenat 1 tab 1 tab DAILY PO Last administered on 09:19; Admin Dose 1 TAB; Start 05/07/17 at 09:00 Piperacillin Sod/ Tazobactam Sod (Zosyn 2.25gm/ 50ml (Pmx)) 50 ml @ 100 mls/hr Q8 IVPB Last administered on 05/17/17 06:36; Admin Dose 100 MLS/HR; Start at 13:00 Hydralazine HCl (Apresoline) 10 mg Q4H PRN IV SBP ABOVE 140; Start 05/08/17 at 16:00 Docusate Sodium (Colace) 100 mg Q12 PO Last administered on 05/17/17 09:19; Admin Dose 100 MG; Start 05/09/17 at 21:00 Nifedipine (Procardia Xl) 60 mg BID PO Last administered on 05/17/17 09:20; Admin Dose 60 MG; Start 05/09/17 at 12:00 Famotidine (Pepcid) 20 mg DAILY PO Last administered on 05/17/17 09:19; Admin Dose 20 MG; Start 05/09/17 at 12:00 Carvedilol (Coreg) 6.25 mg BID PO Last administered on 05/17/17 09:20; Admin Dose 6.25 MG; Start 05/09/17 at 21:00 Aspirin (Aspirin) 81 mg DAILY PO Last administered on 05/17/17 09:19; Admin Dose 81 MG; Start 05/11/17 at 09:00 Metoprolol Tartrate (Lopressor) 5 mg Q4H PRN IV HR>110 Hold SBP<100; Start at 19:00 Morphine Sulfate (morphine) 4 mg Q3H PRN IV PAIN Last administered on 11:43; Admin Dose 4 MG; Start 05/13/17 at 12:30 Apixaban (Eliquis) 5 mg BID PO Last administered on 05/17/17 09:21; Admin Dose 5 MG; Start 05/15/17 at 21:00 Ibuprofen 400 mg 400 mg BID PRN PO PAIN; Start 05/15/17 at 16:30 Vancomycin HCl/ Sodium Chloride (Vancocin/NS) 250 ml @ 83.333 mls/ hr Q72H IVPB ; Start 05/19/17 at 09:00 ARTUR WHITMORE NP May 17, 2017 12:25
--- NOTE | 2017-05-17 13:31 | CONS ---
Date/Time of Note Date/Time of Note DATE: 05/17/17 TIME: 13:31 Assessment/Plan Assessment/Plan Chief Complaint/Hosp Course No acute events. Patient is alert, looks comfortable, no fevers Microbiology: Blood culture on admission grew Pasteurella multocida and enterococcus species, left upper extremity wound culture grew staph aureus and Pasteurella multocida, repeat blood cultures negative Antimicrobials Vanco, Zosyn Indwelling: Right IJ permacath Physical examination: Well-developed, well-nourished middle-aged man who is alert and no distress. Head atraumatic normocephalic, sclera nonicteric. Neck is supple. Chest rise symmetrical, breath sounds clear. Heart: S1-S2. Abdomen soft, bowel tones present. Extremities with left upper extremity dressing intact swelling present Assessment: 1. Resolving sepsis with bacteremia 2. Left upper extremity cellulitis and wound dehiscence at the surgical site incision with infected fistula, status post revision 3. End-stage renal disease, hemodialysis dependent 4. Femoral Jerrod placed on May 08, 2017 5. Anemia 6. Hypertension Plan: Remains stable, continue antibiotics for 18 more days, anticipate discharge on IV Vanco and oral Levaquin, follow vascular recommendations Discussed with pt/staff Problems: Consultation Date/Type/Reason Admit Date/Time May 07, 2017 at 04:33 Type of Consultation: ID Referring Provider: LANDON MARMOLEJO MD Exam/Review of Systems Vital Signs Vitals Vital Signs Date Time Temp Pulse Resp B/P Pulse Ox O2 Delivery O2 Flow Rate FiO2 05/17/17 12:41 71 05/17/17 11:54 99.2 18 114/63 93 05/14/17 13:30 Nasal Cannula 2.0 Intake and Output 05/16/17 05/16/17 05/17/17 15:00 23:00 07:00 Intake Total 900 ml Output Total 400 ml Balance 500 ml Results Result Diagram: 05/17/17 0701 05/17/17 0701 Results 24 hrs Laboratory Tests Test 05/16/17 19:00 05/17/17 07:01 Vancomycin Level Trough 19.6 White Blood Count 3.7 #L Red Blood Count 2.86 L Hemoglobin 9.0 L Hematocrit 26.3 L Mean Corpuscular Volume 92.0 Mean Corpuscular Hemoglobin 31.5 Mean Corpuscular Hemoglobin Concent 34.2 Red Cell Distribution Width 12.7 Platelet Count 103 L Mean Platelet Volume 9.4 Neutrophils % 56.2 Lymphocytes % 28.2 Monocytes % 11.8 H Eosinophils % 3.0 Basophils % 0.3 Nucleated Red Blood Cells % 0.0 Neutrophils # 2.1 Lymphocytes # 1.0 Monocytes # 0.4 Eosinophils # 0.1 Basophils # 0.0 Nucleated Red Blood Cells # 0.0 Sodium Level 135 Potassium Level 5.0 Chloride Level 94 L Carbon Dioxide Level 23 Anion Gap 23 H Blood Urea Nitrogen 50 H Creatinine 9.40 #H Glucose Level 97 Calcium Level 8.5 Medications Medications Current Medications Ondansetron HCl (Zofran Inj) 4 mg Q6H PRN IV NAUSEA AND/OR VOMITING Last administered on 05/12/17 20:57; Admin Dose 4 MG; Start 05/07/17 at 05:00 Acetaminophen (Tylenol Tab) 650 mg Q6H PRN PO PAIN LEVEL 1-3 OR FEVER Last administered on 05/16/17 10:33; Admin Dose 650 MG; Start 05/07/17 at 05:00 Bisacodyl (Dulcolax) 5 mg DAILY PRN PO CONSTIPATION; Start 05/07/17 at 05:00 Acetaminophen (Tylenol Tab) 650 mg Q6H PRN PO PAIN LEVEL 1-3 OR FEVER; Start at 07:00 Multivit/Ca Carb/ B Cmplx/FA/Prenat 1 tab 1 tab DAILY PO Last administered on 09:19; Admin Dose 1 TAB; Start 05/07/17 at 09:00 Piperacillin Sod/ Tazobactam Sod (Zosyn 2.25gm/ 50ml (Pmx)) 50 ml @ 100 mls/hr Q8 IVPB Last administered on 05/17/17 06:36; Admin Dose 100 MLS/HR; Start at 13:00 Hydralazine HCl (Apresoline) 10 mg Q4H PRN IV SBP ABOVE 140; Start 05/08/17 at 16:00 Docusate Sodium (Colace) 100 mg Q12 PO Last administered on 05/17/17 09:19; Admin Dose 100 MG; Start 05/09/17 at 21:00 Nifedipine (Procardia Xl) 60 mg BID PO Last administered on 05/17/17 09:20; Admin Dose 60 MG; Start 05/09/17 at 12:00 Famotidine (Pepcid) 20 mg DAILY PO Last administered on 05/17/17 09:19; Admin Dose 20 MG; Start 05/09/17 at 12:00 Carvedilol (Coreg) 6.25 mg BID PO Last administered on 05/17/17 09:20; Admin Dose 6.25 MG; Start 05/09/17 at 21:00 Aspirin (Aspirin) 81 mg DAILY PO Last administered on 05/17/17 09:19; Admin Dose 81 MG; Start 05/11/17 at 09:00 Metoprolol Tartrate (Lopressor) 5 mg Q4H PRN IV HR>110 Hold SBP<100; Start at 19:00 Morphine Sulfate (morphine) 4 mg Q3H PRN IV PAIN Last administered on 11:43; Admin Dose 4 MG; Start 05/13/17 at 12:30 Apixaban (Eliquis) 5 mg BID PO Last administered on 05/17/17 09:21; Admin Dose 5 MG; Start 05/15/17 at 21:00 Ibuprofen 400 mg 400 mg BID PRN PO PAIN; Start 05/15/17 at 16:30 Vancomycin HCl/ Sodium Chloride (Vancocin/NS) 250 ml @ 83.333 mls/ hr Q72H IVPB ; Start 05/19/17 at 09:00 MANUELA SOMMER NP May 17, 2017 13:31
--- NOTE | 2017-05-17 14:00 | CONS ---
Date/Time of Note Date/Time of Note DATE: 05/17/17 TIME: 13:59 Assessment/Plan Assessment/Plan Chief Complaint/Hosp Course IMP: 1.Pre-op eval prior to revision/debridement of AVF-Negative trop x 3/NO chest pain. NL EF by echo tis admit with no contraindicated valve lesions. OK to proceed to OR at moderate risk without further noninvasive evaluation 2.CHF-diastolic acute on chronic 3.HTN-uncontrolled. F/U after reciving anti-hypertenives 4.ESRD on HD 5.Non-functioning AVF s/p AVF revision/debridement 6.anemia 7. Dyslipidemia 8. Hyperkalemia-improved 9. AF-now back in SR/had 3-4 beats post-op self limited 10.Bacetremia Recc: -Tele -serial ecg's -Continue procardia xl/coreg -HD for volume removal -Continue heparin SQ and asa for now with probable transition to eliquis at d/c as tolerated for PAF -Contnue abx's and f/u cx data Problems: Consultation Date/Type/Reason Admit Date/Time May 07, 2017 at 04:33 Initial Consult Date 05/09/17 Type of Consultation: cardiology Reason for Consultation HTN/CHF Referring Provider: LANDON MARMOLEJO MD Exam/Review of Systems Vital Signs Vitals Vital Signs Date Time Temp Pulse Resp B/P Pulse Ox O2 Delivery O2 Flow Rate FiO2 05/17/17 12:41 71 05/17/17 11:54 99.2 18 114/63 93 05/14/17 13:30 Nasal Cannula 2.0 Intake and Output 05/16/17 05/16/17 05/17/17 15:00 23:00 07:00 Intake Total 900 ml Output Total 400 ml Balance 500 ml Exam Review of Systems: CONSTITUTIONAL: No fevers, chills. PULMONARY: No sob CARDIOVASCULAR: No chest pain/palpitations GASTROINTESTINAL: No nausea/vomiting. GENITOURINARY: No hematuria/dysuria. MUSCULOSKELETAL: No myagias/arthalgias. PSYCHIATRIC: The patient denies depression. NEUROLOGIC: No weakness Constitutional: alert, oriented Psych: no complaints Head: normocephalic ENMT: mucosa pink and moist Neck: jvd (9 cm water), supple Respiratory: clear to auscultation Cardiovascular: regular rate and rhythm Gastrointestinal: non-tender, soft Extremities: edema (none), other (L arm covered by dressing) 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: other (No focal deficits) Results Result Diagram: 05/17/17 0701 05/17/17 0701 Results 24 hrs Laboratory Tests Test 05/16/17 19:00 05/17/17 07:01 Vancomycin Level Trough 19.6 White Blood Count 3.7 #L Red Blood Count 2.86 L Hemoglobin 9.0 L Hematocrit 26.3 L Mean Corpuscular Volume 92.0 Mean Corpuscular Hemoglobin 31.5 Mean Corpuscular Hemoglobin Concent 34.2 Red Cell Distribution Width 12.7 Platelet Count 103 L Mean Platelet Volume 9.4 Neutrophils % 56.2 Lymphocytes % 28.2 Monocytes % 11.8 H Eosinophils % 3.0 Basophils % 0.3 Nucleated Red Blood Cells % 0.0 Neutrophils # 2.1 Lymphocytes # 1.0 Monocytes # 0.4 Eosinophils # 0.1 Basophils # 0.0 Nucleated Red Blood Cells # 0.0 Sodium Level 135 Potassium Level 5.0 Chloride Level 94 L Carbon Dioxide Level 23 Anion Gap 23 H Blood Urea Nitrogen 50 H Creatinine 9.40 #H Glucose Level 97 Calcium Level 8.5 Medications Medications Current Medications Ondansetron HCl (Zofran Inj) 4 mg Q6H PRN IV NAUSEA AND/OR VOMITING Last administered on 05/12/17 20:57; Admin Dose 4 MG; Start 05/07/17 at 05:00 Acetaminophen (Tylenol Tab) 650 mg Q6H PRN PO PAIN LEVEL 1-3 OR FEVER Last administered on 05/16/17 10:33; Admin Dose 650 MG; Start 05/07/17 at 05:00 Bisacodyl (Dulcolax) 5 mg DAILY PRN PO CONSTIPATION; Start 05/07/17 at 05:00 Acetaminophen (Tylenol Tab) 650 mg Q6H PRN PO PAIN LEVEL 1-3 OR FEVER; Start at 07:00 Multivit/Ca Carb/ B Cmplx/FA/Prenat 1 tab 1 tab DAILY PO Last administered on 09:19; Admin Dose 1 TAB; Start 05/07/17 at 09:00 Piperacillin Sod/ Tazobactam Sod (Zosyn 2.25gm/ 50ml (Pmx)) 50 ml @ 100 mls/hr Q8 IVPB Last administered on 05/17/17 06:36; Admin Dose 100 MLS/HR; Start at 13:00 Hydralazine HCl (Apresoline) 10 mg Q4H PRN IV SBP ABOVE 140; Start 05/08/17 at 16:00 Docusate Sodium (Colace) 100 mg Q12 PO Last administered on 05/17/17 09:19; Admin Dose 100 MG; Start 05/09/17 at 21:00 Nifedipine (Procardia Xl) 60 mg BID PO Last administered on 05/17/17 09:20; Admin Dose 60 MG; Start 05/09/17 at 12:00 Famotidine (Pepcid) 20 mg DAILY PO Last administered on 05/17/17 09:19; Admin Dose 20 MG; Start 05/09/17 at 12:00 Carvedilol (Coreg) 6.25 mg BID PO Last administered on 05/17/17 09:20; Admin Dose 6.25 MG; Start 05/09/17 at 21:00 Aspirin (Aspirin) 81 mg DAILY PO Last administered on 05/17/17 09:19; Admin Dose 81 MG; Start 05/11/17 at 09:00 Metoprolol Tartrate (Lopressor) 5 mg Q4H PRN IV HR>110 Hold SBP<100; Start at 19:00 Morphine Sulfate (morphine) 4 mg Q3H PRN IV PAIN Last administered on 11:43; Admin Dose 4 MG; Start 05/13/17 at 12:30 Apixaban (Eliquis) 5 mg BID PO Last administered on 05/17/17 09:21; Admin Dose 5 MG; Start 05/15/17 at 21:00 Ibuprofen 400 mg 400 mg BID PRN PO PAIN; Start 05/15/17 at 16:30 Vancomycin HCl/ Sodium Chloride (Vancocin/NS) 250 ml @ 83.333 mls/ hr Q72H IVPB ; Start 05/19/17 at 09:00 YONG SINGH May 17, 2017 14:00
--- NOTE | 2017-05-17 18:56 | CONS ---
Date/Time of Note Date/Time of Note DATE: 05/17/17 TIME: 18:55 Assessment/Plan Assessment/Plan Chief Complaint/Hosp Course S/P HYPERKALEMIA SEPSIS ESRD ANEMIA AVF WOUND PLAN HD ANTIBIOTIC PER ID AND VASCULAR Problems: Consultation Date/Type/Reason Admit Date/Time May 07, 2017 at 04:33 Type of Consultation: RENAL Referring Provider: LANDON MARMOLEJO MD 24 HR Interval Summary Constitutional: no complaints Exam/Review of Systems Vital Signs Vitals Vital Signs Date Time Temp Pulse Resp B/P Pulse Ox O2 Delivery O2 Flow Rate FiO2 05/17/17 17:03 75 05/17/17 15:56 98.1 17 111/62 92 05/14/17 13:30 Nasal Cannula 2.0 Intake and Output 05/16/17 05/16/17 05/17/17 15:00 23:00 07:00 Intake Total 900 ml Output Total 400 ml Balance 500 ml Exam Respiratory: clear to auscultation Cardiovascular: regular rate and rhythm Gastrointestinal: soft Musculoskeletal: nl extremities to inspection Results Result Diagram: 05/17/17 0701 05/17/17 0701 Results 24 hrs Laboratory Tests Test 05/16/17 19:00 05/17/17 07:01 Vancomycin Level Trough 19.6 White Blood Count 3.7 #L Red Blood Count 2.86 L Hemoglobin 9.0 L Hematocrit 26.3 L Mean Corpuscular Volume 92.0 Mean Corpuscular Hemoglobin 31.5 Mean Corpuscular Hemoglobin Concent 34.2 Red Cell Distribution Width 12.7 Platelet Count 103 L Mean Platelet Volume 9.4 Neutrophils % 56.2 Lymphocytes % 28.2 Monocytes % 11.8 H Eosinophils % 3.0 Basophils % 0.3 Nucleated Red Blood Cells % 0.0 Neutrophils # 2.1 Lymphocytes # 1.0 Monocytes # 0.4 Eosinophils # 0.1 Basophils # 0.0 Nucleated Red Blood Cells # 0.0 Sodium Level 135 Potassium Level 5.0 Chloride Level 94 L Carbon Dioxide Level 23 Anion Gap 23 H Blood Urea Nitrogen 50 H Creatinine 9.40 #H Glucose Level 97 Calcium Level 8.5 Medications Medications Current Medications Ondansetron HCl (Zofran Inj) 4 mg Q6H PRN IV NAUSEA AND/OR VOMITING Last administered on 05/12/17t 20:57; Admin Dose 4 MG; Start 05/07/17 at 05:00 Acetaminophen (Tylenol Tab) 650 mg Q6H PRN PO PAIN LEVEL 1-3 OR FEVER Last administered on 05/16/17 10:33; Admin Dose 650 MG; Start 05/07/17 at 05:00 Bisacodyl (Dulcolax) 5 mg DAILY PRN PO CONSTIPATION; Start 05/07/17 at 05:00 Acetaminophen (Tylenol Tab) 650 mg Q6H PRN PO PAIN LEVEL 1-3 OR FEVER; Start at 07:00 Multivit/Ca Carb/ B Cmplx/FA/Prenat 1 tab 1 tab DAILY PO Last administered on 09:19; Admin Dose 1 TAB; Start 05/07/17 at 09:00 Piperacillin Sod/ Tazobactam Sod (Zosyn 2.25gm/ 50ml (Pmx)) 50 ml @ 100 mls/hr Q8 IVPB Last administered on 05/17/17 14:23; Admin Dose 100 MLS/HR; Start at 13:00 Hydralazine HCl (Apresoline) 10 mg Q4H PRN IV SBP ABOVE 140; Start 05/08/17 at 16:00 Docusate Sodium (Colace) 100 mg Q12 PO Last administered on 05/17/17 09:19; Admin Dose 100 MG; Start 05/09/17 at 21:00 Nifedipine (Procardia Xl) 60 mg BID PO Last administered on 05/17/17 09:20; Admin Dose 60 MG; Start 05/09/17 at 12:00 Famotidine (Pepcid) 20 mg DAILY PO Last administered on 05/17/17 09:19; Admin Dose 20 MG; Start 05/09/17 at 12:00 Carvedilol (Coreg) 6.25 mg BID PO Last administered on 05/17/17 09:20; Admin Dose 6.25 MG; Start 05/09/17 at 21:00 Aspirin (Aspirin) 81 mg DAILY PO Last administered on 05/17/17 09:19; Admin Dose 81 MG; Start 05/11/17 at 09:00 Metoprolol Tartrate (Lopressor) 5 mg Q4H PRN IV HR>110 Hold SBP<100; Start at 19:00 Morphine Sulfate (morphine) 4 mg Q3H PRN IV PAIN Last administered on 15:39; Admin Dose 4 MG; Start 05/13/17 at 12:30 Apixaban (Eliquis) 5 mg BID PO Last administered on 05/17/17 09:21; Admin Dose 5 MG; Start 05/15/17 at 21:00 Ibuprofen 400 mg 400 mg BID PRN PO PAIN; Start 05/15/17 at 16:30 Vancomycin HCl/ Sodium Chloride (Vancocin/NS) 250 ml @ 83.333 mls/ hr Q72H IVPB ; Start 05/19/17 at 09:00 LANDON MARMOLEJO MD May 17, 2017 18:56
[2017-05-17] MEDS: STIOLTO RESPIMAT INH SCH (19:00)
[2017-05-18] VITALS (10 sets, daily range): BP systolic 108–117; BP diastolic 53–65; PULSE 71–119; RESP 16–19
[2017-05-18] MEDS: PIPER-TAZO 2.25 GM (PMX) 50 ML IVPB SCH ×2 (05:53→13:51)
[2017-05-18 07:40] LABS: ABNORMAL IP MESSAGE 1; HEMATOCRIT 24.7 % (42.0-52.0); HEMOGLOBIN 8.4 g/dl (14.0-18.0); MEAN CORPUSCULAR HEMOGLOBIN 30.9 pg (29.0-33.0); MEAN CORPUSCULAR VOLUME 90.8 fl (82.0-101.0); PLATELET COUNT 92 10^3/UL (140-415); POSITIVE DIFF @See below; RED BLOOD COUNT 2.72 10^6/ul (4.70-6.10); RED CELL DISTRIBUTION WIDTH 12.7 % (11.5-14.5); WHITE BLOOD COUNT 2.5 10^3/ul (4.8-10.8)
[2017-05-18 08:01] LABS: MAGNESIUM 2.2 mg/dl (1.7-2.5); PHOSPHORUS 6.2 mg/dl (2.5-4.9)
[2017-05-18 08:51] LABS: CREATININE 6.58 mg/dl (0.61-1.24); POTASSIUM 3.9 mmol/L (3.5-5.1)
[2017-05-18] MEDS: DOCUSATE SODIUM 100 MG CAP PO SCH (09:00)
[2017-05-18] MEDS: MULTIVIT/CA CARB/B CMPLX/FA TAB PO SCH (09:42)
[2017-05-18] MEDS: FAMOTIDINE 20 MG TAB PO SCH (09:42)
[2017-05-18] MEDS: APIXABAN 5 MG TABLET PO SCH (09:42)
[2017-05-18] MEDS: ASPIRIN 81 MG TAB PO SCH (09:42)
[2017-05-18] MEDS: NIFEdipine (XL) 60 MG TAB PO SCH (09:43)
--- NOTE | 2017-05-18 11:22 | PN ---
Date/Time of Note Date/Time of Note DATE: 05/18/17 TIME: 11:20 Assessment/Plan Lines/Catheters IV Catheter Type (from [facility]): Saline Lock Abreu in Place (from [facility]): No Assessment/Plan Chief Complaint/Hosp Course -End-stage renal disease: -S/P Urgent Jerrod catheter placement -S/P LUE Fistula revision and Aneurysmorrhaphy -S/P LUE excisional debridement -S/P Right perm catheter -Continue with the antibiotics coverage for total of 21 days treated -Will await further evaluation of his incision prior to discharge as he had previous wound dehiscence -Appreciate cardiac evaluation -Optimize vascular status (BP meds, cholesterol, nutrition, sugar control, antiplatelets). -Discussed findings and plan of management with the patient and he understands with the certified wreath inspector. -Thank you for allowing us to participate in the care of your patient. Please call with any questions. Problems: Subjective 24 Hr Interval Summary no new vascular events overnight Exam/Review of Systems Vital Signs Vitals Vital Signs Date Time Temp Pulse Resp B/P Pulse Ox O2 Delivery O2 Flow Rate FiO2 05/18/17 10:17 76 05/18/17 08:07 98.3 16 108/56 97 05/18/17 00:00 Room Air 2.0 Intake and Output 05/17/17 05/17/17 05/18/17 15:00 23:00 07:00 Intake Total 1350 ml 250 ml Output Total 1900 ml Balance -550 ml 250 ml Exam Free Text/Dictation Alert, oriented x3. LUNGS: Clear to auscultation bilaterally. CARDIOVASCULAR: S1, S2 present. ABDOMEN: Soft, nontender, nondistended. Bowel sounds positive. EXTREMITIES: Left upper extremity: palpable radial pulse. Motor sensory intact. Incision Clean, dry and intact, fistula with bruit and thrill present, incision site with kailey intact, some superficial eschar developed on the medial side of the wound Results Result Diagram: 05/18/17 0721 05/18/17 0721 DEMETRIUS MEZA MD May 18, 2017 11:22
[2017-05-18 11:29] LABS: ANISOCYTOSIS 1+ (0-0); EOSINOPHILS % (M) 4 % (0-7); GIANT THROMBO% (M) 4 % (0-0); MICROCYTOSIS 1+ (0-0); MONOCYTES % (M) 12 % (0-11); PLATELET ESTIMATE DECREASED; POIKILOCYTOSIS 1+ (0-0); POLYCHROMASIA 1+ (0-0)
[2017-05-18] MEDS: STIOLTO RESPIMAT INH SCH (12:36)
[2017-05-18] MEDS: morphine 4 MG/ML VIAL IV PRN (14:04)
--- NOTE | 2017-05-18 15:48 | PDOCDIS ---
Discharge Instructions DIAGNOSIS Discharge Diagnosis Status post sepsis. CONDITION Patient Condition: Good HOME CARE INSTRUCTIONS: Diet Instructions: carb controlledSpecial Diet: renal diet ACTIVITY: Activity Restrictions: No Restrictions Bathing Restrictions: as before admission FOLLOW UP/APPOINTMENTS Follow-up Plan Follow-up with your primary care physician in 7 days. Follow-up with hemodialysis clinic as scheduled. OTHER ORDERS: Other Orders: 1. Take medications as per prescription. Complete the course of antibiotics. 2. Take a renal diet. 3. Follow-up with your hemodialysis clinic as scheduled. 4. Follow-up with your primary care physician in 1 week. 5. Follow-up with Dr. Aly at the [facility] in 2 weeks. 6. Please go to the nearest emergency room if you have worsening symptoms of worsening LUE wound. ARTUR WHITMORE NP May 18, 2017 15:48
[2017-05-18] MEDS ORDERED: LEVO500T10 PO (15:56)
[2017-05-18] MEDS ORDERED: APIX5TAB PO (15:57)
[2017-05-18] MEDS ORDERED: CARV6.2579 PO (16:02)
--- NOTE | 2017-05-18 16:07 | DS ---
Date/Time of Note Date/Time of Note DATE: 05/18/17 TIME: 16:06 Discharge Summary Admission/Discharge Info Admit Date/Time May 07, 2017 at 04:33 Discharge Date/Time Discharge Diagnosis 1. Sepsis with underlying bacteremia secondary to left upper extremity cellulitis and wound dehiscence at the surgical incision site. 2. Wound dehiscence of the left AV fistula surgical site incision. Status post left upper extremity fistula revision and aneurysmorrhaphy with left upper extremity excisional debridement. 3. End-stage renal disease on hemodialysis. 4. Essential hypertension. 5. Paroxysmal atrial fibrillation. 6. Normocytic, normochromic anemia. 7. Pulmonary hypertension. Patient Condition: Stable Consults 1. Prem Aly MD, Vascular Surgery. 2. Ace Castro MD, Nephrology. 3. Noah Molina MD, Infectious Disease. 4. Demetrius Garcia MD, Cardiology. Procedures IMPRESSION: 1. Percutaneous insertion of right internal jugular dialysis tunneled dialysis catheter under fluoroscopic and sonographic guidance on 05/14/2017. PROCEDURE: 1. Ultrasound guided access of right common femoral vein 2. Emergent Right common femoral vein non-tunneled hemodialysis catheter placement on 05/08/2017 2D Echocardiogram Conclusions Normal left ventricular systolic function. Normal left ventricular cavity size. Mild concentric left ventricular hypertrophy. Ejection fraction is visually estimated at 55 %. Tissue Doppler/Mitral Doppler indices are within normal limits. No obvious vegetation seen on the valves. If clinical suspicion is high, a CHIRAG would be necessary. Mitral valve leaflets appear mildly thickened. Mild to moderate mitral valve regurgitation. Mild to moderate tricuspid regurgitation. Moderate pulmonary hypertension with estimated peak PA systolic pressure 50 mmHg based on RA pressure of 8 mmHg. Hx of Present Illness Chief complaint: Left upper extremity fistula pain The patient is a 51-year-old male, presenting to the ER because of left upper extremity AV fistula pain, swelling, redness, and associated with fevers. He had a revision of the left upper proximity AV fistula about 2 weeks ago at [facility]. He complained of fever, chills, denies neck pain, complains of chronic cough for more than 3 months, denies dyspnea complaint of left-sided chest wall redness and pain. He denied any abdominal pain, nausea, vomiting, dysuria, diarrhea. He does not smoke nor drink Allergies: Cephalexin, tramadol Medications: See MAR Hospital Course The patient was admitted to inpatient telemetry floor. The patient's blood culture showed positive Enterococcus species and Pasteurella multocida. Infectious diseases was called for antibiotic management. The patient was maintained on antibiotics as per infectious diseases. The patient had a dehiscence of the left AV fistula surgical site incision. The patient's left upper extremity wound culture showed Staphylococcus aureus and Pasteurella multocida. The patient underwent a left upper extremity fistula revision and aneurysmorrhaphy with left upper extremity excisional debridement. The patient had a right common femoral vein dialysis access inserted emergently on for temporary access for hemodialysis by vascular surgery. Later, the patient had a right internal jugular dialysis access inserted by interventional radiology on 05/14/2017. The patient has underlying paroxysmal atrial fibrillation. Cardiology was following the patient. The patient's beta-cricket dosing was adjusted. The patient was also started on Eliquis for stroke prophylaxis because of high CHADS2 score as per cardiology. The patient has underlying essential hypertension. The patient was maintained on antihypertensives. The patient's antihypertensives were adjusted to obtain optimal blood pressure control. The patient also had evidence of moderate pulmonary hypertension with a PA systolic pressure of 50 mmHg as per 2D echocardiogram. The patient also had underlying normocytic, normochromic anemia. This could have been most probably anemia of chronic kidney disease. The patient received 2 units of PRBC transfusion during this hospitalization. The patient had a prolonged hospital course because of the need for multiple procedures to be done, the underlying sepsis, and the need to be monitored by vascular surgery because of the dehiscence of the left AV fistula. The patient was cleared by consultants to be discharged home to continue IV vancomycin for another 18 days and oral Levaquin for another 18 days. Case management consult was done for arranging for outpatient IV antibiotic therapy. Case management consult was put in for arranging for follow-up with the vascular surgeon in 2 weeks and for arranging for home health for daily dressing changes of the left upper extremity. Discharge Instructions 1. Take medications as per prescription. Complete the course of antibiotics. 2. Take a renal diet. 3. Follow-up with your hemodialysis clinic as scheduled. 4. Follow-up with your primary care physician in 1 week. 5. Follow-up with Dr. Aly at the [facility] [place] in 2 weeks. 6. Please go to the nearest emergency room if you have worsening symptoms of worsening LUE wound. The patient verbalized understanding of discharge instructions. At this time I would like to thank all the consultants for seeing the patient, doing the necessary procedures, and providing clinical recommendations. Case discussed with Dr. Lopez [facility] Active Scripts Carvedilol* (Carvedilol*) 6.25 Mg Tablet, 6.25 MG PO BID for 30 Days, #60 TAB Prov:ARTUR WHITMORE NP 05/18/17 Apixaban* (Eliquis*) 5 Mg Tablet, 5 MG PO BID, #60 TAB Prov:ARTUR WHITMORE SUPPLY CHAIN INTERN 05/18/17 Levofloxacin* (Levofloxacin*) 500 Mg Tablet, 500 MG PO Q48H, #10 TAB Prov:ARTUR WHITMORE NP 05/18/17 Hydralazine Hcl* (Hydralazine Hcl*) 50 Mg Tab, 50 MG PO Q8, #90 TAB Prov:KAMRAN ZHANG MD 03/15/17 Reported Medications Hydrocodone/Acetaminophen (Hidalgo 10-325 Tablet) 1 Each Tablet, 1 EACH PO Q8H, TAB 05/07/17 Multivit/Ca Carb/B Cmplx/Fa* (Mony-Giovanny*) 1 Tab Tab, 1 TAB PO DAILY, TAB 05/07/17 Ergocalciferol (Vitamin D2) (VITAMIN D2) 2,000 Unit Tablet, 2000 UNIT PO, TAB 05/07/17 Tiotropium Br/Olodaterol HCl (Stiolto Respimat Inhal Poston) 4 Gm Mist.inhal, 2 PUFF INHALATION DAILY, #1 INHALER 05/07/17 Nifedipine* (Nifedipine ER*) 60 Mg Tablet.sa, 60 MG PO BID, TAB.SA 10/18/14 Calcium Acetate* (Calcium Acetate*) 667 Mg Capsule, 0875-9232 MG PO TID W/ MEALS , CAP 08/08/14 Isosorbide Mononitrate* (Isosorbide Mononitrate*) 30 Mg Tab.er.24h, 30 MG PO DAILY, TAB 08/08/14 Aspirin Ec (Aspir 81) 81 Mg Tablet.dr, 81 MG PO DAILY 12/22/12 Discontinued Reported Medications Spironolactone* (Aldactone*) 25 Mg Tablet, 25 MG PO DAILY, #30 TAB 05/07/17 Discontinued Scripts Carvedilol* (Carvedilol*) 3.125 Mg Tablet, 3.125 MG PO BID for 30 Days, TAB Prov:KAMRAN ZHANG MD 03/15/17 Acetaminophen (TYLENOL 325 MG TAB) 325 Mg Tab, 650 MG PO Q6H Y for PAIN LEVEL 1- 3 OR FEVER, #10 TAB Prov:JEFE VENTURA MD 12/08/14 Follow-up Plan Follow-up with your primary care physician 1 week. Primary Care Provider Kimmy Gómez Time spent on discharge: > 30 minutes Pending Labs Laboratory Tests Test 05/18/17 07:21 White Blood Count 2.510^3/ul (4.8-10.8) Red Blood Count 2.7210^6/ul (4.70-6.10) Hemoglobin 8.4g/dl (14.0-18.0) Hematocrit 24.7% (42.0-52.0) Mean Corpuscular Volume 90.8fl (82.0-101.0) Mean Corpuscular Hemoglobin 30.9pg (29.0-33.0) Mean Corpuscular Hemoglobin Concent 34.0g/dl (32.0-37.0) Red Cell Distribution Width 12.7% (11.5-14.5) Platelet Count 9210^3/UL (140-415) Mean Platelet Volume 10.0fl (7.4-10.4) Neutrophils % % (39.0-77.0) Segmented Neutrophils % (Manual) 43% (39-77) Band Neutrophils % (Manual) 3% (0-4) Lymphocytes % % (15.0-51.0) Lymphocytes % (Manual) 38% (15-51) Monocytes % % (0.0-11.0) Monocytes % (Manual) 12% (0-11) Eosinophils % % (0.0-7.0) Eosinophils % (Manual) 4% (0-7) Basophils % % (0.0-2.0) Nucleated Red Blood Cells % 0.0/100WBC (0.0-0.0) Neutrophils # 10^3/ul (1.6-7.5) Neutrophils # (Manual) 1.110^3/ul (1.7-7.5) Band Neutrophils # 0.010^3/ul (0.0-0.6) Absolute Lymphocytes (Manual) 0.910^3/ul (0.8-2.9) Lymphocytes # 10^3/ul (0.8-2.9) Monocytes # 10^3/ul (0.3-0.9) Absolute Monocytes (Manual) 0.310^3/ul (0.3-0.9) Eosinophils # 10^3/ul (0.0-0.5) Basophils # 10^3/ul (0.0-0.1) Nucleated Red Blood Cells # 10^3/ul (0.0-0.0) Smudge Cells % 7% (0-0) Thrombocytosis 4% (0-0) Platelet Estimate DECREASED Polychromasia 1+ (0-0) Poikilocytosis 1+ (0-0) Anisocytosis 1+ (0-0) Microcytosis 1+ (0-0) Sodium Level 139mmol/L (135-144) Potassium Level 3.9mmol/L (3.5-5.1) Chloride Level 96mmol/L (97-110) Carbon Dioxide Level 26mmol/L (21-31) Anion Gap 21 (8-16) Blood Urea Nitrogen 37mg/dl (7-20) Creatinine 6.58mg/dl (0.61-1.24) Glucose Level 99mg/dl (70-220) Calcium Level 8.0mg/dl (8.4-10.2) Phosphorus Level 6.2mg/dl (2.5-4.9) Magnesium Level 2.2mg/dl (1.7-2.5) ARTUR WHITMORE NP May 18, 2017 16:07 ARTUR WHITMORE NP May 18, 2017 16:07
--- NOTE | 2017-05-18 16:08 | CONS ---
Date/Time of Note Date/Time of Note DATE: 05/18/17 TIME: 16:02 Assessment/Plan Assessment/Plan Chief Complaint/Hosp Course ID PROGRESS NOTE CURRENT ABX: Vanco IV, Zosyn 24H INTERVAL SUMMARY * DC plan in process -- patient stable for DC home today, seen prior to DC and case d/w Polo Dunham NP -- Pt to DC on Vanco IV + Levaquin * No acute events. Patient is alert, concurs w/DC plan, no fevers * Microbiology: Blood culture on admission grew Pasteurella multocida and enterococcus species, left upper extremity wound culture grew staph aureus and Pasteurella multocida, repeat blood cultures negative * Indwelling: Right IJ permacath EXAM Physical examination: Well-developed, well-nourished middle-aged man who is alert and no distress. Head atraumatic normocephalic, sclera nonicteric. Neck is supple. Chest rise symmetrical, breath sounds clear. CV: Radial pulse RRR ABD: soft, bowel tones present. Extremities with left upper extremity dressing intact swelling present ID ASSESSMENT 1. s/p sepsis w/bacteremia on admission = RESOLVED w/repeat BCx (-) 2. Left upper extremity cellulitis and wound dehiscence at the surgical site incision with infected fistula, status post revision 3. End-stage renal disease, hemodialysis dependent 4. Femoral Jerrod placed on May 08, 2017 5. Anemia 6. Hypertension ID RECOMMENDATION Plan: DC plan as written - Vanco IV to be given at HD unit post HD w/continued dose per OP Pharmacy + Levaquin PO for total 17 days. Thank you . Problems: Consultation Date/Type/Reason Admit Date/Time May 07, 2017 at 04:33 Initial Consult Date Type of Consultation: ID Referring Provider: LANDON MARMOLEJO MD Exam/Review of Systems Vital Signs Vitals Vital Signs Date Time Temp Pulse Resp B/P Pulse Ox O2 Delivery O2 Flow Rate FiO2 05/18/17 13:26 75 05/18/17 11:51 98.4 17 114/60 98 05/18/17 00:00 Room Air 2.0 Intake and Output 05/17/17 05/17/17 05/18/17 15:00 23:00 07:00 Intake Total 1350 ml 250 ml Output Total 1900 ml Balance -550 ml 250 ml Results Result Diagram: 05/18/17 0721 05/18/17 0721 Results 24 hrs Laboratory Tests Test 05/18/17 07:21 White Blood Count 2.5 #L Red Blood Count 2.72 L Hemoglobin 8.4 L Hematocrit 24.7 L Mean Corpuscular Volume 90.8 Mean Corpuscular Hemoglobin 30.9 Mean Corpuscular Hemoglobin Concent 34.0 Red Cell Distribution Width 12.7 Platelet Count 92 L Mean Platelet Volume 10.0 Neutrophils % Segmented Neutrophils % (Manual) 43 Band Neutrophils % (Manual) 3 Lymphocytes % Lymphocytes % (Manual) 38 Monocytes % Monocytes % (Manual) 12 H Eosinophils % Eosinophils % (Manual) 4 Basophils % Nucleated Red Blood Cells % 0.0 Neutrophils # Neutrophils # (Manual) 1.1 L Band Neutrophils # 0.0 Absolute Lymphocytes (Manual) 0.9 Lymphocytes # Monocytes # Absolute Monocytes (Manual) 0.3 Eosinophils # Basophils # Nucleated Red Blood Cells # Smudge Cells % 7 H Thrombocytosis 4 H Platelet Estimate DECREASED Polychromasia 1+ Poikilocytosis 1+ Anisocytosis 1+ Microcytosis 1+ Sodium Level 139 Potassium Level 3.9 Chloride Level 96 L Carbon Dioxide Level 26 Anion Gap 21 H Blood Urea Nitrogen 37 #H Creatinine 6.58 #H Glucose Level 99 Calcium Level 8.0 L Phosphorus Level 6.2 H Magnesium Level 2.2 Medications Medications Current Medications Ondansetron HCl (Zofran Inj) 4 mg Q6H PRN IV NAUSEA AND/OR VOMITING Last administered on 05/12/17 20:57; Admin Dose 4 MG; Start 05/07/17 at 05:00 Bisacodyl (Dulcolax) 5 mg DAILY PRN PO CONSTIPATION; Start 05/07/17 at 05:00 Acetaminophen (Tylenol Tab) 650 mg Q6H PRN PO PAIN LEVEL 1-3 OR FEVER; Start at 07:00 Multivit/Ca Carb/ B Cmplx/FA/Prenat 1 tab 1 tab DAILY PO Last administered on 09:42; Admin Dose 1 TAB; Start 05/07/17 at 09:00 Piperacillin Sod/ Tazobactam Sod (Zosyn 2.25gm/ 50ml (Pmx)) 50 ml @ 100 mls/hr Q8 IVPB Last administered on 05/18/17 13:51; Admin Dose 100 MLS/HR; Start at 13:00 Hydralazine HCl (Apresoline) 10 mg Q4H PRN IV SBP ABOVE 140; Start 05/08/17 at 16:00 Docusate Sodium (Colace) 100 mg Q12 PO Last administered on 05/17/17 20:30; Admin Dose 100 MG; Start 05/09/17 at 21:00 Nifedipine (Procardia Xl) 60 mg BID PO Last administered on 05/18/17 09:43; Admin Dose 60 MG; Start 05/09/17 at 12:00 Famotidine (Pepcid) 20 mg DAILY PO Last administered on 05/18/17 09:42; Admin Dose 20 MG; Start 05/09/17 at 12:00 Carvedilol (Coreg) 6.25 mg BID PO Last administered on 05/18/17 09:43; Admin Dose 6.25 MG; Start 05/09/17 at 21:00 Aspirin (Aspirin) 81 mg DAILY PO Last administered on 05/18/17 09:42; Admin Dose 81 MG; Start 05/11/17 at 09:00 Metoprolol Tartrate (Lopressor) 5 mg Q4H PRN IV HR>110 Hold SBP<100; Start at 19:00 Morphine Sulfate (morphine) 4 mg Q3H PRN IV PAIN Last administered on 14:04; Admin Dose 4 MG; Start 05/13/17 at 12:30 Apixaban (Eliquis) 5 mg BID PO Last administered on 05/18/17 09:42; Admin Dose 5 MG; Start 05/15/17 at 21:00 Ibuprofen 400 mg 400 mg BID PRN PO PAIN; Start 05/15/17 at 16:30 Vancomycin HCl/ Sodium Chloride (Vancocin/NS) 250 ml @ 83.333 mls/ hr Q72H IVPB ; Start 05/19/17 at 09:00 SHILPA ANGLIN NP May 18, 2017 16:08
--- NOTE | 2017-05-18 17:59 | CONS ---
Date/Time of Note Date/Time of Note DATE: 05/18/17 TIME: 17:56 Assessment/Plan Assessment/Plan Chief Complaint/Hosp Course IMP: 1.Pre-op eval prior to revision/debridement of AVF-Negative trop x 3/NO chest pain. NL EF by echo tis admit with no contraindicated valve lesions. OK to proceed to OR at moderate risk without further noninvasive evaluation. Now post- op s/p revision of avf 2.CHF-diastolic acute on chronic 3.HTN-uncontrolled. F/U after reciving anti-hypertenives 4.ESRD on HD 5.Non-functioning AVF s/p AVF revision/debridement 6.anemia 7. Dyslipidemia 8. Hyperkalemia-improved 9. AF-now back in SR/had 3-4 beats post-op self limited 10.Bacetremia Recc: -Tele -serial ecg's -Continue procardia xl/coreg -HD for volume removal -Contnue abx's and f/u cx data -Now on [employer] BID Problems: Consultation Date/Type/Reason Admit Date/Time May 07, 2017 at 04:33 Initial Consult Date 05/09/17 Type of Consultation: cardiology Reason for Consultation chest pain Referring Provider: LANDON MARMOLEJO MD Exam/Review of Systems Vital Signs Vitals Vital Signs Date Time Temp Pulse Resp B/P Pulse Ox O2 Delivery O2 Flow Rate FiO2 05/18/17 16:42 71 05/18/17 16:17 98.3 17 117/65 99 05/18/17 00:00 Room Air 2.0 Intake and Output 05/17/17 05/17/17 05/18/17 15:00 23:00 07:00 Intake Total 1350 ml 250 ml Output Total 1900 ml Balance -550 ml 250 ml Exam Review of Systems: CONSTITUTIONAL: No fevers, chills. PULMONARY: No sob CARDIOVASCULAR: No chest pain/palpitations GASTROINTESTINAL: No nausea/vomiting. GENITOURINARY: No hematuria/dysuria. MUSCULOSKELETAL: No myagias/arthalgias. PSYCHIATRIC: The patient denies depression. NEUROLOGIC: No weakness Constitutional: alert Psych: no complaints Head: normocephalic ENMT: mucosa pink and moist Neck: jvd (8 cm water), supple Respiratory: clear to auscultation Cardiovascular: regular rate and rhythm Gastrointestinal: non-tender, soft Musculoskeletal: muscle tone (normal) Extremities: edema (No sig edema), other (L arm covered by dressing) Results Result Diagram: 05/18/17 0721 05/18/17 0721 Results 24 hrs Laboratory Tests Test 05/18/17 07:21 White Blood Count 2.5 #L Red Blood Count 2.72 L Hemoglobin 8.4 L Hematocrit 24.7 L Mean Corpuscular Volume 90.8 Mean Corpuscular Hemoglobin 30.9 Mean Corpuscular Hemoglobin Concent 34.0 Red Cell Distribution Width 12.7 Platelet Count 92 L Mean Platelet Volume 10.0 Neutrophils % Segmented Neutrophils % (Manual) 43 Band Neutrophils % (Manual) 3 Lymphocytes % Lymphocytes % (Manual) 38 Monocytes % Monocytes % (Manual) 12 H Eosinophils % Eosinophils % (Manual) 4 Basophils % Nucleated Red Blood Cells % 0.0 Neutrophils # Neutrophils # (Manual) 1.1 L Band Neutrophils # 0.0 Absolute Lymphocytes (Manual) 0.9 Lymphocytes # Monocytes # Absolute Monocytes (Manual) 0.3 Eosinophils # Basophils # Nucleated Red Blood Cells # Smudge Cells % 7 H Thrombocytosis 4 H Platelet Estimate DECREASED Polychromasia 1+ Poikilocytosis 1+ Anisocytosis 1+ Microcytosis 1+ Sodium Level 139 Potassium Level 3.9 Chloride Level 96 L Carbon Dioxide Level 26 Anion Gap 21 H Blood Urea Nitrogen 37 #H Creatinine 6.58 #H Glucose Level 99 Calcium Level 8.0 L Phosphorus Level 6.2 H Magnesium Level 2.2 Medications Medications Current Medications Ondansetron HCl (Zofran Inj) 4 mg Q6H PRN IV NAUSEA AND/OR VOMITING Last administered on 05/12/17 20:57; Admin Dose 4 MG; Start 05/07/17 at 05:00 Bisacodyl (Dulcolax) 5 mg DAILY PRN PO CONSTIPATION; Start 05/07/17 at 05:00 Acetaminophen (Tylenol Tab) 650 mg Q6H PRN PO PAIN LEVEL 1-3 OR FEVER; Start at 07:00 Multivit/Ca Carb/ B Cmplx/FA/Prenat 1 tab 1 tab DAILY PO Last administered on 09:42; Admin Dose 1 TAB; Start 05/07/17 at 09:00 Piperacillin Sod/ Tazobactam Sod (Zosyn 2.25gm/ 50ml (Pmx)) 50 ml @ 100 mls/hr Q8 IVPB Last administered on 05/18/17 13:51; Admin Dose 100 MLS/HR; Start at 13:00 Hydralazine HCl (Apresoline) 10 mg Q4H PRN IV SBP ABOVE 140; Start 05/08/17 at 16:00 Docusate Sodium (Colace) 100 mg Q12 PO Last administered on 05/17/17 20:30; Admin Dose 100 MG; Start 05/09/17 at 21:00 Nifedipine (Procardia Xl) 60 mg BID PO Last administered on 05/18/17 09:43; Admin Dose 60 MG; Start 05/09/17 at 12:00 Famotidine (Pepcid) 20 mg DAILY PO Last administered on 05/18/17 09:42; Admin Dose 20 MG; Start 05/09/17 at 12:00 Carvedilol (Coreg) 6.25 mg BID PO Last administered on 05/18/17 09:43; Admin Dose 6.25 MG; Start 05/09/17 at 21:00 Aspirin (Aspirin) 81 mg DAILY PO Last administered on 05/18/17 09:42; Admin Dose 81 MG; Start 05/11/17 at 09:00 Metoprolol Tartrate (Lopressor) 5 mg Q4H PRN IV HR>110 Hold SBP<100; Start at 19:00 Morphine Sulfate (morphine) 4 mg Q3H PRN IV PAIN Last administered on 14:04; Admin Dose 4 MG; Start 05/13/17 at 12:30 Apixaban (Eliquis) 5 mg BID PO Last administered on 05/18/17 09:42; Admin Dose 5 MG; Start 05/15/17 at 21:00 Ibuprofen 400 mg 400 mg BID PRN PO PAIN; Start 05/15/17 at 16:30 Vancomycin HCl/ Sodium Chloride (Vancocin/NS) 250 ml @ 83.333 mls/ hr Q72H IVPB ; Start 05/19/17 at 09:00 YONG SINGH May 18, 2017 17:59
--- NOTE | 2017-05-18 18:13 | CONS ---
Date/Time of Note Date/Time of Note DATE: 05/18/17 TIME: 18:13 Assessment/Plan Assessment/Plan Chief Complaint/Hosp Course S/P HYPERKALEMIA SEPSIS ESRD ANEMIA AVF WOUND PLAN HD ANTIBIOTIC PER ID AND VASCULAR HD AM Problems: Consultation Date/Type/Reason Admit Date/Time May 07, 2017 at 04:33 Type of Consultation: RENAL Referring Provider: LANDON MARMOLEJO MD 24 HR Interval Summary Constitutional: no complaints Exam/Review of Systems Vital Signs Vitals Vital Signs Date Time Temp Pulse Resp B/P Pulse Ox O2 Delivery O2 Flow Rate FiO2 05/18/17 16:42 71 05/18/17 16: 98.3 17 117/65 99 05/18/17 00:00 Room Air 2.0 Intake and Output 05/17/17 05/17/17 05/18/17 15:00 23:00 07:00 Intake Total 1350 ml 250 ml Output Total 1900 ml Balance -550 ml 250 ml Exam Neck: supple Respiratory: clear to auscultation Gastrointestinal: soft Musculoskeletal: nl extremities to inspection Results Result Diagram: 05/18/17 0721 05/18/17 0721 Results 24 hrs Laboratory Tests Test 05/18/17 07:21 White Blood Count 2.5 #L Red Blood Count 2.72 L Hemoglobin 8.4 L Hematocrit 24.7 L Mean Corpuscular Volume 90.8 Mean Corpuscular Hemoglobin 30.9 Mean Corpuscular Hemoglobin Concent 34.0 Red Cell Distribution Width 12.7 Platelet Count 92 L Mean Platelet Volume 10.0 Neutrophils % Segmented Neutrophils % (Manual) 43 Band Neutrophils % (Manual) 3 Lymphocytes % Lymphocytes % (Manual) 38 Monocytes % Monocytes % (Manual) 12 H Eosinophils % Eosinophils % (Manual) 4 Basophils % Nucleated Red Blood Cells % 0.0 Neutrophils # Neutrophils # (Manual) 1.1 L Band Neutrophils # 0.0 Absolute Lymphocytes (Manual) 0.9 Lymphocytes # Monocytes # Absolute Monocytes (Manual) 0.3 Eosinophils # Basophils # Nucleated Red Blood Cells # Smudge Cells % 7 H Thrombocytosis 4 H Platelet Estimate DECREASED Polychromasia 1+ Poikilocytosis 1+ Anisocytosis 1+ Microcytosis 1+ Sodium Level 139 Potassium Level 3.9 Chloride Level 96 L Carbon Dioxide Level 26 Anion Gap 21 H Blood Urea Nitrogen 37 #H Creatinine 6.58 #H Glucose Level 99 Calcium Level 8.0 L Phosphorus Level 6.2 H Magnesium Level 2.2 Medications Medications Current Medications Ondansetron HCl (Zofran Inj) 4 mg Q6H PRN IV NAUSEA AND/OR VOMITING Last administered on 05/12/17 20:57; Admin Dose 4 MG; Start 05/07/17 at 05:00 Bisacodyl (Dulcolax) 5 mg DAILY PRN PO CONSTIPATION; Start 05/07/17 at 05:00 Acetaminophen (Tylenol Tab) 650 mg Q6H PRN PO PAIN LEVEL 1-3 OR FEVER; Start at 07:00 Multivit/Ca Carb/ B Cmplx/FA/Prenat 1 tab 1 tab DAILY PO Last administered on 09:42; Admin Dose 1 TAB; Start 05/07/17 at 09:00 Piperacillin Sod/ Tazobactam Sod (Zosyn 2.25gm/ 50ml (Pmx)) 50 ml @ 100 mls/hr Q8 IVPB Last administered on 05/18/17 13:51; Admin Dose 100 MLS/HR; Start at 13:00 Hydralazine HCl (Apresoline) 10 mg Q4H PRN IV SBP ABOVE 140; Start 05/08/17 at 16:00 Docusate Sodium (Colace) 100 mg Q12 PO Last administered on 05/17/17 20:30; Admin Dose 100 MG; Start 05/09/17 at 21:00 Nifedipine (Procardia Xl) 60 mg BID PO Last administered on 05/18/17 09:43; Admin Dose 60 MG; Start 05/09/17 at 12:00 Famotidine (Pepcid) 20 mg DAILY PO Last administered on 05/18/17 09:42; Admin Dose 20 MG; Start 05/09/17 at 12:00 Carvedilol (Coreg) 6.25 mg BID PO Last administered on 05/18/17 09:43; Admin Dose 6.25 MG; Start 05/09/17 at 21:00 Aspirin (Aspirin) 81 mg DAILY PO Last administered on 05/18/17 09:42; Admin Dose 81 MG; Start 05/11/17 at 09:00 Metoprolol Tartrate (Lopressor) 5 mg Q4H PRN IV HR>110 Hold SBP<100; Start at 19:00 Morphine Sulfate (morphine) 4 mg Q3H PRN IV PAIN Last administered on 14:04; Admin Dose 4 MG; Start 05/13/17 at 12:30 Apixaban (Eliquis) 5 mg BID PO Last administered on 05/18/17 09:42; Admin Dose 5 MG; Start 05/15/17 at 21:00 Ibuprofen 400 mg 400 mg BID PRN PO PAIN; Start 05/15/17 at 16:30 Vancomycin HCl/ Sodium Chloride (Vancocin/NS) 250 ml @ 83.333 mls/ hr Q72H IVPB ; Start 05/19/17 at 09:00 LANDON MARMOLEJO MD May 18, 2017 18:13
[2017-05-19] MEDS ORDERED: VANCOMYCIN 1.25 GM in SOD CHLORIDE 0.9% 250 ML IVPB SCH (09:00)
--- NOTE | 2017-05-20 06:26 | CONS ---
DATE OF ADMISSION: 05/07/2017 DATE OF CONSULTATION: 05/07/2017 HISTORICAL EVENTS: Thank Dr. Sanchez and dr mensah for kindly asking me to see this patient in consultation. The patient with a history of ESRD, hypertension, history of proteinuria in the past. Previously, patient had an allergic reaction to Keflex, which resolved. Now presents with infection of the AV fistula site and is being admitted for further management. PAST MEDICAL HISTORY: Positive for pneumonia, history of ESBL, history of VRE, history of ESRD, history of hypertension, history of valvular heart disease, history of mitral regurgitation, history of hepatitis C, history of chronic superior vena cava syndrome, history of pericardial effusion, history of nephrotic syndrome, history of hemoptysis, history of thrombocytopenia, history of hypothyroidism, history of cardiomyopathy, history of ejection fraction 40%, history of leukopenia, history of anemia, history of placement, history of varicose veins. ALLERGIES: KEFLEX, CEPHALOSPORIN, TRAMADOL. SOCIAL HISTORY: Negative. FAMILY HISTORY: Negative. MEDICATION HISTORY: The patient is on Tylenol, aspirin, calcium acetate, Coreg, vitamin D2, hydralazine, hydrocodone, isosorbide, multivitamin, nifedipine, Aldactone, Spiriva. REVIEW OF SYSTEMS: HEENT: Unremarkable. RESPIRATORY: Unremarkable. CARDIOVASCULAR: Unremarkable. ABDOMEN: Unremarkable. EXTREMITIES: Pain in the left upper extremity. The patient also was complaining of redness, swelling and fever as well. PHYSICAL EXAMINATION: GENERAL APPEARANCE: The patient is awake, alert. VITAL SIGNS: Pulse 90, blood pressure 142/73, temperature 99.1. HEENT: Head is atraumatic and normocephalic. Pupils equal and reactive to light. NECK: Supple. There is no JVD. LUNGS: Clear. CARDIAC: S1, S2 normal. sm+. ABDOMEN: Soft, nontender. Bowel sounds positive. No palpable mass or hepatosplenomegaly. EXTREMITIES: There is no cyanosis or clubbing. Trace edema. NEUROLOGIC: The patient is awake, alert. No focal deficits. LABORATORY: Hematocrit 29.2. Sodium 130, potassium 4.9. Chest x-ray shows patient has cardiomegaly, mild pulmonary vascular congestion. IMPRESSION: 1. Systemic inflammatory response syndrome. 2. Possible cellulitis of the left upper extremity. 3. End-stage renal disease. 4. Hypertension. 5. History of anemia. 6. History of thrombocytopenia. 7. History of low ejection fraction. 8. History of allergic reaction to Keflex. PLAN: Continue to give this patient renal diet and antibiotic. Hemodialysis will be ordered status post hyperkalemia, and was treated with Kayexalate. Thank you, Dr. ARELLANO and Daniel for kindly asking me to see this patient in nephrology consultation. Dictated By: Ace Castro MD /doug/ec /Document#: [id number] JOSE D
--- NOTE | 2017-05-24 08:02 | CONS ---
DATE OF ADMISSION: 05/07/2017 DATE OF CONSULTATION: 05/08/2017 REASON FOR CONSULTATION: Preoperative evaluation. REQUESTING PHYSICIAN: from the Vascular Surgery Service and Dr. Ace Castro. HISTORY OF PRESENT ILLNESS: Ms. Beard is a very pleasant 51- year-old male well-known to myself from prior hospital admissions, prior hospitalizations with a history of hypertension, bradycardia, end-stage renal disease on dialysis, prior syncopal episode, who presented with nonfunctioning left upper extremity AV fistula and associated possible infection. Additionally, the patient states that he began to have redness spreading across his arms to his chest with subsequent chest pain. Due to these facts, the patient was unable to undergo hemodialysis yesterday on his regular dialysis day and now has been admitted to the hospital. PAST MEDICAL HISTORY: As above in HPI. MEDICATION: 1. Spiriva. 2. Formoterol. 3. Zosyn. 4. Aspirin 81 mg daily. 5. Carvedilol 3.125 mg p.o. b.i.d. 6. Morphine p.r.n. 7. Tylenol p.r.n. ALLERGIES: KEFLEX. TRAMADOL. SOCIAL HISTORY: No tobacco, alcohol, illicit drug use. FAMILY HISTORY: No history of sudden cardiac or early CD. REVIEW OF SYSTEMS: As above in HPI. CONSTITUTIONAL: No fever, chills. PULMONARY: Current shortness of breath. CARDIOVASCULAR: No current chest pain. GASTROINTESTINAL: No vomiting. GENITOURINARY: End-stage renal disease. PSYCHIATRIC: No documented psychiatric history. NEUROLOGIC: No documented history of CVA. PHYSICAL EXAMINATION: VITAL SIGNS: Temperature 98 degrees, blood pressure 139/70, pulse 63, saturating 95 percent. GENERAL: The patient is alert, awake, complaining of pain in the left arm. NECK: JVP approximately 9 cmH2O. LUNGS: Fairly clear throughout with mildly decreased breath sounds at the bases bilaterally. HEART: Regular rate and rhythm. Normal S1, S2. One out of 6 systolic murmur. Nondisplaced PMI. ABDOMEN: Positive bowel sounds. Soft. EXTREMITIES: Pitting edema. One-plus pulses bilaterally, posterior tibial. Left upper extremity covered by dressing. LABORATORY: As per HPI with most recently from today: White count 6.1, hemoglobin 8.5, platelet count 111,000. Sodium 139, potassium 5.9, creatinine 7.65, BUN 51. Troponin negative times one. INR 1.19. Urinalysis negative. IMAGING: Chest x-ray from 05/07/2017 revealing cardiomegaly, mild pulmonary vascular congestion. IMPRESSION: 1. Preoperative evaluation prior to revision of arteriovenous fistula and debridement. 2. Chest pain, currently resolved but prior possibly due to associated infection status post acute coronary syndrome. 3. Hypertension. 4. Congestive heart failure via chest x-ray/volume overload in the setting of missing hemodialysis, diastolic, acute on chronic by most recent echocardiogram done yesterday revealing ejection fraction of 55 percent with mild to moderate tricuspid regurgitation and moderate pulmonary hypertension. 5. End-stage renal disease on hemodialysis. 6. Bacteremia, Gram-negative rods. 7. Fevers. 8. Hyperkalemia. 9. Anemia. PLAN: 1. At this time will maintain the patient on telemetry monitoring to follow rhythm and rates closely. 2. Will check serial EKGs to assess for ongoing changes. EKG in the morning, EKG when patient complains of chest pain to see change in rhythm. 3. Continue the patient's broad-spectrum antibiotics. Continue to follow up all culture data. 4. Continue the patient's carvedilol at this time and will hold DUC inhibitor at this time in the setting of hyperkalemia. Will initiate the patient on a calcium channel cricket to improve overall systolic blood pressure control. 5. Hemodialysis today for volume removal and correction of potassium. 6. The patient is status post Kayexalate additionally for correction of potassium. 7. Check fasting lipid panel for . Initiate as necessary. 8. Continue the patient's aspirin as prophylaxis for cardiac stents, and will send the patient's cardiac markers every six hours times three. The patient's awake overnight monitor is chronic in nature and that the patient has not had any recent coronary syndrome in anticipation for upcoming surgery. Thank you for allowing me to take part in the care of this patient. I will continue to follow him very closely with you for recommendations made . Dictated By: Kun Scales /fnt/clp /Document#: [id number] CC: Ace Castro MD;*EndCC*
--- NOTE | 2017-05-28 11:54 | OPR ---
Date/Time of Note Date/Time of Note DATE: 05/12/17 TIME: 11:53 Operative Report Free Text/Dictation DATE OF OPERATION: 05/12/2017 SURGEON: Prem Meza MD PREOPERATIVE DIAGNOSIS: End-stage renal disease and left upper extremity aneurysmal fistula and malfunction. POSTOPERATIVE DIAGNOSIS: End-stage renal disease and left upper extremity aneurysmal fistula and malfunction. PROCEDURE: Revision of left arm arteriovenous fistula and aneurysmorrhaphy. ANESTHESIA: Block and local. COMPLICATIONS: None. ESTIMATED BLOOD LOSS: 100 mL. TRANSFUSIONS: None. SPECIMEN: Aneurysmal fistula. INDICATIONS: This is a 51-year-old male whom presented with history of end-stage renal disease and over a number of years the patient has developed significant aneurysmal changes in his radiocephalic fistula. These aneurysmal portions in the arm had become discomforting for the patient and having issues during her cannulations for her dialysis sessions. The risks and benefits of the procedure were discussed with the patient and not limited to , MT, pneumonia, stroke, infection, thrombosis of graft, and arterial system revisions of arteriovenous fistula, steal, and she elected to undergo surgical interventions. DESCRIPTION: The patient was brought onto the operating room table and placed in a supine position. The arms were placed at 80 degrees and normal bony prominences were padded. The anesthesia team had placed appropriate lines and anesthesia was given. A timeout was performed. Appropriate sites were marked. Left upper extremity was prepped and draped in the usual standard sterile Fashion. At this point, local anesthesia 1-percent lidocaine was infiltrated in the region of the aneurysmal portion, the lateral aspect of the distal forearm. Incision was made near the radiocephalic fistula anastomosis and the skin incision was extended for about 20 cm. The aneurysmal portions of the fistula were then dissected free of the surrounding tissue. There were multiple tributaries which were ligated with 3-0 silk sutures and vascular clips. The patient was given intravenous heparin. After adequate time elapsed, we went ahead and clamped the arterial and venous portions of the fistula in the proximal and distal segments. The most distal aneurysmal portion of the fistula was excised at both ends and we reanastomosed in an end-to-end fashion the non-aneurysmal portion of the vein. The vein was then spatulated in a spliced fashion and using a running 6-0 Prolene an anastomosis was performed. Prior to completion of the suture line, backbleeding and forward flushing was performed. The area was flushed with heparinized saline solution and anastomosis was completed. Our attention was then turned towards the proximal aneurysmal portion of the fistula, which was not as large as the distal segment. Proximal and distal clamps were placed and an aneurysmorrhaphy was performed. Revision and reconstruction of the fistula was conducted using a running 5-0 Prolene suture. Prior to our completion of the suture line, backbleeding, forward flushing and irrigation with heparinized saline solution was performed. Clamps were removed and there was some bleeding from the suture line which was controlled with a 6-0 prolene sutures. There was good bruit and thrill and no kinks were identified. Hemostasis was Achieved. We excised the necrotic portion of the skin overlying the proximal aneurysmal portion of the fistula. Using interrupted 3-0 Vicryl suture, the dermal layer was closed and skin kailey were applied. The patient had a good bruit and thrill over the area of the fistula and sterile dressing was applied. The patient tolerated the procedure well and was taken to the postanesthesia care unit in stable condition. All instruments, catheters, sponges, and needles were correct x2. PREM MEZA MD May 28, 2017 11:54
== END 2017-05-18 18:55 | disposition home health service (06) | DRG 252 ==
LOC: E/R 01:09 → MS4 04:33
PROVIDERS: ADMIT Family Medicine; ATTEND Family Medicine
PROC: 06HM33Z Insertion of Infusion Device into Right Femoral Vein, Percutaneous Approach (ICD-10-PCS; 2017-05-08)
PROC: 5A1D60Z (ICD-10-PCS; 2017-05-08)
PROC: 03BC0ZZ Excision of Left Radial Artery, Open Approach (ICD-10-PCS; 2017-05-12)
PROC: 0HBCXZZ Excision of Left Upper Arm Skin, External Approach (ICD-10-PCS; 2017-05-12)
PROC: 30233N1 Transfusion of Nonautologous Red Blood Cells into Peripheral Vein, Percutaneous Approach (ICD-10-PCS; 2017-05-12)
PROC: 03WY07Z Revision of Autologous Tissue Substitute in Upper Artery, Open Approach (ICD-10-PCS; principal; 2017-05-12 12:00)
PROC: 0JH63XZ Insertion of Tunneled Vascular Access Device into Chest Subcutaneous Tissue and Fascia, Percutaneous Approach (ICD-10-PCS; 2017-05-14)
PROC: 02H633Z Insertion of Infusion Device into Right Atrium, Percutaneous Approach (ICD-10-PCS; 2017-05-14)
DX: T82.7XXA Infection and inflammatory reaction due to other cardiac and vascular devices, implants and grafts, initial encounter (principal); A41.50 Gram-negative sepsis, unspecified; I50.33 Acute on chronic diastolic (congestive) heart failure; N18.6 End stage renal disease; I13.2 Hypertensive heart and chronic kidney disease with heart failure and with stage 5 chronic kidney disease, or end stage renal disease; L03.114 Cellulitis of left upper limb; T81.30XA Disruption of wound, unspecified, initial encounter; T81.31XA Disruption of external operation (surgical) wound, not elsewhere classified, initial encounter; E87.5 Hyperkalemia; B19.20 Unspecified viral hepatitis C without hepatic coma; Z87.891 Personal history of nicotine dependence; L98.499 Non-pressure chronic ulcer of skin of other sites with unspecified severity; Z72.0 Tobacco use; D63.1 Anemia in chronic kidney disease; J44.9 Chronic obstructive pulmonary disease, unspecified; T82.898A Other specified complication of vascular prosthetic devices, implants and grafts, initial encounter; I72.8 Aneurysm of other specified arteries; B95.2 Enterococcus as the cause of diseases classified elsewhere; B95.61 Methicillin susceptible Staphylococcus aureus infection as the cause of diseases classified elsewhere; B96.89 Other specified bacterial agents as the cause of diseases classified elsewhere; I48.91 Unspecified atrial fibrillation; Z79.82 Long term (current) use of aspirin
CPT/HCPCS: 36415; 36430; 36558; 71010; 73206; 76942; 80048; 80053; 80061; 80202; 81001; 81003; 82550; 82553; 82962; 83036; 83605; 83735; 84100; 84443; 84484; 85025; 85610; 85730; 86850; 86900; 86901; 86920; 87040; 87070; 87086; 88304; 90935; 93005; 93306; 94664; 96365; 96375; 96376; C9113; J0360; J1170; J1200; J1644; J1815; J2250; J2270; J2405; J2543; J2597; J2765; J3010; J3370; J7040; J7050; J7999; P9016; Q9967

== ENCOUNTER 2017-08-16 10:17 | Day surgery (SDC) | payer OTHER ==
[~2017-08-16] VITALS: Ht 157.5 cm; Wt 63.7 kg
[~2017-08-16 10:17] MED LIST changes: -ACET-2158 PO; -ALBU18HF INH; +APIX5TAB PO; -CARV3.1260 PO; +CARV6.2579 PO; +ERGO2000 PO; -FOLI1CAP PO; +HYDR-902 PO; -LACTOBACILLUS RHAMNOSUS PO; +LEVO500T10 PO; -MED4DP PO; +NEPH PO; +TIOT4MIS4 INHALATION
--- NOTE | 2017-08-16 11:00 | RADRPT ---
PROCEDURE: XR Chest. CLINICAL INDICATION: Preop TECHNIQUE: AP view of the chest was obtained. COMPARISON: 12/07/2014 FINDINGS: Cardiac silhouette remains mild to moderately enlarged. There is a right jugular hemodialysis cathet er with the tip in the SVC region.. The lungs are clear. No pleural effusion or pneumothorax is id entified. Visualized osseous structures are intact. IMPRESSION: Cardiomegaly, without acute cardiopulmonary disease identified. RPTAT: VV .Raghu Patton MD, MD Date Time Electronically viewed and signed by .Raghu Patton MD, MD on 08/16/2017 11:00 .O/
[2017-08-16 11:35] LABS: BASOPHILS % 0.5 % (0.0-2.0); EOSINOPHILS # 0.2 10^3/ul (0.0-0.5); EOSINOPHILS % 4.4 % (0.0-7.0); HEMATOCRIT 37.4 % (42.0-52.0); HEMOGLOBIN 11.9 g/dl (14.0-18.0); LYMPHOCYTES % 24.7 % (15.0-51.0); MEAN CORPUSCULAR HEMOGLOBIN 30.8 pg (29.0-33.0); MEAN CORPUSCULAR HGB CONC 31.8 g/dl (32.0-37.0); MEAN CORPUSCULAR VOLUME 96.9 fl (82.0-101.0); MEAN PLATELET VOLUME 8.7 fl (7.4-10.4); MONOCYTE # 0.4 10^3/ul (0.3-0.9); MONOCYTES % 10.1 % (0.0-11.0); NEUTROPHIL # 2.3 10^3/ul (1.6-7.5); NEUTROPHILS % 59.8 % (39.0-77.0); PLATELET COUNT 128 10^3/UL (140-415); RED BLOOD COUNT 3.86 10^6/ul (4.70-6.10); RED CELL DISTRIBUTION WIDTH 14.5 % (11.5-14.5); WHITE BLOOD COUNT 3.9 10^3/ul (4.8-10.8)
[2017-08-16 11:36] LABS: HOLD TRANSMISSIONS 1
[2017-08-16 11:37] VITALS: BP 138/81; PULSE 66; RESP 16
[2017-08-16 11:40] VITALS: Ht 157.5 cm; Wt 63.7 kg
[2017-08-16 11:58] LABS: ADD UMIC YES; UR ASCORBIC ACID NEGATIVE (NEGATIVE); UR BACTERIA FEW /HPF (NONE SEEN); UR BILIRUBIN (Dip) NEGATIVE (NEGATIVE); UR BLOOD (Dip) 3+ mg/dL (NEGATIVE); UR CLARITY CLEAR (CLEAR); UR COLOR YELLOW (YELLOW); UR GLUCOSE (Dip) NEGATIVE (NEGATIVE); UR KETONES (Dip) NEGATIVE (NEGATIVE); UR LEUKOCYTE ESTERASE (Dip) NEGATIVE Leu/ul (NEGATIVE); UR NITRITE (Dip) NEGATIVE (NEGATIVE); UR RBC 180 /HPF (0-5); UR SPECIFIC GRAVITY (Dip) 1.004 (1.003-1.030); UR TOTAL PROTEIN (Dip) 3+ mg/dl (NEGATIVE); UR UROBILINOGEN (Dip) NEGATIVE (NEGATIVE)
[2017-08-16 12:01] VITALS: BP 138/81; PULSE 66; RESP 16
[2017-08-16 12:07] LABS: INR 1.29; PROTIME 16.2 Sec (12.2-14.2); PT RATIO 1.3
[2017-08-16 12:24] LABS: PARTIAL THROMBOPLASTIN TIME 38.4 Sec (25.0-35.0)
[2017-08-16 13:46] LABS: CALCIUM 8.6 mg/dl (8.4-10.2); CREATININE 4.52 mg/dl (0.61-1.24); POTASSIUM 4.5 mmol/L (3.5-5.1)
--- NOTE | 2017-08-17 22:40 | RADRPT ---
Vent Rate: 59 bpm RR Interval: 0 msec [place] Interval: 170 msec QRS Duration: 92 msec QT Interval: 448 msec QTC Interval: 443 msec P-R-T [place]: 50 - -31 - 57 degrees Sinus bradycardia Left axis deviation Possible Anterior infarct , age undetermined Abnormal ECG Electronically Signed By: Pepe Zuluaga [id number]
== END 2017-08-16 12:30 | disposition home or self-care (01) ==
LOC: SDS 10:17
PROVIDERS: ATTEND Student in an Organized Health Care Education/Training Program
DX: N18.6 End stage renal disease (principal); Z53.8 Procedure and treatment not carried out for other reasons
CPT/HCPCS: 71010; 80048; 81001; 85025; 85610; 85730; 93005

== ENCOUNTER 2017-08-23 10:40 | Day surgery (SDC) | payer OTHER ==
[~2017-08-23] VITALS: Ht 157.5 cm; Wt 69.8 kg
[2017-08-23] VITALS (10 sets, daily range): BP systolic 115–139; BP diastolic 65–76; PULSE 52–68; RESP 10–22; Ht 157.5 cm; Wt 69.8 kg
[~2017-08-23 10:40] MED LIST changes: -LEVO500T10 PO
[2017-08-23] MEDS ORDERED: FENTAnyl 50 MCG/ML VIAL ONE (12:42)
[2017-08-23] MEDS ORDERED: PROPOFOL 100 ML ONE (12:42)
[2017-08-23] MEDS ORDERED: CEFAZOLIN 1 GM INJ ONE (12:42)
[2017-08-23] MEDS ORDERED: MIDAZOLAM 1 MG/ML 2 ML INJ ONE (12:42)
[2017-08-23] MEDS ORDERED: ROPIVACAINE 0.2% 20 ML VIAL ONE (12:43)
--- NOTE | 2017-08-23 12:46 | HPN ---
Date/Time of Note Date/Time of Note DATE: 08/23/17 TIME: 12:46 Interval H&P Admission Note Pt. seen H&P reviewed: No system changes DEMETRIUS MEZA MD Aug 23, 2017 12:46
[2017-08-23] MEDS ORDERED: MEPERIDINE 25 MG INJ IV PRN (13:30)
[2017-08-23] MEDS ORDERED: hydrALAzine 20 MG INJ IV PRN (13:30)
[2017-08-23] MEDS ORDERED: OXYCODONE/ACETAMINOPHEN (5/325) TAB PO PRN ×2 (13:30)
[2017-08-23] MEDS ORDERED: DIPHENHYDRAMINE 50 MG INJ IV PRN (13:30)
[2017-08-23] MEDS ORDERED: LABETALOL HCL 20MG INJ IV PRN (13:30)
[2017-08-23] MEDS ORDERED: HYDROmorphONE (0.2 MG/ML) 10ML SYG IV PRN ×3 (13:30)
[2017-08-23] MEDS ORDERED: ONDANSETRON 4 MG INJ IV PRN (13:30)
--- NOTE | 2017-08-23 14:20 | SIPON ---
Date/Time of Note Date/Time of Note DATE: 08/23/17 TIME: 14:15 Operative Report Preoperative Diagnosis LUE NONHEALING WOUND Postoperative Diagnosis SAME Operation/Procedure Performed EXCISIONAL SHARP DEBRIDEMENT OF THE SKIN AND SUBCUTANEOUS TISSUE <20CMSQ APPLICATION OF THE AMNIOFILL PLACENTAL MEMBRANE 1 GRAM AND AMNIOFIX AMNIOTIC ALLOGRAFT 7X6CM Surgeon see signature line housing assistant property manager NONE Anesthesia: moderate sedation Estimated blood loss: minimal Transfusion Required none Specimen NONE Grafts/Implants AMNIOTIC TISSUE Complications none DEMETRIUS MEZA MD Aug 23, 2017 14:20
--- NOTE | 2017-08-23 14:20 | SIPON ---
Date/Time of Note Date/Time of Note DATE: 08/23/17 TIME: 14:15 Operative Report Preoperative Diagnosis LUE NONHEALING WOUND Postoperative Diagnosis SAME Operation/Procedure Performed EXCISIONAL SHARP DEBRIDEMENT OF THE SKIN AND SUBCUTANEOUS TISSUE <20CMSQ APPLICATION OF THE AMNIOFILL PLACENTAL MEMBRANE 1 GRAM AND AMNIOFIX AMNIOTIC ALLOGRAFT 7X6CM Surgeon see signature line senior sales assistant NONE Anesthesia: moderate sedation Estimated blood loss: minimal Transfusion Required none Specimen NONE Grafts/Implants AMNIOTIC TISSUE Complications none DEMETRIUS MEZA MD Aug 23, 2017 14:20
--- NOTE | 2017-08-23 14:20 | SIPON ---
Date/Time of Note Date/Time of Note DATE: 08/23/17 TIME: 14:15 Operative Report Preoperative Diagnosis LUE NONHEALING WOUND Postoperative Diagnosis SAME Operation/Procedure Performed EXCISIONAL SHARP DEBRIDEMENT OF THE SKIN AND SUBCUTANEOUS TISSUE <20CMSQ APPLICATION OF THE AMNIOFILL PLACENTAL MEMBRANE 1 GRAM AND AMNIOFIX AMNIOTIC ALLOGRAFT 7X6CM Surgeon see signature line head start assistant teacher NONE Anesthesia: moderate sedation Estimated blood loss: minimal Transfusion Required none Specimen NONE Grafts/Implants AMNIOTIC TISSUE Complications none DEMETRIUS MEZA MD Aug 23, 2017 14:20
--- NOTE | 2017-08-23 14:22 | PDOCDIS ---
Discharge Instructions DIAGNOSIS Discharge Diagnosis ESRD CONDITION Patient Condition: Good HOME CARE INSTRUCTIONS: Special Diet: RERSUME PREOP ACTIVITY: Activity Restrictions: Avoid heavy lifting Do not Drive Do not operate Machinery Do not operate Power Tool Avoid Heavy Housework Keep Limb Elevated Bathing Restrictions: Sponge Bath FOLLOW UP/APPOINTMENTS Follow-up Plan FOLLOWUP NEXT WEDNESDAY FOR REMOVAL OF DRESSING AND WOUND CHECK DO NOT REMOVE DRESSING FOR 7 DAYS KEEP ARM SLING ON UNTIL MOTOR/SENSORY RETURNS (8-10HRS) AVOID BATHING OR SWIMMING DEMETRIUS MEZA MD Aug 23, 2017 14:22
--- NOTE | 2017-08-23 15:47 | OPR ---
DATE OF OPERATION: 08/23/2017 SURGEON: Prem Aly. PREOPERATIVE DIAGNOSIS: Left upper extremity nonhealing wound. POSTOPERATIVE DIAGNOSIS: Left upper extremity nonhealing wound. PROCEDURE: 1. Excisional sharp debridement of the left upper extremity nonhealing wound involving skin and sub cutaneous tissue. Wound measuring less than 20 cm2 area. 2. Application of AmnioFill placental membrane 1 gram. 3. Application of AmnioFix amniotic allograft 7 x 6 cm. ANESTHESIA: Regional block with moderate sedation. ESTIMATED BLOOD LOSS: Minimal. COMPLICATIONS: None. INDICATIONS: This is a 51-year-old gentleman who has had history of left upper extremity aneurysmal fistula that was provided at the outside hospital and subsequently, presented with wound dehiscence and exposure of this fistula. Patient was evaluated by vascular surgery by our vascular surgery se rvamadeo in which his wound dehiscence and exposed fistula had become infected; therefore, he underwent revision of his left upper extremity fistula with aneurysmorrhaphy and revision. Patient's wound h ad developed area of eschar in the medial aspect of the upper arm where the revision was performed a s he had limited amount of skin in that area post his re-intervention. Patient had been managed wit h local wound care; however, he developed a significant thick eschar that was concerning to be remov ed in the office setting, therefore, he was scheduled for debridement of this segment with applicati on of AmnioFill tissue in order to provide improved granulation tissue and closure of the wound defe ct. Therefore, the patient had been informed of alternatives, risks and benefits with risks includi ng but not limited to bleeding, infection, thrombosis of fistula, limb loss, nerve injury, , st roke, myocardial infarction requiring multiple debridements in the future. Patient has agreed to pr oceed. DESCRIPTION OF PROCEDURE: The patient was brought into the operating room table, placed in supine p osition. The normal and the bony prominences were padded. Anesthesia team had placed appropriate l ross and anesthesia was induced with regional block being performed to the left upper extremity. Carlos goodson tolerated this aspect of the procedure well and he was marked and confirmed. Preoperative ant ibiotics were given prior to debridement. The patient's left upper extremity was then prepped and d raped in usual standard sterile fashion. Using sharp scissors and #15 scalpel, excisional sharp danish ridement of all the necrotic tissue involving the skin and subcutaneous tissue was performed of the left upper extremity. The thick eschar was removed and the area of fatty tissue was exposed. This area was further debrided down to area where there was good rebleeding generated and the fistula aliyah t was adhered to that was palpable with bruit and thrill being present. At this point, we applied 1 gram of AmnioFill placental membrane in order to repair and replace the lost and damaged tissue. F urther this was covered by AmnioFix amniotic allograft 7 x 6 cm in order to cover all the exposed ar eas and repair and replace the lost and damaged tissues and the wound defect. At this point, Adapti c was applied circumferentially followed by Surgiglue. This was then followed by Buddy and Joe eastman. Patient tolerated this aspect of the procedure well and was taken to postanesthesia care u nit in stable condition. PLAN: We will have the patient follow up with us in about 7 days for us to remove the dressing and evaluated the wound. Dictated By: PREM PAGAN/TYRA Conf#: [id number] DID#: [id number]
--- NOTE | 2017-08-30 11:55 | CONS ---
Date/Time of Note Date/Time of Note DATE: 08/30/17 TIME: 11:53 Assessment/Plan Assessment/Plan Chief Complaint/Hosp Course VASCULAR SURGERY H&P DATE: 08/23/2017 SUBJECTIVE DATA: Dear doctors', Mr. Abel Bell is a 51-year- old with history of end-stage renal disease, in which he underwent a new left upper extremity AV fistula revision and aneurysmorrhaphy by our vascular surgery service secondary to exposed fistula, as he has had a revision done at outside facility. The patient unfortunately had wound dehiscence and has significant infection where his fistula is become exposed and we had undertaken a revision for him. His wound developed an eschar on the mid aspect of his surgical scar line that we have been gradually watching, he is doing well. At the moment he denies shortness of breath, chest pain, nausea, vomiting, fever, chills. Denies upper extremity claudication or rest pain like symptoms. PHYSICAL EXAM: GENERAL: Alert and oriented x3. RESPIRATORY: Clear to auscultation bilaterally. CARDIAC: S1, S2 present. ABDOMEN: Soft, nontender, nondistended. Bowel sounds positive. EXTREMITIES: Left upper extremity with palpable radial pulse. Motor and sensory intact. Capillary refill 2-3 seconds. Surgical scar healed on the proximal and distal, and the mid aspect. There is an eschar which has been getting smaller gradually. No area of erythema. Sutures and kailey are intact in the mid aspect, which we will continue to monitor. ASSESSMENT AND PLAN: End-stage renal disease: The patient is doing well from the status point of his revision aneurysmorrhaphy. He still has an eschar that developed in the mid aspect of the incision line, which we will PLAN TO DEBRIDE AND PLACE HUMAN PLACENTAL AMNIOTIC TISSUE TO cover THE DEFECT AND EXPEDITE wound healing Optimize vascular status (nutrition, exercise, sugar control, anti-platelets). Discussed findings and plan of management with the patient. He understands with his at the bedside. Thank you for allowing us to partake in the care of your patient. Please call with any questions. Problems: Consultation Date/Type/Reason Admit Date/Time Social History Smoking Status: Never smoker DEMETRIUS MEZA MD Aug 30, 2017 11:55
== END 2017-08-23 15:55 | disposition home or self-care (01) ==
LOC: SDS 10:40
PROVIDERS: ATTEND Student in an Organized Health Care Education/Training Program
DX: T82.7XXA Infection and inflammatory reaction due to other cardiac and vascular devices, implants and grafts, initial encounter (principal); Y84.8 Other medical procedures as the cause of abnormal reaction of the patient, or of later complication, without mention of misadventure at the time of the procedure; Y92.89 Other specified places as the place of occurrence of the external cause; I12.0 Hypertensive chronic kidney disease with stage 5 chronic kidney disease or end stage renal disease; N18.6 End stage renal disease; Z99.2 Dependence on renal dialysis
CPT/HCPCS: 11042; 11045; 80048; 81001; 85025; 85610; 85730; J0690; J2250; J2795; J3010

== ENCOUNTER 2017-10-19 05:41 | Day surgery (SDC) | payer OTHER ==
[~2017-10-19] VITALS: Ht 170.2 cm; Wt 72.5 kg
[2017-10-19 05:59] VITALS: Ht 170.2 cm; Wt 72.5 kg
[2017-10-19 06:00] VITALS: BP 141/89; PULSE 89; RESP 18
[2017-10-19] MEDS ORDERED: CHOL200073 PO (06:09)
[2017-10-19] MEDS ORDERED: ASPI-664 PO (06:09)
[2017-10-19] MEDS ORDERED: FOLI-49 PO (06:09)
[2017-10-19] MEDS ORDERED: ISOS30TA18 PO (06:09)
[2017-10-19] MEDS ORDERED: NEPH PO (06:09)
[2017-10-19] MEDS ORDERED: HEPARIN 1000 UNITS/NS (A-LINE) 1,000 ML ONE (07:30)
[2017-10-19] MEDS ORDERED: LIDOCAINE 1% (MDV) 20 ML INJ ONE (07:30)
[2017-10-19] MEDS ORDERED: IODIXANOL LOCM 100 ML BTL ONE (07:31)
[2017-10-19] MEDS ORDERED: MIDAZOLAM 1 MG/ML 2 ML INJ ONE (07:31)
[2017-10-19] MEDS ORDERED: FENTAnyl 50 MCG/ML VIAL ONE (07:31)
--- NOTE | 2017-10-19 07:40 | HPN ---
Date/Time of Note Date/Time of Note DATE: 10/19/17 TIME: 07:40 Interval H&P Admission Note Pt. seen H&P reviewed: No system changes DEMETRIUS MEZA MD Oct 19, 2017 07:40
--- NOTE | 2017-10-19 07:41 | CONS ---
Date/Time of Note Date/Time of Note DATE: 10/19/17 TIME: 07:40 Assessment/Plan Assessment/Plan Chief Complaint/Hosp Course DATE: 10/19/2017 VASCULAR SURGERY H&P NOTE Dear Doctors: Mr. Bell is a 51-year-old gentleman known to our vascular surgery service with a history of end-stage renal disease and central stenosis, in which he underwent a new left upper extremity AV fistula revision and aneurysmorrhaphy as the patient had developed wound dehiscence and significant left upper extremity infection post-revision of his fistula at an outside hospital. Patient did develop some wound dehiscence after our repair in an area that he had significant tissue loss and scar tissue and has been managed locally. After our repair, the patient did develop an eschar in his upper aspect of the arm on the medial side, in which the patient developed this eschar in the region of where he had developed wound dehiscence from his previous surgery. We have been treating this area locally with local wound care with collagen- based dressings and surgical debridements, and he has been coming along well. Patient does report new left upper extremity swelling in the armpit area and his left facial area and the neck. He denies shortness of breath, chest pain, nausea, vomiting, fever or chills. PHYSICAL EXAMINATION: GENERAL: Alert and oriented x3. LUNGS: Clear to auscultation bilaterally. HEART: S1, S2 present. ABDOMEN: Soft, nontender, nondistended. Bowel sounds positive. EXTREMITIES: Left upper extremity palpable brachial pulse. Motor and sensory intact. Cap refill 2-3 seconds. Surgical scar is well healed. The medial aspect of the area where we had applied an amnionic tissue graft has taken well and healed. There is good granulation tissue developed, with the wound being much smaller than before. There is a good bruit and thrill present. Upon his neck, he does have some swelling that extends from his left chest to his left neck area. He does have a bruit and thrill in his armpit area, where he has aneurysmal fistula. Upon his ultrasound studies, it is identified patient having new intimal hyperplasia with having aneurysmal fistula with some area of thrombus within his upper arm aspect of the fistula. ASSESSMENT AND PLAN: End-stage renal disease and central stenosis. It seems the patient's left upper extremity fistula revision has come along well. He does have new findings of left upper extremity swelling near his armpit area and extending to his left chest and left facial segment that the patient reports being a little bit bothersome. We will plan to perform a fistulogram to further delineate these findings as he may have his central stenosis recurring again. In regards to his wounds, we will plan to continue with local serial debridements and collagen-based dressings. We will have the patient follow up with us post his fistulogram and continue with his local wound debridement. Vascular optimization (BP meds, diet, nutrition, exercise, sugar control, antiplatelets). Discussed findings, plan and management with the patient. He understands. Total spent time is greater than 25 minutes. Thank you for allowing us to partake in the care of your patient. Please call with any questions. Problems: Consultation Date/Type/Reason Admit Date/Time Social History Smoking Status: Former smoker Exam/Review of Systems Vital Signs Vitals Vital Signs Date Time Temp Pulse Resp B/P Pulse Ox O2 Delivery O2 Flow Rate FiO2 10/19/17 06:00 97.6 89 18 141/89 98 Room Air DEMETRIUS MEZA MD Oct 19, 2017 07:41
[2017-10-19] MEDS ORDERED: IOHEXOL 350MG/ML 50 ML BTL ONE (07:54)
--- NOTE | 2017-10-19 08:20 | PDOCDIS ---
Discharge Instructions DIAGNOSIS Discharge Diagnosis ESRD & CENTRAL STENOSIS CONDITION Patient Condition: Good HOME CARE INSTRUCTIONS: Special Diet: RENAL DIET ACTIVITY: Activity Restrictions: Slowly Increase Activity Rest between Activity Avoid heavy lifting Do not operate Machinery Do not operate Power Tool Avoid Heavy Housework Bathing Restrictions: Sponge Bath FOLLOW UP/APPOINTMENTS Follow-up Plan followup with josr in two weeks can remove suture in 4 days followup with [facility] for wound dressing change of the arm this week DEMETRIUS MEZA MD Oct 19, 2017 08:20
--- NOTE | 2017-10-19 08:22 | SIPON ---
Date/Time of Note Date/Time of Note DATE: 10/19/17 TIME: 08:21 Operative Report Preoperative Diagnosis ESRD Postoperative Diagnosis ESRD & CENTRAL STENOSIS Operation/Procedure Performed LUE FISTULOGRAM CENTRAL VENOPLASTY Surgeon see signature line speech pathology assistant NONE Anesthesia: moderate sedation Estimated blood loss: minimal Transfusion Required none Specimen NONE Grafts/Implants none Complications none DEMETRIUS MEZA MD Oct 19, 2017 08:22
[2017-10-19 08:40] VITALS: BP 147/80; PULSE 71; RESP 20
--- NOTE | 2017-10-19 09:03 | OPR ---
DATE OF OPERATION: 10/19/2017 SURGEON: Prem Aly MD PREOPERATIVE DIAGNOSIS: End-stage renal disease. POSTOPERATIVE DIAGNOSES: 1. End-stage renal disease. 2. Central stenosis. ANESTHESIA: Local with moderate sedation. ESTIMATED BLOOD LOSS: Minimal. COMPLICATIONS: None. HEPARIN: 2500 units. CONTRAST: As recorded. ACCESS: Left upper extremity 6-Bahamian sheath. CLOSURE: Manual compression and 3-0 nylon suture. SEDATION: Under physician supervision, moderate sedation was administered intravenously under apollo nuous monitoring by an interventional team and attending physician. Pulse oximeter, heart rate and blood pressures were continuously monitored by interventional surgeon. The physician's spent time w as 30 minutes of [id number] sedation time with the patient. INDICATIONS: This is a 51-year-old gentleman with a history of end-stage renal disease and a compli cated course in the past in which he had undergone a left upper extremity AV fistula revision and an eurysmorrhaphy at an outside hospital, in which he had developed wound dehiscence and infection of t he left upper extremity. Subsequently, the patient underwent debridement and revision of his fistul a, in which he has been receiving local wound care and been managing his medial aspect of the wound weekly. Over the course of the past few weeks, it has been identified that the patient is beginning to have left armpit area swelling, left facial swelling and aneurysmal changes to his fistula. Upo n discussion with the patient, a decision was made to obtain a fistulogram for further evaluation of possible central stenosis that had been gradually worsening. The patient was discussed with the alternatives, risks and benefits and has agreed to proceed, under standing all that is involved, the risks including but not limited to bleeding, thrombosis, emboliza tion, myocardial infarction, , stroke, device malfunction, infection, nephrotoxicity, and the p atient has agreed to proceed. PROCEDURE: 1. Ultrasound-guided access of the left upper extremity fistula. 2. Fistulogram. 3. Central venoplasty of the left brachiocephalic vein, left subclavian vein, and the proximal supe rior vena cava using a 9 x 40 mm, 12 x 40 mm, and 14 x 40 mm balloon. FINDINGS: 1. Patent fistula that is ectatic, a patent brachial artery. 2. Patent axillary vein, patent subclavian vein. 3. Moderate stenosis of the left subclavian vein and brachiocephalic vein junction. 4. Moderate to severe stenosis of the left brachiocephalic vein. 5. Mild to moderate stenosis of the left brachiocephalic vein and superior vena cava junction. DESCRIPTION OF PROCEDURE: The patient was brought into the angio suite, positioned in a supine posi tion on the fluoroscopic table. Sedation was administered without any complications. The left uppe r extremity was shaved, prepped and draped in the usual standard sterile fashion. Timeout, and appr opriate sites were marked and confirmed. Local anesthesia was then infiltrated in the region of the left upper fistula. The fistula was then cannulated with a micro access needle under ultrasound gu idance, and a guidewire was advanced into the distal fistula under fluoroscopic guidance, and all im ages recorded. The needle was then removed and the microcatheter was placed. A fistulogram was the n obtained of the fistula and a fistulogram with compression which identified the findings of a zamora nt brachial artery and patent fistula with severe central stenosis. At this point, decision was mad e to perform a venoplasty of the central veins in order to decrease the reflux identified and the co llateralization of the left chest. At this point, a Directr guidewire was passed into the central v eins and the microcatheter was removed. A 6-Bahamian sheath was then placed and flushed with heparini zed saline solution. At this point, using a 9 mm x 40 mm balloon, it was advanced into the SVC. At this point, our wire was directed into the SVC towards the inferior vena cava using a guiding anushka ter. Once this was performed, our balloon was then placed in the junction of the left subclavian ve in and the left brachiocephalic vein junction, left brachiocephalic vein, and left brachiocephalic v ein and SVC junction. At each of these segments we performed balloon angioplasty using a 9 x 40 mm balloon, 12 x 40 mm balloon, 14 x 40 mm balloon, respectively. The reason sequential balloon sizes was performed is that the patient still had recoil after our interventions. There was improved flow in the central venous channel with our last balloon angioplasties 14 x 40 mm. At this point, a dec ision was made not to perform any further balloon angioplasty and evaluate the patient's progress. The patient was given intravenous heparin prior to intervention and tolerated it well. At this poin t, using a 3-0 nylon suture, the puncture site was closed. All sheaths, catheters and wires were re moved and accounted for x2. The patient tolerated the procedure well, was taken to [facility] in stable condition. Dictated By: PREM PAGAN/TYRA Conf#: [id number] DID#: [id number]
== END 2017-10-19 09:09 | disposition home or self-care (01) ==
LOC: SDS 05:41
PROVIDERS: ATTEND Student in an Organized Health Care Education/Training Program
DX: N18.6 End stage renal disease (principal); I87.1 Compression of vein; I77.1 Stricture of artery
CPT/HCPCS: 36901; 36907; 84132; C1725; C1894; J1644; J2250; J3010; Q9967

== ENCOUNTER 2017-11-29 07:40 | Day surgery (SDC) | END 2017-11-29 13:40 | disposition home or self-care (01) ==

== ENCOUNTER 2018-02-28 05:52 | Inpatient (IN) | END 2018-03-02 19:20 | disposition home or self-care (01) | DRG 252 ==

== ENCOUNTER 2018-04-11 12:41 | Observation (INO) | END 2018-04-12 15:30 | disposition home or self-care (01) ==

== ENCOUNTER 2018-06-28 12:44 | Emergency (ER) | END 2018-06-28 16:08 | disposition home or self-care (01) ==

== ENCOUNTER 2018-07-13 01:13 | Inpatient (IN) | END 2018-07-17 13:21 | disposition home or self-care (01) | DRG 871 ==

== ENCOUNTER 2019-01-02 01:20 | Inpatient (IN) | payer OTHER ==
[2019-01-02] VITALS (21 sets, daily range): BP systolic 118–166; BP diastolic 55–95; PULSE 61–101; RESP 20–21; Ht 157.5 cm; Wt 103.4 kg
[~2019-01-02] VITALS: Ht 157.5 cm; Wt 103.4 kg
[~2019-01-02 01:20] MED LIST changes: -ASPI-535 PO; +AZIT250T13 PO; -CALC667C PO; -ERGO2000 PO; +HYDR-3671 PO; -HYDR-3672 PO; -HYDR-902 PO; -ISOS30TA5 PO; +ISOS30TA67 PO; +LYR75 PO; -NEPH PO; +NIFE60TA18 PO; -NIFE60TA7 PO; +OSEL30CA PO; +SVL800C PO; -TIOT4MIS4 INHALATION
[2019-01-02] MEDS ORDERED: ACETAMINOPHEN 325 MG TAB PO STA (01:27)
[2019-01-02] MEDS ORDERED: SODIUM CHLORIDE 0.9% 1L BAG IV* STA (01:27)
[2019-01-02] MEDS ORDERED: VANCOMYCIN 1 GM (PMX) 250 ML IVPB ONE (01:30)
[2019-01-02] MEDS ORDERED: LEVOFLOXACIN 750MG/D5W (PMX) 150 ML IVPB ONE (01:30)
[2019-01-02] MEDS ORDERED: LEVOFLOXACIN 500MG/D5W (PMX) 100 ML IVPB STA (02:55)
[2019-01-02] MEDS ORDERED: CA CHLORIDE 10% 10 ML SYRINGE IV STA (03:02)
[2019-01-02] MEDS ORDERED: SODIUM POLYSTYRENE 15 GM KIT (POWDER + SORBITOL) PO STA (03:02)
[2019-01-02] MEDS ORDERED: NA BICARBONATE 8.4% 50 ML SYG IV STA (03:02)
[2019-01-02] MEDS ORDERED: INSULIN REGULAR, HUMAN 100 UNIT/1 ML 3ML VIAL IVP STA (03:02)
[2019-01-02] MEDS ORDERED: AZTREONAM 1 GM/NS (PMX) 50 ML IVPB STA (03:25)
[2019-01-02] MEDS ORDERED: VANCOMYCIN 1 GM (PMX) 250 ML IVPB STA (03:25)
[2019-01-02] MEDS ORDERED: DEXTROSE 50% 50 ML SYRINGE IV PRN (03:30)
--- NOTE | 2019-01-02 03:52 | HP ---
Date/Time of Note Date/Time of Note DATE: 01/02/19 TIME: 03:48 Assessment/Plan VTE Prophylaxis Pharmacological prophylaxis: apixaban Lines/Catheters IV Catheter Type (from [facility]): Saline Lock Assessment/Plan Hospital Course This is a 50-year-old male being admitted to the telemetry floor for: #1 chest pain: Rule out ACS versus versus musculoskeletal: Patient does report that his pain is worse when he coughs. Nonetheless we will trend cardiac enzym es x3. First that was negative. In any positive troponins we will also obtain an echocardiogram. #2 Hyperkalemia: Secondary to end-stage renal disease. K of 7.1 on admission.Recevied calcium gluconate, he did already receive Kayexalate in the ED. Will also give him 10 units of insulin with dextrose and albuterol treatment. Will repeat BMP and monitor potassium levels. Patient is denying an y chest pain. Consult nephrology Dr. Castro #3 sepsis:suspect recurrent vs unresolved pna. lactate wnl. Cultures drawn, will treat with vancomycin and Levaquin with renal dosing as patient recently r eceived antibiotics in the last 90 days for previous pneumonia. #4 CAP: recent pna and recent abx in the last 90 days. will treat with vanc and levaquin, renal dose #5 end-stage renal disease on hemodialysis Wednesday: Currently receiving treatment for his hyperkalemia. Patient does not appear to be volume overloaded at the current time. Will avoid NSAIDs. Renally dose any antib iotics. Will consult nephrology Dr. Castro #6 hypertension: Resume home medications #7 diastolic heart failure: Currently not in an exacerbation. Continue to monitor #8 dyslipidemia: Continue statin #9 paroxysmal atrial fibrillation: Resume Eliquis #10 coronary artery disease: Resume all meds #11 DVT GI prophylaxis: Eliquis, no GI prophylaxis indicated #10 history of hepatitis C: Continue monitor as outpatient Further treatment strategy will be implemented as per the clinical course. Result Diagram: 01/02/19 01501/02/19 0151 Results 24hrs Laboratory Tests Test 01/02/19 01:50 01/02/19 01:51 01/02/19 02:01 Urine Color YELLOW Urine Clarity CLEAR Urine pH 8.0 Urine Specific [place] 1.009 Urine Ketones NEGATIVE Urine Nitrite NEGATIVE Urine Bilirubin NEGATIVE Urine Urobilinogen NEGATIVE Urine Leukocyte Esterase NEGATIVE Urine Microscopic RBC > 182 H Urine Microscopic WBC 6 H Urine Bacteria FEW A Urine Hemoglobin 3+ H Urine Glucose 1+ H Urine Total Protein 2+ H White Blood Count 4.9 # Red Blood Count 3.48 L Hemoglobin 10.8 L Hematocrit 33.2 L Mean Corpuscular Volume 95.4 Mean Corpuscular Hemoglobin 31.0 Mean Corpuscular Hemoglobin Concent 32.5 Red Cell Distribution Width 16.6 H Platelet Count 106 #L Mean Platelet Volume 10.0 Immature Granulocytes % 0.200 Neutrophils % 78.3 H Lymphocytes % 12.7 L Monocytes % 7.2 Eosinophils % 1.2 Basophils % 0.4 Nucleated Red Blood Cells % 0.0 Immature Granulocytes # 0.010 Neutrophils # 3.8 Lymphocytes # 0.6 L Monocytes # 0.4 Eosinophils # 0.1 Basophils # 0.0 Nucleated Red Blood Cells # 0.0 Prothrombin Time 17.7 H Prothrombin Time Ratio 1.4 INR International Normalized Ratio 1.45 Activated Partial Thromboplast Time 38.8 H Sodium Level 139 Potassium Level 7.1 *H Chloride Level 100 Carbon Dioxide Level 19 L Anion Gap 20 H Blood Urea Nitrogen 97 H Creatinine 13.03 H Est Glomerular Filtrat Rate mL/min 4 L Glucose Level 108 Calcium Level 8.1 L Total Bilirubin 0.3 Direct Bilirubin 0.00 Indirect Bilirubin 0.3 Aspartate Amino Transf (AST/SGOT) 22 Alanine Aminotransferase (ALT/SGPT) 27 Alkaline Phosphatase 57 Troponin I 0.029 Total Protein 6.5 Albumin 3.9 Globulin 2.60 Albumin/Globulin Ratio 1.50 POC Venous Lactate 1.0 HPI/ROS Admit Date/Time Admit Date/Time Hx of Present Illness Chief complaint: Coughing chest pain fever times 1 week This is a 53-year-old male with past medical history of end-stage renal disease on HD Wednesday who presents to [facility] with chest pain and cough times 1 week. Patient also reports that he has had fevers. He reports that his cough is productive with phlegm. He reports his chest pain is on the left side and typically gets worse with his cough. He denies any nausea vomiting or diarrhea. he reports his last dialysis session was on he had it arranged early for personal reason. Allergies: Cephalexin, tramadol Medications: See LYNNE ROS Const: As per HPI Eyes : No pain discharge or redness or change in visual acuity ENT: No pain, sore throat, congestion, congestion, dysphagia or discharge Respiratory: As per HPI Cardiovascular: As per HPI GI : no change in appetite, abdominal pain, nausea, vomiting, diarrhea, constipation, or change in the color his stool Genitourinary: No dysuria, hematuria, flank pain , discharge or CVA tenderness Musculoskeletal: No joint pain, back pain, neck pain, restricted range of motion in neck or joints Skin: No rash, bruising or hives Neuro: No headache, dizziness, syncope, seizure, focal weakness Endocrine: No polyuria, polydipsia, temperature intolerance Psych: No hallucination, depression, anxiety or suicidal ideation PMH/Family/Social Past Medical History Stage renal disease on dialysis Wednesday, diastolic heart failure, dyslipidemia, hypertension, paroxysmal A. fib, hep c Medications Current Medications Levofloxacin/ Dextrose 100 ml @ 100 mls/hr ONCE STAT IVPB ; Start 01/02/19 at 02:55; Stop 01/02/19 at 03:54 Dextrose (D50w Syringe) ONCE PRN IV DECREASED GLUCOSE Last administered on 01/02/19at 03:42; Admin Dose 50 ML; Start 01/02/19 at 03:30; Stop 01/02/19 at 06:00 Vancomycin HCl 250 ml @ 125 mls/hr ONCE STAT IVPB ; Start 01/02/19 at 03:25; Stop 01/02/19 at 05:24 Aztreonam 50 ml @ 100 mls/hr ONCE STAT IVPB ; Start 01/02/19 at 03:25; Stop 01/02/19 at 03:54 Apixaban (Eliquis) 5 mg BID PO ; Start 01/02/19 at 09:00; Status UNV Hydralazine HCl (Apresoline) 25 mg BID PRN PO ELEVATED BLOOD PRESSURE; Start 01/02/19 at 04:00; Status UNV Isosorbide Mononitrate (Imdur) 30 mg DAILY PO ; Start 01/02/19 at 09:00; Status UNV Nifedipine (Procardia Xl) 60 mg BID PO ; Start 01/02/19 at 09:00; Status UNV Pregabalin (Lyrica) 75 mg BID PO ; Start 01/02/19 at 09:00; Status UNV Sevelamer HCl (Renagel) 2,400 mg WITH MEALS PO ; Start 01/02/19 at 08:00; Status UNV Levofloxacin/ Dextrose 150 ml @ 100 mls/hr Q24H IVPB ; Start 01/03/19 at 04:00; Status UNV Vancomycin HCl (Vanco Iv Per Pharmacy) VANCOMYCIN PER PHARMACY PER PROTOCOL XX ; Start 01/02/19 at 04:00; Status UNV Coded Allergies: tramadol (Verified Allergy, Intermediate, rash, 01/02/19) possible allergy Cephalexin Monohydrate (Verified Allergy, Unknown, RASH, 01/02/19) Past Surgical History Left AV fistula, pericardial window Family History Significant Family History: no pertinent family hx Social History previous IV drug use Smoking Status: Never smoker Drug Use: none Exam/Review of Systems Vital Signs Vitals Vital Signs Date Temp Pulse Resp B/P (MAP) Pulse Ox O2 O2 Flow FiO2 Time Delivery Rate 01/02/19 Nasal 2 02:30 Cannula 01/02/19 101.3 102 22 135/80 94 02:30 (98) Exam Exam General: Patient currently sitting upright in bed when he coughs he complains of chest pain. HEENT: Atraumatic, normocephalic. The pupils are equal, round and reactive. Extraocular motor are intact Neck: Supple with full range of motion. No rigidity or meningismus Chest: Mild tenderness palpation over the left chest wall Lungs: Coarse breath sounds bilaterally Heart: Normal S1-S2, Regular rhythm and rate. Abdomen: Soft , nontender, nondistended , bowel sounds are present. No guarding no rebound tenderness , No masses or organomegaly. No costovertebral temporal angle mass Extremities: Normal to inspection, no edema no cyanosis Neurologic: Normal mental status, speech normal, cranial nerves II through XII are intact, motor and sensory are intact, Skin: Left AV fistula Additional Comments PROCEDURE: DX Chest 1 View CLINICAL INDICATION: Possible sepsis. TECHNIQUE: AP Portable chest. COMPARISON: 12/07/2014 FINDINGS: The heart is top normal in size. No mediastinal widening. Aortic calcified plaque absent. Prominent right infrahilar soft tissue opacity. Poorly defined increased opacities present at the right lung base. Left lung appears clear. Multiple small surgical clips medial proximal left upper arm. No pneumothorax. IMPRESSION: 1. Right lung base pneumonia. 2. Prominent right infrahilar soft tissue opacity. Mass, adenopathy versus engorged pulmonary vein. RPTAT: HLRS Thien Vázquez, Physician Date Time Electronically viewed and signed by Thien Vázquez, Physician on 01/02/2019 02:38 RS/ CC: BA DAVID [id number] WENDY VALIENTE Jan 02, 2019 03:52
[2019-01-02] MEDS ORDERED: DOCUSATE SODIUM 100 MG CAP PO PRN (04:00)
[2019-01-02] MEDS ORDERED: ONDANSETRON 4 MG TAB PO PRN (04:00)
[2019-01-02] MEDS ORDERED: VANCOMYCIN IV PER PHARMACY XX SCH (04:00)
[2019-01-02] MEDS ORDERED: BISACODYL (EC) 5 MG TAB PO PRN (04:00)
[2019-01-02] MEDS ORDERED: NITROGLYCERIN (SL) 0.4 MG TAB SL PRN (04:00)
[2019-01-02] MEDS ORDERED: NACL 0.9% 3 ML SYG IV SCH (04:00)
--- NOTE | 2019-01-02 05:11 | ERD ---
ER Documentation Chief Complaint Chief Complaint chest pain x 2 hours HPI This is a very pleasant 53-year-old male comes in with chest pain and cough for the past 2 hours. He said he had a productive cough for the past 2-3 days. De nies any fevers or chills. Denies any other current complaints. He was found to have severely elevated temperature in triage. Code sepsis was immediately called. ROS All systems reviewed and are negative except as per history of present illness. Medications Home Meds Active Scripts Oseltamivir Phosphate* (Tamiflu*) 30 Mg Capsule, 30 MG PO MONWEDFRI for 5 Days, #3 CAP after every hemodialysis Prov:RITA ARELLANONelsy M. 11/28/18 Azithromycin* (Azithromycin*) 250 Mg Tablet, 250 MG PO DAILY for 2 Days, #2 TAB Prov:LOLA ARELLANOGRACE M. 11/28/18 Reported Medications Nifedipine* (Nifedipine ER*) 60 Mg Tablet.sa, 60 MG PO BID, TAB.SA 11/25/18 Sevelamer Hcl* (Renagel*) 800 Mg Tablet, 2400 MG PO WITH MEALS, TAB 11/25/18 Hydralazine Hcl* (Hydralazine Hcl*) 25 Mg Tab, 25 MG PO BID PRN for ELEVATED BLOOD PRESSURE, #60 TAB 11/25/18 Apixaban* (Eliquis*) 5 Mg Tablet, 5 MG PO BID, TAB 11/25/18 Pregabalin* (Lyrica*) 75 Mg Capsule, 75 MG PO BID, CAP 11/25/18 Carvedilol* (Carvedilol*) 6.25 Mg Tablet, 6.25 MG PO BID, #60 TAB 11/25/18 Isosorbide Mononitrate* (Isosorbide Mononitrate*) 30 Mg Tab.er.24h, 30 MG PO DAILY, TAB 11/25/18 Allergies Allergies: Coded Allergies: tramadol (Verified Allergy, Intermediate, rash, 11/25/18) possible allergy Cephalexin Monohydrate (Verified Allergy, Unknown, RASH, 11/25/18) PMhx/Soc History of Surgery: No Anesthesia Reaction: No Hx 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 Disorder: No Hx Respiratory Disorders: No Hx Cardiac Disorders: Yes (low heart rate, HTn) Hx Psychiatric Problems: No Hx Miscellaneous Medical Probl: Yes (dialysis pt) Hx Alcohol Use: No Hx Substance Use: No Hx Tobacco Use: No Smoking Status: Never smoker Physical Exam Vitals Vital Signs Date Temp Pulse Resp B/P (MAP) Pulse Ox O2 O2 Flow FiO2 Time Delivery Rate 01/02/19 Nasal 2 02:30 Cannula 01/02/19 101.3 102 22 135/80 94 Room Air 02:30 (98) 01/02/19 101.3 02:06 01/02/19 103.4 108 18 132/76 98 01:25 (94) Physical Exam Const: No acute distress Head: Atraumatic Eyes: Normal Conjunctiva ENT: Normal External Ears, Nose and Mouth. Neck: Full range of motion. No meningismus. Resp: Clear to auscultation bilaterally Cardio: Regular rate and rhythm, no murmurs Abd: Soft, non tender, non distended. Normal bowel sounds Skin: No petechiae or rashes Back: No midline or flank tenderness Ext: No cyanosis, or edema Neur: Awake and alert Psych: Normal Mood and Affect Result Diagram: 01/02/19 0151 01/02/19 0151 Results 24 hrs Laboratory Tests Test 01/02/19 01:50 01/02/19 01:51 01/02/19 02:01 01/02/19 04:02 Urine Color YELLOW Urine Clarity CLEAR Urine pH 8.0 Urine Specific 1.009 [place] Urine Ketones NEGATIVE mg/dL Urine Nitrite NEGATIVE mg/dL Urine Bilirubin NEGATIVE mg/dL Urine NEGATIVE mg/dL Urobilinogen Urine Leukocyte NEGATIVE Baudilio/ul Esterase Urine Microscopic > 182 /HPF RBC Urine Microscopic 6 /HPF WBC Urine Bacteria FEW /HPF Urine Hemoglobin 3+ mg/dL Urine Glucose 1+ mg/dL Urine Total 2+ mg/dl Protein White Blood Count 4.9 10^3/ul Red Blood Count 3.48 10^6/ul Hemoglobin 10.8 g/dl Hematocrit 33.2 % Mean Corpuscular 95.4 fl Volume Mean Corpuscular 31.0 pg Hemoglobin Mean Corpuscular 32.5 g/dl Hemoglobin Concen t Red Cell 16.6 % Distribution Width Platelet Count 106 10^3/UL Mean Platelet 10.0 fl Volume Immature 0.200 % Granulocytes % Neutrophils % 78.3 % Lymphocytes % 12.7 % Monocytes % 7.2 % Eosinophils % 1.2 % Basophils % 0.4 % Nucleated Red 0.0 /100WBC Blood Cells % Immature 0.010 10^3/ul Granulocytes # Neutrophils # 3.8 10^3/ul Lymphocytes # 0.6 10^3/ul Monocytes # 0.4 10^3/ul Eosinophils # 0.1 10^3/ul Basophils # 0.0 10^3/ul Nucleated Red 0.0 10^3/ul Blood Cells # Prothrombin Time 17.7 Sec Prothrombin Time 1.4 Ratio INR International 1.45 Normalized Ratio Activated 38.8 Sec Partial Thrombopl ast Time Sodium Level 139 mmol/L Potassium Level 7.1 mmol/L Chloride Level 100 mmol/L Carbon Dioxide 19 mmol/L Level Anion Gap 20 Blood Urea 97 mg/dl Nitrogen Creatinine 13.03 mg/dl Est Glomerular 4 mL/min Filtrat Rate mL/min Glucose Level 108 mg/dl Calcium Level 8.1 mg/dl Total Bilirubin 0.3 mg/dl Direct Bilirubin 0.00 mg/dl Indirect 0.3 mg/dl Bilirubin Aspartate Amino 22 IU/L Transf (AST/SGOT) Alanine 27 IU/L Aminotransferase (ALT/SGPT) Alkaline 57 IU/L Phosphatase Troponin I 0.029 ng/ml Total Protein 6.5 g/dl Albumin 3.9 g/dl Globulin 2.60 g/dl Albumin/Globulin 1.50 Ratio POC Venous 1.0 mmol/L Lactate Bedside Glucose 133 mg/dL Current Medications Medications Dose Sig/Omar Start Time Status Last (Trade) Ordered Route PRN Stop Time Admin Dose Reason Admin Sodium 3,100 ml BOLUS OVER 2 01/02/19 DC 01/02/19 Chloride HOURS STAT 01:27 02:05 (NS) IV* 01/02/19 01:29 650 mg ONCE STAT 01/02/19 DC 01/02/19 Acetaminophen PO 01:27 02:06 (Tylenol 01/02/19 01:29 Tab) Vancomycin 250 ml @ ONCE ONCE 01/02/19 DC 01/02/19 HCl 125 mls/hr IVPB 01:30 04:08 01/02/19 03:29 150 ml @ ONCE ONCE 01/02/19 DC 01/02/19 Levofloxacin/ 100 mls/hr IVPB 01:30 02:09 Dextrose 01/02/19 02:59 100 ml @ ONCE STAT 01/02/19 DC Levofloxacin/ 100 mls/hr IVPB 02:55 Dextrose 01/02/19 03:54 Sodium 30 gm ONCE STAT 01/02/19 DC 01/02/19 Polystyrene PO 03:02 03:11 Sulfonate 01/02/19 03:09 (Kayexelate 15 Gm Kit (Powder+Sorbi claudio)) Sodium 50 ml ONCE STAT 01/02/19 DC 01/02/19 Bicarbonate IV 03:02 03:43 (Na Bicarb 01/02/19 03:09 8.4% Syg) Calcium 1,000 mg ONCE STAT 01/02/19 DC 01/02/19 Chloride IV 03:02 03:21 (Ca Chloride 01/02/19 03:09 10% Syg) Insulin 10 unit ONCE STAT 01/02/19 DC 01/02/19 Human IVP 03:02 03:43 Regular 01/02/19 03:09 (Humulin R) Dextrose ONCE PRN 01/02/19 01/02/19 (D50w IV DECREASED 03:30 03:42 Syringe) GLUCOSE 01/02/19 06:00 Vancomycin 250 ml @ ONCE STAT 01/02/19 HCl 125 mls/hr IVPB 03:25 01/02/19 05:24 Aztreonam 50 ml @ ONCE STAT 01/02/19 DC 100 mls/hr IVPB 03:25 01/02/19 03:54 Apixaban 5 mg BID PO 01/02/19 UNV (Eliquis) 09:00 Hydralazine 25 mg BID PRN 01/02/19 HCl PO ELEVATED 04:00 (Apresoline) BLOOD PRESSURE Isosorbide 30 mg DAILY PO 01/02/19 Mononitrate 09:00 (Imdur) Nifedipine 60 mg BID PO 01/02/19 (Procardia 09:00 Xl) Pregabalin 75 mg BID PO 01/02/19 (Lyrica) 09:00 Sevelamer 2.4 gm WITH MEALS 01/02/19 Carbonate PO 08:00 (Renvela) 150 ml @ Q24H IVPB 01/03/19 DC Levofloxacin/ 100 mls/hr 04:00 Dextrose 01/03/19 04:00 Vancomycin VANCOMYCIN PER 01/02/19 HCl (Vanco PER PHARMACY PROTOCOL XX 04:00 Iv Per Pharmacy) IV Flush 3 ml PER 01/02/19 (NS 3 ml) PROTOCOL IV 04:00 Ondansetron 4 mg Q6H PRN 01/02/19 HCl (Zofran PO 04:00 Tab) NAUSEA/VOMITI NG 1 tab Q5M PRN 01/02/19 Nitroglycerin SL .CHEST 04:00 PAIN (Nitroglyceri n (Sl Tab) 0.4 Mg) 650 mg Q6H PRN 01/02/19 Acetaminophen PO .PAIN 1-3 04:00 (Tylenol OR TEMP Tab) Docusate 100 mg Q12H PRN 01/02/19 Sodium PO 04:00 (Colace) .CONSTIPATION Bisacodyl 5 mg DAILY PRN 01/02/19 (Dulcolax) PO 04:00 .CONSTIPATION Heparin 5,000 unit Q8 SC 01/02/19 Sodium 06:00 (Porcine) (Heparin (5000 Units/1ml)) 100 ml @ Q48H IVPB 01/04/19 Levofloxacin/ 100 mls/hr 01:00 Dextrose Procedures/MDM Patient's infectious symptoms have not stabilized and the patient is at risk of rapid decompensation. The patient will be admitted for careful hydration, antibiotic therapy, and infectious source control. Severe Sepsis Assessment: Infectious Source: Pneumonia End organ damage indicated by: [Lactate > 2.0 mmol/L Severe Sepsis Managment: Blood Cultures X 2 before broad spectrum antibiotics i nitiated within 3 hours of recognition. 30 ml/kg NS bolus Completed Initial Lactate: Three-point Repeat Lactate pending Critical Care: Time: 45 minutes, independent of any separately billable procedural time Treatments/Evaluations: Emergent fluid management, while maintaining close respiratory support. Immediate broad spectrum antibiotic therapy. Simultaneous assessment for possible sources in order to direct therapy. Consideration for invasive and chemical support to prevent respiratory or cardiac collapse. Septic Shock Assessment (1 hour post 30 ml/kg fluid bolus): Hypotension (SBP < 90 or 40 mmHg drop, MAP < 65): [No] Lactic acid > 4.0 [No] Perfusion Reassessment for Septic Shock: T vital signs stable Heart Exam: [Tachycardic] Lung Exam: [No Crackles] Capillary Refill: [Delayed] Peripheral Pulses: [Radially present] Skin: [Mottled, pale] Patient evidence of severe hyperkalemia as well. Treated with calcium, bicarbonate, insulin, glucose pending dialysis Accepting Care Team: Current data and ongoing care discussed. Time: 3:25 AM Primary Provider: Dr. Sanchez Consulting: Deferred to inpatient team Outstanding Data: none Departure Diagnosis: Primary Impression: Chest pain Chest pain type: unspecified Qualified Codes: R07.9 - Chest pain, unspecified Condition: Critical AB DAVID Jan 02, 2019 05:11
[2019-01-02] MEDS ORDERED: HEPARIN 5,000 UNIT/1 ML VIAL SC SCH (06:00)
[2019-01-02] MEDS ORDERED: FOLI-49 PO (07:40)
[2019-01-02] MEDS ORDERED: CHOL400T10 PO (07:40)
[2019-01-02] MEDS ORDERED: GLEC1TAB PO (07:40)
[2019-01-02] MEDS: SEVELAMER CARBONATE 2.4 GM PKT PO SCH ×3 (08:00→18:14)
--- NOTE | 2019-01-02 10:54 | QN ---
Documentation Comment Observation Note: Time: 4 hours Family Hx: Negative for diabetes Evaluation: Multiple exams showed improving symptoms and no evidence of clinical decompensation. KASSANDRA REDMAN MD Jan 02, 2019 10:54
[2019-01-02] MEDS: PREGABALIN 75 MG CAP PO SCH ×2 (12:29→20:46)
[2019-01-02] MEDS: APIXABAN 5 MG TABLET PO SCH ×2 (12:29→20:46)
[2019-01-02] MEDS ORDERED: morphine 2 MG INJ IV STA (12:36)
--- NOTE | 2019-01-02 14:42 | QN ---
Documentation Comment Seen and examined CELENA GUERIN MD Jan 02, 2019 14:42
--- NOTE | 2019-01-02 15:41 | CONS ---
DATE OF ADMISSION: 01/02/2019 DATE OF CONSULTATION: TYPE OF CONSULTATION: Renal. REASON FOR CONSULTATION: End-stage renal disease on hemodialysis. HISTORY OF PRESENTING ILLNESS: This is a 53-year-old male with a past medical history of end-stage r enal disease on hemodialysis Wednesday, Wednesday, Wednesday, CHF diastolic heart failure, hypertension, pa roxysmal atrial fibrillation, hepatitis C, who presented to the emergency department complaining of f ever and cough since yesterday. According to the patient, he went to his dialysis session on instead of Wednesday as he had to go out of town. The patient went to [facility]. After he came back yest erday, he started having fevers, cough and chest pain on the left side [facility] On admission, vital signs showed fever of 101.3, pulse 102, respirations 22, blood pressure 135/80, saturating 94%. Labs showed a sodium of 139, potassium 7.1, chloride of 100, bicar bonate 19, BUN of 97, creatinine 13.03. The patient had chest x-ray that showed right lung base pneu monia. The patient was given Levaquin, Kayexalate, sodium bicarbonate, calcium chloride, NS, vancomy ely and was admitted for further management. PAST MEDICAL HISTORY: 1. End-stage renal disease, on hemodialysis. 2. Hypertension. 3. Hyperlipidemia. 4. Hepatitis C. 5. Anemia. 6. History of multiple AV fistula infection. 7. History of rhinoplasty. 8. History of pericardial effusion. ALLERGIES: 1. KEFLEX. 2. TRAMADOL. SOCIAL HISTORY: Denies any history of smoking, alcohol or any drug use. MEDICATIONS TAKING AT HOME: 1. Eliquis 5 b.i.d. 2. Coreg 6.25 b.i.d. 3. Hydralazine. 4. Imdur. 5. Nifedipine. 6. Lyrica. 7. Renagel. FAMILY HISTORY: Noncontributory. REVIEW OF SYSTEMS: The patient complains of chest pain, shortness of breath. Denied any headache, a ny blurry vision. The patient's last dialysis session was on . Denies any hematemesis, any melena, any bright red blood per rectum. Denies any diarrhea, any rashes. PHYSICAL EXAMINATION: VITAL SIGNS: Currently temperature initially was 103.4, currently 101.4. GENERAL: The patient is awake, alert, oriented, does not appear to be in any acute distress. HEENT: Pupils are equal, round, reactive to light. NECK: Supple. No JVD. HEART: Regular, tachycardic. LUNGS: Few crackles bilaterally. ABDOMEN: Soft, nontender, nondistended, positive normal bowel sounds. EXTREMITIES: No clubbing, cyanosis or edema. The patient has a left upper extremity fistula with 2 scars, scabbing present at the fistula, arterial and the venous side. LABORATORY DATA: Potassium was 7.1, BUN 97, creatinine was 13.03. White count of 4.9, hemoglobin 10 .8. UA shows 182 RBCs, 6 WBCs, negative. DIAGNOSTIC DATA: Chest x-ray shows pneumonia. ASSESSMENT AND PLAN: This is a 53-year-old male who presented with: 1. Sepsis, likely secondary to pneumonia/history of flu in the past. 2. Community-acquired pneumonia. 3. Hyperkalemia, likely secondary to end-stage renal disease and patient missing dialysis session th at is questionable noncompliance. The patient also went on vacation, probably diet noncompliance. 4. Hypertension. 5. Diastolic heart failure. 6. Dyslipidemia. 7. History of paroxysmal atrial fibrillation. 8. History of coronary artery disease. 9. History of hepatitis C. 10. History of multiple AV fistula infections. PLAN: At this period of time, the patient is admitted to telemetry. The patient is currently on bro ad spectrum IV antibiotics, vancomycin, Levaquin. We will continue the patient on hemodialysis. I r ecommend ID consultation, also should check for influenza A and B again. Rest of the treatment will depend on the patient's hospitalization course. Dictated By: CELENA GUERIN RB/TYRA Conf#: [id number] DID#: [id number] CC: LANDON MARMOLEJO MD; WENDY VALIENTE MD;*EndCC*
[2019-01-02] MEDS: SPECIAL NON-STANDARD MEDICATION PO SCH (16:00)
[2019-01-02] MEDS: ACETAMINOPHEN 325 MG TAB PO PRN (16:34)
[2019-01-02] MEDS: ISOSORBIDE MONONITRATE(SR)30 MG TAB PO SCH (18:15)
[2019-01-02] MEDS: NIFEdipine (XL) 60 MG TAB PO SCH ×2 (18:15→20:46)
[2019-01-02] MEDS: HYDROCODONE/APAP (5/325) TAB PO PRN (18:20)
[2019-01-03] VITALS (11 sets, daily range): BP systolic 107–149; BP diastolic 55–74; PULSE 79–105; RESP 18–20
[2019-01-03] MEDS: HYDROCODONE/APAP (5/325) TAB PO PRN ×4 (00:52→21:48)
[2019-01-03] MEDS: ACETAMINOPHEN 325 MG TAB PO PRN ×2 (03:15→16:01)
[2019-01-03] MEDS ORDERED: LEVOFLOXACIN 750MG/D5W (PMX) 150 ML IVPB SCH (04:00)
[2019-01-03] MEDS: ISOSORBIDE MONONITRATE(SR)30 MG TAB PO SCH (08:13)
[2019-01-03] MEDS: SEVELAMER CARBONATE 2.4 GM PKT PO SCH ×3 (08:13→17:11)
[2019-01-03] MEDS: APIXABAN 5 MG TABLET PO SCH ×2 (08:13→20:36)
[2019-01-03] MEDS: SPECIAL NON-STANDARD MEDICATION PO SCH (08:13)
[2019-01-03] MEDS: PREGABALIN 75 MG CAP PO SCH ×2 (08:13→20:37)
[2019-01-03] MEDS: NIFEdipine (XL) 60 MG TAB PO SCH ×2 (08:14→20:36)
--- NOTE | 2019-01-03 12:03 | CONS ---
Assessment/Plan Assessment/Plan Assessment/Plan (Daily) 53-year-old male who presented with: 1. Sepsis, likely secondary to pneumonia/history of flu in the past. 2. Community-acquired pneumonia. 3. Hyperkalemia, likely secondary to end-stage renal disease and patient missing dialysis session that is questionable noncompliance. The patient also went on vacation, probably diet noncompliance. 4. Hypertension. 5. Diastolic heart failure. 6. Dyslipidemia. 7. History of paroxysmal atrial fibrillation. 8. History of coronary artery disease. 9. History of hepatitis C. 10. History of multiple AV fistula infections. Plan -Since BP is on the lower side would put parameters for BP medication -cw with Vanco/Levaquin questionable Pseudomonas coverage -Influenza a and B are negative. - nebs/cough medicine - cw sevelmer -Next HD tomorrow, hd mwf -No BP or blood draws in the left upper extremity Consultation Date/Type/Reason Admit Date/Time Jan 02, 2019 at 03:27 Initial Consult Date Date/Time of Note DATE: 01/03/19 TIME: 12:00 24 HR Interval Summary Free Text/Dictation Low-grade fever today. Coughing This post HD yesterday Exam/Review of Systems Exam Vitals Vital Signs Date Temp Pulse Resp B/P (MAP) Pulse Ox O2 O2 Flow FiO2 Time Delivery Rate 01/03/19 99.5 92 18 107/55 91 11:32 (72) 01/03/19 Nasal 2.0 08:10 Cannula Intake and Output 01/02/19 01/02/19 01/03/19 1515:00 23:00 07:00 IntakeIntake Total 400 ml OutputOutput Total 200 ml 5400 ml BalanceBalance -200 ml -5000 ml Exam GENERAL: The patient is awake, alert, oriented, does not appear to be in any acute distress. HEENT: Pupils are equal, round, reactive to light. NECK: Supple. No JVD. HEART: Regular, tachycardic. LUNGS: Few crackels on rt base ABDOMEN: Soft, nontender, nondistended, positive normal bowel sounds. EXTREMITIES: No clubbing, cyanosis or edema. The patient has a left upper extremity fistula with 2 scars, scabbing present at the fistula, arterial and the venous side. Results Result Diagram: 01/03/19 0553 01/03/19 0553 Results 24hrs Laboratory Tests Test 01/03/19 05:53 White Blood Count 3.9 #L Red Blood Count 3.35 L Hemoglobin 10.4 L Hematocrit 31.9 L Mean Corpuscular Volume 95.2 Mean Corpuscular Hemoglobin 31.0 Mean Corpuscular Hemoglobin Concent 32.6 Red Cell Distribution Width 16.4 H Platelet Count 86 L Mean Platelet Volume 10.0 Immature Granulocytes % 0.500 H Neutrophils % 72.5 Lymphocytes % 16.8 Monocytes % 8.9 Eosinophils % 0.8 Basophils % 0.5 Nucleated Red Blood Cells % 0.0 Immature Granulocytes # 0.020 Neutrophils # 2.9 Lymphocytes # 0.7 L Monocytes # 0.4 Eosinophils # 0.0 Basophils # 0.0 Nucleated Red Blood Cells # 0.0 Sodium Level 140 Potassium Level 4.6 Chloride Level 96 L Carbon Dioxide Level 32 #H Anion Gap 12 Blood Urea Nitrogen 55 #H Creatinine 8.88 #H Est Glomerular Filtrat Rate mL/min 6 L Glucose Level 86 Calcium Level 8.1 L Medications Medication Current Medications Apixaban (Eliquis) 5 mg BID PO Last administered on 01/03/19 08:13; Admin Dose 5 MG; Start 01/02/19 at 09:00 Hydralazine HCl (Apresoline) 25 mg BID PRN PO ELEVATED BLOOD PRESSURE; Start 01/02/19 at 04:00 Isosorbide Mononitrate (Imdur) 30 mg DAILY PO Last administered on 01/03/19 08:13; Admin Dose 30 MG; Start 01/02/19 at 09:00 Nifedipine (Procardia Xl) 60 mg BID PO Last administered on 01/03/19 08:14; Admin Dose 60 MG; Start 01/02/19 at 09:00 Pregabalin (Lyrica) 75 mg BID PO Last administered on 01/03/19 08:13; Admin Dose 75 MG; Start 01/02/19 at 09:00 Sevelamer Carbonate (Renvela) 2.4 gm WITH MEALS PO Last administered on 01/03/19 08:13; Admin Dose 2.4 GM; Start 01/02/19 at 08:00 Vancomycin HCl (Vanco Iv Per Pharmacy) VANCOMYCIN PER PHARMACY PER PROTOCOL XX ; Start 01/02/19 at 04:00 IV Flush (NS 3 ml) 3 ml PER PROTOCOL IV ; Start 01/02/19 at 04:00 Ondansetron HCl (Zofran Tab) 4 mg Q6H PRN PO NAUSEA/VOMITING; Start 01/02/19 at 04:00 Nitroglycerin (Nitroglycerin (Sl Tab) 0.4 Mg) 1 tab Q5M PRN SL .CHEST PAIN Last administered on 01/02/19at 12:29; Admin Dose 1 TAB; Start 01/02/19 at 04:00 Acetaminophen (Tylenol Tab) 650 mg Q6H PRN PO .PAIN 1-3 OR TEMP Last administered on 01/03/19at 03:15; Admin Dose 650 MG; Start 01/02/19 at 04:00 Docusate Sodium (Colace) 100 mg Q12H PRN PO .CONSTIPATION; Start 01/02/19 at 04:00 Bisacodyl (Dulcolax) 5 mg DAILY PRN PO .CONSTIPATION; Start 01/02/19 at 04:00 Levofloxacin/ Dextrose 100 ml @ 100 mls/hr Q48H IVPB ; Start 01/04/19 at 01:00 Acetaminophen/ Hydrocodone Bitart ([place] (5/325)) 1 tab Q6H PRN PO MODERATE PAIN LEVEL 4-6 Last administered on 01/03/19at 08:20; Admin Dose 1 TAB; Start 01/02/19 at 13:00 Non-Formulary Medication 3 ea DAILY PO Last administered on 01/03/19at 08:13; Admin Dose 3 EA; Start 01/02/19 at 16:00 Albuterol/ Ipratropium (Duoneb) 3 ml Q6HWA RESP THERAPY HHN ; Start 01/03/19 at 14:00; Status CELENA CORREA MD Jan 03, 2019 12:03
[2019-01-03] MEDS ORDERED: GUAIFENESIN/CODEINE 5ML CUP PO PRN (12:30)
--- NOTE | 2019-01-03 13:35 | PN ---
Date/Time of Note Date/Time of Note DATE: 01/03/19 TIME: 13:34 Assessment/Plan VTE Prophylaxis Risk score (from Nsg)>0 risk: 4 Pharmacological prophylaxis: apixaban Lines/Catheters IV Catheter Type (from Nrsg): [place] Urinary Cath still in place: No Assessment/Plan Hospital Course S: coughing and still having fevers O: GENERAL: The patient is awake, alert, oriented, does not appear to be in any acute distress. HEENT: Pupils are equal, round, reactive to light. NECK: Supple. No JVD. HEART: Regular, tachycardic. LUNGS: Few crackels on rt base ABDOMEN: Soft, nontender, nondistended, positive normal bowel sounds. EXTREMITIES: No clubbing, cyanosis or edema. The patient has a left upper extremity fistula with 2 scars, scabbing present at the fistula, arterial and the venous side. assessment and plan: Sepsis Pancytopenia: h/o iron deficiency, reasses Hypertensive emergency ESRD on HD Hepatitis C Dispo: Still having fevers, blood in urine cultures negative so far,recently treated in nov for influenza B, Continue antibiotics. Needs to be 24-hour fever free prior to discharge. We will also repeat echo in view of recurrent sepsis, ID consult We will also plan to get blood cultures from dialysis fistula. Result Diagram: 01/03/19 0553 01/03/19 0553 Results 24hrs Laboratory Tests Test 01/03/19 05:53 White Blood Count 3.9 #L Red Blood Count 3.35 L Hemoglobin 10.4 L Hematocrit 31.9 L Mean Corpuscular Volume 95.2 Mean Corpuscular Hemoglobin 31.0 Mean Corpuscular Hemoglobin Concent 32.6 Red Cell Distribution Width 16.4 H Platelet Count 86 L Mean Platelet Volume 10.0 Immature Granulocytes % 0.500 H Neutrophils % 72.5 Lymphocytes % 16.8 Monocytes % 8.9 Eosinophils % 0.8 Basophils % 0.5 Nucleated Red Blood Cells % 0.0 Immature Granulocytes # 0.020 Neutrophils # 2.9 Lymphocytes # 0.7 L Monocytes # 0.4 Eosinophils # 0.0 Basophils # 0.0 Nucleated Red Blood Cells # 0.0 Sodium Level 140 Potassium Level 4.6 Chloride Level 96 L Carbon Dioxide Level 32 #H Anion Gap 12 Blood Urea Nitrogen 55 #H Creatinine 8.88 #H Est Glomerular Filtrat Rate mL/min 6 L Glucose Level 86 Calcium Level 8.1 L Exam/Review of Systems Exam Vitals Vital Signs Date Temp Pulse Resp B/P (MAP) Pulse Ox O2 O2 Flow FiO2 Time Delivery Rate 01/03/19 95 12:42 01/03/19 99.5 18 107/55 91 11:32 (72) 01/03/19 Nasal 2.0 08:10 Cannula Intake and Output 01/02/19 01/02/19 01/03/19 1515:00 23:00 07:00 IntakeIntake Total 400 ml OutputOutput Total 200 ml 5400 ml BalanceBalance -200 ml -5000 ml Results Results 24hrs Laboratory Tests Test 01/03/19 05:53 White Blood Count 3.9 #L Red Blood Count 3.35 L Hemoglobin 10.4 L Hematocrit 31.9 L Mean Corpuscular Volume 95.2 Mean Corpuscular Hemoglobin 31.0 Mean Corpuscular Hemoglobin Concent 32.6 Red Cell Distribution Width 16.4 H Platelet Count 86 L Mean Platelet Volume 10.0 Immature Granulocytes % 0.500 H Neutrophils % 72.5 Lymphocytes % 16.8 Monocytes % 8.9 Eosinophils % 0.8 Basophils % 0.5 Nucleated Red Blood Cells % 0.0 Immature Granulocytes # 0.020 Neutrophils # 2.9 Lymphocytes # 0.7 L Monocytes # 0.4 Eosinophils # 0.0 Basophils # 0.0 Nucleated Red Blood Cells # 0.0 Sodium Level 140 Potassium Level 4.6 Chloride Level 96 L Carbon Dioxide Level 32 #H Anion Gap 12 Blood Urea Nitrogen 55 #H Creatinine 8.88 #H Est Glomerular Filtrat Rate mL/min 6 L Glucose Level 86 Calcium Level 8.1 L Imaging Imaging Last echocardiogram March 2018: EF of 55%, abnormal diastolic dysfunction, moderate left atrial enlargement, mild tricuspid regurgitation, peak PA systolic pressure of 37. Medications Medication Current Medications Apixaban (Eliquis) 5 mg BID PO Last administered on 01/03/19at 08:13; Admin Dose 5 MG; Start 01/02/19 at 09:00 Hydralazine HCl (Apresoline) 25 mg BID PRN PO ELEVATED BLOOD PRESSURE; Start 01/02/19 at 04:00 Isosorbide Mononitrate (Imdur) 30 mg DAILY PO Last administered on 01/03/19at 08:13; Admin Dose 30 MG; Start 01/02/19 at 09:00 Nifedipine (Procardia Xl) 60 mg BID PO Last administered on 01/03/19at 08:14; Admin Dose 60 MG; Start 01/02/19 at 09:00 Pregabalin (Lyrica) 75 mg BID PO Last administered on 01/03/19at 08:13; Admin Dose 75 MG; Start 01/02/19 at 09:00 Sevelamer Carbonate (Renvela) 2.4 gm WITH MEALS PO Last administered on 01/03/19at 12:17; Admin Dose 2.4 GM; Start 01/02/19 at 08:00 Vancomycin HCl (Vanco Iv Per Pharmacy) VANCOMYCIN PER PHARMACY PER PROTOCOL XX ; Start 01/02/19 at 04:00 IV Flush (NS 3 ml) 3 ml PER PROTOCOL IV ; Start 01/02/19 at 04:00 Ondansetron HCl (Zofran Tab) 4 mg Q6H PRN PO NAUSEA/VOMITING; Start 01/02/19 at 04:00 Nitroglycerin (Nitroglycerin (Sl Tab) 0.4 Mg) 1 tab Q5M PRN SL .CHEST PAIN Last administered on 01/02/19at 12:29; Admin Dose 1 TAB; Start 01/02/19 at 04:00 Acetaminophen (Tylenol Tab) 650 mg Q6H PRN PO .PAIN 1-3 OR TEMP Last administered on 01/03/19at 03:15; Admin Dose 650 MG; Start 01/02/19 at 04:00 Docusate Sodium (Colace) 100 mg Q12H PRN PO .CONSTIPATION; Start 01/02/19 at 04:00 Bisacodyl (Dulcolax) 5 mg DAILY PRN PO .CONSTIPATION; Start 01/02/19 at 04:00 Levofloxacin/ Dextrose 100 ml @ 100 mls/hr Q48H IVPB ; Start 01/04/19 at 01:00 Acetaminophen/ Hydrocodone Bitart ([place] (5/325)) 1 tab Q6H PRN PO MODERATE PAIN LEVEL 4-6 Last administered on 01/03/19at 08:20; Admin Dose 1 TAB; Start 01/02/19 at 13:00 Non-Formulary Medication 3 ea DAILY PO Last administered on 01/03/19at 08:13; Admin Dose 3 EA; Start 01/02/19 at 16:00 Albuterol/ Ipratropium (Duoneb) 3 ml Q6HWA RESP THERAPY HHN ; Start 01/03/19 at 14:00 Guaifenesin/ Codeine Phosphate (Robitussin Ac Liquid Cup) 10 ml Q4H PRN PO COUGH; Start 01/03/19 at 12:30 Miscellaneous Information (*Rx Drug Level Order Reminder*) VANCO RANDOM W/ AM LABS... ONCE ONCE XX ; Start 01/04/19 at 05:00; Stop 01/04/19 at 05:01 TIESHA ARELLANO Jan 03, 2019 13:35
[2019-01-03] MEDS: ALBUTEROL/IPRATROPIUM (NEB) 3 ML AMP HHN SCH ×2 (14:00→21:12)
[2019-01-03] MEDS ORDERED: GENTAMICIN IV PER PHARMACY XX SCH (15:00)
--- NOTE | 2019-01-03 16:20 | PN ---
DATE: 01/03/2019 Thank you, Dr. Arellano, for this consultation. HISTORY OF PRESENT ILLNESS: This is a well-developed, middle-aged man with a past medical history significant for end-stage renal disease, hemodialysis dependent, left upper extremity AV fistula, diastolic heart failure, hypertension, hepatitis C virus, paroxysmal atrial fibrillation, and dyslipidemia. SUBJECTIVE: The patient was admitted with chest pain and ongoing cough as well as subjective fevers. He was traveling to [place] last week. Denies sick contact. He came with a temperature of 103.4, pulse 108, respirations 18, blood pressure 132/76, saturation 98% on room air. WBC 4.9, H and H 10.8 and 33.2, platelet count 106, neutrophils 78.3. Urinalysis was negative for nitrite, leukocyte esterase. MICROBIOLOGY: Blood and urine culture preliminary negative. Influenza swab negative. DIAGNOSTICS: Chest x-ray revealed right lung base pneumonia. ANTIMICROBIALS: The patient was started on levofloxacin. HE IS ALLERGIC TO KEFLEX. He is also on IV vancomycin. SOCIAL HISTORY: The patient denies smoking, alcohol or illicits. REVIEW OF SYSTEMS: As per history of present illness. PHYSICAL EXAMINATION: GENERAL: This is a well-nourished, well-developed, middle-aged man, who is alert, looks comfortable. The patient is in no distress, still has some pleuritic chest pain, worse with cough. No nausea, vomiting or diarrhea. HEENT: Head atraumatic, normocephalic. Sclerae anicteric. Buccal mucosa dry. Patient has halitosis. Oropharynx clear. NECK: Supple. No palpable cervical nodes. CHEST: Rise symmetrical. Breath sounds diminished to bases. HEART: S1, S2. ABDOMEN: Soft, bowel tones present. EXTREMITIES: Without cyanosis. Left upper extremity AV fistula patent. DIAGNOSTIC IMPRESSION: A 53-year-old man admitted with sepsis secondary to community-acquired pneumonia. He is on appropriate antibiotics and overall improving, still with low-grade fevers. The latest fever yesterday was 103.4. We will try to obtain sputum cultures and swab his nares for MRSA. We will add gentamicin to the regimen and await for clinical improvement. Discussed with Dr. Webb who is covering for Dr. Molina. Dictated By: MANUELA SOMMER EGG SEPARATOR for ALEX PATEL/TYRA Conf#: [id number] DID#: [id number] CC: TIESHA ARELLANO MD; WENDY VALIENTE MD;*EndCC* MTDD
[2019-01-03] MEDS ORDERED: GENTAMICIN 120 MG/NS (PMX) 100 ML IVPB SCH (16:30)
--- NOTE | 2019-01-03 18:39 | RADRPT ---
Echocardiogram Report Patient Name: Caprice AMAYA ID: [id number] : 1965 (53y 2m)Study Date: 01/03/2019 1:59:57 PM Gender: MAccession #: [id number] Tech: Riaz Monroy [facility] Location: 52 Ref.Physician: TIESHA ARELLANO Height(Cm): BSA: Weight(Kg): Quality: AdequateAccount #: Procedures: Echocardiographic Report: Transthoracic echocardiogram with complete 2D, M-Mode, and doppler examination. Indications: recurrent sepsis r/o vegetations. Measurements: 2D/M Mode Doppler Measurement Value Normal Range Measurement Value Normal Range LVIDd 2D 6.1 [ 4.2 - 5.8 ] cm AV Peak David 2.2 [ 100.0 - 170.0 ] cm/sec LVIDs 2D 4.3 [ 2.5 - 4.0 ] cm AV Peak PG 19.0 [ 2.0 - 9.0 ] mmHg LVPWd 2D 1.2 [ 0.6 - 1.0 ] cm LVOT Peak David 1.3 [ 70.0 - 110.0 ] cm/sec IVSd 2D 1.1 [ 0.6 - 1.0 ] cm LVOT Peak PG 7.0 [ 2.0 - 6.0 ] mmHg AoR Diam 2D 3.2 [ 2.6 - 3.4 ] cm MV E Peak David 1.1 [ 60.0 - 130.0 ] cm/sec EDV 2D 183.0 [ 62.0 - 150.0 ] ml MV A Peak David 0.5 [ 100.0 - 120.0 ] cm/sec ESV 2D 81.3 [ 21.0 - 61.0 ] ml MV E/A 2.1 [ 0.8 - 1.5 ] ratio EF 2D 55.6 [ 52.0 - 72.0 ] percent MV Decel Time 187 [ 104 - 258 ] msec LA Dimen 2D 4.2 [ 3.0 - 4.0 ] cm Lat E` David 0.1 [ 10.0 - 15.0 ] cm/sec Lateral E/E` 9.5 [ 1.0 - 2.0 ] ratio MV E/A 2.1 [ 0.8 - 1.5 ] ratio TR Peak David 3.5 [ 100.0 - 280.0 ] cm/sec TR Peak PG 48.0 mmHg RVSP 56.0 [ 10.0 - 36.0 ] mmHg RA Pressure 8.0 mmHg Findings: Left Ventricle: Normal left ventricular systolic function. Mild concentric left ventricular hypertrophy. Mild enlargement of left ventricle cavity. Ejection fraction is visually estimated at 55 %. Tissue Doppler/Mitral Doppler indices are consistent with pseudonormalization with mildly elevated left atrial pressure (Stage II diastolic dysfunction). Right Ventricle: Normal right ventricular size. Normal right ventricular systolic function. Left Atrium: There is mild enlargement of left atrium. Right Atrium: The right atrium is normal in size. Mitral Valve: Mitral valve leaflets appear mildly thickened. Mild mitral annular calcification. Trace mitral regurgitation. Aortic Valve: Aortic sclerosis without significant stenosis. No aortic regurgitation. Tricuspid Valve: Normal appearance of the tricuspid valve. Estimated peak PA systolic pressure 56 mmHg. There is mild tricuspid regurgitation. Pulmonic Valve: Normal pulmonic valve appearance. Pericardium: Normal pericardium with no significant pericardial effusion. Aorta: Normal aortic root. IVC: Dilated IVC with respiratory collapse consistent with elevated right atrial pressure. Conclusions: Mildly dilated, mildly hypertrophied left ventricle with normal systolic function. Pseudonormal diastolic function. Mild left atrial enlargement. Trace mitral regurgitation. At least mild tricuspid regurgitation with moderate pulmonary hypertension. Dilated IVC suggests elevated right atrial pressures. Electronically Signed By: Laila Jaime 2019-01-03 18:38:58 PDT
[2019-01-03] MEDS: CHLORHEXIDINE GLUCONATE 15 ML UD CUP MT SCH (20:36)
[2019-01-04] VITALS (24 sets, daily range): BP systolic 102–142; BP diastolic 54–82; PULSE 79–107; RESP 16–20
[2019-01-04] MEDS: ACETAMINOPHEN 325 MG TAB PO PRN (01:00)
[2019-01-04] MEDS ORDERED: LEVOFLOXACIN 500MG/D5W (PMX) 100 ML IVPB SCH (01:00)
[2019-01-04] MEDS: SEVELAMER CARBONATE 2.4 GM PKT PO SCH ×3 (08:25→17:35)
[2019-01-04] MEDS: APIXABAN 5 MG TABLET PO SCH (08:25)
[2019-01-04] MEDS: PREGABALIN 75 MG CAP PO SCH (08:25)
[2019-01-04] MEDS: SPECIAL NON-STANDARD MEDICATION PO SCH (08:26)
[2019-01-04] MEDS: NIFEdipine (XL) 60 MG TAB PO SCH (08:29)
[2019-01-04] MEDS: ISOSORBIDE MONONITRATE(SR)30 MG TAB PO SCH (08:29)
[2019-01-04] MEDS: CHLORHEXIDINE GLUCONATE 15 ML UD CUP MT SCH (09:36)
[2019-01-04] MEDS: ALBUTEROL/IPRATROPIUM (NEB) 3 ML AMP HHN SCH ×3 (10:01→21:43)
--- NOTE | 2019-01-04 11:09 | PN ---
Date/Time of Note Date/Time of Note DATE: 01/04/19 TIME: 11:02 Assessment/Plan VTE Prophylaxis Risk score (from Ns)>0 risk: 1 SCD applied (from Ns): Yes Pharmacological prophylaxis: NA/contraindicated Pharm contraindication: thrombocytopenia Lines/Catheters IV [facility]ter [facility]from [facility] [place] [facility] Urinary Cath still in place: No Assessment/Plan Hospital Course S: continues to feel well, but still requiring 2-3 L supplemental O2, denies coughing, states he still makes urine Objective: Constitutional: alert, oriented, comfortable with NC Head: atraumatic, normocephalic Neck: non-tender, supple Respiratory: diminished, bibasal crackles posteriorly Cardiovascular: tachy ? Gastrointestinal: S/ NT / ND / +BS Extremities: no edema, Skin: Left AV fistula with bandage assessment and plan: 53-year-old male with past medical history of end-stage renal disease on HD Wednesday who presents to [facility] with chest pain and cough times 1 week managed as follows : 1. Sepsis, -This is likely secondary to unresolved pneumonia, patient was recently treated for influenza in November, but may have had superimposed bacterial infection that has flared up at this time. -Still awaiting blood cultures from fistula site, if this is negative and patient is a 24-hour fever free, he would likely be discharged 2. Pancytopenia likely related to iron deficiency, -TIBC levels are still low -Hold apixaban for thrombocytopenia -IV iron infusion 3. End-stage renal disease on hemodialysis -Continued on routine hemodialysis per renal, appreciate input 4. CHF with preserved systolic function on echo, diastolic -diuresis with HD, will also add Lasix as patient still makes urine -patient also with MR and secondary pulm HTN on echo, pulmonary pressure 56 mmHg -cardio consult 5. Hypertension Status post hypertensive urgency: -Control is great at this time, if anything, little too tight, 6. Sinus tachycardia, patient has history of paroxysmal atrial fibrillation -But has been sinus tach on the monitor. -Based on previous records should have been on a beta-cricket, will reduce dosage of nifedipine, and add beta-cricket therapy -Cardiology consulted as well, see #7 7. Hx of Coronary artery disease with mild cardiomyopathy, -ejection fraction at stress 48%, March 2018 -Patient has ruled out for acute coronary syndrome this time, also is having no chest pain -Continue Imdur, continue aspirin, institute beta-cricket as mentioned above. 8. Concern for right infrahilar Lung lesion: -Patient had a CT of the chest June 2018, that showed that there was no mass or nodule at this location. However he does continue to have fullness on x-ray that the radiologist continues to report is concerning. We will get pulmonary consultation 9. Mild respiratory insufficiency: -Requiring minimal supplemental oxygen still, wean off as tolerated 10. Chronic hepatitis C, RNA counts back in 2014 was elevated, it is unsure if patient has been treated since --We will consider having GI see the patient in house now to establish contact, and he may be able to follow-up with them outpatient Disposition: -This is patient's second admission in 2 months for sepsis with hyperkalemia, will continue to observe in-house. At this time was still waiting on blood cultures from dialysis fistula, -We will get cardiology consultation as well to help optimize the patient -Continue diuresis with dialysis and add lasix -Needs to be 24-hour fever free prior to discharge -We will review x-ray and CT findings with pulmonary and see if any further intervention is warranted -Appreciate all consultants Result Diagram: 01/04/19 0539 01/04/19 0539 Results 24hrs Laboratory Tests Test 01/04/19 05:39 01/04/19 05:40 White Blood Count 3.7 L Red Blood Count 3.24 L Hemoglobin 10.0 L Hematocrit 30.4 L Mean Corpuscular Volume 93.8 Mean Corpuscular Hemoglobin 30.9 Mean Corpuscular Hemoglobin Concent 32.9 Red Cell Distribution Width 15.4 H Platelet Count 103 L Mean Platelet Volume 10.1 Immature Granulocytes % 0.500 H Neutrophils % 67.1 Lymphocytes % 19.2 Monocytes % 7.7 Eosinophils % 5.2 Basophils % 0.3 Nucleated Red Blood Cells % 0.0 Immature Granulocytes # 0.020 Neutrophils # 2.5 Lymphocytes # 0.7 L Monocytes # 0.3 Eosinophils # 0.2 Basophils # 0.0 Nucleated Red Blood Cells # 0.0 Sodium Level 139 Potassium Level 4.5 Chloride Level 93 L Carbon Dioxide Level 32 H Anion Gap 14 H Blood Urea Nitrogen 67 H Creatinine 10.59 H Est Glomerular Filtrat Rate mL/min 5 L Glucose Level 104 Calcium Level 8.0 L Iron Level 45 Total Iron Binding Capacity 154 L Percent Iron Saturation 29 Random Vancomycin Level 8.4 Exam/Review of Systems Exam Vitals Vital Signs Date Temp Pulse Resp B/P (MAP) Pulse Ox O2 O2 Flow FiO2 Time Delivery Rate 01/04/19 2.0 28 10:04 01/04/19 101 22 98 Nasal 10:01 Cannula 01/04/19 98.3 108/60 07:35 (76) Intake and Output 01/03/19 01/03/19 01/04/19 1515:00 23:00 07:00 IntakeIntake Total 1100 ml 400 ml BalanceBalance 1100 ml 400 ml Results Results 24hrs Laboratory Tests Test 01/04/19 05:39 01/04/19 05:40 White Blood Count 3.7 L Red Blood Count 3.24 L Hemoglobin 10.0 L Hematocrit 30.4 L Mean Corpuscular Volume 93.8 Mean Corpuscular Hemoglobin 30.9 Mean Corpuscular Hemoglobin Concent 32.9 Red Cell Distribution Width 15.4 H Platelet Count 103 L Mean Platelet Volume 10.1 Immature Granulocytes % 0.500 H Neutrophils % 67.1 Lymphocytes % 19.2 Monocytes % 7.7 Eosinophils % 5.2 Basophils % 0.3 Nucleated Red Blood Cells % 0.0 Immature Granulocytes # 0.020 Neutrophils # 2.5 Lymphocytes # 0.7 L Monocytes # 0.3 Eosinophils # 0.2 Basophils # 0.0 Nucleated Red Blood Cells # 0.0 Sodium Level 139 Potassium Level 4.5 Chloride Level 93 L Carbon Dioxide Level 32 H Anion Gap 14 H Blood Urea Nitrogen 67 H Creatinine 10.59 H Est Glomerular Filtrat Rate mL/min 5 L Glucose Level 104 Calcium Level 8.0 L Iron Level 45 Total Iron Binding Capacity 154 L Percent Iron Saturation 29 Random Vancomycin Level 8.4 Medications Medication Current Medications Apixaban (Eliquis) 5 mg BID PO Last administered on 01/04/19at 08:25; Admin Dose 5 MG; Start 01/02/19 at 09:00; Status Hold Hydralazine HCl (Apresoline) 25 mg BID PRN PO ELEVATED BLOOD PRESSURE; Start 01/02/19 at 04:00 Isosorbide Mononitrate (Imdur) 30 mg DAILY PO Last administered on 01/03/19at 08:13; Admin Dose 30 MG; Start 01/02/19 at 09:00 Pregabalin (Lyrica) 75 mg BID PO Last administered on 01/04/19 08:25; Admin Dose 75 MG; Start 01/02/19 at 09:00 Sevelamer Carbonate (Renvela) 2.4 gm WITH MEALS PO Last administered on 01/04/19 08:25; Admin Dose 2.4 GM; Start 01/02/19 at 08:00 Vancomycin HCl (Vanco Iv Per Pharmacy) VANCOMYCIN PER PHARMACY PER PROTOCOL XX ; Start 01/02/19 at 04:00 IV Flush (NS 3 ml) 3 ml PER PROTOCOL IV ; Start 01/02/19 at 04:00 Ondansetron HCl (Zofran Tab) 4 mg Q6H PRN PO NAUSEA/VOMITING; Start 01/02/19 at 04:00 Nitroglycerin (Nitroglycerin (Sl Tab) 0.4 Mg) 1 tab Q5M PRN SL .CHEST PAIN Last administered on 01/02/19 12:29; Admin Dose 1 TAB; Start 01/02/19 at 04:00 Acetaminophen (Tylenol Tab) 650 mg Q6H PRN PO .PAIN 1-3 OR TEMP Last administered on 01/04/19 01:00; Admin Dose 650 MG; Start 01/02/19 at 04:00 Docusate Sodium (Colace) 100 mg Q12H PRN PO .CONSTIPATION; Start 01/02/19 at 04:00 Bisacodyl (Dulcolax) 5 mg DAILY PRN PO .CONSTIPATION; Start 01/02/19 at 04:00 Levofloxacin/ Dextrose 100 ml @ 100 mls/hr Q48H IVPB Last administered on 01/04/19at 01:00; Admin Dose 100 MLS/HR; Start 01/04/19 at 01:00 Acetaminophen/ Hydrocodone Bitart ([place] (5/325)) 1 tab Q6H PRN PO MODERATE PAIN LEVEL 4-6 Last administered on 01/03/19 21:48; Admin Dose 1 TAB; Start 01/02/19 at 13:00 Non-Formulary Medication 3 ea DAILY PO Last administered on 01/04/19 08:26; Admin Dose 3 EA; Start 01/02/19 at 16:00 Albuterol/ Ipratropium (Duoneb) 3 ml Q6HWA RESP THERAPY HHN Last administered on 3/13/19at 10:01; Admin Dose 3 ML; Start 01/03/19 at 14:00 Guaifenesin/ Codeine Phosphate (Robitussin Ac Liquid Cup) 10 ml Q4H PRN PO COUGH; Start 01/03/19 at 12:30 Gentamicin Sulfate (Gentamicin Iv Per Pharmacy) GENTAMICIN PER PHARMACY NOTE XX ; Start 01/03/19 at 15:00 Chlorhexidine Gluconate (Peridex) 15 ml BID MT Last administered on 01/04/19at 09:36; Admin Dose 15 ML; Start 01/03/19 at 21:00 Gentamicin Sulfate 50 ml @ 104 mls/hr AFTER DIALYSIS IVPB ; Start 01/04/19 at 18:00 Nifedipine (Procardia Xl) 30 mg BID PO ; Start 01/04/19 at 21:00 Carvedilol (Coreg) 6.25 mg BID PO ; Start 01/04/19 at 21:00 Ferric Sodium Gluconate Complex 125 mg/Sodium Chloride 100 ml @ 100 mls/hr DAILY@1300 IVPB ; Start 01/04/19 at 13:00; Stop 01/06/19 at 13:59 TIESHA ARELLANO Jan 04, 2019 11:09
--- NOTE | 2019-01-04 11:58 | CONS ---
Assessment/Plan Assessment/Plan Assessment/Plan (Daily) 53-year-old male who presented with: 1. Sepsis, likely secondary to pneumonia/history of flu in the past. 2. Community-acquired pneumonia. 3. Hyperkalemia, likely secondary to end-stage renal disease and patient missing dialysis session that is questionable noncompliance. The patient also went on vacation, probably diet noncompliance. 4. Hypertension. 5. Diastolic heart failure. 6. Dyslipidemia. 7. History of paroxysmal atrial fibrillation. 8. History of coronary artery disease. 9. History of hepatitis C. 10. History of multiple AV fistula infections. Plan -HD Wednesday we will do HD today with extra volume removal if blood pressure tolerates -cw with Vanco/Levaquin /gentamycin -Influenza a and B are negative. - nebs/cough medicine - cw sevelmer -Next HD tomorrow, hd mwf -No BP or blood draws in the left upper extremity Consultation Date/Type/Reason Admit Date/Time Jan 02, 2019 at 03:27 Initial Consult Date Date/Time of Note DATE: 01/04/19 TIME: 11:57 24 HR Interval Summary Free Text/Dictation Feels a lot better today. Feels that the breathing has improved Exam/Review of Systems Exam Vitals Vital Signs Date Temp Pulse Resp B/P (MAP) Pulse Ox O2 O2 Flow FiO2 Time Delivery Rate 01/04/19 2.0 28 10:04 01/04/19 101 22 98 Nasal 10:01 Cannula 01/04/19 98.3 108/60 07:35 (76) Intake and Output 01/03/19 01/03/19 01/04/19 1515:00 23:00 07:00 IntakeIntake Total 1100 ml 400 ml BalanceBalance 1100 ml 400 ml Exam GENERAL: The patient is awake, alert, oriented, does not appear to be in any acute distress. HEENT: Pupils are equal, round, reactive to light. NECK: Supple. No JVD. HEART: Regular, tachycardic. LUNGS: Few crackels on rt base ABDOMEN: Soft, nontender, nondistended, positive normal bowel sounds. EXTREMITIES: No clubbing, cyanosis or edema. The patient has a left upper extremity fistula with 2 scars, scabbing present at the fistula, arterial and the venous side. Results Result Diagram: 01/04/19 0539 01/04/19 0539 Results 24hrs Laboratory Tests Test 01/04/19 05:39 01/04/19 05:40 White Blood Count 3.7 L Red Blood Count 3.24 L Hemoglobin 10.0 L Hematocrit 30.4 L Mean Corpuscular Volume 93.8 Mean Corpuscular Hemoglobin 30.9 Mean Corpuscular Hemoglobin Concent 32.9 Red Cell Distribution Width 15.4 H Platelet Count 103 L Mean Platelet Volume 10.1 Immature Granulocytes % 0.500 H Neutrophils % 67.1 Lymphocytes % 19.2 Monocytes % 7.7 Eosinophils % 5.2 Basophils % 0.3 Nucleated Red Blood Cells % 0.0 Immature Granulocytes # 0.020 Neutrophils # 2.5 Lymphocytes # 0.7 L Monocytes # 0.3 Eosinophils # 0.2 Basophils # 0.0 Nucleated Red Blood Cells # 0.0 Sodium Level 139 Potassium Level 4.5 Chloride Level 93 L Carbon Dioxide Level 32 H Anion Gap 14 H Blood Urea Nitrogen 67 H Creatinine 10.59 H Est Glomerular Filtrat Rate mL/min 5 L Glucose Level 104 Calcium Level 8.0 L Iron Level 45 Total Iron Binding Capacity 154 L Percent Iron Saturation 29 Random Vancomycin Level 8.4 Medications Medication Current Medications Apixaban (Eliquis) 5 mg BID PO Last administered on 01/04/19at 08:25; Admin Dose 5 MG; Start 01/02/19 at 09:00; Status Hold Hydralazine HCl (Apresoline) 25 mg BID PRN PO ELEVATED BLOOD PRESSURE; Start 01/02/19 at 04:00 Isosorbide Mononitrate (Imdur) 30 mg DAILY PO Last administered on 01/03/19at 08:13; Admin Dose 30 MG; Start 01/02/19 at 09:00 Pregabalin (Lyrica) 75 mg BID PO Last administered on 01/04/19at 08:25; Admin Dose 75 MG; Start 01/02/19 at 09:00 Sevelamer Carbonate (Renvela) 2.4 gm WITH MEALS PO Last administered on 01/04/19at 08:25; Admin Dose 2.4 GM; Start 01/02/19 at 08:00 Vancomycin HCl (Vanco Iv Per Pharmacy) VANCOMYCIN PER PHARMACY PER PROTOCOL XX ; Start 01/02/19 at 04:00 IV Flush (NS 3 ml) 3 ml PER PROTOCOL IV ; Start 01/02/19 at 04:00 Ondansetron HCl (Zofran Tab) 4 mg Q6H PRN PO NAUSEA/VOMITING; Start 01/02/19 at 04:00 Nitroglycerin (Nitroglycerin (Sl Tab) 0.4 Mg) 1 tab Q5M PRN SL .CHEST PAIN Last administered on 01/02/19at 12:29; Admin Dose 1 TAB; Start 01/02/19 at 04:00 Acetaminophen (Tylenol Tab) 650 mg Q6H PRN PO .PAIN 1-3 OR TEMP Last administered on 01/04/19 01:00; Admin Dose 650 MG; Start 01/02/19 at 04:00 Docusate Sodium (Colace) 100 mg Q12H PRN PO .CONSTIPATION; Start 01/02/19 at 04:00 Bisacodyl (Dulcolax) 5 mg DAILY PRN PO .CONSTIPATION; Start 01/02/19 at 04:00 Levofloxacin/ Dextrose 100 ml @ 100 mls/hr Q48H IVPB Last administered on 01/04/19at 01:00; Admin Dose 100 MLS/HR; Start 01/04/19 at 01:00 Acetaminophen/ Hydrocodone Bitart ([place] (5/325)) 1 tab Q6H PRN PO MODERATE PAIN LEVEL 4-6 Last administered on 01/03/19 21:48; Admin Dose 1 TAB; Start 01/02/19 at 13:00 Non-Formulary Medication 3 ea DAILY PO Last administered on 01/04/19 08:26; Admin Dose 3 EA; Start 01/02/19 at 16:00 Albuterol/ Ipratropium (Duoneb) 3 ml Q6HWA RESP THERAPY HHN Last administered on 01/04/19 10:01; Admin Dose 3 ML; Start 01/03/19 at 14:00 Guaifenesin/ Codeine Phosphate (Robitussin Ac Liquid Cup) 10 ml Q4H PRN PO COUGH; Start 01/03/19 at 12:30 Gentamicin Sulfate (Gentamicin Iv Per Pharmacy) GENTAMICIN PER PHARMACY NOTE XX ; Start 01/03/19 at 15:00 Chlorhexidine Gluconate (Peridex) 15 ml BID MT Last administered on 01/04/19at 09:36; Admin Dose 15 ML; Start 3/12/19 at 21:00 Gentamicin Sulfate 50 ml @ 104 mls/hr AFTER DIALYSIS IVPB ; Start 01/04/19 at 18:00 Nifedipine (Procardia Xl) 30 mg BID PO ; Start 01/04/19 at 21:00 Carvedilol (Coreg) 6.25 mg BID PO ; Start 01/04/19 at 21:00 Ferric Sodium Gluconate Complex 125 mg/Sodium Chloride 100 ml @ 100 mls/hr DAILY@1300 IVPB ; Start 01/04/19 at 13:00; Stop 01/06/19 at 13:59 Vancomycin HCl 250 ml @ 125 mls/hr 1200 IVPB ; Start 01/04/19 at 12:00; Stop 01/04/19 at 19:00 CELENA GUERIN MD Jan 04, 2019 11:58
[2019-01-04] MEDS ORDERED: VANCOMYCIN 1 GM 250 ML IVPB SCH (12:00)
[2019-01-04] MEDS: HYDROCODONE/APAP (5/325) TAB PO PRN (12:13)
--- NOTE | 2019-01-04 13:49 | CONS ---
Assessment/Plan Assessment/Plan Hospital Course (Demo Recall) Patient is alert feels better looks comfortable latest temperature 99.7 with a T-max yesterday of 100.8. WBC 3.7 All cultures have been negative Chest x-ray this morning revealed worsening pulmonary vascular congestion. Slightly more focal right lower lobe consolidation. Antimicrobials: Vancomycin gentamicin Levaquin PHYSICAL EXAMINATION: GENERAL: This is a well-nourished, well-developed, middle-aged man, who is alert, looks comfortable. The patient is in no distress, still has some pleuritic chest pain, worse with cough. No nausea, vomiting or diarrhea. HEENT: Head atraumatic, normocephalic. Sclerae anicteric. Buccal mucosa dry. Patient has halitosis. Oropharynx clear. NECK: Supple. No palpable cervical nodes. CHEST: Rise symmetrical. Breath sounds diminished to bases. HEART: S1, S2. ABDOMEN: Soft, bowel tones present. EXTREMITIES: Without cyanosis. Left upper extremity AV fistula patent. Assessment: 1. Sepsis, resolving 2. Community-acquired pneumonia 3. End-stage renal disease, hemodialysis dependent 4. CHF 5. Coronary artery disease Plan: Patient is doing better, continue present care and antibiotics, start incentive spirometry Consultation Date/Type/Reason Admit Date/Time Jan 02, 2019 at 03:27 Initial Consult Date Type of Consult id Date/Time of Note DATE: 01/04/19 TIME: 13:49 Exam/Review of Systems Exam Vitals Vital Signs Date Temp Pulse Resp B/P (MAP) Pulse Ox O2 O2 Flow FiO2 Time Delivery Rate 01/04/19 104 13:29 01/04/19 99.7 16 116/65 94 Nasal 12:05 (82) Cannula 01/04/19 2.0 28 10:04 Intake and Output 01/03/19 01/03/19 01/04/19 1515:00 23:00 07:00 IntakeIntake Total 1100 ml 400 ml BalanceBalance 1100 ml 400 ml Results Result Diagram: 01/04/19 0539 01/04/19 0539 Results 24hrs Laboratory Tests Test 01/04/19 05:39 01/04/19 05:40 White Blood Count 3.7 L Red Blood Count 3.24 L Hemoglobin 10.0 L Hematocrit 30.4 L Mean Corpuscular Volume 93.8 Mean Corpuscular Hemoglobin 30.9 Mean Corpuscular Hemoglobin Concent 32.9 Red Cell Distribution Width 15.4 H Platelet Count 103 L Mean Platelet Volume 10.1 Immature Granulocytes % 0.500 H Neutrophils % 67.1 Lymphocytes % 19.2 Monocytes % 7.7 Eosinophils % 5.2 Basophils % 0.3 Nucleated Red Blood Cells % 0.0 Immature Granulocytes # 0.020 Neutrophils # 2.5 Lymphocytes # 0.7 L Monocytes # 0.3 Eosinophils # 0.2 Basophils # 0.0 Nucleated Red Blood Cells # 0.0 Sodium Level 139 Potassium Level 4.5 Chloride Level 93 L Carbon Dioxide Level 32 H Anion Gap 14 H Blood Urea Nitrogen 67 H Creatinine 10.59 H Est Glomerular Filtrat Rate mL/min 5 L Glucose Level 104 Calcium Level 8.0 L Iron Level 45 Total Iron Binding Capacity 154 L Percent Iron Saturation 29 Random Vancomycin Level 8.4 Medications Medication Current Medications Apixaban (Eliquis) 5 mg BID PO Last administered on 01/04/19at 08:25; Admin Dose 5 MG; Start 01/02/19 at 09:00; Status Hold Hydralazine HCl (Apresoline) 25 mg BID PRN PO ELEVATED BLOOD PRESSURE; Start 01/02/19 at 04:00 Isosorbide Mononitrate (Imdur) 30 mg DAILY PO Last administered on 01/03/19at 08:13; Admin Dose 30 MG; Start 01/02/19 at 09:00 Pregabalin (Lyrica) 75 mg BID PO Last administered on 01/04/19at 08:25; Admin Dose 75 MG; Start 01/02/19 at 09:00 Sevelamer Carbonate (Renvela) 2.4 gm WITH MEALS PO Last administered on at 12:17; Admin Dose 2.4 GM; Start 01/02/19 at 08:00 Vancomycin HCl (Vanco Iv Per Pharmacy) VANCOMYCIN PER PHARMACY PER PROTOCOL XX ; Start 01/02/19 at 04:00 IV Flush (NS 3 ml) 3 ml PER PROTOCOL IV ; Start 01/02/19 at 04:00 Ondansetron HCl (Zofran Tab) 4 mg Q6H PRN PO NAUSEA/VOMITING; Start 01/02/19 at 04:00 Nitroglycerin (Nitroglycerin (Sl Tab) 0.4 Mg) 1 tab Q5M PRN SL .CHEST PAIN Last administered on 01/02/19 12:29; Admin Dose 1 TAB; Start 01/02/19 at 04:00 Acetaminophen (Tylenol Tab) 650 mg Q6H PRN PO .PAIN 1-3 OR TEMP Last administered on 01/04/19 01:00; Admin Dose 650 MG; Start 01/02/19 at 04:00 Docusate Sodium (Colace) 100 mg Q12H PRN PO .CONSTIPATION; Start 01/02/19 at 04:00 Bisacodyl (Dulcolax) 5 mg DAILY PRN PO .CONSTIPATION; Start 01/02/19 at 04:00 Levofloxacin/ Dextrose 100 ml @ 100 mls/hr Q48H IVPB Last administered on 01/04/19 01:00; Admin Dose 100 MLS/HR; Start 01/04/19 at 01:00 Acetaminophen/ Hydrocodone Bitart ([place] (5/325)) 1 tab Q6H PRN PO MODERATE PAIN LEVEL 4-6 Last administered on 01/04/19 12:13; Admin Dose 1 TAB; Start 01/02/19 at 13:00 Non-Formulary Medication 3 ea DAILY PO Last administered on 01/04/19 08:26; Admin Dose 3 EA; Start 01/02/19 at 16:00 Albuterol/ Ipratropium (Duoneb) 3 ml Q6HWA RESP THERAPY HHN Last administered on 01/04/19 10:01; Admin Dose 3 ML; Start 01/03/19 at 14:00 Guaifenesin/ Codeine Phosphate (Robitussin Ac Liquid Cup) 10 ml Q4H PRN PO COUGH Last administered on 01/04/19 12:13; Admin Dose 10 ML; Start 01/03/19 at 12:30 Gentamicin Sulfate (Gentamicin Iv Per Pharmacy) GENTAMICIN PER PHARMACY NOTE XX ; Start 01/03/19 at 15:00 Chlorhexidine Gluconate (Peridex) 15 ml BID MT Last administered on 01/04/19 09:36; Admin Dose 15 ML; Start 01/03/19 at 21:00 Gentamicin Sulfate 50 ml @ 104 mls/hr AFTER DIALYSIS IVPB ; Start 01/04/19 at 18:00 Nifedipine (Procardia Xl) 30 mg BID PO ; Start 01/04/19 at 21:00 Carvedilol (Coreg) 6.25 mg BID PO ; Start 01/04/19 at 21:00 Ferric Sodium Gluconate Complex 125 mg/Sodium Chloride 100 ml @ 100 mls/hr DAILY@1300 IVPB ; Start 01/04/19 at 13:00; Stop 01/06/19 at 13:59 Vancomycin HCl 250 ml @ 125 mls/hr 1200 IVPB Last administered on 01/04/19at 12:08; Admin Dose 125 MLS/HR; Start 01/04/19 at 12:00; Stop 01/04/19 at 19:00 MANUELA SOMMER NP Jan 04, 2019 13:49
--- NOTE | 2019-01-04 14:25 | CONS ---
Assessment/Plan Cardiology NYHA: III Heart Failure Type: Acute on Chronic Heart Failure Type: Diastolic Assessment/Plan Hospital Course (Demo Recall) Assessment: Acute on chronic diastolic heart failure Moderate pulmonary hypertension Pneumonia Hypertension End-stage renal disease - on hemodialysis Hyperkalemia - temporizing measures taken, further treatment with dialysis Recommendations: -echocardiogram results reviewed -continue anti-hypertensive medications -volume management via hemodialysis Consultation Date/Type/Reason Admit Date/Time Jan 02, 2019 at 03:27 Type of Consult Cardiology Reason for Consultation congestive heart failure Date/Time of Note DATE: 01/04/19 TIME: 14:20 Hx of Present Illness The patient is a 53 year-old male who presented with fever, cough, and shortness of breath. He has been found to have pneumonia. Additionally, he has been noted to have decompensated heart failure and hyperkalemia. EKG showed sinus tachycardia and peaked T waves. Troponins have been in the normal range x 3. 14 point review of systems negative other than per HPI. Past Medical History Chronic diastolic heart failure Hypertension End-stage renal disease Home Meds Reported Medications Glecaprevir/Pibrentasvir (Mavyret 100-40 mg Tablet) 1 Each Tablet, 1 TAB PO DAILY, TAB 01/02/19 Folic Acid* (Folic Acid*) 1 Mg Tablet, 1 MG PO DAILY, TAB 01/02/19 Cholecalciferol* (Vitamin D*) 400 Unit Tablet, 400 UNIT PO DAILY, TAB 01/02/19 Cholecalciferol* (Vitamin D*) 400 Unit Tablet, 400 UNIT PO DAILY, TAB 01/02/19 Nifedipine* (Nifedipine ER*) 60 Mg Tablet.sa, 60 MG PO BID, TAB.SA 11/25/18 Sevelamer Hcl* (Renagel*) 800 Mg Tablet, 2400 MG PO WITH MEALS, TAB 11/25/18 Hydralazine Hcl* (Hydralazine Hcl*) 25 Mg Tab, 25 MG PO BID PRN for ELEVATED BLOOD PRESSURE, #60 TAB 11/25/18 Apixaban* (Eliquis*) 5 Mg Tablet, 5 MG PO BID, TAB 11/25/18 Pregabalin* (Lyrica*) 75 Mg Capsule, 75 MG PO BID, CAP 11/25/18 Carvedilol* (Carvedilol*) 6.25 Mg Tablet, 6.25 MG PO BID, #60 TAB 11/25/18 Isosorbide Mononitrate* (Isosorbide Mononitrate*) 30 Mg Tab.er.24h, 30 MG PO DAILY, TAB 11/25/18 Discontinued Scripts Oseltamivir Phosphate* (Tamiflu*) 30 Mg Capsule, 30 MG PO MONWEDFRI for 5 Days, #3 CAP after every hemodialysis Prov:TIESHA ARELLANO M. 11/28/18 Azithromycin* (Azithromycin*) 250 Mg Tablet, 250 MG PO DAILY for 2 Days, #2 TAB Prov:TIESHA ARELLANO M. 11/28/18 Medications Current Medications Apixaban (Eliquis) 5 mg BID PO Last administered on 01/04/19at 08:25; Admin Dose 5 MG; Start 01/02/19 at 09:00; Status Hold Hydralazine HCl (Apresoline) 25 mg BID PRN PO ELEVATED BLOOD PRESSURE; Start 01/02/19 at 04:00 Isosorbide Mononitrate (Imdur) 30 mg DAILY PO Last administered on 01/03/19at 08:13; Admin Dose 30 MG; Start 01/02/19 at 09:00 Pregabalin (Lyrica) 75 mg BID PO Last administered on 01/04/19at 08:25; Admin Dose 75 MG; Start 01/02/19 at 09:00 Sevelamer Carbonate (Renvela) 2.4 gm WITH MEALS PO Last administered on 01/04/19at 12:17; Admin Dose 2.4 GM; Start 01/02/19 at 08:00 Vancomycin HCl (Vanco Iv Per Pharmacy) VANCOMYCIN PER PHARMACY PER PROTOCOL XX ; Start 01/02/19 at 04:00 IV Flush (NS 3 ml) 3 ml PER PROTOCOL IV ; Start 01/02/19 at 04:00 Ondansetron HCl (Zofran Tab) 4 mg Q6H PRN PO NAUSEA/VOMITING; Start 01/02/19 at 04:00 Nitroglycerin (Nitroglycerin (Sl Tab) 0.4 Mg) 1 tab Q5M PRN SL .CHEST PAIN Last administered on 01/02/19at 12:29; Admin Dose 1 TAB; Start 01/02/19 at 04:00 Acetaminophen (Tylenol Tab) 650 mg Q6H PRN PO .PAIN 1-3 OR TEMP Last administered on 01/04/19at 01:00; Admin Dose 650 MG; Start 01/02/19 at 04:00 Docusate Sodium (Colace) 100 mg Q12H PRN PO .CONSTIPATION; Start 01/02/19 at 04:00 Bisacodyl (Dulcolax) 5 mg DAILY PRN PO .CONSTIPATION; Start 01/02/19 at 04:00 Levofloxacin/ Dextrose 100 ml @ 100 mls/hr Q48H IVPB Last administered on 01/04/19at 01:00; Admin Dose 100 MLS/HR; Start 01/04/19 at 01:00 Acetaminophen/ Hydrocodone Bitart ([place] (5/325)) 1 tab Q6H PRN PO MODERATE PAIN LEVEL 4-6 Last administered on 01/04/19at 12:13; Admin Dose 1 TAB; Start 01/02/19 at 13:00 Non-Formulary Medication 3 ea DAILY PO Last administered on 01/04/19at 08:26; Admin Dose 3 EA; Start 01/02/19 at 16:00 Albuterol/ Ipratropium (Duoneb) 3 ml Q6HWA RESP THERAPY HHN Last administered on 01/04/19at 10:01; Admin Dose 3 ML; Start 01/03/19 at 14:00 Guaifenesin/ Codeine Phosphate (Robitussin Ac Liquid Cup) 10 ml Q4H PRN PO COUGH Last administered on 01/04/19at 12:13; Admin Dose 10 ML; Start 01/03/19 at 12:30 Gentamicin Sulfate (Gentamicin Iv Per Pharmacy) GENTAMICIN PER PHARMACY NOTE XX ; Start 01/03/19 at 15:00 Chlorhexidine Gluconate (Peridex) 15 ml BID MT Last administered on 01/04/19at 09:36; Admin Dose 15 ML; Start 01/03/19 at 21:00 Gentamicin Sulfate 50 ml @ 104 mls/hr AFTER DIALYSIS IVPB ; Start 01/04/19 at 18:00 Nifedipine (Procardia Xl) 30 mg BID PO ; Start 01/04/19 at 21:00 Carvedilol (Coreg) 6.25 mg BID PO ; Start 01/04/19 at 21:00 Ferric Sodium Gluconate Complex 125 mg/Sodium Chloride 100 ml @ 100 mls/hr DAILY@1300 IVPB ; Start 01/04/19 at 13:00; Stop 01/06/19 at 13:59 Vancomycin HCl 250 ml @ 125 mls/hr 1200 IVPB Last administered on 01/04/19at 12:08; Admin Dose 125 MLS/HR; Start 01/04/19 at 12:00; Stop 01/04/19 at 19:00 Allergies: Coded Allergies: tramadol (Verified Allergy, Intermediate, rash, 01/02/19) possible allergy Cephalexin Monohydrate (Verified Allergy, Unknown, RASH, 01/02/19) Family History Significant Family History: no pertinent family hx Social History Smoking Status: Never smoker Drug Use: none Exam/Review of Systems Vital Signs Vitals Vital Signs Date Temp Pulse Resp B/P (MAP) Pulse Ox O2 O2 Flow FiO2 Time Delivery Rate 01/04/19 104 13:29 01/04/19 99.7 16 116/65 94 Nasal 12:05 (82) Cannula 01/04/19 2.0 28 10:04 Intake and Output 01/03/19 01/03/19 01/04/19 1515:00 23:00 07:00 IntakeIntake Total 1100 ml 400 ml BalanceBalance 1100 ml 400 ml Exam Constitutional: alert, well developed Psych: no complaints, nl mood/affect Head: normocephalic, atraumatic Eyes: nl conjunctiva, nl lids ENMT: nl external ears & nose, nl nasal mucosa & septum Neck: supple, non-tender, jvd Respiratory: crackles/rales, diminished breath sounds Cardiovascular: regular rate and rhythm Gastrointestinal: soft, non-tender Musculoskeletal: nl extremities to inspection Extremities: No cyanosis, No clubbing, No edema 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: nl mental status, nl speech Labs Result Diagram: 01/04/19 0539 01/04/19 0539 Results 24hrs Laboratory Tests Test 01/04/19 05:39 01/04/19 05:40 White Blood Count 3.7 L Red Blood Count 3.24 L Hemoglobin 10.0 L Hematocrit 30.4 L Mean Corpuscular Volume 93.8 Mean Corpuscular Hemoglobin 30.9 Mean Corpuscular Hemoglobin Concent 32.9 Red Cell Distribution Width 15.4 H Platelet Count 103 L Mean Platelet Volume 10.1 Immature Granulocytes % 0.500 H Neutrophils % 67.1 Lymphocytes % 19.2 Monocytes % 7.7 Eosinophils % 5.2 Basophils % 0.3 Nucleated Red Blood Cells % 0.0 Immature Granulocytes # 0.020 Neutrophils # 2.5 Lymphocytes # 0.7 L Monocytes # 0.3 Eosinophils # 0.2 Basophils # 0.0 Nucleated Red Blood Cells # 0.0 Sodium Level 139 Potassium Level 4.5 Chloride Level 93 L Carbon Dioxide Level 32 H Anion Gap 14 H Blood Urea Nitrogen 67 H Creatinine 10.59 H Est Glomerular Filtrat Rate mL/min 5 L Glucose Level 104 Calcium Level 8.0 L Iron Level 45 Total Iron Binding Capacity 154 L Percent Iron Saturation 29 Random Vancomycin Level 8.4 Medications Medications Current Medications Apixaban (Eliquis) 5 mg BID PO Last administered on 01/04/19 08:25; Admin Dose 5 MG; Start 01/02/19 at 09:00; Status Hold Hydralazine HCl (Apresoline) 25 mg BID PRN PO ELEVATED BLOOD PRESSURE; Start 01/02/19 at 04:00 Isosorbide Mononitrate (Imdur) 30 mg DAILY PO Last administered on 01/03/19 08:13; Admin Dose 30 MG; Start 01/02/19 at 09:00 Pregabalin (Lyrica) 75 mg BID PO Last administered on 01/04/19 08:25; Admin Dose 75 MG; Start 01/02/19 at 09:00 Sevelamer Carbonate (Renvela) 2.4 gm WITH MEALS PO Last administered on 01/04/19 12:17; Admin Dose 2.4 GM; Start 01/02/19 at 08:00 Vancomycin HCl (Vanco Iv Per Pharmacy) VANCOMYCIN PER PHARMACY PER PROTOCOL XX ; Start 01/02/19 at 04:00 IV Flush (NS 3 ml) 3 ml PER PROTOCOL IV ; Start 01/02/19 at 04:00 Ondansetron HCl (Zofran Tab) 4 mg Q6H PRN PO NAUSEA/VOMITING; Start 01/02/19 at 04:00 Nitroglycerin (Nitroglycerin (Sl Tab) 0.4 Mg) 1 tab Q5M PRN SL .CHEST PAIN Last administered on 01/02/19 12:29; Admin Dose 1 TAB; Start 01/02/19 at 04:00 Acetaminophen (Tylenol Tab) 650 mg Q6H PRN PO .PAIN 1-3 OR TEMP Last administered on 01/04/19 01:00; Admin Dose 650 MG; Start 01/02/19 at 04:00 Docusate Sodium (Colace) 100 mg Q12H PRN PO .CONSTIPATION; Start 01/02/19 at 04:00 Bisacodyl (Dulcolax) 5 mg DAILY PRN PO .CONSTIPATION; Start 01/02/19 at 04:00 Levofloxacin/ Dextrose 100 ml @ 100 mls/hr Q48H IVPB Last administered on 01/04/19at 01:00; Admin Dose 100 MLS/HR; Start 01/04/19 at 01:00 Acetaminophen/ Hydrocodone Bitart ([place] (5/325)) 1 tab Q6H PRN PO MODERATE PAIN LEVEL 4-6 Last administered on 01/04/19at 12:13; Admin Dose 1 TAB; Start 01/02/19 at 13:00 Non-Formulary Medication 3 ea DAILY PO Last administered on 01/04/19at 08:26; Admin Dose 3 EA; Start 01/02/19 at 16:00 Albuterol/ Ipratropium (Duoneb) 3 ml Q6HWA RESP THERAPY HHN Last administered on 01/04/19at 10:01; Admin Dose 3 ML; Start 01/03/19 at 14:00 Guaifenesin/ Codeine Phosphate (Robitussin Ac Liquid Cup) 10 ml Q4H PRN PO COUGH Last administered on 01/04/19at 12:13; Admin Dose 10 ML; Start 01/03/19 at 12:30 Gentamicin Sulfate (Gentamicin Iv Per Pharmacy) GENTAMICIN PER PHARMACY NOTE XX ; Start 01/03/19 at 15:00 Chlorhexidine Gluconate (Peridex) 15 ml BID MT Last administered on 01/04/19at 09:36; Admin Dose 15 ML; Start 01/03/19 at 21:00 Gentamicin Sulfate 50 ml @ 104 mls/hr AFTER DIALYSIS IVPB ; Start 01/04/19 at 18:00 Nifedipine (Procardia Xl) 30 mg BID PO ; Start 01/04/19 at 21:00 Carvedilol (Coreg) 6.25 mg BID PO ; Start 01/04/19 at 21:00 Ferric Sodium Gluconate Complex 125 mg/Sodium Chloride 100 ml @ 100 mls/hr DAILY@1300 IVPB ; Start 01/04/19 at 13:00; Stop 01/06/19 at 13:59 Vancomycin HCl 250 ml @ 125 mls/hr 1200 IVPB Last administered on 01/04/19at 12:08; Admin Dose 125 MLS/HR; Start 01/04/19 at 12:00; Stop 01/04/19 at 19:00 AMOL ZAVALA MD Jan 04, 2019 14:25
[2019-01-04] MEDS: SOD FERRIC GLUC COMPLX 125 MG in SOD CHLORIDE 0.9% 100 ML IVPB SCH (14:30)
[2019-01-04] MEDS: FUROSEMIDE 40 MG INJ IV SCH (15:30)
[2019-01-04] MEDS ORDERED: GENTAMICIN 80 MG/NS (PMX) 50 ML IVPB SCH (18:00)
[2019-01-05] VITALS (12 sets, daily range): BP systolic 112–135; BP diastolic 56–72; PULSE 68–95; RESP 18–20
[2019-01-05] MEDS: CHLORHEXIDINE GLUCONATE 15 ML UD CUP MT SCH ×3 (00:39→20:18)
[2019-01-05] MEDS: PREGABALIN 75 MG CAP PO SCH ×3 (00:39→20:18)
[2019-01-05] MEDS: HYDROCODONE/APAP (5/325) TAB PO PRN ×3 (00:39→17:00)
[2019-01-05] MEDS: NIFEdipine (XL) 30 MG TAB PO SCH ×3 (00:40→20:20)
[2019-01-05] MEDS: ALBUTEROL/IPRATROPIUM (NEB) 3 ML AMP HHN SCH ×3 (08:04→20:30)
[2019-01-05] MEDS: ISOSORBIDE MONONITRATE(SR)30 MG TAB PO SCH (08:20)
[2019-01-05] MEDS: SEVELAMER CARBONATE 2.4 GM PKT PO SCH ×3 (08:21→17:29)
[2019-01-05] MEDS: SPECIAL NON-STANDARD MEDICATION PO SCH (08:22)
[2019-01-05] MEDS: FUROSEMIDE 40 MG INJ IV SCH ×2 (08:23→20:19)
--- NOTE | 2019-01-05 10:03 | CONS ---
Assessment/Plan Assessment/Plan Assessment/Plan (Daily) Assessment/Plan (Daily) 53-year-old male who presented with: 1. Sepsis, likely secondary to pneumonia/history of flu in the past. 2. Community-acquired pneumonia. 3. Hyperkalemia, likely secondary to end-stage renal disease and patient missing dialysis session that is questionable noncompliance. The patient also went on vacation, probably diet noncompliance. 4. Hypertension. 5. Diastolic heart failure. 6. Dyslipidemia. 7. History of paroxysmal atrial fibrillation. 8. History of coronary artery disease. 9. History of hepatitis C. 10. History of multiple AV fistula infections. Plan -HD Wednesday to remove as much volume as tomorrow -Fluid restriction to 1 L and his intake was 1.7 L yesterday -cw with Vanco/Levaquin /gentamycin -Influenza a and B are negative. - nebs/cough medicine - cw sevelmer -No BP or blood draws in the left upper extremity Consultation Date/Type/Reason Admit Date/Time Jan 02, 2019 at 03:27 Initial Consult Date Date/Time of Note DATE: 01/05/19 TIME: 10:03 24 HR Interval Summary Free Text/Dictation S/P this fluids fluid removal of 3 L yesterday Patient's intake was 1700 mL Exam/Review of Systems Exam Vitals Vital Signs Date Temp Pulse Resp B/P (MAP) Pulse Ox O2 O2 Flow FiO2 Time Delivery Rate 01/05/19 81 08:39 01/05/19 93 0.0 08:08 01/05/19 16 Nasal 08:07 Cannula 01/05/19 99.1 118/56 07:46 (76) 01/04/19 28 10:04 Intake and Output 01/04/19 01/04/19 01/05/19 1515:00 23:00 07:00 IntakeIntake Total 250 ml 1100 ml 400 ml OutputOutput Total 1400 ml BalanceBalance 250 ml 1100 ml -1000 ml Exam GENERAL: The patient is awake, alert, oriented, does not appear to be in any acute distress. HEENT: Pupils are equal, round, reactive to light. NECK: Supple. No JVD. HEART: Regular, tachycardic. LUNGS: Few crackels on rt base/LEFT ABDOMEN: Soft, nontender, nondistended, positive normal bowel sounds. EXTREMITIES: No clubbing, cyanosis or edema. The patient has a left upper extremity fistula with 2 scars, scabbing present at the fistula, arterial and the venous side. Results Result Diagram: 01/05/19 0637 01/05/19 0637 Results 24hrs Laboratory Tests Test 01/05/19 06:37 White Blood Count 2.8 #L Red Blood Count 2.98 L Hemoglobin 9.3 L Hematocrit 29.0 L Mean Corpuscular Volume 97.3 Mean Corpuscular Hemoglobin 31.2 Mean Corpuscular Hemoglobin Concent 32.1 Red Cell Distribution Width 15.4 H Platelet Count 95 L Mean Platelet Volume 9.9 Immature Granulocytes % 0.700 H Neutrophils % 63.6 Lymphocytes % 23.0 Monocytes % 6.7 Eosinophils % 5.3 Basophils % 0.7 Nucleated Red Blood Cells % 0.0 Immature Granulocytes # 0.020 Neutrophils # 1.8 Lymphocytes # 0.7 L Monocytes # 0.2 L Eosinophils # 0.2 Basophils # 0.0 Nucleated Red Blood Cells # 0.0 Sodium Level 139 Potassium Level 5.0 Chloride Level 103 # Carbon Dioxide Level 27 Anion Gap 9 # Blood Urea Nitrogen 38 #H Creatinine 7.90 #H Est Glomerular Filtrat Rate mL/min 7 L Glucose Level 85 Calcium Level 8.3 L Phosphorus Level 5.4 H Magnesium Level 2.1 Medications Medication Current Medications Apixaban (Eliquis) 5 mg BID PO Last administered on 01/04/19at 08:25; Admin Dose 5 MG; Start 01/02/19 at 09:00; Status Hold Hydralazine HCl (Apresoline) 25 mg BID PRN PO ELEVATED BLOOD PRESSURE; Start 01/02/19 at 04:00 Isosorbide Mononitrate (Imdur) 30 mg DAILY PO Last administered on 01/05/19at 08:20; Admin Dose 30 MG; Start 01/02/19 at 09:00 Pregabalin (Lyrica) 75 mg BID PO Last administered on 01/05/19at 08:33; Admin Dose 75 MG; Start 01/02/19 at 09:00 Sevelamer Carbonate (Renvela) 2.4 gm WITH MEALS PO Last administered on 01/05/19at 08:21; Admin Dose 2.4 GM; Start 01/02/19 at 08:00 Vancomycin HCl (Vanco Iv Per Pharmacy) VANCOMYCIN PER PHARMACY PER PROTOCOL XX ; Start 01/02/19 at 04:00 IV Flush (NS 3 ml) 3 ml PER PROTOCOL IV ; Start 01/02/19 at 04:00 Ondansetron HCl (Zofran Tab) 4 mg Q6H PRN PO NAUSEA/VOMITING; Start 01/02/19 at 04:00 Nitroglycerin (Nitroglycerin (Sl Tab) 0.4 Mg) 1 tab Q5M PRN SL .CHEST PAIN Last administered on 01/02/19at 12:29; Admin Dose 1 TAB; Start 01/02/19 at 04:00 Acetaminophen (Tylenol Tab) 650 mg Q6H PRN PO .PAIN 1-3 OR TEMP Last administered on 01/04/19at 01:00; Admin Dose 650 MG; Start 01/02/19 at 04:00 Docusate Sodium (Colace) 100 mg Q12H PRN PO .CONSTIPATION; Start 01/02/19 at 04:00 Bisacodyl (Dulcolax) 5 mg DAILY PRN PO .CONSTIPATION; Start 01/02/19 at 04:00 Levofloxacin/ Dextrose 100 ml @ 100 mls/hr Q48H IVPB Last administered on 01/04/19at 01:00; Admin Dose 100 MLS/HR; Start 01/04/19 at 01:00 Acetaminophen/ Hydrocodone Bitart ([place] (5/325)) 1 tab Q6H PRN PO MODERATE PAIN LEVEL 4-6 Last administered on 01/05/19at 08:33; Admin Dose 1 TAB; Start 01/02/19 at 13:00 Non-Formulary Medication 3 ea DAILY PO Last administered on 01/05/19at 08:22; Admin Dose 3 EA; Start 01/02/19 at 16:00 Albuterol/ Ipratropium (Duoneb) 3 ml Q6HWA RESP THERAPY HHN Last administered on 01/05/19at 08:04; Admin Dose 3 ML; Start 01/03/19 at 14:00 Guaifenesin/ Codeine Phosphate (Robitussin Ac Liquid Cup) 10 ml Q4H PRN PO COUGH Last administered on 01/04/19at 12:13; Admin Dose 10 ML; Start 01/03/19 at 12:30 Gentamicin Sulfate (Gentamicin Iv Per Pharmacy) GENTAMICIN PER PHARMACY NOTE XX ; Start 01/03/19 at 15:00 Chlorhexidine Gluconate (Peridex) 15 ml BID MT Last administered on 01/05/19at 08:20; Admin Dose 15 ML; Start 01/03/19 at 21:00 Gentamicin Sulfate 50 ml @ 104 mls/hr AFTER DIALYSIS IVPB ; Start 01/04/19 at 18:00 Nifedipine (Procardia Xl) 30 mg BID PO Last administered on 01/05/19at 08:21; Admin Dose 30 MG; Start 01/04/19 at 21:00 Carvedilol (Coreg) 6.25 mg BID PO Last administered on 01/05/19 08:22; Admin Dose 6.25 MG; Start 01/04/19 at 21:00 Ferric Sodium Gluconate Complex 125 mg/Sodium Chloride 100 ml @ 100 mls/hr DAILY@1300 IVPB Last administered on 01/04/19at 14:30; Admin Dose 100 MLS/HR; Start 01/04/19 at 13:00; Stop 01/06/19 at 13:59 Furosemide (Lasix) 40 mg DAILY IV Last administered on 01/05/19at 08:23; Admin Dose 40 MG; Start 01/04/19 at 15:30 CELENA GUERIN MD Jan 05, 2019 10:03
--- NOTE | 2019-01-05 10:47 | CONS ---
Assessment/Plan Cardiology NYHA: III Heart Failure Type: Acute on Chronic Heart Failure Type: Diastolic Assessment/Plan Hospital Course (Demo Recall) Assessment: Acute on chronic diastolic heart failure Moderate pulmonary hypertension Pneumonia Hypertension End-stage renal disease - on hemodialysis Recommendations: -echocardiogram results reviewed -continue anti-hypertensive medications -volume management via hemodialysis Consultation Date/Type/Reason Admit Date/Time Jan 02, 2019 at 03:27 Initial Consult Date Type of Consult Cardiology Date/Time of Note DATE: 01/05/19 TIME: 10:46 24 HR Interval Summary Free Text/Dictation No acute events. Detailed Summary Additional Comments 14 point review of systems without changes. Exam/Review of Systems Vital Signs Vitals Vital Signs Date Temp Pulse Resp B/P (MAP) Pulse Ox O2 O2 Flow FiO2 Time Delivery Rate 01/05/19 81 08:39 01/05/19 93 0.0 08:08 01/05/19 16 Nasal 08:07 Cannula 01/05/19 99.1 118/56 07:46 (76) 01/04/19 28 10:04 Intake and Output 01/04/19 01/04/19 01/05/19 1515:00 23:00 07:00 IntakeIntake Total 250 ml 1100 ml 400 ml OutputOutput Total 1400 ml BalanceBalance 250 ml 1100 ml -1000 ml Exam Exam Constitutional: alert, well developed Psych: no complaints, nl mood/affect Head: normocephalic, atraumatic Eyes: nl conjunctiva, nl lids ENMT: nl external ears & nose, nl nasal mucosa & septum Neck: supple, non-tender, jvd Respiratory: crackles/rales, diminished breath sounds Cardiovascular: regular rate and rhythm Gastrointestinal: soft, non-tender Musculoskeletal: nl extremities to inspection Extremities: No cyanosis, No clubbing, No edema 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: nl mental status, nl speech Labs Result Diagram: 01/05/19 0637 01/05/19 0637 Results 24hrs Laboratory Tests Test 01/05/19 06:37 White Blood Count 2.8 #L Red Blood Count 2.98 L Hemoglobin 9.3 L Hematocrit 29.0 L Mean Corpuscular Volume 97.3 Mean Corpuscular Hemoglobin 31.2 Mean Corpuscular Hemoglobin Concent 32.1 Red Cell Distribution Width 15.4 H Platelet Count 95 L Mean Platelet Volume 9.9 Immature Granulocytes % 0.700 H Neutrophils % 63.6 Lymphocytes % 23.0 Monocytes % 6.7 Eosinophils % 5.3 Basophils % 0.7 Nucleated Red Blood Cells % 0.0 Immature Granulocytes # 0.020 Neutrophils # 1.8 Lymphocytes # 0.7 L Monocytes # 0.2 L Eosinophils # 0.2 Basophils # 0.0 Nucleated Red Blood Cells # 0.0 Sodium Level 139 Potassium Level 5.0 Chloride Level 103 # Carbon Dioxide Level 27 Anion Gap 9 # Blood Urea Nitrogen 38 #H Creatinine 7.90 #H Est Glomerular Filtrat Rate mL/min 7 L Glucose Level 85 Calcium Level 8.3 L Phosphorus Level 5.4 H Magnesium Level 2.1 Medications Medications Current Medications Apixaban (Eliquis) 5 mg BID PO Last administered on 01/04/19at 08:25; Admin Dose 5 MG; Start 01/02/19 at 09:00; Status Hold Hydralazine HCl (Apresoline) 25 mg BID PRN PO ELEVATED BLOOD PRESSURE; Start 01/02/19 at 04:00 Isosorbide Mononitrate (Imdur) 30 mg DAILY PO Last administered on 01/05/19at 08:20; Admin Dose 30 MG; Start 01/02/19 at 09:00 Pregabalin (Lyrica) 75 mg BID PO Last administered on 01/05/19at 08:33; Admin Dose 75 MG; Start 01/02/19 at 09:00 Sevelamer Carbonate (Renvela) 2.4 gm WITH MEALS PO Last administered on 01/05/19at 08:21; Admin Dose 2.4 GM; Start 01/02/19 at 08:00 Vancomycin HCl (Vanco Iv Per Pharmacy) VANCOMYCIN PER PHARMACY PER PROTOCOL XX ; Start 01/02/19 at 04:00 IV Flush (NS 3 ml) 3 ml PER PROTOCOL IV ; Start 01/02/19 at 04:00 Ondansetron HCl (Zofran Tab) 4 mg Q6H PRN PO NAUSEA/VOMITING; Start 01/02/19 at 04:00 Nitroglycerin (Nitroglycerin (Sl Tab) 0.4 Mg) 1 tab Q5M PRN SL .CHEST PAIN Last administered on 01/02/19at 12:29; Admin Dose 1 TAB; Start 01/02/19 at 04:00 Acetaminophen (Tylenol Tab) 650 mg Q6H PRN PO .PAIN 1-3 OR TEMP Last administered on 01/04/19 01:00; Admin Dose 650 MG; Start 01/02/19 at 04:00 Docusate Sodium (Colace) 100 mg Q12H PRN PO .CONSTIPATION; Start 01/02/19 at 04:00 Bisacodyl (Dulcolax) 5 mg DAILY PRN PO .CONSTIPATION; Start 01/02/19 at 04:00 Levofloxacin/ Dextrose 100 ml @ 100 mls/hr Q48H IVPB Last administered on 01/04/19 01:00; Admin Dose 100 MLS/HR; Start 01/04/19 at 01:00 Acetaminophen/ Hydrocodone Bitart ([place] (5/325)) 1 tab Q6H PRN PO MODERATE PAIN LEVEL 4-6 Last administered on 01/05/19 08:33; Admin Dose 1 TAB; Start 01/02/19 at 13:00 Non-Formulary Medication 3 ea DAILY PO Last administered on 01/05/19 08:22; Admin Dose 3 EA; Start 01/02/19 at 16:00 Albuterol/ Ipratropium (Duoneb) 3 ml Q6HWA RESP THERAPY HHN Last administered on 01/05/19 08:04; Admin Dose 3 ML; Start 01/03/19 at 14:00 Guaifenesin/ Codeine Phosphate (Robitussin Ac Liquid Cup) 10 ml Q4H PRN PO COUGH Last administered on 01/04/19 12:13; Admin Dose 10 ML; Start 01/03/19 at 12:30 Gentamicin Sulfate (Gentamicin Iv Per Pharmacy) GENTAMICIN PER PHARMACY NOTE XX ; Start 01/03/19 at 15:00 Chlorhexidine Gluconate (Peridex) 15 ml BID MT Last administered on 01/05/19 08:20; Admin Dose 15 ML; Start 01/03/19 at 21:00 Gentamicin Sulfate 50 ml @ 104 mls/hr AFTER DIALYSIS IVPB ; Start 01/04/19 at 18:00 Nifedipine (Procardia Xl) 30 mg BID PO Last administered on 01/05/19 08:21; Admin Dose 30 MG; Start 01/04/19 at 21:00 Carvedilol (Coreg) 6.25 mg BID PO Last administered on 01/05/19 08:22; Admin Dose 6.25 MG; Start 01/04/19 at 21:00 Ferric Sodium Gluconate Complex 125 mg/Sodium Chloride 100 ml @ 100 mls/hr DAILY@1300 IVPB Last administered on 01/04/19at 14:30; Admin Dose 100 MLS/HR; Start 01/04/19 at 13:00; Stop 01/06/19 at 13:59 Furosemide (Lasix) 40 mg DAILY IV Last administered on 01/05/19at 08:23; Admin Dose 40 MG; Start 01/04/19 at 15:30 AMLO ZAVALA MD Jan 05, 2019 10:47
[2019-01-05] MEDS: SOD FERRIC GLUC COMPLX 125 MG in SOD CHLORIDE 0.9% 100 ML IVPB SCH (12:28)
--- NOTE | 2019-01-05 12:38 | PN ---
Date/Time of Note Date/Time of Note DATE: 01/05/19 TIME: 12:29 Assessment/Plan VTE Prophylaxis Risk score (from Nsg)>0 risk: 2 Pharmacological prophylaxis: apixaban (on hold for thrombocytopenia) Pharm contraindication: thrombocytopenia Lines/Catheters IV Catheter Type (from Nrsg): Saline Lock Urinary Cath still in place: No Assessment/Plan Hospital Course S: cno new complaints states he noticed increase in urine output with lasix yesterday but still requiring 2-3 L supplemental O2, denies coughing, Objective: Constitutional: alert, oriented, comfortable with NC Head: atraumatic, normocephalic Neck: non-tender, supple Respiratory: diminished, still with bibasal crackles posteriorly, improved? Cardiovascular: tachy ? Gastrointestinal: S/ NT / ND / +BS Extremities: no edema, Skin: Left AV fistula with bandage assessment and plan: 53-year-old male with past medical history of end-stage renal disease on HD Wednesday who presents to [facility] with chest pain and cough times 1 week managed as follows : 1. Sepsis, -This is likely secondary to unresolved pneumonia, patient was recently treated for influenza in November, but may have had superimposed bacterial infection that has flared up at this time. -Still awaiting blood cultures from fistula site, if this is negative and patient is a 24-hour fever free, he would likely be discharged 2. Pancytopenia likely related to iron deficiency, -TIBC levels are still low -Hold apixaban for thrombocytopenia -IV iron infusion on going 3. End-stage renal disease on hemodialysis -Continued on routine hemodialysis per renal, appreciate input 4. CHF with preserved systolic function on echo, diastolic -diuresis with HD, continue lasix -patient also with MR and secondary pulm HTN on echo, pulmonary pressure 56 mmHg -cardio consult appreciated 5. Hypertension Status post hypertensive urgency: -Control is great at this time, continue regimen 6. Sinus tachycardia, patient has history of paroxysmal atrial fibrillation -improved on current regimen, monitor 7. Hx of Coronary artery disease with mild cardiomyopathy, -ejection fraction at stress 48%, March 2018 -Patient has ruled out for acute coronary syndrome this time, also is having no chest pain -Continue Imdur, continue aspirin, beta-cricket 8. Concern for right infrahilar Lung lesion: -Patient had a CT of the chest June 2018, that showed that there was no mass or nodule at this location. However he does continue to have fullness on x-ray that the radiologist continues to report is concerning. monitoring only for now 9. Mild respiratory insufficiency: -Still requiring minimal supplemental oxygen still, wean off as tolerated -may need home O2 10. Chronic hepatitis C, RNA counts back in 2014 was elevated, it is unsure if patient has been treated since --We will consider having GI see the patient in house now to establish contact, and he may be able to follow-up with them outpatient Disposition: -This is patient's second admission in 2 months for sepsis with hyperkalemia, will continue to observe in-house as patient still had minimal temp spike at midnight -plan to discharge possibly to home tomorrow with home O2 if needed -offered patient SNF for recuperation, however he refused -Continue diuresis with dialysis and lasix and wean o2 -Needs to be 24-hour fever free prior to discharge -X-ray and CT findings reviewed with pulmonary , monitor for now -Appreciate all consultants Result Diagram: 01/05/19 0637 01/05/19 0637 Results 24hrs Laboratory Tests Test 01/05/19 06:37 White Blood Count 2.8 #L Red Blood Count 2.98 L Hemoglobin 9.3 L Hematocrit 29.0 L Mean Corpuscular Volume 97.3 Mean Corpuscular Hemoglobin 31.2 Mean Corpuscular Hemoglobin Concent 32.1 Red Cell Distribution Width 15.4 H Platelet Count 95 L Mean Platelet Volume 9.9 Immature Granulocytes % 0.700 H Neutrophils % 63.6 Lymphocytes % 23.0 Monocytes % 6.7 Eosinophils % 5.3 Basophils % 0.7 Nucleated Red Blood Cells % 0.0 Immature Granulocytes # 0.020 Neutrophils # 1.8 Lymphocytes # 0.7 L Monocytes # 0.2 L Eosinophils # 0.2 Basophils # 0.0 Nucleated Red Blood Cells # 0.0 Sodium Level 139 Potassium Level 5.0 Chloride Level 103 # Carbon Dioxide Level 27 Anion Gap 9 # Blood Urea Nitrogen 38 #H Creatinine 7.90 #H Est Glomerular Filtrat Rate mL/min 7 L Glucose Level 85 Calcium Level 8.3 L Phosphorus Level 5.4 H Magnesium Level 2.1 Exam/Review of Systems Exam Vitals Vital Signs Date Temp Pulse Resp B/P (MAP) Pulse Ox O2 O2 Flow FiO2 Time Delivery Rate 01/05/19 98.3 68 20 112/62 94 Nasal 10:58 (79) Cannula 01/05/19 0.0 08:08 01/04/19 28 10:04 Intake and Output 01/04/19 01/04/19 01/05/19 1515:00 23:00 07:00 IntakeIntake Total 250 ml 1100 ml 400 ml OutputOutput Total 1400 ml BalanceBalance 250 ml 1100 ml -1000 ml Results Results 24hrs Laboratory Tests Test 01/05/19 06:37 White Blood Count 2.8 #L Red Blood Count 2.98 L Hemoglobin 9.3 L Hematocrit 29.0 L Mean Corpuscular Volume 97.3 Mean Corpuscular Hemoglobin 31.2 Mean Corpuscular Hemoglobin Concent 32.1 Red Cell Distribution Width 15.4 H Platelet Count 95 L Mean Platelet Volume 9.9 Immature Granulocytes % 0.700 H Neutrophils % 63.6 Lymphocytes % 23.0 Monocytes % 6.7 Eosinophils % 5.3 Basophils % 0.7 Nucleated Red Blood Cells % 0.0 Immature Granulocytes # 0.020 Neutrophils # 1.8 Lymphocytes # 0.7 L Monocytes # 0.2 L Eosinophils # 0.2 Basophils # 0.0 Nucleated Red Blood Cells # 0.0 Sodium Level 139 Potassium Level 5.0 Chloride Level 103 # Carbon Dioxide Level 27 Anion Gap 9 # Blood Urea Nitrogen 38 #H Creatinine 7.90 #H Est Glomerular Filtrat Rate mL/min 7 L Glucose Level 85 Calcium Level 8.3 L Phosphorus Level 5.4 H Magnesium Level 2.1 Medications Medication Current Medications Apixaban (Eliquis) 5 mg BID PO Last administered on 01/04/19at 08:25; Admin Dose 5 MG; Start 01/02/19 at 09:00; Status Hold Hydralazine HCl (Apresoline) 25 mg BID PRN PO ELEVATED BLOOD PRESSURE; Start 01/02/19 at 04:00 Isosorbide Mononitrate (Imdur) 30 mg DAILY PO Last administered on 01/05/19at 08:20; Admin Dose 30 MG; Start 01/02/19 at 09:00 Pregabalin (Lyrica) 75 mg BID PO Last administered on 01/05/19at 08:33; Admin Dose 75 MG; Start 01/02/19 at 09:00 Sevelamer Carbonate (Renvela) 2.4 gm WITH MEALS PO Last administered on 01/05/19 08:21; Admin Dose 2.4 GM; Start 01/02/19 at 08:00 Vancomycin HCl (Vanco Iv Per Pharmacy) VANCOMYCIN PER PHARMACY PER PROTOCOL XX ; Start 01/02/19 at 04:00 IV Flush (NS 3 ml) 3 ml PER PROTOCOL IV ; Start 01/02/19 at 04:00 Ondansetron HCl (Zofran Tab) 4 mg Q6H PRN PO NAUSEA/VOMITING; Start 01/02/19 at 04:00 Nitroglycerin (Nitroglycerin (Sl Tab) 0.4 Mg) 1 tab Q5M PRN SL .CHEST PAIN Last administered on 01/02/19 12:29; Admin Dose 1 TAB; Start 01/02/19 at 04:00 Acetaminophen (Tylenol Tab) 650 mg Q6H PRN PO .PAIN 1-3 OR TEMP Last administered on 01/04/19 01:00; Admin Dose 650 MG; Start 01/02/19 at 04:00 Docusate Sodium (Colace) 100 mg Q12H PRN PO .CONSTIPATION; Start 01/02/19 at 04:00 Bisacodyl (Dulcolax) 5 mg DAILY PRN PO .CONSTIPATION; Start 01/02/19 at 04:00 Levofloxacin/ Dextrose 100 ml @ 100 mls/hr Q48H IVPB Last administered on 01/04/19 01:00; Admin Dose 100 MLS/HR; Start 01/04/19 at 01:00 Acetaminophen/ Hydrocodone Bitart ([place] (5/325)) 1 tab Q6H PRN PO MODERATE PAIN LEVEL 4-6 Last administered on 01/05/19 08:33; Admin Dose 1 TAB; Start 01/02/19 at 13:00 Non-Formulary Medication 3 ea DAILY PO Last administered on 01/05/19 08:22; Admin Dose 3 EA; Start 01/02/19 at 16:00 Albuterol/ Ipratropium (Duoneb) 3 ml Q6HWA RESP THERAPY HHN Last administered on 01/05/19 08:04; Admin Dose 3 ML; Start 01/03/19 at 14:00 Guaifenesin/ Codeine Phosphate (Robitussin Ac Liquid Cup) 10 ml Q4H PRN PO COUGH Last administered on 01/04/19 12:13; Admin Dose 10 ML; Start 01/03/19 at 12:30 Gentamicin Sulfate (Gentamicin Iv Per Pharmacy) GENTAMICIN PER PHARMACY NOTE XX ; Start 01/03/19 at 15:00 Chlorhexidine Gluconate (Peridex) 15 ml BID MT Last administered on 01/05/19 08:20; Admin Dose 15 ML; Start 01/03/19 at 21:00 Gentamicin Sulfate 50 ml @ 104 mls/hr AFTER DIALYSIS IVPB ; Start 01/04/19 at 18:00 Nifedipine (Procardia Xl) 30 mg BID PO Last administered on 01/05/19 08:21; Admin Dose 30 MG; Start 01/04/19 at 21:00 Carvedilol (Coreg) 6.25 mg BID PO Last administered on 01/05/19 08:22; Admin Dose 6.25 MG; Start 01/04/19 at 21:00 Ferric Sodium Gluconate Complex 125 mg/Sodium Chloride 100 ml @ 100 mls/hr DAILY@1300 IVPB Last administered on 01/04/19 14:30; Admin Dose 100 MLS/HR; Start 01/04/19 at 13:00; Stop 01/06/19 at 13:59 Furosemide (Lasix) 40 mg DAILY IV Last administered on 01/05/19 08:23; Admin Dose 40 MG; Start 01/04/19 at 15:30 TIESHA ARELLANO Jan 05, 2019 12:38
--- NOTE | 2019-01-05 16:22 | CONS ---
Assessment/Plan Assessment/Plan Hospital Course (Demo Recall) No acute events overnight patient is afebrile in no distress All cultures have been negative Chest x-ray this morning revealed worsening pulmonary vascular congestion. Slightly more focal right lower lobe consolidation. Antimicrobials: Vancomycin gentamicin Levaquin PHYSICAL EXAMINATION: GENERAL: This is a well-nourished, well-developed, middle-aged man, who is alert, looks comfortable. The patient is in no distress, still has some pleuritic chest pain, worse with cough. No nausea, vomiting or diarrhea. HEENT: Head atraumatic, normocephalic. Sclerae anicteric. Buccal mucosa dry. Patient has halitosis. Oropharynx clear. NECK: Supple. No palpable cervical nodes. CHEST: Rise symmetrical. Breath sounds diminished to bases. HEART: S1, S2. ABDOMEN: Soft, bowel tones present. EXTREMITIES: Without cyanosis. Left upper extremity AV fistula patent. Assessment: 1. Sepsis, resolving 2. Community-acquired pneumonia 3. End-stage renal disease, hemodialysis dependent 4. CHF 5. Coronary artery disease Plan: Stable, fevers resolving, DC vancomycin, continue other antibiotics, anticipate discharge on oral Levaquin for 7 more days Consultation Date/Type/Reason Admit Date/Time Jan 02, 2019 at 03:27 Initial Consult Date Type of Consult id Date/Time of Note DATE: 01/05/19 TIME: 16:21 Exam/Review of Systems Exam Vitals Vital Signs Date Temp Pulse Resp B/P (MAP) Pulse Ox O2 O2 Flow FiO2 Time Delivery Rate 01/05/19 96 3.0 15:30 01/05/19 67 16 Nasal 15:29 Cannula 01/05/19 98.5 132/71 15:24 (91) 01/04/19 28 10:04 Intake and Output 01/04/19 01/04/19 01/05/19 1515:00 23:00 07:00 IntakeIntake Total 250 ml 1100 ml 400 ml OutputOutput Total 1400 ml BalanceBalance 250 ml 1100 ml -1000 ml Results Result Diagram: 01/05/19 0637 01/05/19 0637 Results 24hrs Laboratory Tests Test 01/05/19 06:37 White Blood Count 2.8 #L Red Blood Count 2.98 L Hemoglobin 9.3 L Hematocrit 29.0 L Mean Corpuscular Volume 97.3 Mean Corpuscular Hemoglobin 31.2 Mean Corpuscular Hemoglobin Concent 32.1 Red Cell Distribution Width 15.4 H Platelet Count 95 L Mean Platelet Volume 9.9 Immature Granulocytes % 0.700 H Neutrophils % 63.6 Lymphocytes % 23.0 Monocytes % 6.7 Eosinophils % 5.3 Basophils % 0.7 Nucleated Red Blood Cells % 0.0 Immature Granulocytes # 0.020 Neutrophils # 1.8 Lymphocytes # 0.7 L Monocytes # 0.2 L Eosinophils # 0.2 Basophils # 0.0 Nucleated Red Blood Cells # 0.0 Sodium Level 139 Potassium Level 5.0 Chloride Level 103 # Carbon Dioxide Level 27 Anion Gap 9 # Blood Urea Nitrogen 38 #H Creatinine 7.90 #H Est Glomerular Filtrat Rate mL/min 7 L Glucose Level 85 Calcium Level 8.3 L Phosphorus Level 5.4 H Magnesium Level 2.1 Medications Medication Current Medications Apixaban (Eliquis) 5 mg BID PO Last administered on 01/04/19at 08:25; Admin Dose 5 MG; Start 01/02/19 at 09:00; Status Hold Hydralazine HCl (Apresoline) 25 mg BID PRN PO ELEVATED BLOOD PRESSURE; Start 01/02/19 at 04:00 Isosorbide Mononitrate (Imdur) 30 mg DAILY PO Last administered on 01/05/19 08:20; Admin Dose 30 MG; Start 01/02/19 at 09:00 Pregabalin (Lyrica) 75 mg BID PO Last administered on 01/05/19at 08:33; Admin Dose 75 MG; Start 01/02/19 at 09:00 Sevelamer Carbonate (Renvela) 2.4 gm WITH MEALS PO Last administered on 01/05/19at 12:25; Admin Dose 2.4 GM; Start 01/02/19 at 08:00 Vancomycin HCl (Vanco Iv Per Pharmacy) VANCOMYCIN PER PHARMACY PER PROTOCOL XX ; Start 01/02/19 at 04:00 IV Flush (NS 3 ml) 3 ml PER PROTOCOL IV ; Start 01/02/19 at 04:00 Ondansetron HCl (Zofran Tab) 4 mg Q6H PRN PO NAUSEA/VOMITING; Start 01/02/19 at 04:00 Nitroglycerin (Nitroglycerin (Sl Tab) 0.4 Mg) 1 tab Q5M PRN SL .CHEST PAIN Last administered on 01/02/19 12:29; Admin Dose 1 TAB; Start 01/02/19 at 04:00 Acetaminophen (Tylenol Tab) 650 mg Q6H PRN PO .PAIN 1-3 OR TEMP Last administered on 01/04/19 01:00; Admin Dose 650 MG; Start 01/02/19 at 04:00 Docusate Sodium (Colace) 100 mg Q12H PRN PO .CONSTIPATION; Start 01/02/19 at 04:00 Bisacodyl (Dulcolax) 5 mg DAILY PRN PO .CONSTIPATION; Start 01/02/19 at 04:00 Levofloxacin/ Dextrose 100 ml @ 100 mls/hr Q48H IVPB Last administered on 01/04/19 01:00; Admin Dose 100 MLS/HR; Start 01/04/19 at 01:00 Acetaminophen/ Hydrocodone Bitart ([place] (5/325)) 1 tab Q6H PRN PO MODERATE PAIN LEVEL 4-6 Last administered on 01/05/19 08:33; Admin Dose 1 TAB; Start 01/02/19 at 13:00 Non-Formulary Medication 3 ea DAILY PO Last administered on 01/05/19 08:22; Admin Dose 3 EA; Start 01/02/19 at 16:00 Albuterol/ Ipratropium (Duoneb) 3 ml Q6HWA RESP THERAPY HHN Last administered on 01/05/19 15:27; Admin Dose 3 ML; Start 01/03/19 at 14:00 Guaifenesin/ Codeine Phosphate (Robitussin Ac Liquid Cup) 10 ml Q4H PRN PO COUGH Last administered on 01/04/19 12:13; Admin Dose 10 ML; Start 01/03/19 at 12:30 Gentamicin Sulfate (Gentamicin Iv Per Pharmacy) GENTAMICIN PER PHARMACY NOTE XX ; Start 01/03/19 at 15:00 Chlorhexidine Gluconate (Peridex) 15 ml BID MT Last administered on 01/05/19 08:20; Admin Dose 15 ML; Start 01/03/19 at 21:00 Gentamicin Sulfate 50 ml @ 104 mls/hr AFTER DIALYSIS IVPB ; Start 01/04/19 at 18:00 Nifedipine (Procardia Xl) 30 mg BID PO Last administered on 01/05/19 08:21; Admin Dose 30 MG; Start 01/04/19 at 21:00 Carvedilol (Coreg) 6.25 mg BID PO Last administered on 01/05/19at 08:22; Admin Dose 6.25 MG; Start 01/04/19 at 21:00 Ferric Sodium Gluconate Complex 125 mg/Sodium Chloride 100 ml @ 100 mls/hr DAILY@1300 IVPB Last administered on 01/05/19at 12:28; Admin Dose 100 MLS/HR; Start 01/04/19 at 13:00; Stop 01/06/19 at 13:59 Furosemide (Lasix) 40 mg Q12 IV ; Start 01/05/19 at 21:00 MANUELA SOMMER NP Jan 05, 2019 16:22
[2019-01-05] MEDS ORDERED: LEVOFLOXACIN 500 MG TAB PO SCH (16:30)
[2019-01-06] VITALS (27 sets, daily range): BP systolic 118–158; BP diastolic 70–82; PULSE 61–86; RESP 19–20
[2019-01-06] MEDS: HYDROCODONE/APAP (5/325) TAB PO PRN ×2 (01:26→20:35)
[2019-01-06] MEDS: PREGABALIN 75 MG CAP PO SCH ×2 (08:05→20:34)
[2019-01-06] MEDS: SEVELAMER CARBONATE 2.4 GM PKT PO SCH ×3 (08:05→17:17)
[2019-01-06] MEDS: CHLORHEXIDINE GLUCONATE 15 ML UD CUP MT SCH ×2 (08:05→20:33)
[2019-01-06] MEDS: SPECIAL NON-STANDARD MEDICATION PO SCH (08:06)
[2019-01-06] MEDS: ALBUTEROL/IPRATROPIUM (NEB) 3 ML AMP HHN SCH ×3 (08:15→20:29)
[2019-01-06] MEDS: ISOSORBIDE MONONITRATE(SR)30 MG TAB PO SCH (09:49)
[2019-01-06] MEDS: NIFEdipine (XL) 30 MG TAB PO SCH ×2 (09:49→20:34)
[2019-01-06] MEDS: FUROSEMIDE 40 MG INJ IV SCH ×2 (09:49→20:35)
--- NOTE | 2019-01-06 14:35 | CONS ---
Assessment/Plan Assessment/Plan Hospital Course (Demo Recall) 1. Sepsis, likely secondary to pneumonia/history of flu in the past. 2. Community-acquired pneumonia. 3. Hyperkalemia, likely secondary to end-stage renal disease and patient missing dialysis session that is questionable noncompliance. The patient also went on vacation, probably diet noncompliance. 4. Hypertension. 5. Diastolic heart failure. 6. Dyslipidemia. 7. History of paroxysmal atrial fibrillation. 8. History of coronary artery disease. 9. History of hepatitis C. 10. History of multiple AV fistula infections. 11. Obesity 12. 1.0 cm diameter necrosis skin left arm AV fistula 13. Normocytic normochromic anemia 14. Thrombocytopenia Assessment/Plan (Daily) -pt profile pt has no narcotics, he is slow -HD Wednesday to remove as much volume -Fluid restriction to 1 L and his intake was 1.7 L yesterday -cw with Vanco/Levaquin /gentamycin -Influenza a and B are negative. - nebs/cough medicine - cw Sevelamer. -No BP or blood draws in the left upper extremity Consultation Date/Type/Reason Admit Date/Time Jan 02, 2019 at 03:27 Initial Consult Date 01/02/2019 Type of Consult nephrology Reason for Consultation Dr Castro Date/Time of Note DATE: 01/06/19 TIME: 14:33 24 HR Interval Summary Free Text/Dictation pt is slow with responses Subjective hx not possible: other (weakness) Exam/Review of Systems Exam Vitals Vital Signs Date Temp Pulse Resp B/P (MAP) Pulse Ox O2 O2 Flow FiO2 Time Delivery Rate 01/06/19 72 12:27 01/06/19 98.8 20 134/82 96 Nasal 11:16 (99) Cannula 01/06/19 3.0 08:15 01/05/19 30 20:30 Intake and Output 01/05/19 01/05/19 01/06/19 1515:00 23:00 07:00 IntakeIntake Total 870 ml 200 ml BalanceBalance 870 ml 200 ml Exam left arm av fistula Constitutional: alert, oriented Cardiovascular: regular rate and rhythm Gastrointestinal: soft Results Result Diagram: 01/06/19 0555 01/05/19 0637 Results 24hrs Laboratory Tests Test 01/05/19 17:28 01/06/19 05:55 Bedside Glucose 89 White Blood Count 2.9 L Red Blood Count 3.06 L Hemoglobin 9.4 L Hematocrit 29.5 L Mean Corpuscular Volume 96.4 Mean Corpuscular Hemoglobin 30.7 Mean Corpuscular Hemoglobin Concent 31.9 L Red Cell Distribution Width 15.5 H Platelet Count 102 L Mean Platelet Volume 10.3 Immature Granulocytes % 1.100 H Neutrophils % 62.0 Lymphocytes % 22.5 Monocytes % 8.8 Eosinophils % 4.9 Basophils % 0.7 Nucleated Red Blood Cells % 0.0 Immature Granulocytes # 0.030 Neutrophils # 1.8 Lymphocytes # 0.6 L Monocytes # 0.3 Eosinophils # 0.1 Basophils # 0.0 Nucleated Red Blood Cells # 0.0 Medications Medication Current Medications Apixaban (Eliquis) 5 mg BID PO Last administered on 01/04/19 08:25; Admin Dose 5 MG; Start 01/02/19 at 09:00; Status Hold Hydralazine HCl (Apresoline) 25 mg BID PRN PO ELEVATED BLOOD PRESSURE; Start 01/02/19 at 04:00 Isosorbide Mononitrate (Imdur) 30 mg DAILY PO Last administered on 01/06/19 09:49; Admin Dose 30 MG; Start 01/02/19 at 09:00 Pregabalin (Lyrica) 75 mg BID PO Last administered on 01/06/19 08:05; Admin Dose 75 MG; Start 01/02/19 at 09:00 Sevelamer Carbonate (Renvela) 2.4 gm WITH MEALS PO Last administered on 01/06/19 08:05; Admin Dose 2.4 GM; Start 01/02/19 at 08:00 IV Flush (NS 3 ml) 3 ml PER PROTOCOL IV ; Start 01/02/19 at 04:00 Ondansetron HCl (Zofran Tab) 4 mg Q6H PRN PO NAUSEA/VOMITING; Start 01/02/19 at 04:00 Nitroglycerin (Nitroglycerin (Sl Tab) 0.4 Mg) 1 tab Q5M PRN SL .CHEST PAIN Last administered on 01/02/19 12:29; Admin Dose 1 TAB; Start 01/02/19 at 04:00 Acetaminophen (Tylenol Tab) 650 mg Q6H PRN PO .PAIN 1-3 OR TEMP Last administered on 01/04/19 01:00; Admin Dose 650 MG; Start 01/02/19 at 04:00 Docusate Sodium (Colace) 100 mg Q12H PRN PO .CONSTIPATION; Start 01/02/19 at 04:00 Bisacodyl (Dulcolax) 5 mg DAILY PRN PO .CONSTIPATION; Start 01/02/19 at 04:00 Acetaminophen/ Hydrocodone Bitart ([place] (5/325)) 1 tab Q6H PRN PO MODERATE PAIN LEVEL 4-6 Last administered on 01/06/19 01:26; Admin Dose 1 TAB; Start 01/02/19 at 13:00 Non-Formulary Medication 3 ea DAILY PO Last administered on 01/06/19 08:06; Admin Dose 3 EA; Start 01/02/19 at 16:00 Albuterol/ Ipratropium (Duoneb) 3 ml Q6HWA RESP THERAPY HHN Last administered on 01/06/19 08:15; Admin Dose 3 ML; Start 01/03/19 at 14:00 Guaifenesin/ Codeine Phosphate (Robitussin Ac Liquid Cup) 10 ml Q4H PRN PO COUGH Last administered on 01/04/19 12:13; Admin Dose 10 ML; Start 01/03/19 at 12:30 Gentamicin Sulfate (Gentamicin Iv Per Pharmacy) GENTAMICIN PER PHARMACY NOTE XX ; Start 01/03/19 at 15:00 Chlorhexidine Gluconate (Peridex) 15 ml BID MT Last administered on 01/06/19 08:05; Admin Dose 15 ML; Start 01/03/19 at 21:00 Gentamicin Sulfate 50 ml @ 104 mls/hr AFTER DIALYSIS IVPB Last administered on 01/05/19 17:58; Admin Dose 104 MLS/HR; Start 01/04/19 at 18:00 Nifedipine (Procardia Xl) 30 mg BID PO Last administered on 01/06/19 09:49; Admin Dose 30 MG; Start 01/04/19 at 21:00 Carvedilol (Coreg) 6.25 mg BID PO Last administered on 01/06/19 09:49; Admin Dose 6.25 MG; Start 01/04/19 at 21:00 Furosemide (Lasix) 40 mg Q12 IV Last administered on 01/06/19 09:49; Admin Dose 40 MG; Start 01/05/19 at 21:00 Levofloxacin (Levaquin) 500 mg Q48H PO Last administered on 01/05/19at 16:59; Admin Dose 500 MG; Start 01/05/19 at 16:30 MT MEJIA 15, 2019 14:35
[2019-01-06] MEDS ORDERED: GENTAMICIN XX (15:03)
[2019-01-06] MEDS ORDERED: CHLO473M4 MT (15:03)
[2019-01-06] MEDS ORDERED: IPRA3AMP29 HHN (15:03)
[2019-01-06] MEDS ORDERED: [UNRECOGNIZED DRUG - CODE] IV* (15:03)
[2019-01-06] MEDS ORDERED: NIFE30TA2 PO (15:03)
[2019-01-06] MEDS ORDERED: LEVO500T48 PO (15:03)
--- NOTE | 2019-01-06 15:18 | CONS ---
Assessment/Plan Assessment/Plan Hospital Course (Demo Recall) No acute events overnight s/p HD, awake, nad, no fevers All cultures have been negative Chest x-ray this morning revealed worsening pulmonary vascular congestion. Slightly more focal right lower lobe consolidation. Antimicrobials: Gentamicin Levaquin PHYSICAL EXAMINATION: GENERAL: This is a well-nourished, well-developed, middle-aged man, who is alert, looks comfortable. The patient is in no distress, still has some pleuritic chest pain, worse with cough. No nausea, vomiting or diarrhea. HEENT: Head atraumatic, normocephalic. Sclerae anicteric. Buccal mucosa dry. Patient has halitosis. Oropharynx clear. NECK: Supple. No palpable cervical nodes. CHEST: Rise symmetrical. Breath sounds diminished to bases. HEART: S1, S2. ABDOMEN: Soft, bowel tones present. EXTREMITIES: Without cyanosis. Left upper extremity AV fistula patent. Assessment: 1. S/p sepsis 2. Community-acquired pneumonia 3. End-stage renal disease, hemodialysis dependent 4. CHF 5. Coronary artery disease Plan: Stable, continue other antibiotics, anticipate discharge on oral Levaquin for 7 more days, poss SNF Consultation Date/Type/Reason Admit Date/Time Jan 02, 2019 at 03:27 Initial Consult Date Type of Consult id Date/Time of Note DATE: 01/06/19 TIME: 15:17 Exam/Review of Systems Exam Vitals Vital Signs Date Temp Pulse Resp B/P (MAP) Pulse Ox O2 O2 Flow FiO2 Time Delivery Rate 01/06/19 72 12:27 01/06/19 20 138/74 Nasal 2.0 12:00 (95) Cannula 01/06/19 98.8 96 11:16 01/05/19 30 20:30 Intake and Output 01/05/19 01/05/19 01/06/19 1515:00 23:00 07:00 IntakeIntake Total 870 ml 200 ml BalanceBalance 870 ml 200 ml Results Result Diagram: 01/06/19 0555 01/05/19 0637 Results 24hrs Laboratory Tests Test 01/05/19 17:28 01/06/19 05:55 Bedside Glucose 89 White Blood Count 2.9 L Red Blood Count 3.06 L Hemoglobin 9.4 L Hematocrit 29.5 L Mean Corpuscular Volume 96.4 Mean Corpuscular Hemoglobin 30.7 Mean Corpuscular Hemoglobin Concent 31.9 L Red Cell Distribution Width 15.5 H Platelet Count 102 L Mean Platelet Volume 10.3 Immature Granulocytes % 1.100 H Neutrophils % 62.0 Lymphocytes % 22.5 Monocytes % 8.8 Eosinophils % 4.9 Basophils % 0.7 Nucleated Red Blood Cells % 0.0 Immature Granulocytes # 0.030 Neutrophils # 1.8 Lymphocytes # 0.6 L Monocytes # 0.3 Eosinophils # 0.1 Basophils # 0.0 Nucleated Red Blood Cells # 0.0 Medications Medication Current Medications Apixaban (Eliquis) 5 mg BID PO Last administered on 01/04/19 08:25; Admin Dose 5 MG; Start 01/02/19 at 09:00; Status Hold Hydralazine HCl (Apresoline) 25 mg BID PRN PO ELEVATED BLOOD PRESSURE; Start 01/02/19 at 04:00 Isosorbide Mononitrate (Imdur) 30 mg DAILY PO Last administered on 01/06/19 09:49; Admin Dose 30 MG; Start 01/02/19 at 09:00 Pregabalin (Lyrica) 75 mg BID PO Last administered on 01/06/19 08:05; Admin Dose 75 MG; Start 01/02/19 at 09:00 Sevelamer Carbonate (Renvela) 2.4 gm WITH MEALS PO Last administered on 01/06/19 08:05; Admin Dose 2.4 GM; Start 01/02/19 at 08:00 IV Flush (NS 3 ml) 3 ml PER PROTOCOL IV ; Start 01/02/19 at 04:00 Ondansetron HCl (Zofran Tab) 4 mg Q6H PRN PO NAUSEA/VOMITING; Start 01/02/19 at 04:00 Nitroglycerin (Nitroglycerin (Sl Tab) 0.4 Mg) 1 tab Q5M PRN SL .CHEST PAIN Last administered on 01/02/19 12:29; Admin Dose 1 TAB; Start 01/02/19 at 04:00 Acetaminophen (Tylenol Tab) 650 mg Q6H PRN PO .PAIN 1-3 OR TEMP Last administered on 01/04/19 01:00; Admin Dose 650 MG; Start 01/02/19 at 04:00 Docusate Sodium (Colace) 100 mg Q12H PRN PO .CONSTIPATION; Start 01/02/19 at 04:00 Bisacodyl (Dulcolax) 5 mg DAILY PRN PO .CONSTIPATION; Start 01/02/19 at 04:00 Acetaminophen/ Hydrocodone Bitart ([place] (5/325)) 1 tab Q6H PRN PO MODERATE PAIN LEVEL 4-6 Last administered on 01/06/19 01:26; Admin Dose 1 TAB; Start 01/02/19 at 13:00 Non-Formulary Medication 3 ea DAILY PO Last administered on 01/06/19 08:06; Admin Dose 3 EA; Start 01/02/19 at 16:00 Albuterol/ Ipratropium (Duoneb) 3 ml Q6HWA RESP THERAPY HHN Last administered on 01/06/19 08:15; Admin Dose 3 ML; Start 01/03/19 at 14:00 Guaifenesin/ Codeine Phosphate (Robitussin Ac Liquid Cup) 10 ml Q4H PRN PO COUGH Last administered on 01/04/19 12:13; Admin Dose 10 ML; Start 01/03/19 at 12:30 Gentamicin Sulfate (Gentamicin Iv Per Pharmacy) GENTAMICIN PER PHARMACY NOTE XX ; Start 01/03/19 at 15:00 Chlorhexidine Gluconate (Peridex) 15 ml BID MT Last administered on 01/06/19 08:05; Admin Dose 15 ML; Start 01/03/19 at 21:00 Gentamicin Sulfate 50 ml @ 104 mls/hr AFTER DIALYSIS IVPB Last administered on 01/05/19 17:58; Admin Dose 104 MLS/HR; Start 01/04/19 at 18:00 Nifedipine (Procardia Xl) 30 mg BID PO Last administered on 01/06/19 09:49; Admin Dose 30 MG; Start 01/04/19 at 21:00 Carvedilol (Coreg) 6.25 mg BID PO Last administered on 01/06/19 09:49; Admin Dose 6.25 MG; Start 01/04/19 at 21:00 Furosemide (Lasix) 40 mg Q12 IV Last administered on 01/06/19 09:49; Admin Dose 40 MG; Start 01/05/19 at 21:00 Levofloxacin (Levaquin) 500 mg Q48H PO Last administered on 01/05/19 16:59; Admin Dose 500 MG; Start 01/05/19 at 16:30 MANUELA SOMMER NP Jan 06, 2019 15:18
--- NOTE | 2019-01-06 15:24 | PDOCDIS ---
Discharge Instructions CONDITION [id number] Patient Condition: [id number] Stable HOME CARE INSTRUCTIONS: [id number] Diet Instructions: [id number] Low Fat /Cholesterol ACTIVITY: [id number] Activity Restrictions: [id number] Slowly Increase Activity Rest between Activity FOLLOW UP/APPOINTMENTS Follow-up Plan Needs labs including BMP in a day or 2. wean o2 as tolerated, routine HD TIESHA ARELLANO Jan 06, 2019 15:24
--- NOTE | 2019-01-06 15:25 | QN ---
Documentation Comment DC summ dictated. DC to [facility] TIESHA ARELLANO Jan 06, 2019 15:25
--- NOTE | 2019-01-06 15:52 | DS ---
DATE OF ADMISSION: 01/02/2019 DATE OF DISCHARGE: 01/06/2019 PRESENTING COMPLAINT: Fever and shortness of breath. FINAL DIAGNOSES: 1. Sepsis likely secondary to resolving pneumonia. The patient was treated for influenza in 11/2018 , but had superimposed bacterial infection that has flared up at this time. The patient has had cult ures both from peripheral and ____ had been negative. Sputum cultures grew gram-negative Coccobacill i and Natalie albicans. See ID recommendations for final antibiotic therapy. 2. Pancytopenia with iron deficiency, status post IV iron infusion ongoing. The patient is status p ost 3 days of IV iron therapy. He will benefit from outpatient iron level assessment and then determ ination ____ as to whether he needs ongoing iron supplementation or not. 3. End-stage renal disease on hemodialysis. 4. Congestive heart failure with fluid overload and preserved systolic function on echo, diastolic, also with mitral regurgitation and secondary pulmonary hypertension on echo, status post cardio revie w. Nephrology is assisting with diuresis. 5. Hypertension, status post hypertensive urgency with good control at this time. 6. Paroxysmal atrial fibrillation, on Eliquis. 7. History of coronary artery disease with mild cardiomyopathy. 8. Mild respiratory insufficiency, still requiring supplemental oxygen to be weaned as outpatient. 9. Chronic hepatitis C on treatment. 10. Concern for possible right infrahilar lung lesion on chest x-ray that was worked up by CT in 2017 that showed no mass or nodule at this location. CONSULTS ON THE CASE: Include: 1. Infectious disease. 2. Nephrology, Nancy Leiva MD 3. Cardiology, Mckay Padilla MD 4. Pulmonary telephone discussion with Pablo Gil MD 5. Gastroenterology review of ____ SHORT HOSPITALIZATION COURSE: A 53-year-old male was recently discharged 3 weeks ago after being trudy ated for influenza who presented again with shortness of breath, fever, cough. DISPOSITION: To nursing home facility as patient is still requiring diuresis as well as supplemen liudmila oxygen and with scheduled breathing treatments. He is much better but still required closed nurs ing care to nursing home facility where he should stay. ACTIVITIES: As tolerated. CONDITION: Stable. DISCHARGE MEDICATIONS: For complete list, please review the patient's chart. Time spent on discharge coordination has been more than half an hour. Dictated By: TIESHA ARELLANO MD BA/NTS Conf#: [id number] DID#: [id number] CC: LANDON MARMOLEJO MD; WENDY VALIENTE MD;*End*
--- NOTE | 2019-01-06 17:07 | CONS ---
Assessment/Plan Cardiology NYHA: III Heart Failure Type: Acute on Chronic Heart Failure Type: Diastolic Assessment/Plan Hospital Course (Demo Recall) Assessment: Acute on chronic diastolic heart failure - improving Moderate pulmonary hypertension Pneumonia Hypertension End-stage renal disease - on hemodialysis Recommendations: -echocardiogram results reviewed -continue anti-hypertensive medications -volume management via hemodialysis Consultation Date/Type/Reason Admit Date/Time Jan 02, 2019 at 03:27 Initial Consult Date Type of Consult Cardiology Date/Time of Note DATE: 01/06/19 TIME: 17:06 24 HR Interval Summary Free Text/Dictation No acute events. Getting hemodialysis. Planning discharge later today. Detailed Summary Additional Comments 14 point review of systems without changes. Exam/Review of Systems Vital Signs Vitals Vital Signs Date Temp Pulse Resp B/P (MAP) Pulse Ox O2 O2 Flow FiO2 Time Delivery Rate 01/06/19 3.0 17:02 01/06/19 72 16:30 01/06/19 98.1 20 152/77 96 Nasal 15:24 (102) Cannula 01/05/19 30 20:30 Intake and Output 01/05/19 01/05/19 01/06/19 1515:00 23:00 07:00 IntakeIntake Total 870 ml 200 ml BalanceBalance 870 ml 200 ml Exam Exam Constitutional: alert, well developed Psych: no complaints, nl mood/affect Head: normocephalic, atraumatic Eyes: nl conjunctiva, nl lids ENMT: nl external ears & nose, nl nasal mucosa & septum Neck: supple, non-tender, jvd Respiratory: crackles/rales, diminished breath sounds Cardiovascular: regular rate and rhythm Gastrointestinal: soft, non-tender Musculoskeletal: nl extremities to inspection Extremities: No cyanosis, No clubbing, No edema 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: nl mental status, nl speech Labs Result Diagram: 01/06/19 0555 01/05/19 0637 Results 24hrs Laboratory Tests Test 01/05/19 17:28 01/06/19 05:55 Bedside Glucose 89 White Blood Count 2.9 L Red Blood Count 3.06 L Hemoglobin 9.4 L Hematocrit 29.5 L Mean Corpuscular Volume 96.4 Mean Corpuscular Hemoglobin 30.7 Mean Corpuscular Hemoglobin Concent 31.9 L Red Cell Distribution Width 15.5 H Platelet Count 102 L Mean Platelet Volume 10.3 Immature Granulocytes % 1.100 H Neutrophils % 62.0 Lymphocytes % 22.5 Monocytes % 8.8 Eosinophils % 4.9 Basophils % 0.7 Nucleated Red Blood Cells % 0.0 Immature Granulocytes # 0.030 Neutrophils # 1.8 Lymphocytes # 0.6 L Monocytes # 0.3 Eosinophils # 0.1 Basophils # 0.0 Nucleated Red Blood Cells # 0.0 Medications Medications Current Medications Apixaban (Eliquis) 5 mg BID PO Last administered on 01/04/19 08:25; Admin Dose 5 MG; Start 01/02/19 at 09:00; Status Hold Hydralazine HCl (Apresoline) 25 mg BID PRN PO ELEVATED BLOOD PRESSURE; Start 01/02/19 at 04:00 Isosorbide Mononitrate (Imdur) 30 mg DAILY PO Last administered on 01/06/19at 0 9:49; Admin Dose 30 MG; Start 01/02/19 at 09:00 Pregabalin (Lyrica) 75 mg BID PO Last administered on 01/06/19at 08:05; Admin Dose 75 MG; Start 01/02/19 at 09:00 Sevelamer Carbonate (Renvela) 2.4 gm WITH MEALS PO Last administered on 01/06/19 08:05; Admin Dose 2.4 GM; Start 01/02/19 at 08:00 IV Flush (NS 3 ml) 3 ml PER PROTOCOL IV ; Start 01/02/19 at 04:00 Ondansetron HCl (Zofran Tab) 4 mg Q6H PRN PO NAUSEA/VOMITING; Start 01/02/19 at 04:00 Nitroglycerin (Nitroglycerin (Sl Tab) 0.4 Mg) 1 tab Q5M PRN SL .CHEST PAIN Last administered on 01/02/19at 12:29; Admin Dose 1 TAB; Start 01/02/19 at 04:00 Acetaminophen (Tylenol Tab) 650 mg Q6H PRN PO .PAIN 1-3 OR TEMP Last administered on 01/04/19at 01:00; Admin Dose 650 MG; Start 01/02/19 at 04:00 Docusate Sodium (Colace) 100 mg Q12H PRN PO .CONSTIPATION; Start 01/02/19 at 04:00 Bisacodyl (Dulcolax) 5 mg DAILY PRN PO .CONSTIPATION; Start 01/02/19 at 04:00 Acetaminophen/ Hydrocodone Bitart ([place] (5/325)) 1 tab Q6H PRN PO MODERATE PAIN LEVEL 4-6 Last administered on 01/06/19 01:26; Admin Dose 1 TAB; Start 01/02/19 at 13:00 Non-Formulary Medication 3 ea DAILY PO Last administered on 01/06/19 08:06; Admin Dose 3 EA; Start 01/02/19 at 16:00 Albuterol/ Ipratropium (Duoneb) 3 ml Q6HWA RESP THERAPY HHN Last administered on 01/06/19 08:15; Admin Dose 3 ML; Start 01/03/19 at 14:00 Guaifenesin/ Codeine Phosphate (Robitussin Ac Liquid Cup) 10 ml Q4H PRN PO COUGH Last administered on 01/04/19 12:13; Admin Dose 10 ML; Start 01/03/19 at 12:30 Gentamicin Sulfate (Gentamicin Iv Per Pharmacy) GENTAMICIN PER PHARMACY NOTE XX ; Start 01/03/19 at 15:00 Chlorhexidine Gluconate (Peridex) 15 ml BID MT Last administered on 01/06/19 08:05; Admin Dose 15 ML; Start 01/03/19 at 21:00 Gentamicin Sulfate 50 ml @ 104 mls/hr AFTER DIALYSIS IVPB Last administered on 01/05/19 17:58; Admin Dose 104 MLS/HR; Start 01/04/19 at 18:00 Nifedipine (Procardia Xl) 30 mg BID PO Last administered on 01/06/19 09:49; Admin Dose 30 MG; Start 01/04/19 at 21:00 Carvedilol (Coreg) 6.25 mg BID PO Last administered on 01/06/19 09:49; Admin Dose 6.25 MG; Start 01/04/19 at 21:00 Furosemide (Lasix) 40 mg Q12 IV Last administered on 01/06/19 09:49; Admin Dose 40 MG; Start 01/05/19 at 21:00 Levofloxacin (Levaquin) 500 mg Q48H PO Last administered on 01/05/19 16:59; Admin Dose 500 MG; Start 01/05/19 at 16:30 AMOL ZAVALA MD Jan 06, 2019 17:07
[2019-01-06] MEDS: SOD FERRIC GLUC COMPLX 125 MG in SOD CHLORIDE 0.9% 100 ML IVPB SCH (17:17)
== END 2019-01-06 21:50 | DRG 871 ==
LOC: E/R 01:20 → TEL 03:27 → CANRESERV 09:37
PROVIDERS: ADMIT Family Medicine; ATTEND Family Medicine
PROC: 5A1D70Z Performance of Urinary Filtration, Intermittent, Less than 6 Hours Per Day (ICD-10-PCS; principal; 2019-01-06)
DX: A41.9 Sepsis, unspecified organism (principal); N18.6 End stage renal disease; J18.9 Pneumonia, unspecified organism; I50.33 Acute on chronic diastolic (congestive) heart failure; I13.2 Hypertensive heart and chronic kidney disease with heart failure and with stage 5 chronic kidney disease, or end stage renal disease; I16.1 Hypertensive emergency; D61.818 Other pancytopenia; I42.9 Cardiomyopathy, unspecified; E87.5 Hyperkalemia; I48.0 Paroxysmal atrial fibrillation; E78.5 Hyperlipidemia, unspecified; I25.10 Atherosclerotic heart disease of native coronary artery without angina pectoris; R06.89 Other abnormalities of breathing; B18.2 Chronic viral hepatitis C; I27.20 Pulmonary hypertension, unspecified; I34.0 Nonrheumatic mitral (valve) insufficiency; Z79.01 Long term (current) use of anticoagulants; Z99.2 Dependence on renal dialysis
CPT/HCPCS: 36415; 71045; 80048; 80053; 80202; 81001; 82550; 82553; 82962; 83540; 83605; 83735; 84100; 84484; 85025; 85610; 85730; 87040; 87070; 87081; 87086; 87340; 87400; 90935; 93005; 93306; 94640; 94664; 96374; 96375; J1580; J1815; J1940; J1956; J2270; J2916; J3370; J7030

== ENCOUNTER 2019-02-12 21:23 | Inpatient (IN) | payer OTHER ==
[~2019-02-12] VITALS: Ht 157.5 cm; Wt 71.5 kg
[~2019-02-12 21:23] MED LIST changes: -AZIT250T13 PO; +CHLO473M4 MT; +CHOL400T10 PO; +FOLI-49 PO; +GENTAMICIN XX; +GLEC1TAB PO; +IPRA3AMP29 HHN; +LEVO500T48 PO; +NIFE30TA2 PO; -NIFE60TA18 PO; -OSEL30CA PO; +[UNRECOGNIZED DRUG - CODE] IV*
[2019-02-13] VITALS (16 sets, daily range): BP systolic 130–162; BP diastolic 70–82; PULSE 53–65; RESP 16–18; Ht 157.5 cm; Wt 71.5 kg
--- NOTE | 2019-02-13 03:54 | HP ---
Date/Time of Note Date/Time of Note DATE: 02/13/19 TIME: 03:40 Assessment/Plan VTE Prophylaxis Pharmacological prophylaxis: apixaban Lines/Catheters IV [facility]from [facility] [place] Assessment/Plan Hospital Course This constanza 53M being admitted to the tele floor for obs for: #1 chest pain: Rule out ACS versus versus musculoskeletal versus pleuritic. Nonetheless we will trend cardiac enzymes x3. First that was negative. Recent echo from 12/2018 shows ef of 55% with grade II diastolic dysfunction. Will consult nephrology for urgent dialysis.Consider cardi if indicated. #2 Hyperkalemia: Secondary to end-stage renal disease. K of 5.8 on admission. #3 end-stage renal disease on hemodialysis Wednesday: Patient does have signs of volume overload on chest x-ray. Will avoid NSAIDs. Renally dose any antibiotics. Will consult nephrology Dr. Castro for urgent dialysis in the a.m. #5 hypertension: Resume home medications #6 diastolic heart failure: Currently not in an exacerbation. Continue to monitor #7 dyslipidemia: Continue statin #8 paroxysmal atrial fibrillation: Resume Eliquis #9 coronary artery disease: Resume all meds #10 history of hepatitis C: Continue monitor as outpatient #[id number] GI prophylaxis: Eliquis, no GI prophylaxis indicated Further treatment strategy will be implemented as per the clinical course. Result Diagram: 02/13/19 0024 02/13/19 0024 Results 24hrs Laboratory Tests Test 02/13/19 00:24 White Blood Count 4.3 #L Red Blood Count 3.89 #L Hemoglobin 12.1 #L Hematocrit 38.4 #L Mean Corpuscular Volume 98.7 Mean Corpuscular Hemoglobin 31.1 Mean Corpuscular Hemoglobin Concent 31.5 L Red Cell Distribution Width 16.6 H Platelet Count 123 #L Mean Platelet Volume 9.8 Immature Granulocytes % 0.500 H Neutrophils % 69.1 Lymphocytes % 20.6 Monocytes % 7.9 Eosinophils % 1.4 Basophils % 0.5 Nucleated Red Blood Cells % 0.0 Immature Granulocytes # 0.020 Neutrophils # 3.0 Lymphocytes # 0.9 Monocytes # 0.3 Eosinophils # 0.1 Basophils # 0.0 Nucleated Red Blood Cells # 0.0 Sodium Level 140 Potassium Level 5.8 H Chloride Level 96 L Carbon Dioxide Level 25 Anion Gap 19 H Blood Urea Nitrogen 58 H Creatinine 10.57 H Est Glomerular Filtrat Rate mL/min 5 L Glucose Level 78 Calcium Level 8.8 Total Bilirubin 0.3 Direct Bilirubin 0.00 Indirect Bilirubin 0.3 Aspartate Amino Transf (AST/SGOT) 22 Alanine Aminotransferase (ALT/SGPT) 14 Alkaline Phosphatase 65 Troponin I < 0.012 B-Type Natriuretic Peptide 92346 H Total Protein 7.5 Albumin 4.6 Globulin 2.90 Albumin/Globulin Ratio 1.58 HPI/ROS Admit Date/Time Admit Date/Time Hx of Present Illness Chief complaint: Chest pain This is a 53-year-old male with a past medical history of end-stage renal disease, paroxysmal A. fib who presented to the emergency department complaining of left-sided chest pain. Patient reports that he experienced left-sided chest pain nonradiating. He does report some shortness of breath. Patient is requesting pain medications. He denies any lower extremity edema. He denies any diaphoresis. Allergies: Keflex, tramadol Medications: See Dec Const: As per HPI Eyes : No pain discharge or redness or change in visual acuity ENT: No pain, sore throat, congestion, congestion, dysphagia or discharge Respiratory: As per HPI Cardiovascular: As per HPI GI : no change in appetite, abdominal pain, nausea, vomiting, diarrhea, constipation, or change in the color his stool Genitourinary: No dysuria, hematuria, flank pain , discharge or CVA tenderness Musculoskeletal: No joint pain, back pain, neck pain, restricted range of motion in neck or joints Skin: No rash, bruising or hives Neuro: No headache, dizziness, syncope, seizure, focal weakness Endocrine: No polyuria, polydipsia, temperature intolerance Psych: No hallucination, depression, anxiety or suicidal ideation PMH/Family/Social Past Medical History end Stage renal disease on dialysis Wednesday, diastolic heart failure, dyslipidemia, hypertension, paroxysmal A. fib, hep c Coded Allergies: tramadol (Verified Allergy, Intermediate, rash, 01/02/19) possible allergy Cephalexin Monohydrate (Verified Allergy, Unknown, RASH, 01/02/19) Past Surgical History Left AV fistula, pericardial window Family History Significant Family History: no pertinent family hx Social History hx of iv drug use Smoking Status: Never smoker Exam/Review of Systems Vital Signs Vitals Vital Signs Date Temp Pulse Resp B/P (MAP) Pulse Ox O2 O2 Flow FiO2 Time Delivery Rate 02/13/19 76 22 167/87 98 Room Air 00:46 (113) 02/12/19 97.6 21:46 Exam Exam General: Patient is a pleasant male currently lying in bed in mild distress from left-sided chest pain The patient is alert oriented -3 lying comfortably in bed. HEENT: Atraumatic, normocephalic. The pupils are equal, round and reactive. Extraocular motor are intact Neck: Supple with full range of motion. No rigidity or meningismus Chest: Left-sided tenderness to palpation Lungs: Coarse breath sounds bilaterally, rales Heart: Normal S1-S2, Regular rhythm and rate. Abdomen: Soft , nontender, nondistended , bowel sounds are present. No guarding no rebound tenderness , No masses or organomegaly. No costovertebral temporal angle mass Extremities: Left upper extremity AV fistula Neurologic: Normal mental status, speech normal, cranial nerves II through XII are intact, motor and sensory are intact, Additional Comments PROCEDURE: Chest x-ray CLINICAL INDICATION: Chest pain. TECHNIQUE: VIEWS: 1 COMPARISON: CR CHEST 04/13/2017; CR CHEST 04/06/2017; CR CHEST 12/07/2014 FINDINGS: SUPPORT DEVICES: None CARDIAC AND MEDIASTINAL SILHOUETTES: Magnified cardiomediastinal silhouette . There are thoracic aortic atherosclerotic calcifications. LUNGS AND PLEURAL SPACE: Interval appearing interstitial opacities with Claribel B lines consistent with pulmonary edema . No consolidation or pleural effusion. PNEUMOTHORAX: None. OSSEOUS STRUCTURES: Surgical clips located in the left axilla . IMPRESSION: 1. Interval appearing interstitial opacities with Claribel B lines consistent with pulmonary edema. 2. Aortic atherosclerosis. 3. Left axillary surgical clips RPTAT: HRSR Physician Tereza Date Time Electronically viewed and signed by Physician Tereza on 02/13/2019 03:24 RR/ CC: AB DAVID [id number] WENDY VALIENTE Feb 13, 2019 03:53
[2019-02-13] MEDS ORDERED: ONDANSETRON 4 MG TAB PO PRN (04:00)
[2019-02-13] MEDS ORDERED: DOCUSATE SODIUM 100 MG CAP PO PRN (04:00)
[2019-02-13] MEDS ORDERED: BISACODYL (EC) 5 MG TAB PO PRN (04:00)
[2019-02-13] MEDS ORDERED: ACETAMINOPHEN 325 MG TAB PO PRN (04:00)
[2019-02-13] MEDS ORDERED: NITROGLYCERIN (SL) 0.4 MG TAB SL PRN (04:00)
[2019-02-13] MEDS ORDERED: NACL 0.9% 3 ML SYG IV SCH (04:00)
[2019-02-13] MEDS: morphine 2 MG INJ IV PRN ×5 (05:42→21:20)
[2019-02-13] MEDS ORDERED: HEPARIN 5,000 UNIT/1 ML VIAL SC SCH (06:00)
[2019-02-13] MEDS ORDERED: NA POLYST SULFON 15 GM/60 ML BTL PO ONE (06:30)
[2019-02-13] MEDS: APIXABAN 5 MG TABLET PO SCH ×2 (08:58→21:20)
[2019-02-13] MEDS: CHLORHEXIDINE GLUCONATE 15 ML UD CUP MT SCH ×2 (08:58→21:19)
[2019-02-13] MEDS: NIFEdipine (XL) 30 MG TAB PO SCH ×2 (08:58→21:23)
[2019-02-13] MEDS: ISOSORBIDE MONONITRATE(SR)30 MG TAB PO SCH (08:58)
[2019-02-13] MEDS: CHOLECALCIFEROL 400 UNITS TAB PO SCH (09:00)
[2019-02-13] MEDS ORDERED: [UNRECOGNIZED DRUG - OTHER] PO SCH (09:00)
[2019-02-13] MEDS: SEVELAMER CARBONATE 2.4 GM PKT PO SCH ×3 (09:00→21:19)
[2019-02-13] MEDS: ALBUTEROL/IPRATROPIUM (NEB) 3 ML AMP HHN SCH ×3 (09:20→20:31)
[2019-02-13] MEDS: FOLIC ACID 1 MG TAB PO SCH (09:47)
[2019-02-13] MEDS: PREGABALIN 75 MG CAP PO SCH ×2 (09:47→21:33)
--- NOTE | 2019-02-13 11:11 | QN ---
Documentation Comment Patient was signed out to me by Dr. Silva. Observation Note: Time: 4 hours Family Hx: Negative for diabetes Evaluation: Multiple exams showed improving symptoms and no evidence of clinical decompensation. KASSANDRA REDMAN MD Feb 13, 2019 11:11
--- NOTE | 2019-02-13 11:12 | PN ---
Date/Time of Note Date/Time of Note DATE: 02/13/19 TIME: 11:07 Assessment/Plan VTE Prophylaxis SCD applied (from Nsg): Yes Pharmacological prophylaxis: apixaban Lines/Catheters IV Catheter Type (from Nrsg): Saline Lock Assessment/Plan Assessment/Plan 1. Chest pain, pleuritic, follow up with troponin and echo 2. Hyperkalemia: Secondary to end-stage renal disease. K of 5.8 on admission. 3. ESRD, DD on Wednesday, follow up with nephrology Dr. Castro 4. Hypertension: Resume home medications 5. Paroxysmal atrial fibrillation, on Eliquis 6. Dyslipidemia: Continue statin 7 History of hepatitis C: Continue monitor as outpatient 8. Coronary artery disease: Resume all meds 9. DVT prophylaxis: Eliquis Result Diagram: 02/13/19 0024 02/13/19 0024 Results 24hrs Laboratory Tests Test 02/13/19 00:24 02/13/19 05:40 White Blood Count 4.3 #L Red Blood Count 3.89 #L Hemoglobin 12.1 #L Hematocrit 38.4 #L Mean Corpuscular Volume 98.7 Mean Corpuscular Hemoglobin 31.1 Mean Corpuscular Hemoglobin Concent 31.5 L Red Cell Distribution Width 16.6 H Platelet Count 123 #L Mean Platelet Volume 9.8 Immature Granulocytes % 0.500 H Neutrophils % 69.1 Lymphocytes % 20.6 Monocytes % 7.9 Eosinophils % 1.4 Basophils % 0.5 Nucleated Red Blood Cells % 0.0 Immature Granulocytes # 0.020 Neutrophils # 3.0 Lymphocytes # 0.9 Monocytes # 0.3 Eosinophils # 0.1 Basophils # 0.0 Nucleated Red Blood Cells # 0.0 Sodium Level 140 Potassium Level 5.8 H Chloride Level 96 L Carbon Dioxide Level 25 Anion Gap 19 H Blood Urea Nitrogen 58 H Creatinine 10.57 H Est Glomerular Filtrat Rate mL/min 5 L Glucose Level 78 Calcium Level 8.8 Total Bilirubin 0.3 Direct Bilirubin 0.00 Indirect Bilirubin 0.3 Aspartate Amino Transf (AST/SGOT) 22 Alanine Aminotransferase (ALT/SGPT) 14 Alkaline Phosphatase 65 Troponin I < 0.012 0.032 B-Type Natriuretic Peptide 73659 H Total Protein 7.5 Albumin 4.6 Globulin 2.90 Albumin/Globulin Ratio 1.58 Creatine Kinase 62 Creatine Kinase Index 1.2 Creatinine Kinase MB (Mass) 0.74 Subjective 24 Hr Interval Summary Free Text/Dictation frontal chest pain when he takes deep breath Exam/Review of Systems Exam Vitals Vital Signs Date Temp Pulse Resp B/P (MAP) Pulse Ox O2 O2 Flow FiO2 Time Delivery Rate 02/13/19 58 20 156/68 95 Room Air 10:00 (97) 02/13/19 21 09:22 02/12/19 97.6 21:46 Constitutional: alert, oriented, well developed Head: normocephalic, atraumatic Eyes: nl conjunctiva, EOMI, nl lids, PERRL ENMT: nl external ears & nose, nl lips & teeth, nl nasal mucosa & septum Neck: supple, non-tender Respiratory: clear to auscultation, normal air movement; No congested cough, No crackles/rales, No diminished breath sounds, No intercostal retraction, No labored breathing, No respirations, No tactile fremitus, No wheezing, No other Cardiovascular: regular rate and rhythm, nl pulses; No bruits, No diastolic murmur, No edema, No gallop, No irregular rhythm, No jugular venous distention (JVD), No murmurs/extra sounds, No rub, No systolic murmur, No S3, No S4, No other Gastrointestinal: soft, nl liver, spleen, non-tender Musculoskeletal: nl extremities to inspection Extremities: normal pulses; No calf tenderness, No cyanosis, No clubbing, No edema, No pitting pedal edema, No palpable cord, No tenderness, No other 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, nl mental status, nl speech, nl strength Results Results 24hrs Laboratory Tests Test 02/13/19 00:24 02/13/19 05:40 White Blood Count 4.3 #L Red Blood Count 3.89 #L Hemoglobin 12.1 #L Hematocrit 38.4 #L Mean Corpuscular Volume 98.7 Mean Corpuscular Hemoglobin 31.1 Mean Corpuscular Hemoglobin Concent 31.5 L Red Cell Distribution Width 16.6 H Platelet Count 123 #L Mean Platelet Volume 9.8 Immature Granulocytes % 0.500 H Neutrophils % 69.1 Lymphocytes % 20.6 Monocytes % 7.9 Eosinophils % 1.4 Basophils % 0.5 Nucleated Red Blood Cells % 0.0 Immature Granulocytes # 0.020 Neutrophils # 3.0 Lymphocytes # 0.9 Monocytes # 0.3 Eosinophils # 0.1 Basophils # 0.0 Nucleated Red Blood Cells # 0.0 Sodium Level 140 Potassium Level 5.8 H Chloride Level 96 L Carbon Dioxide Level 25 Anion Gap 19 H Blood Urea Nitrogen 58 H Creatinine 10.57 H Est Glomerular Filtrat Rate mL/min 5 L Glucose Level 78 Calcium Level 8.8 Total Bilirubin 0.3 Direct Bilirubin 0.00 Indirect Bilirubin 0.3 Aspartate Amino Transf (AST/SGOT) 22 Alanine Aminotransferase (ALT/SGPT) 14 Alkaline Phosphatase 65 Troponin I < 0.012 0.032 B-Type Natriuretic Peptide 57201 H Total Protein 7.5 Albumin 4.6 Globulin 2.90 Albumin/Globulin Ratio 1.58 Creatine Kinase 62 Creatine Kinase Index 1.2 Creatinine Kinase MB (Mass) 0.74 Medications Medication Current Medications IV Flush (NS 3 ml) 3 ml PER PROTOCOL IV ; Start 02/13/19 at 04:00 Ondansetron HCl (Zofran Tab) 4 mg Q6H PRN PO NAUSEA/VOMITING; Start 02/13/19 at 04:00 Nitroglycerin (Nitroglycerin (Sl Tab) 0.4 Mg) 1 tab Q5M PRN SL .CHEST PAIN; Start 02/13/19 at 04:00 Acetaminophen (Tylenol Tab) 650 mg Q6H PRN PO .PAIN 1-3 OR TEMP; Start 02/13/19 at 04:00 Morphine Sulfate (morphine) 2 mg Q4H PRN IV .PAIN 7-10 Last administered on 02/13/19at 07:04; Admin Dose 2 MG; Start 02/13/19 at 04:00 Docusate Sodium (Colace) 100 mg Q12H PRN PO .CONSTIPATION; Start 02/13/19 at 04:00 Bisacodyl (Dulcolax) 5 mg DAILY PRN PO .CONSTIPATION; Start 02/13/19 at 04:00 Apixaban (Eliquis) 5 mg BID PO Last administered on 02/13/19at 08:58; Admin Dose 5 MG; Start 02/13/19 at 09:00 Carvedilol (Coreg) 6.25 mg BID PO Last administered on 02/13/19at 08:59; Admin Dose 6.25 MG; Start 02/13/19 at 09:00 Chlorhexidine Gluconate (Peridex) 15 ml BID MT Last administered on 02/13/19 08:58; Admin Dose 15 ML; Start 02/13/19 at 09:00 Cholecalciferol (Vitamin D) 400 units DAILY PO Last administered on 02/13/19 09:00; Admin Dose 400 UNITS; Start 02/13/19 at 09:00 Folic Acid (Folic Acid) 1 mg DAILY PO Last administered on 02/13/19 09:47; Admin Dose 1 MG; Start 02/13/19 at 09:00 Hydralazine HCl (Apresoline) 25 mg BID PRN PO ELEVATED BLOOD PRESSURE; Start 02/13/19 at 04:00 Albuterol/ Ipratropium (Duoneb) 3 ml Q6HWA RESP THERAPY HHN Last administered on 02/13/19 09:20; Admin Dose 3 ML; Start 02/13/19 at 08:00 Isosorbide Mononitrate (Imdur) 30 mg DAILY PO Last administered on 02/13/19 08:58; Admin Dose 30 MG; Start 02/13/19 at 09:00 Nifedipine (Procardia Xl) 30 mg BID PO Last administered on 02/13/19 08:58; Admin Dose 30 MG; Start 02/13/19 at 09:00 Pregabalin (Lyrica) 75 mg BID PO Last administered on 02/13/19 09:47; Admin Dose 75 MG; Start 02/13/19 at 09:00 Sevelamer Carbonate (Renvela) 2.4 gm WITH MEALS PO Last administered on 02/13/19 09:00; Admin Dose 2.4 GM; Start 02/13/19 at 08:00 Miscellaneous Information 1 tab DAILY PO ; Start 02/13/19 at 09:00; Status KAMRAN SCOTT MD Feb 13, 2019 11:12
[2019-02-13] MEDS ORDERED: GLEC1TAB PO (16:31)
--- NOTE | 2019-02-13 17:04 | QN ---
Documentation Comment seen and examined CELENA GUERIN MD Feb 13, 2019 17:04
--- NOTE | 2019-02-13 18:23 | CONS ---
DATE OF ADMISSION: 02/13/2019 DATE OF CONSULTATION: TYPE OF CONSULTATION: Renal. REASON FOR CONSULTATION: Hemodialysis. HISTORY OF PRESENTING ILLNESS: This is a 53-year-old male with a past medical history of end-stage r enal disease on hemodialysis Wednesday, Wednesday, Wednesday, CHF, diastolic heart failure, hypertension, p aroxysmal atrial fibrillation, hepatitis C, who presented to the emergency department complaining of chest pain since yesterday. According to the patient, he was just sitting at home. All of a sudden, he started feeling chest pressure and came to the emergency department for further evaluation. Chidi ed any shortness of breath. Denied any cough, any fevers or chills. The patient was recently admitt ed in 12/2018 secondary to fever, cough and chest pain. At that time, the patient had community-acqu ired pneumonia. The patient has an admission in the past, also secondary to flu. On arrival to ED, vital signs showed blood pressure 131/73, afebrile, heart rate of 65, respirations 20 and the patient was admitted for and labs showed white count 4.3, hemoglobin 12.9, platelet count 123, potassium 5.8 , BUN of 58, creatinine 10.7. BNP 66,000. Troponin was less than 0.034. Patient also had a chest x -ray that showed interval appearing interstitial opacities consistent with pulmonary edema, aortic at herosclerosis and the patient was admitted for further management. PAST MEDICAL HISTORY: 1. End-stage renal disease on hemodialysis Wednesday, Wednesday, Wednesday. 2. Hypertension. 3. Diastolic heart failure. 4. Dyslipidemia. 5. Paroxysmal atrial fibrillation. 6. Coronary artery disease. 7. History of hepatitis C. ALLERGIES: 1. KEFLEX. 2. TRAMADOL. SOCIAL HISTORY: Denies any history of smoking, alcohol or any drug use. The patient has a left uppe r extremity fistula, history of IV drug use. MEDICATIONS TAKING AT HOME: 1. Albuterol. 2. Eliquis 5 b.i.d. 3. Coreg 6.25 b.i.d. 4. Hydralazine 25 b.i.d. 5. Imdur 30. 6. Nifedipine 30. 7. Pregabalin. 8. Renagel. 9. . 10. Cholecalciferol. 11. Folic acid. PHYSICAL EXAMINATION: VITAL SIGNS: Currently, blood pressure 126/55, afebrile, heart rate 61, respirations 12, saturating 100% on room air. GENERAL: The patient is awake, alert, oriented, does not appear to be in acute distress. HEENT: Pupils equal, round, react to light. NECK: Supple, no JVD. HEART: Regular rate and rhythm. LUNGS: Clear to auscultation bilaterally. ABDOMEN: Soft, nontender, positive normoactive bowel sounds. EXTREMITIES: Trace edema. The patient has left upper extremity fistula with good bruit and thrill. LABORATORY DATA: Potassium 5.8, BUN of 58, creatinine 10.57. DIAGNOSTIC DATA: Chest x-ray: Mild pulmonary edema. ASSESSMENT AND PLAN: This is a 53-year-old male with: 1. Chest pain, questionable pleuritic. Rule out acute coronary syndrome. Troponins have been negat rizwan. 2. Hyperkalemia, could be secondary to noncompliance. 3. End-stage renal disease on hemodialysis. 4. Hypertension. 5. Dyslipidemia. 6. Hepatitis C. 7. Hypertension. 8. Pancytopenia. PLAN: At this period of time, the patient is admitted to med/surg. Troponins have been ruled out. Echo has been pending. We will continue the patient on hemodialysis. The patient had a recent echo in 12/2018. Rest of the treatment will depend on the patient's hospitalization course. Dictated By: CELENA FORMAN/TYRA Conf#: [id number] DID#: [id number] CC: KAMRAN ZHANG MD; WENDY VALIENTE MD;*EndCC*
[2019-02-13] MEDS ORDERED: PIBRENTASVIR PO SCH (18:30)
[2019-02-13] MEDS ORDERED: GLECAPREVIR PO SCH (18:30)
[2019-02-13] MEDS: GLECAPREVIR PO SCH (23:01)
[2019-02-13] MEDS: PIBRENTASVIR PO SCH (23:01)
[2019-02-14 02:20] VITALS: BP 142/64; PULSE 66; RESP 18
[2019-02-14 07:22] VITALS: BP 136/65; PULSE 73; RESP 18
[2019-02-14] MEDS: ALBUTEROL/IPRATROPIUM (NEB) 3 ML AMP HHN SCH ×3 (08:00→20:39)
[2019-02-14] MEDS: APIXABAN 5 MG TABLET PO SCH ×2 (08:48→20:21)
[2019-02-14] MEDS: CHOLECALCIFEROL 400 UNITS TAB PO SCH (08:48)
[2019-02-14] MEDS: CHLORHEXIDINE GLUCONATE 15 ML UD CUP MT SCH ×2 (08:49→20:21)
[2019-02-14] MEDS: ISOSORBIDE MONONITRATE(SR)30 MG TAB PO SCH (08:49)
[2019-02-14] MEDS: morphine 2 MG INJ IV PRN ×3 (08:49→22:27)
[2019-02-14] MEDS: SEVELAMER CARBONATE 2.4 GM PKT PO SCH ×3 (08:49→18:04)
[2019-02-14] MEDS: NIFEdipine (XL) 30 MG TAB PO SCH ×2 (08:49→20:21)
[2019-02-14] MEDS: FOLIC ACID 1 MG TAB PO SCH (08:49)
[2019-02-14] MEDS: PIBRENTASVIR PO SCH (08:50)
[2019-02-14] MEDS: GLECAPREVIR PO SCH (08:50)
[2019-02-14] MEDS: PREGABALIN 75 MG CAP PO SCH ×2 (08:53→20:20)
[2019-02-14] MEDS ORDERED: [UNRECOGNIZED DRUG - OTHER] PO SCH (09:00)
--- NOTE | 2019-02-14 12:15 | CONS ---
Assessment/Plan Assessment/Plan Assessment/Plan (Daily) ASSESSMENT AND PLAN: This is a 53-year-old male with: 1. Chest pain, questionable pleuritic. Rule out acute coronary syndrome. Troponins have been negative. 2. Hyperkalemia, could be secondary to noncompliance. 3. End-stage renal disease on hemodialysis. 4. Hypertension. 5. Dyslipidemia. 6. Hepatitis C. 7. Hypertension. 8. Pancytopenia. Plan - s/p HD yesterday - fluid restriction - K improved - uses 02 at home - next HD tmw - Renally dose all meds Consultation Date/Type/Reason Admit Date/Time Feb 13, 2019 at 03:33 Initial Consult Date Date/Time of Note DATE: 02/14/19 TIME: 12:13 24 HR Interval Summary Free Text/Dictation Feels slight better today Exam/Review of Systems Exam Vitals Vital Signs Date Temp Pulse Resp B/P (MAP) Pulse Ox O2 O2 Flow FiO2 Time Delivery Rate 02/14/19 99.5 73 18 136/65 89 07:22 (88) 02/14/19 2.0 04:09 02/14/19 Nasal 02:20 Cannula 02/13/19 21 13:40 Intake and Output 02/13/19 02/13/19 02/14/19 1515:00 23:00 07:00 IntakeIntake Total 240 ml 100 ml OutputOutput Total 2500 ml BalanceBalance -2260 ml 100 ml Exam GENERAL: The patient is awake, alert, oriented, does not appear to be in acute distress. HEENT: Pupils equal, round, react to light. NECK: Supple, no JVD. HEART: Regular rate and rhythm. LUNGS: Clear to auscultation bilaterally. ABDOMEN: Soft, nontender, positive normoactive bowel sounds. EXTREMITIES: Trace edema. The patient has left upper extremity fistula with good bruit and thrill. Results Result Diagram: 02/14/19 0415 02/14/19 0415 Results 24hrs Laboratory Tests Test 02/13/19 12:24 02/14/19 04:15 Creatine Kinase 54 Creatine Kinase Index 1.1 Creatinine Kinase MB (Mass) 0.61 Troponin I 0.034 White Blood Count 4.0 L Red Blood Count 3.44 L Hemoglobin 10.8 L Hematocrit 33.0 L Mean Corpuscular Volume 95.9 Mean Corpuscular Hemoglobin 31.4 Mean Corpuscular Hemoglobin Concent 32.7 Red Cell Distribution Width 16.4 H Platelet Count 99 L Mean Platelet Volume 9.7 Immature Granulocytes % 0.200 Neutrophils % 73.1 Lymphocytes % 17.6 Monocytes % 7.4 Eosinophils % 1.5 Basophils % 0.2 Nucleated Red Blood Cells % 0.0 Immature Granulocytes # 0.010 Neutrophils # 3.0 Lymphocytes # 0.7 L Monocytes # 0.3 Eosinophils # 0.1 Basophils # 0.0 Nucleated Red Blood Cells # 0.0 Sodium Level 139 Potassium Level 4.6 Chloride Level 97 Carbon Dioxide Level 29 Anion Gap 13 Blood Urea Nitrogen 37 #H Creatinine 8.07 #H Est Glomerular Filtrat Rate mL/min 7 L Glucose Level 96 Calcium Level 8.8 Phosphorus Level 6.7 H Magnesium Level 2.3 Total Bilirubin 0.7 Direct Bilirubin 0.00 Indirect Bilirubin 0.7 Aspartate Amino Transf (AST/SGOT) 17 Alanine Aminotransferase (ALT/SGPT) 17 Alkaline Phosphatase 54 Total Protein 6.8 Albumin 3.8 Globulin 3.00 Albumin/Globulin Ratio 1.26 Medications Medication Current Medications IV Flush (NS 3 ml) 3 ml PER PROTOCOL IV ; Start 02/13/19 at 04:00 Ondansetron HCl (Zofran Tab) 4 mg Q6H PRN PO NAUSEA/VOMITING; Start 02/13/19 at 04:00 Nitroglycerin (Nitroglycerin (Sl Tab) 0.4 Mg) 1 tab Q5M PRN SL .CHEST PAIN; Start 02/13/19 at 04:00 Acetaminophen (Tylenol Tab) 650 mg Q6H PRN PO .PAIN 1-3 OR TEMP Last administered on 02/13/19at 21:33; Admin Dose 650 MG; Start 02/13/19 at 04:00 Morphine Sulfate (morphine) 2 mg Q4H PRN IV .PAIN 7-10 Last administered on 02/14/19at 08:49; Admin Dose 2 MG; Start 02/13/19 at 04:00 Docusate Sodium (Colace) 100 mg Q12H PRN PO .CONSTIPATION; Start 02/13/19 at 04:00 Bisacodyl (Dulcolax) 5 mg DAILY PRN PO .CONSTIPATION; Start 02/13/19 at 04:00 Apixaban (Eliquis) 5 mg BID PO Last administered on 02/14/19 08:48; Admin Dose 5 MG; Start 02/13/19 at 09:00 Carvedilol (Coreg) 6.25 mg BID PO Last administered on 02/14/19 08:48; Admin Dose 6.25 MG; Start 02/13/19 at 09:00 Chlorhexidine Gluconate (Peridex) 15 ml BID MT Last administered on 02/14/19 08:49; Admin Dose 15 ML; Start 02/13/19 at 09:00 Cholecalciferol (Vitamin D) 400 units DAILY PO Last administered on 02/14/19 08:48; Admin Dose 400 UNITS; Start 02/13/19 at 09:00 Folic Acid (Folic Acid) 1 mg DAILY PO Last administered on 02/14/19 08:49; Admin Dose 1 MG; Start 02/13/19 at 09:00 Hydralazine HCl (Apresoline) 25 mg BID PRN PO ELEVATED BLOOD PRESSURE; Start 02/13/19 at 04:00 Albuterol/ Ipratropium (Duoneb) 3 ml Q6HWA RESP THERAPY HHN Last administered on 02/13/19 20:31; Admin Dose 3 ML; Start 02/13/19 at 08:00 Isosorbide Mononitrate (Imdur) 30 mg DAILY PO Last administered on 02/14/19 08:49; Admin Dose 30 MG; Start 02/13/19 at 09:00 Nifedipine (Procardia Xl) 30 mg BID PO Last administered on 02/14/19 08:49; Admin Dose 30 MG; Start 02/13/19 at 09:00 Pregabalin (Lyrica) 75 mg BID PO Last administered on 02/14/19 08:53; Admin Dose 75 MG; Start 02/13/19 at 09:00 Sevelamer Carbonate (Renvela) 2.4 gm WITH MEALS PO Last administered on 02/14/19 08:49; Admin Dose 2.4 GM; Start 02/13/19 at 08:00 Patient Own Medication 3 ea DAILY PO Last administered on 02/14/19 08:50; Admin Dose 3 EA; Start 02/13/19 at 21:42 CELENA GUERIN MD Feb 14, 2019 12:15
--- NOTE | 2019-02-14 13:40 | PN ---
Date/Time of Note Date/Time of Note DATE: 02/14/19 TIME: 13:38 Assessment/Plan VTE Prophylaxis Risk score (from Ns)>0 risk: 2 SCD applied (from Ns): Yes Pharmacological prophylaxis: apixaban Lines/Catheters IV Catheter Type (from Nrs): Saline Lock Urinary Cath still in place: No Assessment/Plan Assessment/Plan 1. Chest pain, pleuritic, negative troponin, prob muscular, awaiting for echo to r/o uremic pericarditis 2. Hyperkalemia: Secondary to end-stage renal disease. K of 5.8 on admission. 3. ESRD, DD on Wednesday, follow up with nephrology Dr. Castro 4. Hypertension: Resume home medications 5. Paroxysmal atrial fibrillation, on Eliquis 6. Dyslipidemia: Continue statin 7 History of hepatitis C: Continue monitor as outpatient 8. Coronary artery disease: Resume all meds 9. DVT prophylaxis: Eliquis Result Diagram: 02/14/19 0415 02/14/19 0415 Results 24hrs Laboratory Tests Test 02/14/19 04:15 White Blood Count 4.0 L Red Blood Count 3.44 L Hemoglobin 10.8 L Hematocrit 33.0 L Mean Corpuscular Volume 95.9 Mean Corpuscular Hemoglobin 31.4 Mean Corpuscular Hemoglobin Concent 32.7 Red Cell Distribution Width 16.4 H Platelet Count 99 L Mean Platelet Volume 9.7 Immature Granulocytes % 0.200 Neutrophils % 73.1 Lymphocytes % 17.6 Monocytes % 7.4 Eosinophils % 1.5 Basophils % 0.2 Nucleated Red Blood Cells % 0.0 Immature Granulocytes # 0.010 Neutrophils # 3.0 Lymphocytes # 0.7 L Monocytes # 0.3 Eosinophils # 0.1 Basophils # 0.0 Nucleated Red Blood Cells # 0.0 Sodium Level 139 Potassium Level 4.6 Chloride Level 97 Carbon Dioxide Level 29 Anion Gap 13 Blood Urea Nitrogen 37 #H Creatinine 8.07 #H Est Glomerular Filtrat Rate mL/min 7 L Glucose Level 96 Calcium Level 8.8 Phosphorus Level 6.7 H Magnesium Level 2.3 Total Bilirubin 0.7 Direct Bilirubin 0.00 Indirect Bilirubin 0.7 Aspartate Amino Transf (AST/SGOT) 17 Alanine Aminotransferase (ALT/SGPT) 17 Alkaline Phosphatase 54 Total Protein 6.8 Albumin 3.8 Globulin 3.00 Albumin/Globulin Ratio 1.26 Subjective 24 Hr Interval Summary Free Text/Dictation mild chest pain Exam/Review of Systems Exam Vitals Vital Signs Date Temp Pulse Resp B/P (MAP) Pulse Ox O2 O2 Flow FiO2 Time Delivery Rate 02/14/19 99.5 73 18 136/65 89 07:22 (88) 02/14/19 2.0 04:09 02/14/19 Nasal 02:20 Cannula 02/13/19 21 13:40 Intake and Output 02/13/19 02/13/19 02/14/19 1515:00 23:00 07:00 IntakeIntake Total 240 ml 100 ml OutputOutput Total 2500 ml BalanceBalance -2260 ml 100 ml Constitutional: alert, oriented, well developed Psych: no complaints, nl mood/affect Head: normocephalic, atraumatic Eyes: nl conjunctiva, EOMI, nl lids, PERRL ENMT: nl external ears & nose, nl lips & teeth, nl nasal mucosa & septum Neck: supple, non-tender Respiratory: clear to auscultation, normal air movement; No congested cough, No crackles/rales, No diminished breath sounds, No intercostal retraction, No labored breathing, No respirations, No tactile fremitus, No wheezing, No other Cardiovascular: regular rate and rhythm, nl pulses; No bruits, No diastolic murmur, No edema, No gallop, No irregular rhythm, No jugular venous distention (JVD), No murmurs/extra sounds, No rub, No systolic murmur, No S3, No S4, No other Gastrointestinal: soft, nl liver, spleen, non-tender Musculoskeletal: nl extremities to inspection Extremities: normal pulses; No calf tenderness, No cyanosis, No clubbing, No edema, No pitting pedal edema, No palpable cord, No tenderness, No other 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3 Eosinophils # 0.1 Basophils # 0.0 Nucleated Red Blood Cells # 0.0 Sodium Level 139 Potassium Level 4.6 Chloride Level 97 Carbon Dioxide Level 29 Anion Gap 13 Blood Urea Nitrogen 37 #H Creatinine 8.07 #H Est Glomerular Filtrat Rate mL/min 7 L Glucose Level 96 Calcium Level 8.8 Phosphorus Level 6.7 H Magnesium Level 2.3 Total Bilirubin 0.7 Direct Bilirubin 0.00 Indirect Bilirubin 0.7 Aspartate Amino Transf (AST/SGOT) 17 Alanine Aminotransferase (ALT/SGPT) 17 Alkaline Phosphatase 54 Total Protein 6.8 Albumin 3.8 Globulin 3.00 Albumin/Globulin Ratio 1.26 Medications Medication Current Medications IV Flush (NS 3 ml) 3 ml PER PROTOCOL IV ; Start 02/13/19 at 04:00 Ondansetron HCl (Zofran Tab) 4 mg Q6H PRN PO NAUSEA/VOMITING; Start 02/13/19 at 04:00 Nitroglycerin (Nitroglycerin (Sl Tab) 0.4 Mg) 1 tab Q5M PRN SL .CHEST PAIN; Start 02/13/19 at 04:00 Acetaminophen (Tylenol Tab) 650 mg Q6H PRN PO .PAIN 1-3 OR TEMP Last administered on 02/13/19at 21:33; Admin Dose 650 MG; Start 02/13/19 at 04:00 Morphine Sulfate (morphine) 2 mg Q4H PRN IV .PAIN 7-10 Last administered on 02/14/19at 08:49; Admin Dose 2 MG; Start 02/13/19 at 04:00 Docusate Sodium (Colace) 100 mg Q12H PRN PO .CONSTIPATION; Start 02/13/19 at 04:00 Bisacodyl (Dulcolax) 5 mg DAILY PRN PO .CONSTIPATION; Start 02/13/19 at 04:00 Apixaban (Eliquis) 5 mg BID PO Last administered on 02/14/19at 08:48; Admin Dose 5 MG; Start 02/13/19 at 09:00 Carvedilol (Coreg) 6.25 mg BID PO Last administered on 02/14/19 08:48; Admin Dose 6.25 MG; Start 02/13/19 at 09:00 Chlorhexidine Gluconate (Peridex) 15 ml BID MT Last administered on 02/14/19 08:49; Admin Dose 15 ML; Start 02/13/19 at 09:00 Cholecalciferol (Vitamin D) 400 units DAILY PO Last administered on 02/14/19 08:48; Admin Dose 400 UNITS; Start 02/13/19 at 09:00 Folic Acid (Folic Acid) 1 mg DAILY PO Last administered on 02/14/19 08:49; Admin Dose 1 MG; Start 02/13/19 at 09:00 Hydralazine HCl (Apresoline) 25 mg BID PRN PO ELEVATED BLOOD PRESSURE; Start 02/13/19 at 04:00 Albuterol/ Ipratropium (Duoneb) 3 ml Q6HWA RESP THERAPY HHN Last administered on 02/13/19 20:31; Admin Dose 3 ML; Start 02/13/19 at 08:00 Isosorbide Mononitrate (Imdur) 30 mg DAILY PO Last administered on 02/14/19 08:49; Admin Dose 30 MG; Start 02/13/19 at 09:00 Nifedipine (Procardia Xl) 30 mg BID PO Last administered on 02/14/19 08:49; Admin Dose 30 MG; Start 02/13/19 at 09:00 Pregabalin (Lyrica) 75 mg BID PO Last administered on 02/14/19 08:53; Admin Dose 75 MG; Start 02/13/19 at 09:00 Sevelamer Carbonate (Renvela) 2.4 gm WITH MEALS PO Last administered on 9at 13:23; Admin Dose 2.4 GM; Start 02/13/19 at 08:00 Patient Own Medication 3 ea DAILY PO Last administered on 02/14/19 08:50; Admin Dose 3 EA; Start 02/13/19 at 21:42 KAMRAN ZHANG MD Feb 14, 2019 13:40
[2019-02-14 13:53] VITALS: BP 123/62; PULSE 64; RESP 18
[2019-02-14 20:15] VITALS: BP 131/66; PULSE 67; RESP 18
[2019-02-15] VITALS (17 sets, daily range): BP systolic 102–139; BP diastolic 60–71; PULSE 53–64; RESP 16–18
[2019-02-15] MEDS: ISOSORBIDE MONONITRATE(SR)30 MG TAB PO SCH (07:54)
[2019-02-15] MEDS: NIFEdipine (XL) 30 MG TAB PO SCH ×2 (07:55→20:31)
[2019-02-15] MEDS: ALBUTEROL/IPRATROPIUM (NEB) 3 ML AMP HHN SCH ×3 (09:00→20:34)
[2019-02-15] MEDS: APIXABAN 5 MG TABLET PO SCH ×2 (09:49→20:31)
[2019-02-15] MEDS: CHOLECALCIFEROL 400 UNITS TAB PO SCH (09:49)
[2019-02-15] MEDS: FOLIC ACID 1 MG TAB PO SCH (09:49)
[2019-02-15] MEDS: PREGABALIN 75 MG CAP PO SCH ×2 (09:49→20:30)
[2019-02-15] MEDS: SEVELAMER CARBONATE 2.4 GM PKT PO SCH ×3 (09:50→19:29)
[2019-02-15] MEDS: CHLORHEXIDINE GLUCONATE 15 ML UD CUP MT SCH ×2 (10:05→20:30)
[2019-02-15] MEDS: morphine 2 MG INJ IV PRN ×2 (10:06→15:44)
[2019-02-15] MEDS: GLECAPREVIR PO SCH (11:15)
[2019-02-15] MEDS: PIBRENTASVIR PO SCH (11:15)
--- NOTE | 2019-02-15 12:00 | CONS ---
Assessment/Plan Assessment/Plan Assessment/Plan (Daily) ESSMENT AND PLAN: This is a 53-year-old male with: 1. Chest pain, questionable pleuritic. Rule out acute coronary syndrome. Troponins have been negative. 2. Hyperkalemia, could be secondary to noncompliance. 3. End-stage renal disease on hemodialysis. 4. Hypertension. 5. Dyslipidemia. 6. Hepatitis C. 7. Hypertension. 8. Pancytopenia. Plan - s/p HD today -? uremic pleuritis unlikely as pt has been getting his HD regularly and uremia not signiicant enough , last ECHO 01/10was negative for pericarditis - fluid restriction - K improved - uses 02 at home - Renally dose all meds dc planning Consultation Date/Type/Reason Admit Date/Time Feb 13, 2019 at 03:33 Initial Consult Date Date/Time of Note DATE: 02/15/19 TIME: 12:00 24 HR Interval Summary Free Text/Dictation Feels better chest pain improved Exam/Review of Systems Exam Vitals Vital Signs Date Temp Pulse Resp B/P (MAP) Pulse Ox O2 O2 Flow FiO2 Time Delivery Rate 02/15/19 87 15 97 Nasal 2.0 09:07 Cannula 02/15/19 139/64 08:30 (89) 02/15/19 98.6 07:51 02/13/19 21 13:40 Intake and Output 02/14/19 02/14/19 02/15/19 1515:00 23:00 07:00 IntakeIntake Total 50 ml 100 ml OutputOutput Total 380 ml BalanceBalance 50 ml -280 ml Exam GENERAL: The patient is awake, alert, oriented, does not appear to be in acute distress. HEENT: Pupils equal, round, react to light. NECK: Supple, no JVD. HEART: Regular rate and rhythm. LUNGS: Clear to auscultation bilaterally. ABDOMEN: Soft, nontender, positive normoactive bowel sounds. EXTREMITIES: Trace edema. The patient has left upper extremity fistula with good bruit and thrill. Results Result Diagram: 02/15/19 0424 02/15/19 0424 Results 24hrs Laboratory Tests Test 02/15/19 04:24 White Blood Count 2.6 #L Red Blood Count 3.49 L Hemoglobin 10.9 L Hematocrit 33.6 L Mean Corpuscular Volume 96.3 Mean Corpuscular Hemoglobin 31.2 Mean Corpuscular Hemoglobin Concent 32.4 Red Cell Distribution Width 15.8 H Platelet Count 95 L Mean Platelet Volume 9.5 Immature Granulocytes % 0.400 Neutrophils % 52.3 Lymphocytes % 31.9 Monocytes % 10.8 Eosinophils % 3.8 Basophils % 0.8 Nucleated Red Blood Cells % 0.0 Immature Granulocytes # 0.010 Neutrophils # 1.4 L Lymphocytes # 0.8 Monocytes # 0.3 Eosinophils # 0.1 Basophils # 0.0 Nucleated Red Blood Cells # 0.0 Sodium Level 139 Potassium Level 4.4 Chloride Level 96 L Carbon Dioxide Level 30 Anion Gap 13 Blood Urea Nitrogen 52 H Creatinine 10.17 #H Est Glomerular Filtrat Rate mL/min 5 L Glucose Level 108 Calcium Level 8.3 L Phosphorus Level 8.0 H Total Bilirubin 0.3 Direct Bilirubin 0.00 Indirect Bilirubin 0.3 Aspartate Amino Transf (AST/SGOT) 14 L Alanine Aminotransferase (ALT/SGPT) 10 L Alkaline Phosphatase 49 Total Protein 6.6 Albumin 3.9 Globulin 2.70 Albumin/Globulin Ratio 1.44 Medications Medication Current Medications IV Flush (NS 3 ml) 3 ml PER PROTOCOL IV ; Start 02/13/19 at 04:00 Ondansetron HCl (Zofran Tab) 4 mg Q6H PRN PO NAUSEA/VOMITING; Start 02/13/19 at 04:00 Nitroglycerin (Nitroglycerin (Sl Tab) 0.4 Mg) 1 tab Q5M PRN SL .CHEST PAIN; Start 02/13/19 at 04:00 Acetaminophen (Tylenol Tab) 650 mg Q6H PRN PO .PAIN 1-3 OR TEMP Last administered on 02/13/19at 21:33; Admin Dose 650 MG; Start 02/13/19 at 04:00 Morphine Sulfate (morphine) 2 mg Q4H PRN IV .PAIN 7-10 Last administered on 02/15/19at 10:06; Admin Dose 2 MG; Start 02/13/19 at 04:00 Docusate Sodium (Colace) 100 mg Q12H PRN PO .CONSTIPATION; Start 02/13/19 at 04:00 Bisacodyl (Dulcolax) 5 mg DAILY PRN PO .CONSTIPATION; Start 02/13/19 at 04:00 Apixaban (Eliquis) 5 mg BID PO Last administered on 02/15/19 09:49; Admin Dose 5 MG; Start 02/13/19 at 09:00 Carvedilol (Coreg) 6.25 mg BID PO Last administered on 02/14/19 20:21; Admin Dose 6.25 MG; Start 02/13/19 at 09:00 Chlorhexidine Gluconate (Peridex) 15 ml BID MT Last administered on 02/15/19 10:05; Admin Dose 15 ML; Start 02/13/19 at 09:00 Cholecalciferol (Vitamin D) 400 units DAILY PO Last administered on 02/15/19 09:49; Admin Dose 400 UNITS; Start 02/13/19 at 09:00 Folic Acid (Folic Acid) 1 mg DAILY PO Last administered on 02/15/19 09:49; Admin Dose 1 MG; Start 02/13/19 at 09:00 Hydralazine HCl (Apresoline) 25 mg BID PRN PO ELEVATED BLOOD PRESSURE; Start 02/13/19 at 04:00 Albuterol/ Ipratropium (Duoneb) 3 ml Q6HWA RESP THERAPY HHN Last administered on 02/15/19 09:00; Admin Dose 3 ML; Start 02/13/19 at 08:00 Isosorbide Mononitrate (Imdur) 30 mg DAILY PO Last administered on 02/14/19 08:49; Admin Dose 30 MG; Start 02/13/19 at 09:00 Nifedipine (Procardia Xl) 30 mg BID PO Last administered on 02/14/19 20:21; Admin Dose 30 MG; Start 02/13/19 at 09:00 Pregabalin (Lyrica) 75 mg BID PO Last administered on 02/15/19 09:49; Admin Dose 75 MG; Start 02/13/19 at 09:00 Sevelamer Carbonate (Renvela) 2.4 gm WITH MEALS PO Last administered on 02/15/19 09:50; Admin Dose 2.4 GM; Start 02/13/19 at 08:00 Patient Own Medication 3 ea DAILY PO Last administered on 02/15/19 11:15; Admin Dose 3 EA; Start 02/13/19 at 21:42 CELENA GUERIN MD Feb 15, 2019 12:00
--- NOTE | 2019-02-15 14:11 | PN ---
Date/Time of Note Date/Time of Note DATE: 02/15/19 TIME: 14:06 Assessment/Plan VTE Prophylaxis Risk score (from Ns)>0 risk: 5 SCD applied (from Ns): Yes Pharmacological prophylaxis: apixaban Lines/Catheters IV [facility] Type [facility] [place] Lock Urinary Cath still in place: No Assessment/Plan Assessment/Plan 1. Chest pain, pleuritic, negative troponin, prob muscular, awaiting for echo to r/o uremic pericarditis, cardiology consultation 2. Hyperkalemia: Secondary to end-stage renal disease. K of 5.8 on admission., resolved 3. ESRD, DD on Wednesday, follow up with nephrology Dr. Castro 4. Hypertension: Resume home medications 5. Paroxysmal atrial fibrillation, on Eliquis 6. Dyslipidemia: Continue statin 7 History of hepatitis C: Continue monitor as outpatient 8. Coronary artery disease: Resume all meds 9. DVT prophylaxis: Eliquis Result Diagram: 02/15/19 0424 02/15/19 0424 Results 24hrs Laboratory Tests Test 02/15/19 04:24 White Blood Count 2.6 #L Red Blood Count 3.49 L Hemoglobin 10.9 L Hematocrit 33.6 L Mean Corpuscular Volume 96.3 Mean Corpuscular Hemoglobin 31.2 Mean Corpuscular Hemoglobin Concent 32.4 Red Cell Distribution Width 15.8 H Platelet Count 95 L Mean Platelet Volume 9.5 Immature Granulocytes % 0.400 Neutrophils % 52.3 Lymphocytes % 31.9 Monocytes % 10.8 Eosinophils % 3.8 Basophils % 0.8 Nucleated Red Blood Cells % 0.0 Immature Granulocytes # 0.010 Neutrophils # 1.4 L Lymphocytes # 0.8 Monocytes # 0.3 Eosinophils # 0.1 Basophils # 0.0 Nucleated Red Blood Cells # 0.0 Sodium Level 139 Potassium Level 4.4 Chloride Level 96 L Carbon Dioxide Level 30 Anion Gap 13 Blood Urea Nitrogen 52 H Creatinine 10.17 #H Est Glomerular Filtrat Rate mL/min 5 L Glucose Level 108 Calcium Level 8.3 L Phosphorus Level 8.0 H Total Bilirubin 0.3 Direct Bilirubin 0.00 Indirect Bilirubin 0.3 Aspartate Amino Transf (AST/SGOT) 14 L Alanine Aminotransferase (ALT/SGPT) 10 L Alkaline Phosphatase 49 Total Protein 6.6 Albumin 3.9 Globulin 2.70 Albumin/Globulin Ratio 1.44 Subjective 24 Hr Interval Summary Free Text/Dictation still complains of chest pain but no shortness of breath Exam/Review of Systems Exam Vitals Vital Signs Date Temp Pulse Resp B/P (MAP) Pulse Ox O2 O2 Flow FiO2 Time Delivery Rate 02/15/19 87 15 97 Nasal 2.0 09:07 Cannula 02/15/19 139/64 08:30 (89) 02/15/19 98.6 07:51 02/13/19 21 13:40 Intake and Output 02/14/19 02/14/19 02/15/19 1515:00 23:00 07:00 IntakeIntake Total 50 ml 100 ml OutputOutput Total 380 ml BalanceBalance 50 ml -280 ml Constitutional: alert, oriented, well developed Psych: no complaints, nl mood/affect Head: normocephalic, atraumatic Eyes: nl conjunctiva, EOMI, nl lids ENMT: nl external ears & nose, nl lips & teeth, nl nasal mucosa & septum Neck: supple, non-tender Respiratory: clear to auscultation, normal air movement; No congested cough, No crackles/rales, No diminished breath sounds, No intercostal retraction, No labored breathing, No respirations, No tactile fremitus, No wheezing, No other Cardiovascular: regular rate and rhythm, nl pulses; No bruits, No diastolic murmur, No edema, No gallop, No irregular rhythm, No jugular venous distention (JVD), No murmurs/extra sounds, No rub, No systolic murmur, No S3, No S4, No other Gastrointestinal: soft, nl liver, spleen, non-tender; No ascites, No bowel sounds, No distended, No firm, No hepatomegaly, No mass, No rebound or guarding, No splenomegaly, No surgical scars, No tender, No other Musculoskeletal: nl extremities to inspection Extremities: normal pulses; No calf tenderness, No cyanosis, No clubbing, No edema, No pitting pedal edema, No palpable cord, No tenderness, No other 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: 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, nl mental status, nl speech, nl strength Skin: nl turgor Results Results 24hrs Laboratory Tests Test 02/15/19 04:24 White Blood Count 2.6 #L Red Blood Count 3.49 L Hemoglobin 10.9 L Hematocrit 33.6 L Mean Corpuscular Volume 96.3 Mean Corpuscular Hemoglobin 31.2 Mean Corpuscular Hemoglobin Concent 32.4 Red Cell Distribution Width 15.8 H Platelet Count 95 L Mean Platelet Volume 9.5 Immature Granulocytes % 0.400 Neutrophils % 52.3 Lymphocytes % 31.9 Monocytes % 10.8 Eosinophils % 3.8 Basophils % 0.8 Nucleated Red Blood Cells % 0.0 Immature Granulocytes # 0.010 Neutrophils # 1.4 L Lymphocytes # 0.8 Monocytes # 0.3 Eosinophils # 0.1 Basophils # 0.0 Nucleated Red Blood Cells # 0.0 Sodium Level 139 Potassium Level 4.4 Chloride Level 96 L Carbon Dioxide Level 30 Anion Gap 13 Blood Urea Nitrogen 52 H Creatinine 10.17 #H Est Glomerular Filtrat Rate mL/min 5 L Glucose Level 108 Calcium Level 8.3 L Phosphorus Level 8.0 H Total Bilirubin 0.3 Direct Bilirubin 0.00 Indirect Bilirubin 0.3 Aspartate Amino Transf (AST/SGOT) 14 L Alanine Aminotransferase (ALT/SGPT) 10 L Alkaline Phosphatase 49 Total Protein 6.6 Albumin 3.9 Globulin 2.70 Albumin/Globulin Ratio 1.44 Medications Medication Current Medications IV Flush (NS 3 ml) 3 ml PER PROTOCOL IV ; Start 02/13/19 at 04:00 Ondansetron HCl (Zofran Tab) 4 mg Q6H PRN PO NAUSEA/VOMITING; Start 02/13/19 at 04:00 Nitroglycerin (Nitroglycerin (Sl Tab) 0.4 Mg) 1 tab Q5M PRN SL .CHEST PAIN; Start 02/13/19 at 04:00 Acetaminophen (Tylenol Tab) 650 mg Q6H PRN PO .PAIN 1-3 OR TEMP Last administered on 02/13/19at 21:33; Admin Dose 650 MG; Start 02/13/19 at 04:00 Morphine Sulfate (morphine) 2 mg Q4H PRN IV .PAIN 7-10 Last administered on 02/15/19at 10:06; Admin Dose 2 MG; Start 02/13/19 at 04:00 Docusate Sodium (Colace) 100 mg Q12H PRN PO .CONSTIPATION; Start 02/13/19 at 04:00 Bisacodyl (Dulcolax) 5 mg DAILY PRN PO .CONSTIPATION; Start 02/13/19 at 04:00 Apixaban (Eliquis) 5 mg BID PO Last administered on 02/15/19 09:49; Admin Dose 5 MG; Start 02/13/19 at 09:00 Carvedilol (Coreg) 6.25 mg BID PO Last administered on 02/14/19 20:21; Admin Dose 6.25 MG; Start 02/13/19 at 09:00 Chlorhexidine Gluconate (Peridex) 15 ml BID MT Last administered on 02/15/19 10:05; Admin Dose 15 ML; Start 02/13/19 at 09:00 Cholecalciferol (Vitamin D) 400 units DAILY PO Last administered on 02/15/19 09:49; Admin Dose 400 UNITS; Start 02/13/19 at 09:00 Folic Acid (Folic Acid) 1 mg DAILY PO Last administered on 02/15/19 09:49; Admin Dose 1 MG; Start 02/13/19 at 09:00 Hydralazine HCl (Apresoline) 25 mg BID PRN PO ELEVATED BLOOD PRESSURE; Start 02/13/19 at 04:00 Albuterol/ Ipratropium (Duoneb) 3 ml Q6HWA RESP THERAPY HHN Last administered on 02/15/19 09:00; Admin Dose 3 ML; Start 02/13/19 at 08:00 Isosorbide Mononitrate (Imdur) 30 mg DAILY PO Last administered on 02/14/19 08:49; Admin Dose 30 MG; Start 02/13/19 at 09:00 Nifedipine (Procardia Xl) 30 mg BID PO Last administered on 02/14/19 20:21; Admin Dose 30 MG; Start 02/13/19 at 09:00 Pregabalin (Lyrica) 75 mg BID PO Last administered on 02/15/19 09:49; Admin Dose 75 MG; Start 02/13/19 at 09:00 Sevelamer Carbonate (Renvela) 2.4 gm WITH MEALS PO Last administered on 02/15/19 12:44; Admin Dose 2.4 GM; Start 02/13/19 at 08:00 Patient Own Medication 3 ea DAILY PO Last administered on 02/15/19 11:15; Admin Dose 3 EA; Start 02/13/19 at 21:42 KAMRAN ZHANG MD Feb 15, 2019 14:11
[2019-02-16 00:05] VITALS: BP 149/78; PULSE 61; RESP 16
[2019-02-16] MEDS: morphine 2 MG INJ IV PRN ×5 (05:18→22:37)
--- NOTE | 2019-02-16 07:51 | CONS ---
Assessment/Plan Assessment/Plan Hospital Course (Demo Recall) Chest pain: Chronic for 7 yrs and atypical in nature. He had a normal Lexiscan 03/2018 for the same and it was normal. Mostly at rest and seems to be musculoskeletal in nature. Troponins have been negative and EKG is unremarkable. I do not think further workup will yield any new results. Though he may have underlying CAD with his risk factors, I do not think his symptoms are angina. Paroxysmal afib: On Eliquis. In sinus Chronic diastolic CHF: Recent EF preserved. Compensated on exam HTN ESRD on HD Hep C -no further cardiac workup at this time. Dispo per primary -coreg 6.25mg BID -nifedipine 30mg BID -Eliquis 5mg BID -imdur 30mg (?need but can continue) Consultation Date/Type/Reason Admit Date/Time Feb 13, 2019 at 03:33 Date of Consultation: Feb 16, 2019 Type of Consult Cardiology Reason for Consultation chest pain Requesting Provider: KAMRAN ZHANG MD Date/Time of Note DATE: 02/16/19 TIME: 07:43 Hx of Present Illness 53 yo M with a h/o paroxysmal afib on Eliquis, chronic diastolic CHF, ESRD on HD, HTN, Hep C, who presented with chest pain. He has been ruled out for KS. Of note he has had multiple admissions for chest pain in the past. Recent chest pain admission was treated for PNA. March 2018 he had a normal Lexiscan. He notes the pain has been present since he started HD 7 yrs ago and occurs at random times. Mostly at rest and is more left chest wall and radiating to his axilla. He also notes he has swelling in this area at times. Rarely with exertion and overall feels "ok" when he walks. Sometimes the pain is with deep inspiration and sometimes it is reproducible with palpation. Currently no symptoms. per hPI Past Medical History per hPI Home Meds Active Scripts Chlorhexidine Gluconate (Peridex) 473 Ml Mouthwash, 15 ML MT BID for 7 Days, BOTTLE Prov:TIESHA ARELLANO M. 01/06/19 Nifedipine (Procardia Xl) 30 Mg Tab.er.24, 30 MG PO BID for 30 Days, TAB Prov:TIESHA ARELLANO M. 01/06/19 Ipratropium-Albuterol (Ipratropium-Albuterol) 0.5-3 Mg/3 Ml Ampul.neb, 3 ML HHN Q6HWA RESP THERAPY for 4 Days Prov:TIESHA ARELLANO. 01/06/19 Reported Medications Glecaprevir/Pibrentasvir (Mavyret 100-40 mg Tablet) 1 Each Tablet, 3 EACH PO DA JASVIR, TAB 02/13/19 Folic Acid* (Folic Acid*) 1 Mg Tablet, 1 MG PO DAILY, TAB 01/02/19 Cholecalciferol* (Vitamin D*) 400 Unit Tablet, 400 UNIT PO DAILY, TAB 01/02/19 Sevelamer Hcl* (Renagel*) 800 Mg Tablet, 2400 MG PO WITH MEALS, TAB 11/25/18 Hydralazine Hcl* (Hydralazine Hcl*) 25 Mg Tab, 25 MG PO BID PRN for ELEVATED BLOOD PRESSURE, #60 TAB 11/25/18 Apixaban* (Eliquis*) 5 Mg Tablet, 5 MG PO BID, TAB 11/25/18 Pregabalin* (Lyrica*) 75 Mg Capsule, 75 MG PO BID, CAP 11/25/18 Carvedilol* (Carvedilol*) 6.25 Mg Tablet, 6.25 MG PO BID, #60 TAB 11/25/18 Isosorbide Mononitrate* (Isosorbide Mononitrate*) 30 Mg Tab.er.24h, 30 MG PO DAILY, TAB 11/25/18 Discontinued Reported Medications Glecaprevir/Pibrentasvir (Mavyret 100-40 mg Tablet) 1 Each Tablet, 1 TAB PO DAILY, TAB 01/02/19 Discontinued Scripts Levofloxacin* (Levaquin*) 500 Mg Tablet, 500 MG PO Q48H, #4 TAB Prov:RITA ARELLANONelsy AshleySteph 01/06/19 [Gentamicin Iv Per Pharmacy] 1 EA EACH No Conflict Check, 0 EA XX NOTE, #3 DOSE Prov:RITA ARELLANONelsy AshleySteph 01/06/19 Gentamicin Sulfate (Gentamicin Sulfate) 20 Mg/2 Ml Vial, 80 MG IV* AFTER DIALYSIS, #3 DOSE Prov:RITA ARELLANONelsy Ashley. 01/06/19 Medications Current Medications IV Flush (NS 3 ml) 3 ml PER PROTOCOL IV ; Start 02/13/19 at 04:00 Ondansetron HCl (Zofran Tab) 4 mg Q6H PRN PO NAUSEA/VOMITING; Start 02/13/19 at 04:00 Nitroglycerin (Nitroglycerin (Sl Tab) 0.4 Mg) 1 tab Q5M PRN SL .CHEST PAIN; Start 02/13/19 at 04:00 Acetaminophen (Tylenol Tab) 650 mg Q6H PRN PO .PAIN 1-3 OR TEMP Last administered on 02/13/19 21:33; Admin Dose 650 MG; Start 02/13/19 at 04:00 Morphine Sulfate (morphine) 2 mg Q4H PRN IV .PAIN 7-10 Last administered on 02/16/19 06:19; Admin Dose 2 MG; Start 02/13/19 at 04:00 Docusate Sodium (Colace) 100 mg Q12H PRN PO .CONSTIPATION; Start 02/13/19 at 04:00 Bisacodyl (Dulcolax) 5 mg DAILY PRN PO .CONSTIPATION; Start 02/13/19 at 04:00 Apixaban (Eliquis) 5 mg BID PO Last administered on 02/15/19 20:31; Admin Dose 5 MG; Start 02/13/19 at 09:00 Carvedilol (Coreg) 6.25 mg BID PO Last administered on 02/15/19 20:31; Admin Dose 6.25 MG; Start 02/13/19 at 09:00 Chlorhexidine Gluconate (Peridex) 15 ml BID MT Last administered on 02/15/19 20:30; Admin Dose 15 ML; Start 02/13/19 at 09:00 Cholecalciferol (Vitamin D) 400 units DAILY PO Last administered on 02/15/19 09:49; Admin Dose 400 UNITS; Start 02/13/19 at 09:00 Folic Acid (Folic Acid) 1 mg DAILY PO Last administered on 02/15/19 09:49; Admin Dose 1 MG; Start 02/13/19 at 09:00 Hydralazine HCl (Apresoline) 25 mg BID PRN PO ELEVATED BLOOD PRESSURE; Start 02/13/19 at 04:00 Albuterol/ Ipratropium (Duoneb) 3 ml Q6HWA RESP THERAPY HHN Last administered on 02/15/19 20:34; Admin Dose 3 ML; Start 02/13/19 at 08:00 Isosorbide Mononitrate (Imdur) 30 mg DAILY PO Last administered on 02/14/19 08:49; Admin Dose 30 MG; Start 02/13/19 at 09:00 Nifedipine (Procardia Xl) 30 mg BID PO Last administered on 02/15/19 20:31; Admin Dose 30 MG; Start 02/13/19 at 09:00 Pregabalin (Lyrica) 75 mg BID PO Last administered on 02/15/19 20:30; Admin Dose 75 MG; Start 02/13/19 at 09:00 Sevelamer Carbonate (Renvela) 2.4 gm WITH MEALS PO Last administered on 02/15/19 19:29; Admin Dose 2.4 GM; Start 02/13/19 at 08:00 Patient Own Medication 3 ea DAILY PO Last administered on 02/15/19 11:15; Admin Dose 3 EA; Start 02/13/19 at 21:42 Allergies: Coded Allergies: tramadol (Verified Allergy, Intermediate, rash, 01/02/19) possible allergy Cephalexin Monohydrate (Verified Allergy, Unknown, RASH, 01/02/19) Social History Smoking Status: Never smoker Exam/Review of Systems Vital Signs Vitals Vital Signs Date Temp Pulse Resp B/P (MAP) Pulse Ox O2 O2 Flow FiO2 Time Delivery Rate 02/16/19 98.0 61 16 149/78 95 00:05 (101) 02/15/19 Nasal 2.0 20:34 Cannula 02/13/19 21 13:40 Intake and Output 02/15/19 02/15/19 02/16/19 1515:00 23:00 07:00 IntakeIntake Total 500 ml 150 ml OutputOutput Total 3400 ml BalanceBalance -3400 ml 500 ml 150 ml Exam Constitutional: alert, oriented Psych: no complaints, nl mood/affect Head: normocephalic, atraumatic Neck: supple; No jvd Respiratory: diminished breath sounds; No clear to auscultation Cardiovascular: regular rate and rhythm, systolic murmur (2/6 OCTAVIO); No edema Gastrointestinal: soft, non-tender; No distended Musculoskeletal: No nl extremities to inspection 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: nl mental status, nl speech Labs Result Diagram: 02/16/19 0458 02/16/19 0458 Results 24hrs Laboratory Tests Test 02/16/19 04:58 White Blood Count 2.9 L Red Blood Count 3.96 L Hemoglobin 12.2 L Hematocrit 38.2 L Mean Corpuscular Volume 96.5 Mean Corpuscular Hemoglobin 30.8 Mean Corpuscular Hemoglobin Concent 31.9 L Red Cell Distribution Width 15.7 H Platelet Count 102 L Mean Platelet Volume 9.6 Immature Granulocytes % 0.700 H Neutrophils % 53.8 Segmented Neutrophils % (Manual) 47 Lymphocytes % 31.3 Lymphocytes % (Manual) 40 Monocytes % 11.2 H Monocytes % (Manual) 7 Eosinophils % 2.7 Eosinophils % (Manual) 6 Basophils % 0.3 Nucleated Red Blood Cells % 0.0 Immature Granulocytes # 0.020 Neutrophils # 1.6 Lymphocytes (Manual) 1.1 Lymphocytes # 0.9 Monocytes # 0.3 Monocytes # (Manual) 0.2 L Eosinophils # 0.1 Basophils # 0.0 Nucleated Red Blood Cells # 0.0 Platelet Estimate DECREASED Polychromasia 1+ Anisocytosis 1+ Microcytosis 1+ Sodium Level 143 Potassium Level 5.2 H Chloride Level 100 Carbon Dioxide Level 29 Anion Gap 14 H Blood Urea Nitrogen 48 H Creatinine 9.11 H Est Glomerular Filtrat Rate mL/min 6 L Glucose Level 97 Calcium Level 9.2 Phosphorus Level 8.1 H Total Bilirubin 0.1 L Direct Bilirubin 0.00 Indirect Bilirubin 0.1 Aspartate Amino Transf (AST/SGOT) 17 Alanine Aminotransferase (ALT/SGPT) 18 Alkaline Phosphatase 60 Total Protein 7.3 Albumin 4.1 Globulin 3.20 Albumin/Globulin Ratio 1.28 Medications Medications Current Medications IV Flush (NS 3 ml) 3 ml PER PROTOCOL IV ; Start 02/13/19 at 04:00 Ondansetron HCl (Zofran Tab) 4 mg Q6H PRN PO NAUSEA/VOMITING; Start 02/13/19 at 04:00 Nitroglycerin (Nitroglycerin (Sl Tab) 0.4 Mg) 1 tab Q5M PRN SL .CHEST PAIN; Start 02/13/19 at 04:00 Acetaminophen (Tylenol Tab) 650 mg Q6H PRN PO .PAIN 1-3 OR TEMP Last adm inistered on 02/13/19at 21:33; Admin Dose 650 MG; Start 02/13/19 at 04:00 Morphine Sulfate (morphine) 2 mg Q4H PRN IV .PAIN 7-10 Last administered on 02/16/19 06:19; Admin Dose 2 MG; Start 02/13/19 at 04:00 Docusate Sodium (Colace) 100 mg Q12H PRN PO .CONSTIPATION; Start 02/13/19 at 04:00 Bisacodyl (Dulcolax) 5 mg DAILY PRN PO .CONSTIPATION; Start 02/13/19 at 04:00 Apixaban (Eliquis) 5 mg BID PO Last administered on 02/15/19 20:31; Admin Dose 5 MG; Start 02/13/19 at 09:00 Carvedilol (Coreg) 6.25 mg BID PO Last administered on 02/15/19 20:31; Admin Dose 6.25 MG; Start 02/13/19 at 09:00 Chlorhexidine Gluconate (Peridex) 15 ml BID MT Last administered on 02/15/19 20:30; Admin Dose 15 ML; Start 02/13/19 at 09:00 Cholecalciferol (Vitamin D) 400 units DAILY PO Last administered on 02/15/19 09:49; Admin Dose 400 UNITS; Start 02/13/19 at 09:00 Folic Acid (Folic Acid) 1 mg DAILY PO Last administered on 02/15/19 09:49; Admin Dose 1 MG; Start 02/13/19 at 09:00 Hydralazine HCl (Apresoline) 25 mg BID PRN PO ELEVATED BLOOD PRESSURE; Start 02/13/19 at 04:00 Albuterol/ Ipratropium (Duoneb) 3 ml Q6HWA RESP THERAPY HHN Last administered on 02/15/19 20:34; Admin Dose 3 ML; Start 02/13/19 at 08:00 Isosorbide Mononitrate (Imdur) 30 mg DAILY PO Last administered on 02/14/19 08:49; Admin Dose 30 MG; Start 02/13/19 at 09:00 Nifedipine (Procardia Xl) 30 mg BID PO Last administered on 02/15/19 20:31; Admin Dose 30 MG; Start 02/13/19 at 09:00 Pregabalin (Lyrica) 75 mg BID PO Last administered on 02/15/19 20:30; Admin Dose 75 MG; Start 02/13/19 at 09:00 Sevelamer Carbonate (Renvela) 2.4 gm WITH MEALS PO Last administered on 02/15/19at 19:29; Admin Dose 2.4 GM; Start 02/13/19 at 08:00 Patient Own Medication 3 ea DAILY PO Last administered on 02/15/19at 11:15; Admin Dose 3 EA; Start 02/13/19 at 21:42 CHARANJIT COPELAND Feb 16, 2019 07:51
[2019-02-16] MEDS: SEVELAMER CARBONATE 2.4 GM PKT PO SCH ×3 (07:58→18:22)
[2019-02-16] MEDS: NIFEdipine (XL) 30 MG TAB PO SCH ×2 (08:01→21:16)
[2019-02-16] MEDS: APIXABAN 5 MG TABLET PO SCH ×2 (08:01→21:16)
[2019-02-16] MEDS: CHOLECALCIFEROL 400 UNITS TAB PO SCH (08:01)
[2019-02-16] MEDS: ISOSORBIDE MONONITRATE(SR)30 MG TAB PO SCH (08:02)
[2019-02-16] MEDS: FOLIC ACID 1 MG TAB PO SCH (08:03)
[2019-02-16 08:05] VITALS: BP 129/60; PULSE 59; RESP 18
--- NOTE | 2019-02-16 08:16 | RADRPT ---
Echocardiogram Report [id number] : 1965 (53y 4m)Study Date: 02/15/2019 3:02:34 PM Gender: MAccession #: [id number] Tech: Antolin Perez [facility] Location: [address] Ref.Physician: KAMRAN ZHANG Height(Cm): BSA: Weight(Kg): Quality: AdequateAccount #: Procedures: Echocardiographic Report: Transthoracic echocardiogram examination. Indications: R/O Isi. Effusion. Measurements: Doppler Measurement Value Normal Range RA Pressure 3.0 mmHg Findings: Left Ventricle: Normal left ventricular cavity size. Lower limits of normal left ventricular systolic function. The left ventricular ejection fraction is visually estimated at 50-55 %. These segments of the LV are hypokinetic: inferior base segment. Right Ventricle: Normal right ventricular size. Normal right ventricular systolic function. Left Atrium: There is mild enlargement of left atrium. Right Atrium: Mild RA enlargement (40mm-45mm). Mitral Valve: Mild mitral annular calcification. Aortic Valve: Normal appearance and function of the aortic valve. Tricuspid Valve: Normal appearance and function of the tricuspid valve with trace physiologic regurgitation. Pericardium: Small predominantly posterior pericardial effusion. IVC: Normal inferior vena cava appearance and respiratory collapse. Conclusions: Normal left ventricular cavity size. Lower limits of normal left ventricular systolic function. The left ventricular ejection fraction is visually estimated at 50-55 %. Mild hypokinesis of the inferior base. Small predominantly posterior pericardial effusion. Normal inferior vena cava appearance and respiratory collapse. RA pressure is normal. Electronically Signed By: David Simeon 2019-02-16 08:16:41 PDT
[2019-02-16] MEDS: ALBUTEROL/IPRATROPIUM (NEB) 3 ML AMP HHN SCH ×3 (08:44→20:19)
[2019-02-16] MEDS: CHLORHEXIDINE GLUCONATE 15 ML UD CUP MT SCH ×2 (09:00→21:16)
[2019-02-16] MEDS: PREGABALIN 75 MG CAP PO SCH ×2 (09:55→21:16)
[2019-02-16] MEDS: PIBRENTASVIR PO SCH (09:55)
[2019-02-16] MEDS: GLECAPREVIR PO SCH (09:55)
[2019-02-16 14:40] VITALS: BP 127/74; PULSE 88; RESP 20
--- NOTE | 2019-02-16 15:01 | PN ---
Date/Time of Note Date/Time of Note DATE: 02/16/19 TIME: 14:58 Assessment/Plan VTE Prophylaxis Risk score (from Ns)>0 risk: 2 SCD applied (from Ns): Yes Pharmacological prophylaxis: apixaban Lines/Catheters IV Catheter Type (from [facility]): Saline Lock Urinary Cath still in place: No Assessment/Plan Assessment/Plan 1. Left upper extremity AV graft pain, vascular consult per nephrology 2. Chest pain, consider musculoskeletal, no further cardiac work up needed 3. Hyperkalemia: Secondary to end-stage renal disease. K of 5.8 on admission., resolved 4. ESRD, DD on Wednesday, follow up with nephrology Dr. Castro 5. Paroxysmal atrial fibrillation, on Eliquis 6. Dyslipidemia: Continue statin 7 History of hepatitis C: Continue monitor as outpatient 8. Coronary artery disease: Resume all meds 9. Hypertension: Resume home medications 10. DVT prophylaxis: Eliquis Result Diagram: 02/16/19 0458 02/16/19 0458 Results 24hrs Laboratory Tests Test 02/16/19 04:58 White Blood Count 2.9 L Red Blood Count 3.96 L Hemoglobin 12.2 L Hematocrit 38.2 L Mean Corpuscular Volume 96.5 Mean Corpuscular Hemoglobin 30.8 Mean Corpuscular Hemoglobin Concent 31.9 L Red Cell Distribution Width 15.7 H Platelet Count 102 L Mean Platelet Volume 9.6 Immature Granulocytes % 0.700 H Neutrophils % 53.8 Segmented Neutrophils % (Manual) 47 Lymphocytes % 31.3 Lymphocytes % (Manual) 40 Monocytes % 11.2 H Monocytes % (Manual) 7 Eosinophils % 2.7 Eosinophils % (Manual) 6 Basophils % 0.3 Nucleated Red Blood Cells % 0.0 Immature Granulocytes # 0.020 Neutrophils # 1.6 Lymphocytes (Manual) 1.1 Lymphocytes # 0.9 Monocytes # 0.3 Monocytes # (Manual) 0.2 L Eosinophils # 0.1 Basophils # 0.0 Nucleated Red Blood Cells # 0.0 Platelet Estimate DECREASED Polychromasia 1+ Anisocytosis 1+ Microcytosis 1+ Sodium Level 143 Potassium Level 5.2 H Chloride Level 100 Carbon Dioxide Level 29 Anion Gap 14 H Blood Urea Nitrogen 48 H Creatinine 9.11 H Est Glomerular Filtrat Rate mL/min 6 L Glucose Level 97 Calcium Level 9.2 Phosphorus Level 8.1 H Total Bilirubin 0.1 L Direct Bilirubin 0.00 Indirect Bilirubin 0.1 Aspartate Amino Transf (AST/SGOT) 17 Alanine Aminotransferase (ALT/SGPT) 18 Alkaline Phosphatase 60 Total Protein 7.3 Albumin 4.1 Globulin 3.20 Albumin/Globulin Ratio 1.28 Subjective 24 Hr Interval Summary Free Text/Dictation left arm AV fistula pain, no fever Exam/Review of Systems Exam Vitals Vital Signs Date Temp Pulse Resp B/P (MAP) Pulse Ox O2 O2 Flow FiO2 Time Delivery Rate 02/16/19 98.0 88 20 127/74 95 Room Air 14:40 (91) 02/16/19 21 08:44 02/16/19 2.0 08:11 Intake and Output 02/15/19 02/15/19 02/16/19 1515:00 23:00 07:00 IntakeIntake Total 500 ml 150 ml OutputOutput Total 3400 ml BalanceBalance -3400 ml 500 ml 150 ml Constitutional: alert, oriented, well developed Psych: no complaints, nl mood/affect Head: normocephalic, atraumatic Eyes: nl conjunctiva, EOMI, nl lids, PERRL ENMT: nl external ears & nose, nl lips & teeth, nl nasal mucosa & septum Neck: supple, non-tender Respiratory: clear to auscultation, normal air movement; No congested cough, No crackles/rales, No diminished breath sounds, No inte rcostal retraction, No labored breathing, No respirations, No tactile fremitus, No wheezing, No other Cardiovascular: regular rate and rhythm, nl pulses; No bruits, No diastolic murmur, No edema, No gallop, No irregular rhythm, No jugular venous distention (JVD), No murmurs/extra sounds, No rub, No systolic murmur, No S3, No S4, No other Gastrointestinal: soft, nl liver, spleen, non-tender Musculoskeletal: nl extremities to inspection Extremities: normal pulses, other (left upper extremity AV graft tenderness, no redness); No calf tenderness, No cyanosis, No clubbing, No pitting pedal edema, No palpable cord Results Results 24hrs Laboratory Tests Test 02/16/19 04:58 White Blood Count 2.9 L Red Blood Count 3.96 L Hemoglobin 12.2 L Hematocrit 38.2 L Mean Corpuscular Volume 96.5 Mean Corpuscular Hemoglobin 30.8 Mean Corpuscular Hemoglobin Concent 31.9 L Red Cell Distribution Width 15.7 H Platelet Count 102 L Mean Platelet Volume 9.6 Immature Granulocytes % 0.700 H Neutrophils % 53.8 Segmented Neutrophils % (Manual) 47 Lymphocytes % 31.3 Lymphocytes % (Manual) 40 Monocytes % 11.2 H Monocytes % (Manual) 7 Eosinophils % 2.7 Eosinophils % (Manual) 6 Basophils % 0.3 Nucleated Red Blood Cells % 0.0 Immature Granulocytes # 0.020 Neutrophils # 1.6 Lymphocytes (Manual) 1.1 Lymphocytes # 0.9 Monocytes # 0.3 Monocytes # (Manual) 0.2 L Eosinophils # 0.1 Basophils # 0.0 Nucleated Red Blood Cells # 0.0 Platelet Estimate DECREASED Polychromasia 1+ Anisocytosis 1+ Microcytosis 1+ Sodium Level 143 Potassium Level 5.2 H Chloride Level 100 Carbon Dioxide Level 29 Anion Gap 14 H Blood Urea Nitrogen 48 H Creatinine 9.11 H Est Glomerular Filtrat Rate mL/min 6 L Glucose Level 97 Calcium Level 9.2 Phosphorus Level 8.1 H Total Bilirubin 0.1 L Direct Bilirubin 0.00 Indirect Bilirubin 0.1 Aspartate Amino Transf (AST/SGOT) 17 Alanine Aminotransferase (ALT/SGPT) 18 Alkaline Phosphatase 60 Total Protein 7.3 Albumin 4.1 Globulin 3.20 Albumin/Globulin Ratio 1.28 Medications Medication Current Medications IV Flush (NS 3 ml) 3 ml PER PROTOCOL IV ; Start 02/13/19 at 04:00 Ondansetron HCl (Zofran Tab) 4 mg Q6H PRN PO NAUSEA/VOMITING; Start 02/13/19 at 04:00 Nitroglycerin (Nitroglycerin (Sl Tab) 0.4 Mg) 1 tab Q5M PRN SL .CHEST PAIN; Start 02/13/19 at 04:00 Acetaminophen (Tylenol Tab) 650 mg Q6H PRN PO .PAIN 1-3 OR TEMP Last administered on 02/13/19at 21:33; Admin Dose 650 MG; Start 02/13/19 at 04:00 Morphine Sulfate (morphine) 2 mg Q4H PRN IV .PAIN 7-10 Last administered on 02/16/19at 13:09; Admin Dose 2 MG; Start 02/13/19 at 04:00 Docusate Sodium (Colace) 100 mg Q12H PRN PO .CONSTIPATION; Start 02/13/19 at 04:00 Bisacodyl (Dulcolax) 5 mg DAILY PRN PO .CONSTIPATION Last administered on 02/16/19 14:48; Admin Dose 5 MG; Start 02/13/19 at 04:00 Apixaban (Eliquis) 5 mg BID PO Last administered on 02/16/19 08:01; Admin Dose 5 MG; Start 02/13/19 at 09:00 Carvedilol (Coreg) 6.25 mg BID PO Last administered on 02/15/19 20:31; Admin Dose 6.25 MG; Start 02/13/19 at 09:00 Chlorhexidine Gluconate (Peridex) 15 ml BID MT Last administered on 02/15/19 20:30; Admin Dose 15 ML; Start 02/13/19 at 09:00 Cholecalciferol (Vitamin D) 400 units DAILY PO Last administered on 02/16/19 08:01; Admin Dose 400 UNITS; Start 02/13/19 at 09:00 Folic Acid (Folic Acid) 1 mg DAILY PO Last administered on 02/16/19 08:03; Admin Dose 1 MG; Start 02/13/19 at 09:00 Hydralazine HCl (Apresoline) 25 mg BID PRN PO ELEVATED BLOOD PRESSURE; Start 02/13/19 at 04:00 Albuterol/ Ipratropium (Duoneb) 3 ml Q6HWA RESP THERAPY HHN Last administered on 02/16/19 08:44; Admin Dose 3 ML; Start 02/13/19 at 08:00 Isosorbide Mononitrate (Imdur) 30 mg DAILY PO Last administered on 02/16/19 08:02; Admin Dose 30 MG; Start 02/13/19 at 09:00 Nifedipine (Procardia Xl) 30 mg BID PO Last administered on 02/16/19 08:01; Admin Dose 30 MG; Start 02/13/19 at 09:00 Pregabalin (Lyrica) 75 mg BID PO Last administered on 02/16/19 09:55; Admin Dose 75 MG; Start 02/13/19 at 09:00 Sevelamer Carbonate (Renvela) 2.4 gm WITH MEALS PO Last administered on 02/16/19 13:15; Admin Dose 2.4 GM; Start 02/13/19 at 08:00 Patient Own Medication 3 ea DAILY PO Last administered on 02/16/19at 09:55; Admin Dose 3 EA; Start 02/13/19 at 21:42 KAMRAN ZHANG MD Feb 16, 2019 15:01
--- NOTE | 2019-02-16 16:29 | CONS ---
Assessment/Plan Assessment/Plan Assessment/Plan (Daily) ESSMENT AND PLAN: This is a 53-year-old male with: 1. Chest pain, questionable pleuritic. Rule out acute coronary syndrome. Troponins have been negative. 2. Hyperkalemia, could be secondary to noncompliance. 3. End-stage renal disease on hemodialysis. 4. Hypertension. 5. Dyslipidemia. 6. Hepatitis C. 7. Hypertension. 8. Pancytopenia. Plan - HD MWF -? uremic pleuritis unlikely as pt has been getting his HD regularly and uremia not signiicant enough , last ECHO 01/10was negative for pericarditis - LUE fistula> ro be evaluated by Dr Aly - fluid restriction - K 5.2 today, HD tmw - uses 02 at home - Renally dose all meds Consultation Date/Type/Reason Admit Date/Time Feb 13, 2019 at 18:09 Initial Consult Date Requesting Provider: KAMRAN ZHANG MD Date/Time of Note DATE: 02/16/19 TIME: 16:27 24 HR Interval Summary Free Text/Dictation pain in fistula site Exam/Review of Systems Exam Vitals Vital Signs Date Temp Pulse Resp B/P (MAP) Pulse Ox O2 O2 Flow FiO2 Time Delivery Rate 02/16/19 95 2.0 14:59 02/16/19 74 16 Nasal 14:58 Cannula 02/16/19 98.0 127/74 14:40 (91) 02/16/19 21 08:44 Intake and Output 02/15/19 02/15/19 02/16/19 1515:00 23:00 07:00 IntakeIntake Total 500 ml 150 ml OutputOutput Total 3400 ml BalanceBalance -3400 ml 500 ml 150 ml Exam GENERAL: The patient is awake, alert, oriented, does not appear to be in acute distress. HEENT: Pupils equal, round, react to light. NECK: Supple, no JVD. HEART: Regular rate and rhythm. LUNGS: Clear to auscultation bilaterally. ABDOMEN: Soft, nontender, positive normoactive bowel sounds. EXTREMITIES: Trace edema. The patient has left upper extremity fistula with good bruit and thrill.with 2 ulcerations, upper one has some fresh blood and ttp Results Result Diagram: 02/16/19 0458 02/16/19 0458 Results 24hrs Laboratory Tests Test 02/16/19 04:58 White Blood Count 2.9 L Red Blood Count 3.96 L Hemoglobin 12.2 L Hematocrit 38.2 L Mean Corpuscular Volume 96.5 Mean Corpuscular Hemoglobin 30.8 Mean Corpuscular Hemoglobin Concent 31.9 L Red Cell Distribution Width 15.7 H Platelet Count 102 L Mean Platelet Volume 9.6 Immature Granulocytes % 0.700 H Neutrophils % 53.8 Segmented Neutrophils % (Manual) 47 Lymphocytes % 31.3 Lymphocytes % (Manual) 40 Monocytes % 11.2 H Monocytes % (Manual) 7 Eosinophils % 2.7 Eosinophils % (Manual) 6 Basophils % 0.3 Nucleated Red Blood Cells % 0.0 Immature Granulocytes # 0.020 Neutrophils # 1.6 Lymphocytes (Manual) 1.1 Lymphocytes # 0.9 Monocytes # 0.3 Monocytes # (Manual) 0.2 L Eosinophils # 0.1 Basophils # 0.0 Nucleated Red Blood Cells # 0.0 Platelet Estimate DECREASED Polychromasia 1+ Anisocytosis 1+ Microcytosis 1+ Sodium Level 143 Potassium Level 5.2 H Chloride Level 100 Carbon Dioxide Level 29 Anion Gap 14 H Blood Urea Nitrogen 48 H Creatinine 9.11 H Est Glomerular Filtrat Rate mL/min 6 L Glucose Level 97 Calcium Level 9.2 Phosphorus Level 8.1 H Total Bilirubin 0.1 L Direct Bilirubin 0.00 Indirect Bilirubin 0.1 Aspartate Amino Transf (AST/SGOT) 17 Alanine Aminotransferase (ALT/SGPT) 18 Alkaline Phosphatase 60 Total Protein 7.3 Albumin 4.1 Globulin 3.20 Albumin/Globulin Ratio 1.28 Medications Medication Current Medications IV Flush (NS 3 ml) 3 ml PER PROTOCOL IV ; Start 02/13/19 at 04:00 Ondansetron HCl (Zofran Tab) 4 mg Q6H PRN PO NAUSEA/VOMITING; Start 02/13/19 at 04:00 Nitroglycerin (Nitroglycerin (Sl Tab) 0.4 Mg) 1 tab Q5M PRN SL .CHEST PAIN; Start 02/13/19 at 04:00 Acetaminophen (Tylenol Tab) 650 mg Q6H PRN PO .PAIN 1-3 OR TEMP Last adminis tered on 02/13/19at 21:33; Admin Dose 650 MG; Start 02/13/19 at 04:00 Morphine Sulfate (morphine) 2 mg Q4H PRN IV .PAIN 7-10 Last administered on 02/16/19 13:09; Admin Dose 2 MG; Start 02/13/19 at 04:00 Docusate Sodium (Colace) 100 mg Q12H PRN PO .CONSTIPATION; Start 02/13/19 at 04:00 Bisacodyl (Dulcolax) 5 mg DAILY PRN PO .CONSTIPATION Last administered on 02/16/19 14:48; Admin Dose 5 MG; Start 02/13/19 at 04:00 Apixaban (Eliquis) 5 mg BID PO Last administered on 02/16/19 08:01; Admin Dose 5 MG; Start 02/13/19 at 09:00 Carvedilol (Coreg) 6.25 mg BID PO Last administered on 02/15/19 20:31; Admin Dose 6.25 MG; Start 02/13/19 at 09:00 Chlorhexidine Gluconate (Peridex) 15 ml BID MT Last administered on 02/15/19 20:30; Admin Dose 15 ML; Start 02/13/19 at 09:00 Cholecalciferol (Vitamin D) 400 units DAILY PO Last administered on 02/16/19 08:01; Admin Dose 400 UNITS; Start 02/13/19 at 09:00 Folic Acid (Folic Acid) 1 mg DAILY PO Last administered on 02/16/19 08:03; Admin Dose 1 MG; Start 02/13/19 at 09:00 Hydralazine HCl (Apresoline) 25 mg BID PRN PO ELEVATED BLOOD PRESSURE; Start 02/13/19 at 04:00 Albuterol/ Ipratropium (Duoneb) 3 ml Q6HWA RESP THERAPY HHN Last administered on 02/16/19 14:56; Admin Dose 3 ML; Start 02/13/19 at 08:00 Isosorbide Mononitrate (Imdur) 30 mg DAILY PO Last administered on 02/16/19 08:02; Admin Dose 30 MG; Start 02/13/19 at 09:00 Nifedipine (Procardia Xl) 30 mg BID PO Last administered on 02/16/19 08:01; Admin Dose 30 MG; Start 02/13/19 at 09:00 Pregabalin (Lyrica) 75 mg BID PO Last administered on 02/16/19 09:55; Admin Dose 75 MG; Start 02/13/19 at 09:00 Sevelamer Carbonate (Renvela) 2.4 gm WITH MEALS PO Last administered on at 13:15; Admin Dose 2.4 GM; Start 02/13/19 at 08:00 Patient Own Medication 3 ea DAILY PO Last administered on 02/16/19at 09:55; Admin Dose 3 EA; Start 02/13/19 at 21:42 CELENA GUERIN MD Feb 16, 2019 16:29
[2019-02-16 19:49] VITALS: BP 155/82; PULSE 68; RESP 18
[2019-02-17] VITALS (18 sets, daily range): BP systolic 98–146; BP diastolic 61–81; PULSE 60–79; RESP 18–20
[2019-02-17] MEDS: morphine 2 MG INJ IV PRN ×3 (07:39→17:36)
[2019-02-17] MEDS: SEVELAMER CARBONATE 2.4 GM PKT PO SCH ×3 (07:50→17:36)
[2019-02-17] MEDS: ALBUTEROL/IPRATROPIUM (NEB) 3 ML AMP HHN SCH ×3 (08:00→19:33)
[2019-02-17] MEDS: ISOSORBIDE MONONITRATE(SR)30 MG TAB PO SCH (09:00)
[2019-02-17] MEDS: NIFEdipine (XL) 30 MG TAB PO SCH ×2 (09:00→21:00)
--- NOTE | 2019-02-17 09:07 | CONS ---
Assessment/Plan Assessment/Plan Hospital Course (Demo Recall) Chest pain: Chronic for 7 yrs and atypical in nature. He had a normal Lexiscan 03/2018 for the same and it was normal. Mostly at rest and seems to be musculoskeletal in nature. Troponins have been negative and EKG is unremarkable. I do not think further workup will yield any new results. Though he may have underlying CAD with his risk factors, I do not think his symptoms are angina. Paroxysmal afib: On Eliquis. In sinus Chronic diastolic CHF: Recent EF preserved. Compensated on exam HTN ESRD on HD Hep C -no further cardiac workup at this time. -coreg 6.25mg BID -nifedipine 30mg BID -Eliquis 5mg BID -imdur 30mg (?need but can continue) Will see PRN Consultation Date/Type/Reason Admit Date/Time Feb 13, 2019 at 18:09 Initial Consult Date 02/16/19 Type of Consult Cardiology Requesting Provider: KAMRAN ZHANG MD Date/Time of Note DATE: 02/17/19 TIME: 09:06 24 HR Interval Summary Free Text/Dictation Has pain in his AV fistula site with some radiation to his shoulder. No substernal chest pain Exam/Review of Systems Vital Signs Vitals Vital Signs Date Temp Pulse Resp B/P (MAP) Pulse Ox O2 O2 Flow FiO2 Time Delivery Rate 02/17/19 98.3 79 18 138/79 100 Room Air 08:43 (98) 02/17/19 2.0 02:17 02/16/19 21 08:44 Intake and Output 02/16/19 02/16/19 02/17/19 1515:00 23:00 07:00 IntakeIntake Total 200 ml 900 ml 80 ml OutputOutput Total 75 ml 100 ml BalanceBalance 125 ml 900 ml -20 ml Exam Constitutional: alert, oriented Psych: no complaints, nl mood/affect Respiratory: clear to auscultation; No crackles/rales Cardiovascular: regular rate and rhythm; No edema Gastrointestinal: soft, non-tender; No distended 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: nl mental status, nl speech Labs Result Diagram: 02/17/1943902/17/19439 Results 24hrs Laboratory Tests Test 02/17/19 04:40 White Blood Count 3.0 L Red Blood Count 3.49 L Hemoglobin 11.0 L Hematocrit 33.6 L Mean Corpuscular Volume 96.3 Mean Corpuscular Hemoglobin 31.5 Mean Corpuscular Hemoglobin Concent 32.7 Red Cell Distribution Width 15.3 H Platelet Count 105 L Mean Platelet Volume 9.6 Immature Granulocytes % 0.700 H Neutrophils % 49.8 Segmented Neutrophils % (Manual) 55 Band Neutrophils % (Manual) 2 Lymphocytes % 34.9 Lymphocytes % (Manual) 27 Reactive Lymphocytes % (Manual) 8 H Monocytes % 11.2 H Monocytes % (Manual) 7 Eosinophils % 2.7 Eosinophils % (Manual) 1 Basophils % 0.7 Nucleated Red Blood Cells % 0.0 Immature Granulocytes # 0.020 Neutrophils # 1.5 L Neutrophils # (Manual) 1.7 Band Neutrophils # 0.0 Lymphocytes (Manual) 0.8 Lymphocytes # 1.0 Reactive Lymphocytes # 0.2 H Monocytes # 0.3 Monocytes # (Manual) 0.2 L Eosinophils # 0.1 Basophils # 0.0 Nucleated Red Blood Cells # 0.0 Platelet Estimate DECREASED Giant Platelets 1 H Polychromasia 1+ Poikilocytosis 1+ Anisocytosis 2+ Microcytosis 2+ Prothrombin Time 16.3 H Prothrombin Time Ratio 1.3 INR International Normalized Ratio 1.30 Sodium Level 139 Potassium Level 5.1 Chloride Level 96 L Carbon Dioxide Level 29 Anion Gap 14 H Blood Urea Nitrogen 69 H Creatinine 10.52 H Est Glomerular Filtrat Rate mL/min 5 L Glucose Level 100 Calcium Level 8.8 Phosphorus Level 8.3 H Total Bilirubin 0.1 L Direct Bilirubin 0.00 Indirect Bilirubin 0.1 Aspartate Amino Transf (AST/SGOT) 17 Alanine Aminotransferase (ALT/SGPT) 17 Alkaline Phosphatase 54 Total Protein 6.4 Albumin 3.8 Globulin 2.60 Albumin/Globulin Ratio 1.46 Medications Medications Current Medications IV Flush (NS 3 ml) 3 ml PER PROTOCOL IV ; Start 02/13/19 at 04:00 Ondansetron HCl (Zofran Tab) 4 mg Q6H PRN PO NAUSEA/VOMITING; Start 02/13/19 at 04:00 Nitroglycerin (Nitroglycerin (Sl Tab) 0.4 Mg) 1 tab Q5M PRN SL .CHEST PAIN; Start 02/13/19 at 04:00 Acetaminophen (Tylenol Tab) 650 mg Q6H PRN PO .PAIN 1-3 OR TEMP Last administered on 02/13/19at 21:33; Admin Dose 650 MG; Start 02/13/19 at 04:00 Morphine Sulfate (morphine) 2 mg Q4H PRN IV .PAIN 7-10 Last administered on 02/17/19 07:39; Admin Dose 2 MG; Start 02/13/19 at 04:00 Docusate Sodium (Colace) 100 mg Q12H PRN PO .CONSTIPATION; Start 02/13/19 at 04:00 Bisacodyl (Dulcolax) 5 mg DAILY PRN PO .CONSTIPATION Last administered on 02/16/19 14:48; Admin Dose 5 MG; Start 02/13/19 at 04:00 Apixaban (Eliquis) 5 mg BID PO Last administered on 02/16/19 21:16; Admin Dose 5 MG; Start 02/13/19 at 09:00 Carvedilol (Coreg) 6.25 mg BID PO Last administered on 02/16/19 21:16; Admin Dose 6.25 MG; Start 02/13/19 at 09:00 Chlorhexidine Gluconate (Peridex) 15 ml BID MT Last administered on 02/16/19 21:16; Admin Dose 15 ML; Start 02/13/19 at 09:00 Cholecalciferol (Vitamin D) 400 units DAILY PO Last administered on 02/16/19 08:01; Admin Dose 400 UNITS; Start 02/13/19 at 09:00 Folic Acid (Folic Acid) 1 mg DAILY PO Last administered on 02/16/19 08:03; Admin Dose 1 MG; Start 02/13/19 at 09:00 Hydralazine HCl (Apresoline) 25 mg BID PRN PO ELEVATED BLOOD PRESSURE; Start 02/13/19 at 04:00 Albuterol/ Ipratropium (Duoneb) 3 ml Q6HWA RESP THERAPY HHN Last administered on 02/16/19 20:19; Admin Dose 3 ML; Start 02/13/19 at 08:00 Isosorbide Mononitrate (Imdur) 30 mg DAILY PO Last administered on 02/16/19 08:02; Admin Dose 30 MG; Start 02/13/19 at 09:00 Nifedipine (Procardia Xl) 30 mg BID PO Last administered on 02/16/19 21:16; Admin Dose 30 MG; Start 02/13/19 at 09:00 Pregabalin (Lyrica) 75 mg BID PO Last administered on 02/16/19 21:16; Admin Dose 75 MG; Start 02/13/19 at 09:00 Sevelamer Carbonate (Renvela) 2.4 gm WITH MEALS PO Last administered on 02/16/19 18:22; Admin Dose 2.4 GM; Start 02/13/19 at 08:00 Patient Own Medication 3 ea DAILY PO Last administered on 02/16/19at 09:55; Admin Dose 3 EA; Start 02/13/19 at 21:42 CHARANJIT COPELAND Feb 17, 2019 09:07
[2019-02-17] MEDS: CHLORHEXIDINE GLUCONATE 15 ML UD CUP MT SCH ×2 (12:26→21:00)
[2019-02-17] MEDS: PREGABALIN 75 MG CAP PO SCH ×2 (12:27→21:00)
[2019-02-17] MEDS: CHOLECALCIFEROL 400 UNITS TAB PO SCH (12:28)
[2019-02-17] MEDS: FOLIC ACID 1 MG TAB PO SCH (12:28)
[2019-02-17] MEDS: APIXABAN 5 MG TABLET PO SCH ×2 (12:28→21:00)
--- NOTE | 2019-02-17 13:38 | CONS ---
Assessment/Plan Assessment/Plan Hospital Course (Demo Recall) 1. End-stage renal disease on hemodialysis. 2. Hyperkalemia, could be secondary to noncompliance. 3. Chest pain, questionable pleuritic. Rule out acute coronary syndrome. Troponins have been negative. 4. Hypertension. 5. Dyslipidemia. 6. Hepatitis C. 7. Hypertension. 8. Pancytopenia. 9. Overweight Assessment/Plan (Daily) - HD MWF -? uremic pleuritis unlikely as pt has been getting his HD regularly and uremia not significant enough , last ECHO 01/10was negative for pericarditis - LUE fistula> to be evaluated by Dr Aly - fluid restriction - K 5.1 today, HD today - uses 02 at home - Renally dose all meds Consultation Date/Type/Reason Admit Date/Time Feb 13, 2019 at 18:09 Initial Consult Date 02/16/19 Type of Consult nephro Reason for Consultation dr Castro Requesting Provider: KAMRAN ZHANG MD Date/Time of Note DATE: 02/17/19 TIME: 13:38 24 HR Interval Summary Constitutional: no complaints Exam/Review of Systems Exam Vitals Vital Signs Date Temp Pulse Resp B/P (MAP) Pulse Ox O2 O2 Flow FiO2 Time Delivery Rate 02/17/19 63 11:08 02/17/19 98.3 18 138/79 100 Room Air 08:43 (98) 02/17/19 2.0 02:17 02/16/19 21 08:44 Intake and Output 02/16/19 02/16/19 02/17/19 1515:00 23:00 07:00 IntakeIntake Total 200 ml 900 ml 80 ml OutputOutput Total 75 ml 100 ml BalanceBalance 125 ml 900 ml -20 ml Exam left arm AV fistula with skin defect Constitutional: alert, oriented Neck: supple Respiratory: clear to auscultation Gastrointestinal: soft Results Result Diagram: 02/17/19 0440 02/17/19 0440 Results 24hrs Laboratory Tests Test 02/17/19 04:40 White Blood Count 3.0 L Red Blood Count 3.49 L Hemoglobin 11.0 L Hematocrit 33.6 L Mean Corpuscular Volume 96.3 Mean Corpuscular Hemoglobin 31.5 Mean Corpuscular Hemoglobin Concent 32.7 Red Cell Distribution Width 15.3 H Platelet Count 105 L Mean Platelet Volume 9.6 Immature Granulocytes % 0.700 H Neutrophils % 49.8 Segmented Neutrophils % (Manual) 55 Band Neutrophils % (Manual) 2 Lymphocytes % 34.9 Lymphocytes % (Manual) 27 Reactive Lymphocytes % (Manual) 8 H Monocytes % 11.2 H Monocytes % (Manual) 7 Eosinophils % 2.7 Eosinophils % (Manual) 1 Basophils % 0.7 Nucleated Red Blood Cells % 0.0 Immature Granulocytes # 0.020 Neutrophils # 1.5 L Neutrophils # (Manual) 1.7 Band Neutrophils # 0.0 Lymphocytes (Manual) 0.8 Lymphocytes # 1.0 Reactive Lymphocytes # 0.2 H Monocytes # 0.3 Monocytes # (Manual) 0.2 L Eosinophils # 0.1 Basophils # 0.0 Nucleated Red Blood Cells # 0.0 Platelet Estimate DECREASED Giant Platelets 1 H Polychromasia 1+ Poikilocytosis 1+ Anisocytosis 2+ Microcytosis 2+ Prothrombin Time 16.3 H Prothrombin Time Ratio 1.3 INR International Normalized Ratio 1.30 Sodium Level 139 Potassium Level 5.1 Chloride Level 96 L Carbon Dioxide Level 29 Anion Gap 14 H Blood Urea Nitrogen 69 H Creatinine 10.52 H Est Glomerular Filtrat Rate mL/min 5 L Glucose Level 100 Calcium Level 8.8 Phosphorus Level 8.3 H Total Bilirubin 0.1 L Direct Bilirubin 0.00 Indirect Bilirubin 0.1 Aspartate Amino Transf (AST/SGOT) 17 Alanine Aminotransferase (ALT/SGPT) 17 Alkaline Phosphatase 54 Total Protein 6.4 Albumin 3.8 Globulin 2.60 Albumin/Globulin Ratio 1.46 Medications Medication Current Medications IV Flush (NS 3 ml) 3 ml PER PROTOCOL IV ; Start 02/13/19 at 04:00 Ondansetron HCl (Zofran Tab) 4 mg Q6H PRN PO NAUSEA/VOMITING; Start 02/13/19 at 04:00 Nitroglycerin (Nitroglycerin (Sl Tab) 0.4 Mg) 1 tab Q5M PRN SL .CHEST PAIN; Start 02/13/19 at 04:00 Acetaminophen (Tylenol Tab) 650 mg Q6H PRN PO .PAIN 1-3 OR TEMP Last administered on 02/13/19at 21:33; Admin Dose 650 MG; Start 02/13/19 at 04:00 Morphine Sulfate (morphine) 2 mg Q4H PRN IV .PAIN 7-10 Last administered on 02/17/19at 11:54; Admin Dose 2 MG; Start 02/13/19 at 04:00 Docusate Sodium (Colace) 100 mg Q12H PRN PO .CONSTIPATION; Start 02/13/19 at 04:00 Bisacodyl (Dulcolax) 5 mg DAILY PRN PO .CONSTIPATION Last administered on 02/16/19 14:48; Admin Dose 5 MG; Start 02/13/19 at 04:00 Apixaban (Eliquis) 5 mg BID PO Last administered on 02/17/19 12:28; Admin Dose 5 MG; Start 02/13/19 at 09:00 Carvedilol (Coreg) 6.25 mg BID PO Last administered on 02/16/19 21:16; Admin Dose 6.25 MG; Start 02/13/19 at 09:00 Chlorhexidine Gluconate (Peridex) 15 ml BID MT Last administered on 02/17/19 12:26; Admin Dose 15 ML; Start 02/13/19 at 09:00 Cholecalciferol (Vitamin D) 400 units DAILY PO Last administered on 02/17/19 12:28; Admin Dose 400 UNITS; Start 02/13/19 at 09:00 Folic Acid (Folic Acid) 1 mg DAILY PO Last administered on 02/17/19 12:28; Admin Dose 1 MG; Start 02/13/19 at 09:00 Hydralazine HCl (Apresoline) 25 mg BID PRN PO ELEVATED BLOOD PRESSURE; Start 02/13/19 at 04:00 Albuterol/ Ipratropium (Duoneb) 3 ml Q6HWA RESP THERAPY HHN Last administered on 02/16/19 20:19; Admin Dose 3 ML; Start 02/13/19 at 08:00 Isosorbide Mononitrate (Imdur) 30 mg DAILY PO Last administered on 02/16/19 08:02; Admin Dose 30 MG; Start 02/13/19 at 09:00 Nifedipine (Procardia Xl) 30 mg BID PO Last administered on 02/16/19 21:16; Admin Dose 30 MG; Start 02/13/19 at 09:00 Pregabalin (Lyrica) 75 mg BID PO Last administered on 02/17/19 12:27; Admin Dose 75 MG; Start 02/13/19 at 09:00 Sevelamer Carbonate (Renvela) 2.4 gm WITH MEALS PO Last administered on at 12:26; Admin Dose 2.4 GM; Start 02/13/19 at 08:00 Patient Own Medication 3 ea DAILY PO Last administered on 02/16/19at 09:55; Admin Dose 3 EA; Start 02/13/19 at 21:42 MT MEJIA Feb 17, 2019 13:38
[2019-02-17] MEDS: PIBRENTASVIR PO SCH (15:16)
[2019-02-17] MEDS: GLECAPREVIR PO SCH (15:16)
--- NOTE | 2019-02-17 16:48 | DS ---
Date/Time of Note Date/Time of Note DATE: 02/17/19 TIME: 16:37 Discharge Summary Admission/Discharge Info Admit Date/Time Feb 13, 2019 at 18:09 Discharge Date/Time Discharge Diagnosis 1. Chest pain, consider musculoskeletal, no further cardiac work up needed 2. Hyperkalemia: Secondary to end-stage renal disease. K of 5.8 on admission., resolved 3. ESRD, DD on Wednesday, follow up with nephrology Dr. Castro 4. Paroxysmal atrial fibrillation, on Eliquis 5. Dyslipidemia: Continue statin 6 History of hepatitis C: Continue monitor as outpatient 7. Coronary artery disease: Resume all meds 8. Hypertension: Resume home medications 9. DVT prophylaxis: Eliquis Patient Condition: Stable Hospital Course 53 yo M with a h/o paroxysmal afib on Eliquis, chronic diastolic CHF, ESRD on HD, HTN, Hep C, who presented with chest pain. He has been ruled out for [place]. Of note he has had multiple admissions for chest pain in the past. Recent chest pain admission was treated for PNA. March 2018 he had a normal Lexiscan. He notes the pain has been present since he started HD 7 yrs ago and occurs at random times. Mostly at rest and is more left chest wall and radiating to his axilla. He also notes he has swelling in this area at times. Rarely with exertion and overall feels "ok" when he walks. Sometimes the pain is with deep inspiration and sometimes it is reproducible with palpation. Chronic for 7 yrs and atypical in nature. He had a normal Lexiscan 03/2018 for the same and it was normal. Mostly at rest and seems to be musculoskeletal in nature. Troponins have been negative and EKG is unremarkable. I do not think further workup will yield any new results. Though he may have underlying CAD with his risk factors, angina is unlikely. There is no further cardiac work up needed per qc lab technician Dr. Simeon. K was 5.8 on admission that he got HD and hyperkalemia resolved. There is a concern about left arm dialysis fistula, patient is seen by vascular surgeon Dr Aly, no surgical treatment needed. Home Meds Active Scripts Chlorhexidine Gluconate (Peridex) 473 Ml Mouthwash, 15 ML MT BID for 7 Days, BOTTLE Prov:TIESHA ARELLANO 01/06/19 Nifedipine (Procardia Xl) 30 Mg Tab.er.24, 30 MG PO BID for 30 Days, TAB Prov:TIESHA ARELLANO. 01/06/19 Ipratropium-Albuterol (Ipratropium-Albuterol) 0.5-3 Mg/3 Ml Ampul.neb, 3 ML HHN Q6HWA RESP THERAPY for 4 Days Prov:TIESHA ARELLANO. 01/06/19 Reported Medications Glecaprevir/Pibrentasvir (Mavyret 100-40 mg Tablet) 1 Each Tablet, 3 EACH PO DAILY, TAB 02/13/19 Folic Acid* (Folic Acid*) 1 Mg Tablet, 1 MG PO DAILY, TAB 01/02/19 Cholecalciferol* (Vitamin D*) 400 Unit Tablet, 400 UNIT PO DAILY, TAB 01/02/19 Sevelamer Hcl* (Renagel*) 800 Mg Tablet, 2400 MG PO WITH MEALS, TAB 11/25/18 Hydralazine Hcl* (Hydralazine Hcl*) 25 Mg Tab, 25 MG PO BID PRN for ELEVATED BLOOD PRESSURE, #60 TAB 11/25/18 Apixaban* (Eliquis*) 5 Mg Tablet, 5 MG PO BID, TAB 11/25/18 Pregabalin* (Lyrica*) 75 Mg Capsule, 75 MG PO BID, CAP 11/25/18 Carvedilol* (Carvedilol*) 6.25 Mg Tablet, 6.25 MG PO BID, #60 TAB 11/25/18 Isosorbide Mononitrate* (Isosorbide Mononitrate*) 30 Mg Tab.er.24h, 30 MG PO DAILY, TAB 11/25/18 Discontinued Reported Medications Glecaprevir/Pibrentasvir (Mavyret 100-40 mg Tablet) 1 Each Tablet, 1 TAB PO DAILY, TAB 01/02/19 Discontinued Scripts Levofloxacin* (Levaquin*) 500 Mg Tablet, 500 MG PO Q48H, #4 TAB Prov:TIESHA ARELLANOSteph 01/06/19 [Gentamicin Iv Per Pharmacy] 1 EA EACH No Conflict Check, 0 EA XX NOTE, #3 DOSE Prov:TIESHA ARELLANOSteph 01/06/19 Gentamicin Sulfate (Gentamicin Sulfate) 20 Mg/2 Ml Vial, 80 MG IV* AFTER DIALYSIS, #3 DOSE Prov:TIESHA ARELLANO. 01/06/19 Follow-up Plan PCP, nephrology and Dr Aly Primary Care Provider Ace Castro MD Pending Labs Laboratory Tests Test 02/17/19 04:40 White Blood Count 3.0 10^3/ul (4.8-10.8) Red Blood Count 3.49 10^6/ul (4.70-6.10) Hemoglobin 11.0 g/dl (14.0-18.0) Hematocrit 33.6 % (42.0-52.0) Mean Corpuscular Volume 96.3 fl (82.0-101.0) Mean Corpuscular Hemoglobin 31.5 pg (29.0-33.0) Mean Corpuscular Hemoglobin Concent 32.7 g/dl (32.0-37.0) Red Cell Distribution Width 15.3 % (11.5-14.5) Platelet Count 105 10^3/UL (140-415) Mean Platelet Volume 9.6 fl (7.4-10.4) Immature Granulocytes % 0.700 % (0.001-0.429) Neutrophils % 49.8 % (39.0-77.0) Segmented Neutrophils % (Manual) 55 % (39-77) Band Neutrophils % (Manual) 2 % (0-4) Lymphocytes % 34.9 % (15.0-51.0) Lymphocytes % (Manual) 27 % (15-51) Reactive Lymphocytes % (Manual) 8 % (0-0) Monocytes % 11.2 % (0.0-11.0) Monocytes % (Manual) 7 % (0-11) Eosinophils % 2.7 % (0.0-7.0) Eosinophils % (Manual) 1 % (0-7) Basophils % 0.7 % (0.0-2.0) Nucleated Red Blood Cells % 0.0 /100WBC (0.0-0.0) Immature Granulocytes # 0.020 10^3/ul (0.0-0.031) Neutrophils # 1.5 10^3/ul (1.6-7.5) Neutrophils # (Manual) 1.7 10^3/ul (1.6-7.5) Band Neutrophils # 0.0 10^3/ul (0.0-0.6) Lymphocytes (Manual) 0.8 10^3/ul (0.8-2.9) Lymphocytes # 1.0 10^3/ul (0.8-2.9) Reactive Lymphocytes # 0.2 10^3/ul (0.0-0.0) Monocytes # 0.3 10^3/ul (0.3-0.9) Monocytes # (Manual) 0.2 10^3/ul (0.3-0.9) Eosinophils # 0.1 10^3/ul (0.0-0.5) Basophils # 0.0 10^3/ul (0.0-0.1) Nucleated Red Blood Cells # 0.0 10^3/ul (0.0-0.0) Platelet Estimate DECREASED Giant Platelets 1 % (0-0) Polychromasia 1+ (0-0) Poikilocytosis 1+ (0-0) Anisocytosis 2+ (0-0) Microcytosis 2+ (0-0) Prothrombin Time 16.3 Sec (11.9-14.9) Prothrombin Time Ratio 1.3 INR International Normalized Ratio 1.30 Sodium Level 139 mmol/L (135-144) Potassium Level 5.1 mmol/L (3.5-5.1) Chloride Level 96 mmol/L (97-110) Carbon Dioxide Level 29 mmol/L (21-31) Anion Gap 14 (5-13) Blood Urea Nitrogen 69 mg/dl (7-20) Creatinine 10.52 mg/dl (0.61-1.24) Est Glomerular Filtrat Rate mL/min 5 mL/min (>60) Glucose Level 100 mg/dl (70-220) Calcium Level 8.8 mg/dl (8.4-10.2) Phosphorus Level 8.3 mg/dl (2.5-4.9) Total Bilirubin 0.1 mg/dl (0.2-1.3) Direct Bilirubin 0.00 mg/dl (0.00-0.20) Indirect Bilirubin 0.1 mg/dl (0-1.1) Aspartate Amino Transf (AST/SGOT) 17 IU/L (15-46) Alanine Aminotransferase (ALT/SGPT) 17 IU/L (13-69) Alkaline Phosphatase 54 IU/L (42-121) Total Protein 6.4 g/dl (6.1-8.1) Albumin 3.8 g/dl (3.3-4.9) Globulin 2.60 g/dl (1.3-3.2) Albumin/Globulin Ratio 1.46 KAMRAN ZHANG MD Feb 17, 2019 16:48
--- NOTE | 2019-02-17 17:19 | CONS ---
DATE OF ADMISSION: 02/13/2019 DATE OF CONSULTATION: 02/16/2019 TYPE OF CONSULTATION: Vascular surgery. Dear Doctors: Mr. Abel Bell is a 53-year-old gentleman known to our vascular surgery service group who presente d to [facility] secondary to having chest pain and during his evaluation, he was id entified to be hyperkalemic with his potassium level being 5.8. At that time, the patient has been a dmitted and being evaluated with our multidisciplinary team for his dialysis sessions. Vascular surg carisa consultation has been obtained for further evaluation as he has developed ulceration of his left upper extremity fistula. 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 It appears the patient , due to his complicated course of left upper extremity fistula revision, had development of ulcerati ons and wound dehiscence that required multiple interventions in order to allow it to heal. Over the past year he had developed a new ulceration near the medial aspect of the upper arm with our plastic surgery colleagues went ahead and applied the full thickness skin graft to cover the ulceration. Th at area has healed well; however, in the anterolateral aspect of the upper arm near area of ulc eration has become concerning. At the moment, the patient denies shortness of breath, chest pain, na usea, vomiting, fever or chills. REVIEW OF SYSTEMS: A 14-point review performed and negative except what is mentioned in the HPI. PAST MEDICAL HISTORY: Anemia of chronic disease, end-stage renal disease, coronary artery disease, h ypertension, diastolic congestive heart failure, dyslipidemia, atrial fibrillation, hepatitis C, alexandru cardial effusion. PAST SURGICAL HISTORY: Multiple left upper extremity AV fistula revisions, chest wall catheters, wou nd debridement, full thickness skin graft to the left upper extremity. FAMILY HISTORY: Positive for hypertension. SOCIAL HISTORY: Former smoker. Currently, denies alcohol, tobacco or illicit drug use. PHYSICAL EXAMINATION: GENERAL: Alert and oriented x3, in no apparent distress. HEENT: Normocephalic, atraumatic. Mucosa is moist. NECK: Supple. No carotid bruit. PULMONARY: Clear to auscultation bilaterally. No crackles. CARDIOVASCULAR: S1, S2 present. He does have significant left chest wall superficial veins secondar y to his central stenosis. ABDOMEN: Soft, nontender, nondistended. Bowel sounds are positive. EXTREMITIES: Right lower extremity: Palpable femoral pulse, nonpalpable pedal pulse. Motor, sensor y intact. Cap refill 3 seconds. Presence of lipodermatosclerosis. Left lower extremity: Palpable femoral pulse, nonpalpable pedal pulse. Motor, sensory intact. Cap refill 3 seconds. Presence of l ipodermatosclerosis. Left upper extremity: Palpable brachial pulse. Motor, sensory intact. Cap re fill 3 seconds. Upper arm fistula with bruit and thrill present, aneurysmal changes with surgical sc ar that is well healed. He does have an area of ulcerations in upper anterolateral aspect of the arm where he has developed a superficial scab that could be concerning with future development penetrati ng into the fistula. ASSESSMENT AND PLAN: 1. End-stage renal disease and central stenosis. It seems the patient has developed another episode of ulceration in the anterolateral aspect of the upper arm where his aneurysmal fistula is located. Unfortunately, the patient has had a complicated course of left upper extremity fistula revisions se condary to continued recurrence of ulcerations. However, the patient may require another revision of this upper arm, but for the meantime as the ulceration appears to be very superficial with a scab, w e may be able to allow gradual wound healing to preserve and salvage this fistula on its own. We wou ld recommend application of Telfa at the end of our each dialysis sessions to be applied first which is a nonadhesive dressing then apply regular 4 x 4 gauze and then paper tape. I will plan to continu e to monitor the patient. We will schedule him to be followed as an outpatient. If he requires revi juan antonio, we will schedule him at that time 2. Central stenosis. The patient does have history of left central venous stenosis that requires in termittent interventions as the patient developed left upper extremity edema and left facial swelling . At the moment, he does not have any significant symptoms. I discussed findings, plan and management with the patient. He understands all that is involved. Optimize vascular status (BP meds, diet, nutrition, exercise, sugar control, antiplatelets). Thank you for allowing us to partake in the care of your patient. Please call with any questions. Dictated By: DEMETRIUS PAGAN/TYRA Conf#: [id number] DID#: [id number] CC: KAMRAN ZHANG MD;*End*
== END 2019-02-17 20:10 | disposition home or self-care (01) | DRG 291 ==
LOC: E/R 21:23 → MS1 02-13 03:33 → EDBEDREQ 02-13 14:55 → EDBEDREQSVC 02-13 14:55 → EDBEDREQTM 02-13 14:55 → OBSVTOIN 02-13 18:09
PROVIDERS: ADMIT Family Medicine; ATTEND Internal Medicine
PROC: 5A1D70Z Performance of Urinary Filtration, Intermittent, Less than 6 Hours Per Day (ICD-10-PCS; principal; 2019-02-13)
DX: I13.2 Hypertensive heart and chronic kidney disease with heart failure and with stage 5 chronic kidney disease, or end stage renal disease (principal); N18.6 End stage renal disease; I50.32 Chronic diastolic (congestive) heart failure; D61.818 Other pancytopenia; Z99.2 Dependence on renal dialysis; E78.5 Hyperlipidemia, unspecified; I48.0 Paroxysmal atrial fibrillation; E87.5 Hyperkalemia; I25.10 Atherosclerotic heart disease of native coronary artery without angina pectoris; B19.20 Unspecified viral hepatitis C without hepatic coma; Z91.14 Patient's other noncompliance with medication regimen; R07.89 Other chest pain
CPT/HCPCS: 71045; 80053; 82306; 82550; 82553; 83735; 83880; 84100; 84484; 85025; 85610; 87340; 90935; 93005; 93308; 94640; 94664; G0378; J2270